=== PATIENT | male | born 1960 | race Caucasian/White ===

== ENCOUNTER 2019-04-28 04:05 | Emergency (ER) | payer MEDICAID ==
[2019-04-28 04:14] VITALS: TEMP 98.1
--- NOTE | 2019-04-28 04:26 | ED ---
Trauma HPI <Adan Narayanan - Last Filed: 04/28/19 07:30> - General Source: patient Mode of arrival: wheelchair Limitations: no limitations <Darlene Magana - Last Filed: 04/28/19 08:38> - General Chief Complaint: Extremity Injury, Upper Stated Complaint: Fall, Arm injury Time Seen by Provider: 04/28/19 04:26 - History of Present Illness Initial Comments: Braulio is a 58-year-old gentleman who presents the emergency department today for evaluation of right shoulder pain. Patient reports that night or early Saturday morning had a mechanical trip and fall over his table and landed onto his right shoulder. He noticed that his shoulder felt odd but thought maybe he just sprained it. Since that time he has noticed that he has minimal movement in his right hand. He is no longer able to extend the fingers. Patient states that he's been trying to move the arm around but is noticed that there is a large lump in his right armpit. States that he doesn't like coming to the doctor so he is trying to just wait it out see if it got better. (Darlene Magana) - Related Data Home Medications Medication Instructions Recorded Confirmed Enalapril [Vasotec] 10 mg PO DAILY 04/28/19 04/28/19 Metoprolol Tartrate [Lopressor] 25 mg PO DAILY 04/28/19 04/28/19 Naproxen Sodium [Aleve] 220 mg PO DAILY PRN 04/28/19 04/28/19 Omeprazole 20 mg PO DAILY 04/28/19 04/28/19 metFORMIN HCL 1,000 mg PO BID 04/28/19 04/28/19 Previous Rx's Medication Instructions Recorded Ibuprofen 800 mg PO Q6HR PRN #20 tablet 04/28/19 Allergies Allergy/AdvReac Type Severity Reaction Status Date / Time No Known Allergies Allergy Verified 04/28/19 07:34 Review of Systems ROS Other: All systems not noted in ROS Statement are negative. <Adan Narayanan - Last Filed: 04/28/19 07:30> ROS Other: All systems not noted in ROS Statement are negative. <Darlene Magana - Last Filed: 04/28/19 08:38> ROS Statement: Those systems with pertinent positive or pertinent negative responses have been documented in the HPI. Past Medical History Past Medical History: Diabetes Mellitus, Hypertension Additional Past Medical History / Comment(s): neuropathy, History of Any Multi-Drug Resistant Organisms: None Reported Past Surgical History: No Surgical Hx Reported Past Psychological History: No Psychological Hx Reported Smoking Status: Former smoker Past Alcohol Use History: Rare Past Drug Use History: None Reported <Darlene Magana - Last Filed: 04/28/19 08:38> General Exam Limitations: no limitations <Darlene Magana - Last Filed: 04/28/19 08:38> - General Exam Comments Initial Comments: Physical Exam GENERAL: Appears uncomfortable Obese Chronically ill appearing HENT: Normocephalic, Atraumatic. EYES: PERRL, EOMI PULMONARY: Splinting respirations CARDIOVASCULAR: RRR ABDOMEN: Soft and nontender with normal bowel sounds. SKIN: Significant ecchymosis of right upper extremity : Deferred NEUROLOGIC: Patient with decreased strength and range of motion in the right lower extremity, inability to extend the fingers, hand is held in a flat position MUSCULOSKELETAL: Decreased range of motion of the right upper extremity. There is weakness in the hand, pain in the elbow pain in the shoulder. PSYCHIATRIC: Normal psychiatric evaluation (Darlene Magana) Course <Adan Narayanan - Last Filed: 04/28/19 07:30> Vital Signs 04/28/19 04/28/19 04/28/19 04:11 06:00 07:07 Temperature 98.1 F Pulse Rate 106 H 98 102 H Respiratory 18 18 14 Rate Blood Pressure 153/95 150/68 185/115 O2 Sat by Pulse 99 98 99 Oximetry 04/28/19 04/28/19 04/28/19 07:10 07:15 07:20 Temperature Pulse Rate 91 96 98 Respiratory 16 16 18 Rate Blood Pressure 155/100 133/76 137/83 O2 Sat by Pulse 98 99 99 Oximetry 04/28/19 04/28/19 04/28/19 07:30 07:45 08:00 Temperature Pulse Rate 99 98 92 Respiratory 18 17 17 Rate Blood Pressure 137/88 143/90 144/81 O2 Sat by Pulse 99 99 100 Oximetry - Reevaluation(s) Reevaluation #1: 04/28/19 07:21 The patient was endorsed to me at shift change pending an attempt at closed reduction of the right shoulder subluxation and has been out for 5 days. Patient is awake alert oriented 3 he does demonstrate ecchymosis to the right shoulder and proximal right arm. He does demonstrate a wrist drop of the right upper extremity. (Adan Narayanan) Reevaluation #2: 04/28/19 07:30 The right shoulder was successfully reduced by the orthopedic PAFederico. Patient is awake alert oriented history he will be discharged he is a sling and will get a cock-up splint as per the physician classroom assistant. Patient will follow palpation. He has are in agreement with the treatment. (Adan Narayanan) Procedures - Procedural Sedation Procedural Sedation Start Time: 07:08 Procedural Sedation Stop Time: 07:30 ASA Class: II Mallampati Airway Score: 3 Preparation: registered nurse cardiac telemetry applied, pulse oximeter, capnometry used, supplemental O2 applied, reversal agents at bedside, suction/airway equipment at bedside, IV secured IV Propofol Dose (mgs): 120 Complications: none Patient Tolerated Procedure: well (Patient was awake alert oriented 3 no evidence of any distress he does maintain his wrist drops in the right upper extremity.) <Adan Narayanan - Last Filed: 04/28/19 07:30> - Procedural Sedation Other Medications Used: Patient previously be given 0.5 mg of Dilaudid and 4 mg of morphine IM (Adan Narayanan) Medical Decision Making <Darlene Magana - Last Filed: 04/28/19 08:38> - Medical Decision Making The patient was seen and evaluated immediately upon arrival emergency department. Patient with a traumatic injury. 4 days ago. Patient has obvious deformity and bruising to the right shoulder. X-rays were ordered which did reveal an anterior shoulder dislocation. Given the patient's medical comorbidities and need for conscious sedation decision was made to have orthopedics at bedside for reduction while I performed the conscious sedation. This was discussed with orthopedic associate on-call quiana villasenor who is agreeable. Patient was prepared for conscious sedation. Quiana villasenor arrived at 7 AM in the daytime ER physician Dr. Narayanan took over conscious sedation and plan for disposition. She was seen and evaluated x-rays were obtained and x-rays confirm a right shoulder dislocation, x-rays of the ribs and elbow were deferred given that the patient has limited range of motion there is no obvious fracture injury at the elbow Patient care was discussed with [facility] physician classroom assistant Federico b ranch, given that the patient will require conscious sedation I requested his assistance and reduction. He will come to bedside for reduction Procedural sedation was ordered (Darlene Magana) Disposition Is patient prescribed a controlled substance at d/c from ED?: No <Adan Narayanan - Last Filed: 04/28/19 07:30> <Darlene Magana - Last Filed: 04/28/19 08:38> Clinical Impression: Dislocation of shoulder region, Wrist drop, right wrist, Fall Disposition: HOME SELF-CARE Condition: Good Instructions (If sedation given, give patient instructions): Moderate Sedation (ED) Prescriptions: Ibuprofen 800 mg PO Q6HR PRN #20 tablet PRN Reason: Pain Referrals: Uday Rojo DO [Primary Care Provider] - 1-2 days Delvis Hamm DO [Doctor of Osteopathic Medicine] - 1-2 days
[2019-04-28] MEDS ORDERED: MORPHINE SULFATE 4 MG/ML SYRINGE IM STA (04:30)
--- NOTE | 2019-04-28 05:21 | XR ---
EXAM: XR Right Shoulder Complete, 2 or More Views CLINICAL HISTORY: Pain TECHNIQUE: Two or more views of the right shoulder. COMPARISON: No relevant prior studies available. FINDINGS: Bones/joints: Anterior dislocation of the shoulder. 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 No definitive evidence of an acute fracture. Soft tissues: Associated posttraumatic changes. IMPRESSION: Anterior dislocation of the shoulder. 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 Attention on follow-up recommended.
--- NOTE | 2019-04-28 05:22 | XR ---
EXAM: XR Right Humerus, 2 or More Views CLINICAL HISTORY: Pain TECHNIQUE: Frontal and lateral views of the right humerus. COMPARISON: No relevant prior studies available. FINDINGS: Bones/joints: Anterior dislocation of the shoulder. No definitive evidence of acute fracture. Soft tissues: Unremarkable. IMPRESSION: Anterior dislocation of the shoulder. No definitive evidence of acute fracture.
[2019-04-28] MEDS ORDERED: PROPOFOL 10 MG/ML 20 ML VIAL IV STA (05:51)
[2019-04-28] MEDS ORDERED: SODIUM CHLORIDE 0.9% 500 ML 500 ML IV STA (05:51)
[2019-04-28] MEDS ORDERED: HYDROmorphone 1 MG/ML 1 ML SYRINGE IVP STA (05:52)
[2019-04-28] MEDS ORDERED: PROPOFOL 10 MG/ML 20 ML VIAL IV ONE (07:10)
--- NOTE | 2019-04-28 07:35 | ED ---
Disposition Clinical Impression: Dislocation of shoulder region, Wrist drop, right wrist, Fall Disposition: HOME SELF-CARE Condition: Good Instructions (If sedation given, give patient instructions): Moderate Sedation (ED) Prescriptions: Ibuprofen 800 mg PO Q6HR PRN #20 tablet PRN Reason: Pain Is patient prescribed a controlled substance at d/c from ED?: No Referrals: Delvis Hamm DO [Doctor of Osteopathic Medicine] - 1-2 days Uday Rojo DO [Primary Care Provider] - 1-2 days Procedures - [place] Protocol (Time Out) Procedure Performed:: closed reduction of dislocated rt shoulder Performing Provider: Adan Narayanan Nurse: Ernestine Burleson Respiratory Therapist: Kimberly Martin Patient Identification (2 identifiers required): Chart, Verbal, Arm Band, Name, Birthdate Patient/Legal Seed Packer has Confirmed: Identity, Site, Procedure, Consent Site: rt shoulder Site Marked: Yes Site Verified With Patient/Guardian: Yes Final Confirmation: Procedure, Site, Laterality, Patient Position, Radiographs
--- NOTE | 2019-04-28 07:43 | P.CNOR ---
History of Present Illness - [facility] Consult date: 04/28/19 Consult reason: other History of present illness: Patient is a 58-year-old male who presented to [facility] early this morning with regards to an injury of the right upper extremity. Patient states that he fell late last evening at his home. Patient tripped on a cord and fell onto a coffee table directly onto that right upper extremity. At the time, patient thought he had initially just sprained the shoulder, since the injuries had a very hard time moving his arm. Over the last day, he's noticed increasing difficulty with moving the fingers, he's not able to extend the fingers or wrist. He is also noticed a very large lump in the axilla of his right upper extremity. Upon arrival to [facility], imaging test demonstrated an anterior dislocated shoulder. I was contacted by the emergency room staff regarding the patient, I was able to review the images. I was able to discuss the case with my attending Dr. Hamm. I then reported to the hospital with plan for a closed reduction attempt under conscious sedation. At bedside, the patient is resting comfortably with his at bedside. He notes most discomfort in the axilla of the right upper extremity. He notes no obvious numbness or tingling or loss of sensation in the right upper extremity. He admits to difficulty extending the wrist and fingers of the right hand. Patient denies any previous surgery involving the right upper extremity. Patient has no other orthopedic complaints at this time. Review of Systems Constitutional: Reports as per [facility] Past Medical History Past Medical History: Diabetes Mellitus, Hypertension Additional Past Medical History / Comment(s): neuropathy, History of Any Multi-Drug Resistant Organisms: None Reported Past Surgical History: No Surgical Hx Reported Past Psychological History: No Psychological Hx Reported Smoking Status: Former smoker Past Alcohol Use History: Rare Past Drug Use History: None Reported Medications and Allergies Home Medications Medication Instructions Recorded Confirmed Type Enalapril [Vasotec] 10 mg PO DAILY 04/28/19 04/28/19 History Ibuprofen 800 mg PO Q6HR PRN #20 tablet 04/28/19 Rx Metoprolol Tartrate [Lopressor] 25 mg PO DAILY 04/28/19 04/28/19 History Naproxen Sodium [Aleve] 220 mg PO DAILY PRN 04/28/19 04/28/19 History Omeprazole 20 mg PO DAILY 04/28/19 04/28/19 History metFORMIN HCL 1,000 mg PO BID 04/28/19 04/28/19 History Allergies Allergy/AdvReac Type Severity Reaction Status Date / Time No Known Allergies Allergy Verified 04/28/19 07:34 Physical Examination Right upper extremity: No open lesions or sores present throughout extremity Obvious soft tissue swelling and ecchymosis present throughout the proximal aspect of the upper extremity Patient's arm currently is at about 90 of abduction with external rotation of the arm behind his head, he finds this most comforting Palpable defect along lateral joint line, humeral head is palpated in the axilla Sensation to light touch throughout the upper extremities intact, his radial pulses 2+ He is unable to extend the fingers or wrist Flexion of the wrist and fingers are intact Results - Diagnostic results Shoulder x-ray: report reviewed, image reviewed Assessment and Plan Plan: Imaging: Initial x-rays of the shoulder were reviewed, obvious anterior dislocation present. Post reduction films did demonstrate anatomical alignment of the right shoulder joint. No obvious fractures present Assessment: 1. Right anterior shoulder dislocation 4 days 2. Status post closed reduction right shoulder 3. 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 Prescription for a wrist drop orthotic was prescribed, I advised immediate follow-up with Eric is a [employer] this morning to be fitted Pain medication via ER physician Plan for follow-up with Dr. Hamm in 1 week in the outpatient setting Time with Patient: Less than 30
[2019-04-28 07:47] VITALS: RESP 17
--- NOTE | 2019-04-28 07:47 | P.PCN ---
Date of Procedure: 04/28/19 Preoperative Diagnosis: Right anterior shoulder dislocation Postoperative Diagnosis: Status post closed reduction right shoulder Procedure(s) Performed: Closed reduction right shoulder Anesthesia: MAC Surgeon: Randy Simmons Estimated Blood Loss (ml): 0 Pathology: none sent Condition: stable Indications for Procedure: Fall on right shoulder 4 days ago, right shoulder dislocation Description of Procedure: Discussion of procedure was done with patient and family at bedside. Consent was obtained, proper timeout was done prior to procedure After conscious sedation was provided by ER physician, patient was placed in the supine position. With a combination of longitudinal traction and external rotation of the right upper extremity, proper reduction of the right shoulder was obtained. I was unable to appreciate the palpable defect in the glenohumeral joint line. Reduction of the right shoulder was confirmed by x-ray evaluation Patient was provided with an arm sling in the emergency room. A prescription was placed for a wristdrop orthotic. Patient was [facility]. He was also advised to contact the office with any questions.
--- NOTE | 2019-04-28 08:10 | XR ---
EXAMINATION TYPE: XR shoulder limited RT DATE OF EXAM: 04/28/2019 COMPARISON: Earlier today HISTORY: 58-year-old male postreduction, pain TECHNIQUE: Single AP portable view FINDINGS: Interval reduction of the glenohumeral joint. However, there is narrowing of the subacromial space. M ild degenerative change AC joint. IMPRESSION: 1. Interval reduction of the glenoid humeral joint. 2. Possible underlying rotator cuff tear. Clinically correlate.
[2019-04-28 08:14] VITALS: BP 144/81; PULSE 92
== END 2019-04-28 08:14 | disposition home or self-care (01) ==
LOC: EC 04:05
DX: S43.004A Unspecified dislocation of right shoulder joint, initial encounter (principal); M21.331 Wrist drop, right wrist; G56.31 Lesion of radial nerve, right upper limb; E11.40 Type 2 diabetes mellitus with diabetic neuropathy, unspecified; I10 Essential (primary) hypertension; Z79.84 Long term (current) use of oral hypoglycemic drugs; Z79.899 Other long term (current) drug therapy; Z87.891 Personal history of nicotine dependence; W01.0XXA Fall on same level from slipping, tripping and stumbling without subsequent striking against object, initial encounter
CPT/HCPCS: 73020; 73060; 99284; 23650; 99152; 96374; 96361; 96372; J2270; J1170; J2704

== ENCOUNTER 2020-01-05 10:14 | Inpatient (IN) | payer BC, MEDICAID, OTHER ==
[2020-01-05] MEDS ORDERED: SODIUM CHLORIDE 0.9% 1,000 ML IV ONE (10:39)
[2020-01-05] MEDS ORDERED: PIPERACILLIN-TAZOBACTAM 3.375 GM in SODIUM CHLORIDE 0.9% 100 ML IVPB STA (10:39)
[2020-01-05] MEDS ORDERED: VANCOMYCIN IV PER PHARMACY 1 EACH MISC MISCELLANE PRN (10:39)
--- NOTE | 2020-01-05 10:54 | ED ---
Extremity Problem HPI - General Source: patient, RN notes reviewed, old records reviewed Mode of arrival: ambulatory <Vonda Gutierrez - Last Filed: 01/05/20 12:28> <Adan Narayanan - Last Filed: 01/05/20 13:12> - General Chief complaint: Extremity Problem,Nontraumatic Stated complaint: lower extremity issues Time Seen by Provider: 01/05/20 10:25 - History of Present Illness Initial comments: Is a 59-year-old male with history of diabetes, hypertension neuropathy. He presents today with a black right fourth digit. Patient reports she's noticed this over the past 12 days. Is also being treated with wounds over his left lower extremity and foot. Patient is currently incarcerated. He does not seem care management and this is done at the half-way. Patient reports that he is currently on Cipro for the wounds over his left lower lower extremity. Patient reports that he's noticed a foul odor from the toes. (Vonda Gutierrez) - Related Data Home Medications Medication Instructions Recorded Confirmed Metoprolol Tartrate [Lopressor] 25 mg PO BID 04/28/19 01/05/20 Omeprazole 20 mg PO DAILY 04/28/19 01/05/20 metFORMIN HCL 1,000 mg PO BID 04/28/19 01/05/20 Atorvastatin Calcium [Lipitor] 20 mg PO HS 01/05/20 01/05/20 Ciprofloxacin HCl [Cipro] 500 mg PO BID 01/05/20 01/05/20 Citalopram Hydrobromide [CeleXA] 40 mg PO DAILY 01/05/20 01/05/20 Losartan [Cozaar] 50 mg PO BID 01/05/20 01/05/20 Allergies Allergy/AdvReac Type Severity Reaction Status Date / Time No Known Allergies Allergy Verified 01/05/20 12:05 Review of Systems ROS Other: All systems not noted in ROS Statement are negative. <Vonda Gutierrez - Last Filed: 01/05/20 12:28> ROS Other: All systems not noted in ROS Statement are negative. <Adan Narayanan - Last Filed: 01/05/20 13:12> ROS Statement: Those systems with pertinent positive or pertinent negative responses have been documented in the HPI. Past Medical History Past Medical History: Diabetes Mellitus, Hypertension Additional Past Medical History / Comment(s): neuropathy, History of Any Multi-Drug Resistant Organisms: None Reported Past Surgical History: No Surgical Hx Reported Past Psychological History: No Psychological Hx Reported Smoking Status: Former smoker Past Alcohol Use History: Rare Past Drug Use History: None Reported <Vonda Gutierrez - Last Filed: 01/05/20 12:28> General Exam General appearance: alert, in no apparent distress Head exam: Present: atraumatic, normocephalic, normal inspection Eye exam: Present: normal appearance, PERRL, EOMI. Absent: scleral icterus, conjunctival injection, periorbital swelling ENT exam: Present: normal exam, mucous membranes moist Neck exam: Present: normal inspection. Absent: tenderness, meningismus, lymphadenopathy Respiratory exam: Present: normal lung sounds bilaterally. Absent: respiratory distress, rales, rhonchi, stridor Cardiovascular Exam: Present: regular rate, normal rhythm, normal heart sounds. Absent: systolic murmur, diastolic murmur, rubs, gallop, clicks GI/Abdominal exam: Present: soft, normal bowel sounds. Absent: distended, tenderness, guarding, rebound, rigid Extremities exam: Present: full ROM, normal capillary refill. Absent: normal inspection, tenderness, pedal edema, joint swelling, calf tenderness Right Lower Leg exam: Present: normal inspection, full ROM Ankle exam: Present: normal inspection, full ROM Foot/Toe exam: Present: full ROM. Absent: normal inspection (Patient has gangrene over the third digit. Evidence of black necrotic tissue for 3rd digit. ), tenderness 1 - dry gangrene 2 - 3cm by 3cm wound Back exam: Present: normal inspection, full ROM Neurological exam: Present: alert, oriented X3, CN II-XII intact Psychiatric exam: Present: normal affect, normal mood Skin exam: Present: warm, dry, intact, normal color. Absent: rash <Vonda Gutierrez - Last Filed: 01/05/20 12:28> - General Exam Comments Initial Comments: 59 year old male, no distress. (Vonda Gutierrez) Course <Adan Narayanan - Last Filed: 01/05/20 13:12> Vital Signs 01/05/20 01/05/20 10:16 13:00 Temperature 98.4 F 98.2 F Pulse Rate 71 76 Respiratory 19 18 Rate Blood Pressure 129/91 124/82 O2 Sat by Pulse 99 99 Oximetry - Reevaluation(s) Reevaluation #1: 01/05/20 13:12 PA supervision: I proceeded [id number] evaluation patient he did present with complaints of right third toe blackness does appear to be consistent with gangrene. I did discuss case with Dr. Babb he did come to see the patient. Patient will be admitted (Adan Narayanan) Medical Decision Making - Lab Data Result diagrams: 01/05/20 11:20 01/05/20 11:20 - Radiology Data Radiology results: report reviewed <Vonda Gutierrez - Last Filed: 01/05/20 12:28> - Lab Data Result diagrams: 01/05/20 11:20 01/05/20 11:20 <Adan Narayanan - Last Filed: 01/05/20 13:12> - Medical Decision Making 59-year-old male diabetic presents today for gangrene over his right third toe. Patient is currently incarcerated. Patient reports worsening necrosis and odor over the past 5 days. Patient x-ray cannot was auscultated with Doppler ultrasound. Patient has not seen a specific wound care physician or vascular surgeon. Patient was started on Zosyn and vancomycin. Patient was found to have an elevated lactic acid of 2.6. Discussed putting consult for vascular. (Vonda Gutierrez) - Lab Data Lab Results 01/05/20 01/05/20 01/05/20 Range/Units 11:20 11:20 11:20 WBC 6.8 (3.8-10.6) k/uL RBC 3.53 L (4.30-5.90) m/uL Hgb 10.7 L (13.0-17.5) gm/dL Hct 31.7 L (39.0-53.0) % MCV 89.8 (80.0-100.0) fL MCH 30.2 (25.0-35.0) pg MCHC 33.7 (31.0-37.0) g/dL RDW 14.8 (11.5-15.5) % Plt Count 404 (150-450) k/uL Neutrophils % 60 % Lymphocytes % 27 % Monocytes % 8 % Eosinophils % 2 % Basophils % 0 % Neutrophils # 4.1 (1.3-7.7) k/uL Lymphocytes # 1.9 (1.0-4.8) k/uL Monocytes # 0.6 (0-1.0) k/uL Eosinophils # 0.1 (0-0.7) k/uL Basophils # 0.0 (0-0.2) k/uL Sodium 135 L (137-145) mmol/L Potassium 5.0 (3.5-5.1) mmol/L Chloride 105 (98-107) mmol/L Carbon Dioxide 17 L (22-30) mmol/L Anion Gap 13 mmol/L BUN 19 (9-20) mg/dL Creatinine 1.63 H (0.66-1.25) mg/dL Est GFR (CKD-EPI)AfAm 53 (>60 ml/min/1.73 sqM) Est GFR (CKD-EPI)NonAf 46 (>60 ml/min/1.73 sqM) Glucose 148 H (74-99) mg/dL Plasma Lactic Acid Jeffry 2.7 H* (0.7-2.0) mmol/L Calcium 9.1 (8.4-10.2) mg/dL Total Bilirubin 0.5 (0.2-1.3) mg/dL AST 18 (17-59) U/L ALT 11 (4-49) U/L Alkaline Phosphatase 66 (38-126) U/L Total Protein 7.1 (6.3-8.2) g/dL Albumin 4.0 (3.5-5.0) g/dL - Radiology Data Definite changes for osteomyelitis are not identified. However the inferior cortex of the fifth metatarsal and prior fracture site is not well defined. Osteomyelitis of the distal fifth metatarsals not excluded. Consider additional evaluation [address] may provide additional information. Soft tissue swelling at the fourth digit with no definite changes of osteomyelitis. (Vonda Gutierrez) Disposition Is patient prescribed a controlled substance at d/c from ED?: No Time of Disposition: 12:36 <Vonda Gutierrez - Last Filed: 01/05/20 12:28> <Adan Narayanan - Last Filed: 01/05/20 13:12> Clinical Impression: Gangrene of toe, Diabetes, Lactic acidosis, Failure of outpatient treatment Disposition: ADMITTED IP TO THIS [facility] Condition: Stable
[2020-01-05] MEDS ORDERED: VANCOMYCIN 1,750 MG in SODIUM CHLORIDE 0.9% 500 ML 500 ML IVPB ONE (11:00)
[2020-01-05] MEDS: SODIUM CHLORIDE 0.9% 1,000 ML IV SCH ×2 (11:22→21:05)
[2020-01-05 11:43] LABS: Basophils % (A) 0 %; Eosinophils # (A) 0.1 k/uL (0-0.7); Eosinophils % (A) 2 %; HCT 31.7 % (39.0-53.0); HGB 10.7 gm/dL (13.0-17.5); Lymphocytes # (A) 1.9 k/uL (1.0-4.8); Lymphocytes % (A) 27 %; MCH 30.2 pg (25.0-35.0); MCHC 33.7 g/dL (31.0-37.0); MCV 89.8 fL (80.0-100.0); Mean Platelet Volume 6.7; Monocytes # (A) 0.6 k/uL (0-1.0); Monocytes % (A) 8 %; Neutrophils # (A) 4.1 k/uL (1.3-7.7); Neutrophils % (A) 60 %; Platelet Count 404 k/uL (150-450); RBC 3.53 m/uL (4.30-5.90); RDW 14.8 % (11.5-15.5); WBC 6.8 k/uL (3.8-10.6)
--- NOTE | 2020-01-05 11:56 | XR ---
EXAMINATION TYPE: XR foot complete RT DATE OF EXAM: 01/05/2020 COMPARISON: None HISTORY: Gangrene fourth toe TECHNIQUE: Three-view right foot FINDINGS: There appears be an old fracture of the distal right fifth metatarsal. There is lucency wit hin the distal aspect of the distal fifth metatarsal. Cortical erosion however is not clearly evident . Lateral view cannot define the inferior aspect of the fifth metatarsal however. Findings could be r elated to old fracture or osteomyelitis. Consider 3 phase bone scan. The fourth digit appears intact. There is some soft tissue swelling present. Fifth digit appears inta ct. Hammertoe the digits are present. Plantar and Achilles tendon calcaneal heel spurs are present. N ote is made of vascular calcification. IMPRESSION: 1. Definite changes for osteomyelitis or not identified. However, the inferior cortex of the fifth m etatarsal and a prior fracture site is not well-defined. Osteomyelitis of the distal fifth metatarsal is not excluded. Consider additional evaluation with three-phase bone scan. CT may provide additiona l information. 2. Soft tissue swelling at the fourth digit no definite changes of osteomyelitis of the fourth digit is evident.
[2020-01-05 12:03] LABS: Calcium 9.1 mg/dL (8.4-10.2); Total Bilirubin 0.5 mg/dL (0.2-1.3); Total Protein 7.1 g/dL (6.3-8.2)
[2020-01-05] MEDS ORDERED: KETOROLAC 30 MG/ML 1 ML VIAL IVP PRN (12:37)
[2020-01-05] MEDS ORDERED: ONDANSETRON 4 MG/2 ML VIAL IVP PRN (12:37)
[2020-01-05] MEDS ORDERED: IBUPROFEN 400 MG TAB PO PRN (12:37)
[2020-01-05] MEDS ORDERED: NALOXONE 0.4 MG/ML 1 ML VIAL IV PRN (12:37)
--- NOTE | 2020-01-05 15:26 | P.GSCN ---
History of Present Illness Consult date: 01/05/20 Reason for Consult: Gangrene of right third toe History of present illness: The patient is a 59-year-old male with a history of diabetes, hypertension, and neuropathy. He presented to the emergency department with complaints of his right foot third toe turning black, starting approximately 12 days ago. He started noticing an odor the last couple days. The patient also has a left foot ulcer that has been cared for by the nurses in the [facility] for the last 6 weeks where he is currently incarcerated. States he has been on 3 antibiotics now currently was on Cipro. He states that the left foot ulcer has been healing well. He denies any fever, chills, shortness of breath, or cough. He denies any previous peripheral arterial disease, or arterial studies. He is a former smoker, quit several years ago. He denies any pain or cramping with walking or rest. X-ray of the right foot shows an old fracture of the distal right fifth metatarsal. There is lucency within the distal aspect of the distal fifth metatarsal. Cortical erosion however is not clearly evident. Findings could be related to old fracture or osteomyelitis. Definite changes for osteomyelitis are not identified. However the inferior cortex of the fifth metatarsal and prior fracture site is not well defined. Osteomyelitis of the distal fifth metatarsal is not excluded. Consider additional evaluation with three-phase bone scan. CT may provide additional information. There is soft tissue swelling at the fourth digit no definite ch anges of osteomyelitis of the fourth digit is evident. Review of Systems Review of systems was completed and all pertinent positives and negatives as stated in the HPI. Past Medical History Past Medical History: Asthma, Diabetes Mellitus, GERD/Reflux, Hyperlipidemia, Hypertension Additional Past Medical History / Comment(s): NIDDM type II, neuropathy bilateral feet/legs, pt states his hgb is dropping and that his physician who he sees in the [facility] thinks he has internal bleeding somewhere/plans to work this up soon, bronchitis, R shoulder discomfort. History of Any Multi-Drug Resistant Organisms: None Reported Past Surgical History: Orthopedic Surgery Additional Past Surgical History / Comment(s): R shoulder manipulation for dislocation. Past Anesthesia/Blood Transfusion Reactions: No Reported Reaction Past Psychological History: No Psychological Hx Reported Additional Psychological History / Comment(s): Pt currently incarcerated. Smoking Status: Former smoker Past Alcohol Use History: None Reported Additional Past Alcohol Use History / Comment(s): Pt started smoking in 1977 and quit once for 10 yrs and quit again in 2014. Past Drug Use History: None Reported - Past Family History Father Family Medical History: Diabetes Mellitus Additional Family Medical History / Comment(s): Father is . Mother Family Medical History: No Reported History Additional Family Medical History / Comment(s): Mother is healthy. Medications and Allergies Home Medications Medication Instructions Recorded Confirmed Type Metoprolol Tartrate [Lopressor] 25 mg PO BID 04/28/19 01/05/20 History Omeprazole 20 mg PO DAILY 04/28/19 01/05/20 History metFORMIN HCL 1,000 mg PO BID 04/28/19 01/05/20 History Atorvastatin Calcium [Lipitor] 20 mg PO HS 01/05/20 01/05/20 History Ciprofloxacin HCl [Cipro] 500 mg PO BID 01/05/20 01/05/20 History Citalopram Hydrobromide [CeleXA] 40 mg PO DAILY 01/05/20 01/05/20 History Losartan [Cozaar] 50 mg PO BID 01/05/20 01/05/20 History Allergies Allergy/AdvReac Type Severity Reaction Status Date / Time No Known Allergies Allergy Verified 01/05/20 12:05 Surgical - Exam Vital Signs Temp Pulse Resp BP Pulse Ox 98.4 F 71 19 129/91 99 01/05/20 10:16 01/05/20 10:16 01/05/20 10:16 01/05/20 10:16 01/05/20 10:16 General appearance: The patient is alert, oriented, in no acute distress. HET: Head is normocephalic and atraumatic. Neck: Supple without lymphadenopathy. Trachea midline. Heart: S1 S2. Regular rate and rhythm. Lungs: No crackles or wheezes are heard. Extremities: Dry cracking skin. No edema bilaterally. Palpable bilateral DP and PT pulses, warm to touch bilaterally. Right foot third toe with dry g angrene, with malodor noted. Plantar side of left foot with 2 cm x 4 cm ulcer without drainage or odor. Neurological: No focal deficits. Strength and sensation are grossly intact. Results - Labs 01/05/20 11:20 01/05/20 11:20 Abnormal Lab Results - Last 24 Hours (Table) 01/05/20 01/05/20 01/05/20 Range/Units 11:20 11:20 11:20 RBC 3.53 L (4.30-5.90) m/uL Hgb 10.7 L (13.0-17.5) gm/dL Hct 31.7 L (39.0-53.0) % Sodium 135 L (137-145) mmol/L Carbon Dioxide 17 L (22-30) mmol/L Creatinine 1.63 H (0.66-1.25) mg/dL Glucose 148 H (74-99) mg/dL Plasma Lactic Acid Jeffry 2.7 H* (0.7-2.0) mmol/L Diabetes panel 01/05/20 Range/Units 11:20 Sodium 135 L (137-145) mmol/L Potassium 5.0 (3.5-5.1) mmol/L Chloride 105 (98-107) mmol/L Carbon Dioxide 17 L (22-30) mmol/L BUN 19 (9-20) mg/dL Creatinine 1.63 H (0.66-1.25) mg/dL Glucose 148 H (74-99) mg/dL Calcium 9.1 (8.4-10.2) mg/dL AST 18 (17-59) U/L ALT 11 (4-49) U/L Alkaline Phosphatase 66 (38-126) U/L Total Protein 7.1 (6.3-8.2) g/dL Albumin 4.0 (3.5-5.0) g/dL Calcium panel 01/05/20 Range/Units 11:20 Calcium 9.1 (8.4-10.2) mg/dL Albumin 4.0 (3.5-5.0) g/dL Pituitary panel 01/05/20 Range/Units 11:20 Sodium 135 L (137-145) mmol/L Potassium 5.0 (3.5-5.1) mmol/L Chloride 105 (98-107) mmol/L Carbon Dioxide 17 L (22-30) mmol/L BUN 19 (9-20) mg/dL Creatinine 1.63 H (0.66-1.25) mg/dL Glucose 148 H (74-99) mg/dL Calcium 9.1 (8.4-10.2) mg/dL Adrenal panel 01/05/20 Range/Units 11:20 Sodium 135 L (137-145) mmol/L Potassium 5.0 (3.5-5.1) mmol/L Chloride 105 (98-107) mmol/L Carbon Dioxide 17 L (22-30) mmol/L BUN 19 (9-20) mg/dL Creatinine 1.63 H (0.66-1.25) mg/dL Glucose 148 H (74-99) mg/dL Calcium 9.1 (8.4-10.2) mg/dL Total Bilirubin 0.5 (0.2-1.3) mg/dL AST 18 (17-59) U/L ALT 11 (4-49) U/L Alkaline Phosphatase 66 (38-126) U/L Total Protein 7.1 (6.3-8.2) g/dL Albumin 4.0 (3.5-5.0) g/dL Assessment and Plan Assessment: 1. Gangrene of right foot third toe. 2. Diabetic ulcer of left foot 3. Diabetes 4. Hypertension 5. Neuropathy Plan: Discussed patient with Dr. Preston. Continue with vancomycin and Zosyn as ordered. Patient is to have nothing to eat or drink after midnight. The plan is for a right third toe amputation with possible left foot ulcer debridement. The patient was in agreement to the plan of care. Further recommendations to follow. Thank you for this consultation and allowing us to take part in the plan of care of this patient during his hospital stay. The above dictated assessment and findings were discussed with Dr. Preston. The impression and plan of care have been directed as dictated.
[2020-01-05 17:21] LABS: Glucose,Whole Blood 158 mg/dL (75-99)
[2020-01-05] MEDS: PIPERACILLIN-TAZOBACTAM 3.375 GM in SODIUM CHLORIDE 0.9% 100 ML IVPB SCH (21:05)
[2020-01-05] MEDS: ENOXAPARIN 40 MG/0.4 ML SYRINGE SQ SCH (21:05)
[2020-01-05] MEDS: METOPROLOL TARTRATE 25 MG TAB PO SCH (21:09)
[2020-01-05] MEDS: ATORVASTATIN 20 MG TAB PO SCH (21:09)
[2020-01-05] MEDS: LOSARTAN 50 MG TAB PO SCH (21:10)
[2020-01-05] MEDS: metFORMIN 500 MG TAB PO SCH (21:10)
[2020-01-05] MEDS: SODIUM BICARBONATE TAB 650 MG TAB PO SCH (21:16)
--- NOTE | 2020-01-05 21:16 | P.HPIM ---
History of Present Illness H&P Date: 01/05/20 Chief Complaint: Gangrene right foot third toe History of presenting to plan: This is a pleasant 59-year-old patient of Dr. Uday Artis. Chronic stable medical conditions include diabetes, GERD, hyperlipidemia. Patient is currently at the local care home. He has a deputy from the care home. Patient about 12 years ago noted a red spot on the right foot third toe on the dorsum. It progressively got worse. And now the whole toes become black in color. There is no pain. No fever no chills. No surrounding redness. Patient does have very dry skin and disfigured nails. Has some numbness in the feet. Review of systems: GEN.: None EYES: None HEENT: None NECK: None RESPIRATORY: Occasional cough CARDIOVASCULAR: None GASTROINTESTINAL: None GENITOURINARY: None MUSCULOSKELETAL: Occasional joint pains LYMPHATICS: None HEMATOLOGICAL: None PSYCHIATRY: None NEUROLOGICAL: Some numbness in the feet Past medical history to include: COPD, diabetes, GERD, hyperlipidemia, hypertension, peripheral neuropathy, right shoulder pain Social history: Patient stopped smoking 5 years ago. Smoked for close to off-and-on for 40 years about half a pack a . Normally drinks about 4 beers a day. Currently in care home Physical examination: VITAL SIGNS: 98.4, 71, 19, 129/91, [place] percent on room air GENERAL: [BMI 33.1, sitting upon a distress. EYES: Pupils equal. Conjunctiva normal. HEENT: External appearance of nose and ears normal, oral cavity grossly normal. NECK: JVD not raised; masses not palpable. HEART: First and second heart sounds are normal; no edema. LUNGS: Respiratory rate normal; decreased breath sound. ABDOMEN: Soft, nontender, liver spleen not palpable, no masses palpable. PSYCH: Alert and oriented x3; mood and affect normal. NEUROLOGICAL: [Cranial nerves grossly intact; no facial asymmetry, decreased sensation in the feet EXTREMITY: Right foot third toe has dry black, with minimal sensation. Dorsalis pedis is not palpable. Dysmorphic nails LYMPHATICS: No lymph nodes palpable in the axilla and neck INVESTIGATIONS, reviewed in the clinical context: X-ray no obvious changes of osteomyelitis. Though it cannot be ruled out. White count 6.8 hemoglobin 10.7 platelets 404 progression 5 creatinine 1.63 Assessment: -Acute dry gangrene of the right foot third digit, likely from small vessel disease in a diabetic -Hyperlipidemia -Essential hypertension -Depression otherwise specified -Diabetes mellitus type 2 on oral hypoglycemic -COPD in an ex-smoker -Chronic lower extremity dysmorphic nails -Probable peripheral artery disease in a ex-smoker -Suspect chronic kidney disease, cannot rule out acute component Plan: *Surgery was consulted. Home medications resumed. Patient is put on IV Zosyn. Lovenox for DVT prophylaxis. Accu-Cheks will be followed. Patient had been receiving ciprofloxacin with care home. ID is consulted. Care was discussed with the patient question were answered. We'll order renal ultrasound UA and a neph rology consultation. Past Medical History Past Medical History: Asthma, Diabetes Mellitus, GERD/Reflux, Hyperlipidemia, Hypertension Additional Past Medical History / Comment(s): NIDDM type II, neuropathy bilateral feet/legs, pt states his hgb is dropping and that his physician who he sees in the care home thinks he has internal bleeding somewhere/plans to work this up soon, bronchitis, R shoulder discomfort. History of Any Multi-Drug Resistant Organisms: None Reported Past Surgical History: Orthopedic Surgery Additional Past Surgical History / Comment(s): R shoulder manipulation for dislocation. Past Anesthesia/Blood Transfusion Reactions: No Reported Reaction Past Psychological History: No Psychological Hx Reported Additional Psychological History / Comment(s): Pt currently incarcerated. Smoking Status: Former smoker Past Alcohol Use History: None Reported Additional Past Alcohol Use History / Comment(s): Pt started smoking in 1977 and quit once for 10 yrs and quit again in 2014. Past Drug Use History: None Reported - Past Family History Father Family Medical History: Diabetes Mellitus Additional Family Medical History / Comment(s): Father is . Mother Family Medical History: No Reported History Additional Family Medical History / Comment(s): Mother is healthy. Medications and Allergies Home Medications Medication Instructions Recorded Confirmed Type Metoprolol Tartrate [Lopressor] 25 mg PO BID 04/28/19 01/05/20 History Omeprazole 20 mg PO DAILY 04/28/19 01/05/20 History metFORMIN HCL 1,000 mg PO BID 04/28/19 01/05/20 History Atorvastatin Calcium [Lipitor] 20 mg PO HS 01/05/20 01/05/20 History Ciprofloxacin HCl [Cipro] 500 mg PO BID 01/05/20 01/05/20 History Citalopram Hydrobromide [CeleXA] 40 mg PO DAILY 01/05/20 01/05/20 History Losartan [Cozaar] 50 mg PO BID 01/05/20 01/05/20 History Allergies Allergy/AdvReac Type Severity Reaction Status Date / Time No Known Allergies Allergy Verified 01/05/20 12:05 Physical Exam Vitals: Vital Signs Temp Pulse Pulse Pulse Pulse Resp BP 01/05/20 20:39 98.4 F 82 82 16 01/05/20 15:00 98.0 F 70 20 01/05/20 13:00 98.2 F 76 18 124/82 01/05/20 10:16 98.4 F 71 19 129/91 BP Pulse Ox 01/05/20 20:39 180/99 99 01/05/20 15:00 156/91 100 01/05/20 13:00 99 01/05/20 10:16 99 Intake and Output 01/05/20 01/05/20 01/05/20 06:59 14:59 22:59 Other: # Voids 0 Weight 101.741 kg Results CBC & Chem 7: 01/05/20 11:20 01/05/20 11:20 Labs: Abnormal Lab Results - Last 24 Hours (Table) 01/05/20 01/05/20 01/05/20 Range/Units 11:20 11:20 11:20 RBC 3.53 L (4.30-5.90) m/uL Hgb 10.7 L (13.0-17.5) gm/dL Hct 31.7 L (39.0-53.0) % Sodium 135 L (137-145) mmol/L Carbon Dioxide 17 L (22-30) mmol/L Creatinine 1.63 H (0.66-1.25) mg/dL Glucose 148 H (74-99) mg/dL POC Glucose (mg/dL) (75-99) mg/dL Plasma Lactic Acid Jeffry 2.7 H* (0.7-2.0) mmol/L 01/05/20 Range/Units 17:07 RBC (4.30-5.90) m/uL Hgb (13.0-17.5) gm/dL Hct (39.0-53.0) % Sodium (137-145) mmol/L Carbon Dioxide (22-30) mmol/L Creatinine (0.66-1.25) mg/dL Glucose (74-99) mg/dL POC Glucose (mg/dL) 158 H (75-99) mg/dL Plasma Lactic Acid Jeffry (0.7-2.0) mmol/L Microbiology - Last 24 Hours (Table) 01/05/20 14:21 Gram Stain - Preliminary Foot - Left Wound Culture - Preliminary 01/05/20 12:20 Gram Stain - Preliminary Foot - Right Wound Culture - Preliminary 01/05/20 14:21 Anaerobic Culture - Preliminary Foot - Left Thrombosis Risk Factor Assmnt - Choose All That Apply Any of the Below Risk Factors Present?: Yes Each Factor Represents 1 point: Age 41-60 years, Obesity (BMI >25) Other Risk Factors: No Other congenital or acquired thrombophilia - If yes, enter type in comment: No Thrombosis Risk Factor Assessment Total Risk Factor Score: 2 Thrombosis Risk Factor Assessment Level: Low Risk
[2020-01-05 21:23] LABS: Glucose,Whole Blood 182 mg/dL (75-99)
[2020-01-05] MEDS ORDERED: HYDROmorphone 0.5 MG/0.5 ML SYRINGE IVP PRN (21:28)
[2020-01-06 05:05] LABS: Appearance,Urine Clear (Clear); Bilirubin,Urine Negative (Negative); Blood,Urine Negative (Negative); Color,Urine Light Yellow; Glucose,Urine (UA) Negative (Negative); Ketones,Urine Negative (Negative); Leukocyte Esterase,Urine Negative (Negative); Mucus,Urine Rare /hpf; Nitrite,Urine Negative (Negative); Protein,Urine 1+ (Negative); RBC,Urine 1 /hpf (0-5); Urobilinogen,Urine <2.0 mg/dL (<2.0); WBC,Urine <1 /hpf (0-5)
[2020-01-06] MEDS: PIPERACILLIN-TAZOBACTAM 3.375 GM in SODIUM CHLORIDE 0.9% 100 ML IVPB SCH ×3 (05:05→20:12)
[2020-01-06] MEDS: SODIUM CHLORIDE 0.9% 1,000 ML IV SCH (05:13)
[2020-01-06 06:57] LABS: Glucose,Whole Blood 161 mg/dL (75-99)
[2020-01-06 07:53] LABS: HCT 29.1 % (39.0-53.0); HGB 9.8 gm/dL (13.0-17.5); MCHC 33.6 g/dL (31.0-37.0); MCV 92.5 fL (80.0-100.0); Mean Platelet Volume 6.8; Platelet Count 354 k/uL (150-450); RBC 3.14 m/uL (4.30-5.90); RDW 14.8 % (11.5-15.5); WBC 6.3 k/uL (3.8-10.6)
[2020-01-06 07:55] LABS: Calcium 8.4 mg/dL (8.4-10.2); Potassium 4.4 mmol/L (3.5-5.1)
--- NOTE | 2020-01-06 08:20 | US ---
EXAMINATION TYPE: US kidneys/renal and bladder DATE OF EXAM: 01/06/2020 COMPARISON: NONE CLINICAL HISTORY: 59-year-old male Evaluate for CKD. CKD, diabetes. TECHNIQUE: Multiple sonographic images of the kidneys and bladder are obtained. FINDINGS: SHOE RECONDITIONER NOTES: Exam done portable. EXAM MEASUREMENTS: Right Kidney: 10.4 x 5.8 x 4.9 cm Left Kidney: 10.7 x 6.2 x 5.0 cm Right Kidney: lobulated contour, no hydronephrosis, 2.6cm isoechoic area mid pole, possible prominent column of Harman Left Kidney: lobulated contour, no hydronephrosis, 1.6cm isoechoic area mid pole, possible prominent column of Harman Bladder: wnl Bilateral Jets seen: no IMPRESSION: 1. No hydronephrosis. 2. Focal isoechoic areas at the bilateral renal mid poles, suspect prominent column of Harman. Follow -up ultrasound in 3 months to reassess.
[2020-01-06] MEDS: ENOXAPARIN 40 MG/0.4 ML SYRINGE SQ SCH (08:29)
[2020-01-06] MEDS: CITALOPRAM HYDROBROMIDE 20 MG TAB PO SCH (08:29)
[2020-01-06] MEDS: metFORMIN 500 MG TAB PO SCH (08:30)
[2020-01-06] MEDS: SODIUM BICARBONATE TAB 650 MG TAB PO SCH ×3 (08:30→20:12)
[2020-01-06] MEDS: PANTOPRAZOLE 40 MG/10 ML VIAL IV SCH (08:30)
[2020-01-06] MEDS: LOSARTAN 50 MG TAB PO SCH ×2 (08:40→20:12)
[2020-01-06] MEDS: METOPROLOL TARTRATE 25 MG TAB PO SCH ×2 (08:40→20:12)
--- NOTE | 2020-01-06 08:56 | P.NPCON ---
History of Present Illness - Reason for Consult acute renal failure - History of Present Illness Reason for consultation: Acute kidney injury History of present illness: Patient is a 59-year-old male seen in renal consultation for acute kidney injury. Patient's creatinine was 1.63 on admission and is 1.57 today. Unknown as to what his baseline renal function is. Patient denies seeing a mineral resources inspector outpatient. Patient is presenting to the hospital from [facility]. He denies chest pain or shortness of breath. Denies edema. Admits to good urine output. No hematuria or dysuria. Oral intake has been good. Denies vomiting or diarrhea. He does have history of diabetes mellitus and is maintained on metformin. He is currently being treated for lower extremity cellulitis. Patient states he's been on 3 different antibiotics in the last couple of months due to the infection. He was on Bactrim but states recently he's been on Cipro. He denies regular use of nonsteroidals. Patient states he last took Motrin about 2 months ago. Hemodynamically he is stable. He is maintained on normal saline at 100 mL an hour. Vital signs are stable. General: The patient appeared well nourished and normally developed. HEENT: Head exam is unremarkable. Neck is without jugular venous distension. LUNGS: Lungs are clear to auscultation and percussion. Breath sounds decreased. HEART: Rate and Rhythm are regular. First and second heart sounds normal. No murmurs, rubs or gallops. ABDOMEN: Nontender. EXTREMITITES: No clubbing, cyanosis, or edema. Graft. No drainage noted. Past Medical History Past Medical History: Asthma, Diabetes Mellitus, GERD/Reflux, Hyperlipidemia, Hypertension Additional Past Medical History / Comment(s): NIDDM type II, neuropathy bilateral feet/legs, pt states his hgb is dropping and that his physician who he sees in the [facility] thinks he has internal bleeding somewhere/plans to work this up soon, bronchitis, R shoulder discomfort. History of Any Multi-Drug Resistant Organisms: None Reported Past Surgical History: Orthopedic Surgery Additional Past Surgical History / Comment(s): R shoulder manipulation for dislocation. Past Anesthesia/Blood Transfusion Reactions: No Reported Reaction Past Psychological History: No Psychological Hx Reported Additional Psychological History / Comment(s): Pt currently incarcerated. Smoking Status: Former smoker Past Alcohol Use History: None Reported Additional Past Alcohol Use History / Comment(s): Pt started smoking in 1977 and quit once for 10 yrs and quit again in 2014. Past Drug Use History: None Reported - Past Family History Father Family Medical History: Diabetes Mellitus Additional Family Medical History / Comment(s): Father is . Mother Family Medical History: No Reported History Additional Family Medical History / Comment(s): Mother is healthy. Medications and Allergies Home Medications Medication Instructions Recorded Confirmed Type Metoprolol Tartrate [Lopressor] 25 mg PO BID 04/28/19 01/05/20 History Omeprazole 20 mg PO DAILY 04/28/19 01/05/20 History metFORMIN HCL 1,000 mg PO BID 04/28/19 01/05/20 History Atorvastatin Calcium [Lipitor] 20 mg PO HS 01/05/20 01/05/20 History Ciprofloxacin HCl [Cipro] 500 mg PO BID 01/05/20 01/05/20 History Citalopram Hydrobromide [CeleXA] 40 mg PO DAILY 01/05/20 01/05/20 History Losartan [Cozaar] 50 mg PO BID 01/05/20 01/05/20 History Allergies Allergy/AdvReac Type Severity Reaction Status Date / Time No Known Allergies Allergy Verified 01/05/20 12:05 Physical Exam Vitals: Vital Signs Temp Pulse Pulse Pulse Pulse Pulse Resp 01/06/20 04:43 98.0 F 82 20 01/05/20 21:11 80 01/05/20 20:39 98.4 F 82 82 16 01/05/20 15:00 98.0 F 70 20 01/05/20 13:00 98.2 F 76 18 01/05/20 10:16 98.4 F 71 19 BP BP Pulse Ox 01/06/20 04:43 145/77 98 01/05/20 21:11 167/90 01/05/20 20:39 180/99 99 01/05/20 15:00 156/91 100 01/05/20 13:00 124/82 99 01/05/20 10:16 129/91 99 Intake and Output 01/05/20 01/06/20 01/06/20 22:59 06:59 14:59 Other: # Voids 2 2 Results - Lab Results Most recent lab results Calcium 8.4 mg/dL (8.4-10.2) 01/06/20 06:54 01/06/20 06:54 01/06/20 06:54 Assessment and Plan Plan: Assessment: 1. Acute kidney injury versus chronic kidney disease. Renal function is fairly stable with creatinine in the range of 1.5-1.6 this admission. Unknown baseline renal function. He does reveal 1+ proteinuria which is most likely secondary to underlying diabetic kidney disease. No hydronephrosis noted on [facility] ultrasound. 2. Left foot ulcer maintained on antibiotics. 3. Gangrene right foot third toe. Scheduled for amputation this admission. 4. Benign hypertension. 5. Metabolic acidosis secondary to acute kidney injury and IV fluids. 6. Diabetes mellitus. Plan: Hep-Lock IV fluids. Encourage oral intake. Avoid nephrotoxins. Discontinue nonsteroidals. Can continue losartan for now as his blood pressure is on the higher side. Further workup of proteinuria outpatient. Repeat electrolytes in the morning. Thank you for the consultation. I will continue to follow the patient with you during his hospital stay.
[2020-01-06] MEDS ORDERED: NON FORMULARY DRUG (Omeprazole [Omeprazole] 20 MG) PO SCH (09:00)
[2020-01-06] MEDS: LACTATED RINGERS 1,000 ML IV SCH ×2 (10:29→20:13)
[2020-01-06 11:16] VITALS: BMI 33.1
[2020-01-06] MEDS ORDERED: IV FLUID CONTINUATION 1,000 ML IV ONE (11:49)
[2020-01-06 11:55] LABS: Glucose,Whole Blood 169 mg/dL (75-99)
[2020-01-06] MEDS ORDERED: VANCOMYCIN 1,750 MG in SODIUM CHLORIDE 0.9% 500 ML 500 ML IVPB SCH (12:00)
[2020-01-06] MEDS ORDERED: PROPOFOL 10 MG/ML 20 ML VIAL IV ONE (12:49)
[2020-01-06] MEDS ORDERED: fentaNYL (PF) 50 MCG/ML 2 ML AMP ONE (12:49)
[2020-01-06] MEDS ORDERED: KETAMINE 10 MG/ML 20 ML VIAL ONE (12:49)
[2020-01-06] MEDS ORDERED: MIDAZOLAM 2 MG/2 ML VIAL ONE (12:49)
[2020-01-06 14:00] LABS: Glucose,Whole Blood 169 mg/dL (75-99)
--- NOTE | 2020-01-06 14:05 | P.OP ---
Date of Procedure: 01/06/20 Description of Procedure: Preoperative diagnosis: Right third toe gangrene, left plantar diabetic foot ulcer Postoperative diagnosis: Same Procedure: [Right third toe amputation with primary closure, sharp excisional debridement of left plantar foot ulcer to bone final measurements 2.6 x 2.5 x 2] Surgeon: Bina Preston D.O. Anesthesia: Monitored anesthesia care EBL: [7 mL] IV fluids: [See anesthesia records] Urine output: [Not measured] Drains: [None] Complications: [None immediately apparent] Condition: [Stable to recovery] Operative indication and findings: [The patient is a 59-year-old diabetic male with previous tobacco abuse who currently resides in [facility] over the past except or so weeks had issues with his left foot wound as well as the right third toe. The right third toe progressively gotten worse and more black. The left plantar wound he states has come and gone as far as his wound but has never completely healed. He has been on Cipro at the [facility]. Given his physical exam it was recommended he undergo a right third toe amputation due to gangrene and exposure of tendon as well as a debridement of his left plantar foot wound. Risks and benefits were discussed. He seemingly understood and was willing to proceed.] Procedure in detail: [The patient was taken to the operative suite and the bilateral feet were prepped and draped in usual sterile fashion. A preprocedure timeout was performed, all parties were in agreement. After adequate anesthesia, the right third toe amputation was initiated. The skin at the base of the toe was incised and carried down to the subcutaneous tissues and fascia with electrocautery. The bone was cleaned cleared of its surrounding tissues and a bone cutter was used to remove the tissue there was no evidence of osteomyelitis at the level of transection area the area was then copiously irrigated. The deep tissues were reapproximated with interrupted sutures of 3-0 Vicryl. The skin was reapproximated with 4-0 nylon. Attention was then turned towards the left foot. A probe was utilized which did appear to probe the level of the bone. There was no evidence of significant abscess. There was significant non-healthy hyper-granulation tissue. Was also a sesamoid bone in the wound bed itself. This was excised and once this was done, the first metatarsal head was apparent in the wound. The area was sharply debrided with curet and copiously irrigated. The resultant wound measurements are as above. Dakin's wet-to-dry dressings was placed. The patient was allowed awaken from anesthesia and transported to PACU in stable condition having tolerated procedure well]
[2020-01-06] MEDS: SODIUM HYPOCHLORITE 0.25% 480 ML BOT MISCELLANE SCH (15:17)
[2020-01-06] MEDS: oxyCODONE-APAP 5-325MG 1 EACH TAB PO PRN ×2 (16:35→20:18)
[2020-01-06 17:00] LABS: Glucose,Whole Blood 183 mg/dL (75-99)
[2020-01-06] MEDS: INSULIN ASPART (NovoLOG) 100 UNIT/ML VIAL SQ SCH ×2 (18:15→20:27)
[2020-01-06 20:12] LABS: Glucose,Whole Blood 127 mg/dL (75-99)
[2020-01-06] MEDS: ATORVASTATIN 20 MG TAB PO SCH (20:12)
[2020-01-06] MEDS: ACETAMINOPHEN TAB 325 MG TAB PO PRN (23:28)
[2020-01-06] MEDS: AMPICILLIN-SULBACTAM 3 GM in SODIUM CHLORIDE 0.9% 100 ML IVPB SCH (23:30)
--- NOTE | 2020-01-07 00:07 | CONS ---
CONSULTATION DATE OF SERVICE: 01/06/2020 REASON FOR CONSULTATION: Right fourth toe gangrene and left foot wound. HISTORY OF PRESENT ILLNESS: The patient is a 59-year-old male with a past medical history significant for diabetes and diabetic neuropathy who is currently incarcerated. The patient has been brought into the hospital after the patient was noticed to have blackish discoloration of his right third toe. The patient mentioned that it has been going on for about 12 days. The patient did not recall any trauma to the area. It started getting discolored and subsequently getting more and more discolored until it turned black. The patient denies having any pain in the right foot area. The patient also has an ulceration on the left foot, plantar aspect, at the base of the big toe which has been there for a couple of weeks now. It started as a possible callus that related to this ulceration. Patient with diabetic neuropathy. Denies pain. Significant pain only at the time of some dressing changes. The patient is not sure about the exact dressing being applied to it. With these symptoms, the patient was brought into the ER. On arrival in the ER, the patient was afebrile. The patient did have a normal white count. Creatinine was 1.57. The patient did have local wound cultures obtained and did have x-rays of the foot which show diffuse changes of osteomyelitis not identified and inferior cortex of the fifth metatarsal and a prior fracture, soft tissue swelling at fourth digit and no definite osteomyelitis of the fourth digit evident. Patient has been evaluated by Vascular Surgery and the patient is status post amputation of the right third toe and debridement of the left foot plantar wound; and per discussion with the vascular surgeon, it seems to be extending all the way down to the wound. Deep culture has been obtained. The patient is currently being treated with Zosyn. I was asked to see the patient for further recommendations regarding antibiotic therapy. REVIEW OF SYSTEMS: Positive points have been mentioned in HPI. Rest of the systems are negative. PAST MEDICAL HISTORY: Diabetes mellitus, hypertension, hyperlipidemia, gastroesophageal reflux disease, asthma, diabetic neuropathy and previous history of diabetic foot ulcer. PAST SURGICAL HISTORY: Right shoulder manipulation for dislocation. SOCIAL HISTORY: Remote history of smoking; quit back in 2014. Denies drinking or drug use. FAMILY HISTORY: Father with history of diabetes. ALLERGIES: NO KNOWN DRUG ALLERGIES. MEDICATIONS: The patient is currently on Zosyn, local wound care with Dakin solution, Protonix, Percocet, Zofran, Narcan, Lopressor, Cozaar, lactated Ringer, NovoLog, Lovenox, Celexa, Lipitor and Tylenol. PHYSICAL EXAMINATION: Blood pressure 164/89 with a pulse of 79, temperature 98.1. He is 98% on room air. General description is a middle-aged male lying in bed in no distress. No tachypnea or accessory muscle of respiration use. HEENT examination shows slight pallor. No scleral icterus. Oral mucosa membrane is dry. No pharyngeal erythema or thrush. NECK: Trachea is central. No thyromegaly. LUNGS: Unlabored breathing. Clear to auscultation anteriorly. No wheeze or crackle. HEART: S1, S2. Regular rate and rhythm. No added sound. ABDOMEN: Soft. No tenderness. No guarding or rigidity. EXTREMITIES: No edema of the feet. Examination of right foot before the amputation noticed to have necrotic right third toe but no cellulitis. Left foot plantar wound with no slough tissue, some swelling, no foul-smelling drainage. Neurologically the patient is awake, alert, oriented x3. Mood and affect normal. LABS: Hemoglobin 9.8, white count 6.3, creatinine 1.57. Wound culture now showing Enterococcus. DIAGNOSTIC IMPRESSION AND PLAN: 1. Patient with right third toe gangrene in this patient who is status post amputation. There was no evidence of any significant cellulitis or any purulence at the time of amputation. 2. Patient with left foot plantar wound which apparently is deep and is going all the way down to the wound as per discussion with the vascular surgeon. Wound culture now showing group D Enterococcus. PLAN: 1. Discontinue the Zosyn. 2. Start the patient on Unasyn 3 grams q.6 hours. 3. We will check a baseline CRP and a sedimentation rate. 4. The patient will need IV antibiotic on discharge. Unfortunately the patient is currently incarcerated and IV antibiotic may be an issue. This will be discussed further with the case managers. 5. Local wound care to continue per Vascular Surgery. 6. Will follow on clinical condition and culture to further adjust medication if needed. Thank you for this consultation. Will follow this patient along with you. MMODL / IJN: [id number] /
[2020-01-07 04:42] LABS: Glucose,Whole Blood 185 mg/dL (75-99)
[2020-01-07] MEDS: AMPICILLIN-SULBACTAM 3 GM in SODIUM CHLORIDE 0.9% 100 ML IVPB SCH ×4 (04:59→22:38)
[2020-01-07 07:31] LABS: Basophils % (A) 1 %; Eosinophils # (A) 0.2 k/uL (0-0.7); Eosinophils % (A) 2 %; HGB 9.3 gm/dL (13.0-17.5); Lymphocytes # (A) 2.3 k/uL (1.0-4.8); Lymphocytes % (A) 35 %; MCH 29.8 pg (25.0-35.0); MCHC 32.2 g/dL (31.0-37.0); MCV 92.6 fL (80.0-100.0); Mean Platelet Volume 7.2; Monocytes # (A) 0.5 k/uL (0-1.0); Monocytes % (A) 8 %; Neutrophils # (A) 3.3 k/uL (1.3-7.7); Neutrophils % (A) 51 %; Platelet Count 295 k/uL (150-450); RBC 3.13 m/uL (4.30-5.90); RDW 14.8 % (11.5-15.5); WBC 6.4 k/uL (3.8-10.6)
[2020-01-07 07:39] LABS: Glucose,Whole Blood 145 mg/dL (75-99)
[2020-01-07 07:50] LABS: Calcium 8.1 mg/dL (8.4-10.2); Magnesium 1.1 mg/dL (1.6-2.3); Potassium 4.3 mmol/L (3.5-5.1)
[2020-01-07] MEDS: SODIUM BICARBONATE TAB 650 MG TAB PO SCH ×3 (08:51→20:07)
[2020-01-07] MEDS: PANTOPRAZOLE 40 MG/10 ML VIAL IV SCH (08:51)
[2020-01-07] MEDS: LOSARTAN 50 MG TAB PO SCH ×2 (08:51→20:07)
[2020-01-07] MEDS: CITALOPRAM HYDROBROMIDE 20 MG TAB PO SCH (08:51)
[2020-01-07] MEDS: METOPROLOL TARTRATE 25 MG TAB PO SCH ×2 (08:51→20:07)
--- NOTE | 2020-01-07 08:51 | P.PN ---
Subjective Patient is seen in follow for acute kidney injury. Renal function is improving. Creatinine 1.33 today. Good urine output. No vomiting or diarrhea. Oral intake is good. Vital signs are stable. General: The patient appeared well nourished and normally developed. HEENT: Head exam is unremarkable. Neck is without jugular venous distension. LUNGS: Lungs are clear to auscultation and percussion. HEART: Rate and Rhythm are regular. First and second heart sounds normal. No murmurs, rubs or gallops. ABDOMEN: Nontender. EXTREMITITES: No edema. Rapid. No drainage noted. Objective - Vital Signs Vital signs: Vital Signs Temp 97.8 F 01/07/20 04:26 Pulse 73 01/07/20 04:26 Resp 16 01/07/20 04:26 BP 129/71 01/07/20 04:26 Pulse Ox 98 01/06/20 20:07 Intake & Output 01/06/20 01/07/20 01/07/20 18:59 06:59 18:59 Intake Total 500 Output Total 7 Balance 493 Weight 101.741 kg Intake: IV 500 Output: Estimated Blood Loss 7 Other: # Voids 1 1 - Labs CBC & Chem 7: 01/07/20 06:41 01/07/20 06:41 Labs: Abnormal Lab Results - Last 24 Hours (Table) 01/06/20 01/06/20 01/06/20 Range/Units 11:45 13:58 16:49 RBC (4.30-5.90) m/uL Hgb (13.0-17.5) gm/dL Hct (39.0-53.0) % Chloride (98-107) mmol/L Carbon Dioxide (22-30) mmol/L Creatinine (0.66-1.25) mg/dL Glucose (74-99) mg/dL POC Glucose (mg/dL) 169 H 169 H 183 H (75-99) mg/dL Calcium (8.4-10.2) mg/dL Magnesium (1.6-2.3) mg/dL 01/06/20 01/07/20 01/07/20 Range/Units 20:10 04:42 06:41 RBC (4.30-5.90) m/uL Hgb (13.0-17.5) gm/dL Hct (39.0-53.0) % Chloride 108 H (98-107) mmol/L Carbon Dioxide 21 L (22-30) mmol/L Creatinine 1.33 H (0.66-1.25) mg/dL Glucose 135 H (74-99) mg/dL POC Glucose (mg/dL) 127 H 185 H (75-99) mg/dL Calcium 8.1 L (8.4-10.2) mg/dL Magnesium 1.1 L (1.6-2.3) mg/dL 01/07/20 01/07/20 Range/Units 06:41 07:23 RBC 3.13 L (4.30-5.90) m/uL Hgb 9.3 L (13.0-17.5) gm/dL Hct 29.0 L (39.0-53.0) % Chloride (98-107) mmol/L Carbon Dioxide (22-30) mmol/L Creatinine (0.66-1.25) mg/dL Glucose (74-99) mg/dL POC Glucose (mg/dL) 145 H (75-99) mg/dL Calcium (8.4-10.2) mg/dL Magnesium (1.6-2.3) mg/dL Microbiology - Last 24 Hours (Table) 01/06/20 13:31 Gram Stain - Preliminary Foot - Right Wound Culture - Preliminary 01/06/20 13:31 Anaerobic Culture - Preliminary Foot - Right 01/05/20 11:20 Blood Culture - Preliminary Blood No Growth after 24 hours 01/05/20 14:21 Gram Stain - Preliminary Foot - Left Wound Culture - Preliminary Group D Enterococcus 01/05/20 12:20 Gram Stain - Preliminary Foot - Right Wound Culture - Preliminary Group D Enterococcus Assessment and Plan Plan: Assessment: 1. Acute kidney injury versus chronic kidney disease. Renal function is fairly stable with creatinine in the range of 1.5-1.6 this admission. Creatinine 1.33 today. Unknown baseline renal function. He does reveal 1+ proteinuria which is most likely secondary to underlying diabetic kidney disease. No hydronephrosis noted on kidney ultrasound. 2. Left foot ulcer maintained on antibiotics. Wound culture positive for group D enterococcus. Infectious disease following. 3. Gangrene right foot third toe status post amputation on January 05. 4. Benign hypertension. Controlled. 5. Metabolic acidosis secondary to acute kidney injury and IV fluids. Better. 6. Diabetes mellitus.. Plan: Encouraged oral intake. Remains off IV fluids. Avoid nephrotoxins. Discontinued nonsteroidals. Can continue losartan for now as his blood pressure is controlled. Further workup of proteinuria outpatient. Avoid metformin is GFR less than 30. Repeat electrolytes in the morning. Replace magnesium. 3 g IV today.
[2020-01-07] MEDS: INSULIN ASPART (NovoLOG) 100 UNIT/ML VIAL SQ SCH ×4 (08:52→21:06)
[2020-01-07] MEDS: ENOXAPARIN 40 MG/0.4 ML SYRINGE SQ SCH (08:52)
[2020-01-07] MEDS ORDERED: amLODIPine 5 MG TAB PO SCH (09:00)
[2020-01-07 09:17] LABS: Erythrocyte Sedimentation Rate 48 mm/hr (0-15)
[2020-01-07 09:36] LABS: C Reactive Protein 15.4 mg/L (<10.0)
--- NOTE | 2020-01-07 10:12 | P.PN ---
Subjective Progress Note Date: 01/07/20 The patient seen and examined sitting up in bed. Patient is postop day 1 for right third toe amputation and sharp excisional debridement of the left plantar foot ulcer to bone. The patient denies any acute changes through the night. Patient denies any fever or chills, pain is well controlled. Objective - Vital Signs Vital signs: Vital Signs Temp 97.8 F 01/07/20 04:26 Pulse 73 01/07/20 04:26 Resp 16 01/07/20 04:26 BP 129/71 01/07/20 04:26 Pulse Ox 98 01/06/20 20:07 Intake & Output 01/06/20 01/07/20 01/07/20 18:59 06:59 18:59 Intake Total 500 600 Output Total 7 Balance 493 600 Weight 101.741 kg Intake: IV 500 Oral 600 Output: Estimated Blood Loss 7 Other: # Voids 1 1 - Exam General appearance: The patient is alert, oriented, in no acute distress. HET: Head is normocephalic and atraumatic. Neck: Supple without lymphadenopathy. Trachea midline. Heart: S1 S2. Regular rate and rhythm. Lungs: No crackles or wheezes are heard. Extremities: Normal skin color and turgor. Warm to the touch. Bilateral dressi ngs clean dry and intact. Patient has full mobility of bilateral lower extremities and able to move toes. Neurological: No focal deficits. Strength and sensation are grossly intact. - Labs CBC & Chem 7: 01/07/20 06:41 01/07/20 06:41 Labs: Abnormal Lab Results - Last 24 Hours (Table) 01/06/20 01/06/20 01/06/20 Range/Units 11:45 13:58 16:49 RBC (4.30-5.90) m/uL Hgb (13.0-17.5) gm/dL Hct (39.0-53.0) % ESR (0-15) mm/hr Chloride (98-107) mmol/L Carbon Dioxide (22-30) mmol/L Creatinine (0.66-1.25) mg/dL Glucose (74-99) mg/dL POC Glucose (mg/dL) 169 H 169 H 183 H (75-99) mg/dL Calcium (8.4-10.2) mg/dL Magnesium (1.6-2.3) mg/dL C-Reactive Protein (<10.0) mg/L 01/06/20 01/07/20 01/07/20 Range/Units 20:10 04:42 06:41 RBC (4.30-5.90) m/uL Hgb (13.0-17.5) gm/dL Hct (39.0-53.0) % ESR (0-15) mm/hr Chloride 108 H (98-107) mmol/L Carbon Dioxide 21 L (22-30) mmol/L Creatinine 1.33 H (0.66-1.25) mg/dL Glucose 135 H (74-99) mg/dL POC Glucose (mg/dL) 127 H 185 H (75-99) mg/dL Calcium 8.1 L (8.4-10.2) mg/dL Magnesium 1.1 L (1.6-2.3) mg/dL C-Reactive Protein 15.4 H (<10.0) mg/L 01/07/20 01/07/20 Range/Units 06:41 07:23 RBC 3.13 L (4.30-5.90) m/uL Hgb 9.3 L (13.0-17.5) gm/dL Hct 29.0 L (39.0-53.0) % ESR 48 H (0-15) mm/hr Chloride (98-107) mmol/L Carbon Dioxide (22-30) mmol/L Creatinine (0.66-1.25) mg/dL Glucose (74-99) mg/dL POC Glucose (mg/dL) 145 H (75-99) mg/dL Calcium (8.4-10.2) mg/dL Magnesium (1.6-2.3) mg/dL C-Reactive Protein (<10.0) mg/L Microbiology - Last 24 Hours (Table) 01/06/20 13:31 Gram Stain - Preliminary Foot - Right Wound Culture - Preliminary 01/06/20 13:31 Anaerobic Culture - Preliminary Foot - Right 01/05/20 11:20 Blood Culture - Preliminary Blood No Growth after 24 hours 01/05/20 14:21 Gram Stain - Preliminary Foot - Left Wound Culture - Preliminary Group D Enterococcus 01/05/20 12:20 Gram Stain - Preliminary Foot - Right Wound Culture - Preliminary Group D Enterococcus Assessment and Plan Assessment: 1. Postop day 1 of right third toe amputation and sharp excisional debridement of left plantar foot ulcer 2. Gangrene of right foot third toe. 3. Diabetic ulcer of left foot 4. Diabetes 5. Hypertension 6. Neuropathy Plan: Continue with antibiotics per infectious disease. Daily Wilfredo dressing changes. Physical therapy ordered to work with patient for heel touch weight-bearing. Postop shoes for bilateral feet. Patient to continue local wound care treatments and antibiotic therapy as recommended per infectious disease through the [facility]. Patient to follow-up with Dr. Preston in 1-2 weeks. The above dictated assessment and findings were discussed with Dr. Preston. The impression and plan of care have been directed as dictated.
[2020-01-07] MEDS: MAGNESIUM SULFATE-D5W PMX 1 GM in DEXTROSE/WATER 1 100ML.BAG IVPB SCH ×3 (10:55→16:40)
--- NOTE | 2020-01-07 12:03 | CDI ---
Documentation Clarification Form Date: 01/07/2020 11:55:52 AM From: Aleksandra Ramos RN, CCDS Admit Date: 01/05/2020 12:37:00 PM Patient Name: Braulio Fields Visit Number: [id number] ATTENTION: The Clinical Documentation Specialists (CDI) and [facility] Coding Staff appreciate your assistance in clarifying documentation. Please respond to the clarification below the line at the bottom and electronically sign. The CDI & [facility] Coding staff will review the response and follow-up if needed. Please note: Queries are made part of the Legal Health Record. If you have any questions, please contact the author of this message via ITS. Dr. Ludwig Please render your opinion on the clinical significance of the patients low hemoglobin/hematocrit levels. History/Risk Factors: DM, GERD, NAHED on CKD unknown baseline Clinical indicators: 01/04-01/06 Hgb: 10.7/9.8/9.3 01/04-01/06 Hct: 31.7/29.1/29.0 01/05 Procedure Note: "Right third toe gangrene, left plantar diabetic foot ulcer. Right third toe amputation with primary closure, sharp excisional debridement of left plantar foot ulcer to bone final measurements 2.6 x 2.5 x 2]. EBC 7ml" Treatment: 01/04 1L 0.9% NS IVF Bolus Lab Monitoring AM Daily In order to capture the severity of condition, please clarify if the labs/clinical indicators signify: Acute on chronic blood loss anemia Chronic blood loss anemia Iron deficiency anemia Nutritional anemia Anemia of chronic kidney disease Anemia of chronic disease (please specify) Unable to determine Other, please specify (Last Form Revision: December 2019) Unable to determine MTDD
[2020-01-07 12:24] LABS: Glucose,Whole Blood 202 mg/dL (75-99)
--- NOTE | 2020-01-07 14:41 | P.PN ---
Subjective History of presenting to plan: This is a pleasant 59-year-old patient of Dr. Uday Artis. Chronic stable medical conditions include diabetes, GERD, hyperlipidemia. 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 Patient about 12 years ago noted a red spot on the right foot third toe on the dorsum. It progressively go t worse. And now the whole toes become black in color. There is no pain. No fever no chills. No surrounding redness. Patient does have very dry skin and disfigured nails. Has some numbness in the feet. 01/06/20 This is a pleasant 59 years old male who presented with right toe gangrene, related to his diabetic disease and poor circulation. Surgical case on the case and planning for right third toe amputation today with debridement, also on admission his creatinine was elevated at 1.5-1.6, senior clinical research scientist evaluated the patient and recommended to continue with losartan for elevated blood pressure, however her metformin was held, sugars still controlled. Continue with insulin sliding scale. Renal ultrasound show no hydro-nephrosis however there is prominent column of Harman on both sides with recommendation by radiologist for follow-up in 3 months to reassess Wound culture showing group D enterococcus on further culture is pending. CBC is stable, creatinine stable at 1.57, UA is not suspicious of infection And Norvasc for better blood pressure control 01/07/2020 Patient is a status post bilateral feet wound debridement and right third toe amputation secondary to his gangrene and diabetic ulcer Patient today is lying in bed comfortable, fully awake and oriented, his complain from a little oozing from his wound, other than that no new complaints Patient had lengthy discussion with the patient about his care, he is, from prison and expected to go back to prison upon discharge, no polys guarded at bedside to due to visitor restriction from coronavirus pandemic. Patient with no signs symptoms to suggest coronavirus infection He remains on Unasyn for his diabetic wound, his ESR is elevated at 48, C- reactive protein is elevated at 15.4, wound culture still pending Hemoglobin A1c is pending as well, metformin was held due to her creatinine which is improving today down to 1.3, we will add Amaryl 1 mg daily Patient was informed about his abnormal renal ultrasound (Bilateral renal prominent column of Harman) with recommendation by radiologist for follow-up in 3 months for repeat ultrasound. Risks including but not limited to cancer are explained to the patient and he verbalized understanding and acceptance Review of systems CONSTITUTIONAL: No fever, no malaise, no fatigue. HEENT: No recent visual problems or hearing problems. Denied any sore throat. CARDIOVASCULAR: No orthopnea, PND, no palpitations, no syncope. PULMONARY: No shortness of breath, no cough, no hemoptysis. GASTROINTESTINAL: No diarrhea, no nausea, no vomiting, no abdominal pain. Normoactive bowel sounds. NEUROLOGICAL: No headaches, no weakness, no numbness. HEMATOLOGICAL: Denies any bleeding or petechiae. GENITOURINARY: Denies any burning micturition, frequency, or urgency. ENDOCRINE: Denies any polyuria or polydipsia. Active Medications Generic Name Dose Route Start Last Admin Trade Name Freq PRN Reason Stop Dose Admin Acetaminophen 650 mg 01/05/20 12:37 01/06/20 23:28 Tylenol Tab PO 650 mg Q6HR PRN Administration Mild Pain or Fever > 100.5 Amlodipine Besylate 5 mg 01/07/20 09:00 01/07/20 08:51 Norvasc PO 5 mg DAILY CARSON Administration Atorvastatin Calcium 20 mg 01/05/20 21:00 01/06/20 20:12 Lipitor PO 20 mg HS CARSON Administration Citalopram Hydrobromide 40 mg 01/06/20 09:00 01/07/20 08:51 Celexa PO 40 mg DAILY CARSON Administration Enoxaparin Sodium 40 mg 01/05/20 20:00 01/07/20 08:52 Lovenox SQ 40 mg DAILY CARSON Administration Glimepiride 1 mg 01/07/20 14:45 Amaryl PO AC-BRKFST CARSON Lactated Ringer's 1,000 mls @ 20 mls/hr 01/05/20 21:30 01/06/20 20:13 Lactated Ringers IV 20 mls/hr .Q24H CARSON Administration Ampicillin Sodium/Sulbactam 100 mls @ 200 mls/hr 01/07/20 00:00 01/07/20 12:59 Sodium 3 gm/ Sodium Chloride IVPB 200 mls/hr Q6HR CARSON Administration Magnesium Sulfate/Dextrose 1 100 mls @ 25 mls/hr 01/07/20 09:00 01/07/20 10:55 gm/ IV Solution IVPB 01/07/20 20:59 25 mls/hr Q4H CARSON Administration Insulin Aspart 0 unit 01/06/20 17:30 01/07/20 13:00 Novolog SQ 4 unit ACHS CARSON Administration Protocol Losartan Potassium 50 mg 01/05/20 21:00 01/07/20 08:51 Cozaar PO 50 mg BID CARSON Administration Metoprolol Tartrate 25 mg 01/05/20 21:00 01/07/20 08:51 Lopressor PO 25 mg BID [facility] Administration Naloxone HCl 0.2 mg 01/05/20 12:37 Narcan IV Q2M PRN Opioid Reversal Ondansetron HCl 4 mg 01/05/20 12:37 Zofran IVP Q8HR PRN Nausea And Vomiting Oxycodone/Acetaminophen 1 each 01/05/20 12:37 01/06/20 20:18 Percocet 5-325 PO 1 each Q4HR PRN Administration Severe Pain Pantoprazole Sodium 40 mg 01/08/20 09:00 Protonix PO DAILY [facility] Sodium Bicarbonate 650 mg 01/05/20 22:00 01/07/20 08:51 Sodium Bicarbonate Tab PO 650 mg TID [facility] Administration Sodium Hypochlorite 0 ml 01/06/20 13:15 01/06/20 15:17 Dakin's 0.25% (Half Strength) MISCELLANE Not Given DIRECTED [facility] Objective - Vital Signs Vital signs: Vital Signs Temp 97.8 F 01/07/20 04:26 Pulse 73 01/07/20 04:26 Resp 16 01/07/20 04:26 BP 129/71 01/07/20 04:26 Pulse Ox 98 01/06/20 20:07 Intake & Output 01/06/20 01/07/20 01/07/20 18:59 06:59 18:59 Intake Total 500 960 Output Total 7 Balance 493 960 Weight 101.741 kg Intake: IV 500 Intake, IV Titration 360 Amount Ampicillin-Sulbactam 3 gm 100 In Sodium Chloride 0.9% 100 ml @ 200 mls/hr IVPB Q6HR [facility] Rx#:[id number] Lactated Ringers 1,000 ml 160 @ 20 mls/hr IV .Q24H [facility] Rx#:[id number] Magnesium Sulfate-D5w Pmx 100 1 gm In Dextrose/Water 1 100ml.bag @ 25 mls/hr IVPB Q4H [facility] Rx#: [id number] Oral 600 Output: Estimated Blood Loss 7 Other: # Voids 1 1 - Exam GENERAL: The patient is alert and oriented x3, not in any acute distress. Well developed, well nourished. HEENT: Pupils are round and equally reacting to light. EOMI. No scleral icterus. No conjunctival pallor. Normocephalic, atraumatic. No pharyngeal erythema. No thyromegaly. CARDIOVASCULAR: S1 and S2 present. No murmurs, rubs, or gallops. PULMONARY: Chest is clear to auscultation, no wheezing or crackles. ABDOMEN: Soft, nontender, nondistended, normoactive bowel sounds. No palpable organomegaly. MUSCULOSKELETAL: No joint swelling or deformity. -EXTREMITIES: No cyanosis, clubbing, or pedal edema. Right third toe gangrene NEUROLOGICAL: Gross neurological examination did not reveal any focal deficits. SKIN: No rashes. no petechiae. - Labs CBC & Chem 7: 01/07/20 06:41 01/07/20 06:41 Labs: Abnormal Lab Results - Last 24 Hours (Table) 01/06/20 01/06/20 01/07/20 Range/Units 16:49 20:10 04:42 RBC (4.30-5.90) m/uL Hgb (13.0-17.5) gm/dL Hct (39.0-53.0) % ESR (0-15) mm/hr Chloride (98-107) mmol/L Carbon Dioxide (22-30) mmol/L Creatinine (0.66-1.25) mg/dL Glucose (74-99) mg/dL POC Glucose (mg/dL) 183 H 127 H 185 H (75-99) mg/dL Calcium (8.4-10.2) mg/dL Magnesium (1.6-2.3) mg/dL C-Reactive Protein (<10.0) mg/L Procalcitonin (0.02-0.09) ng/mL 01/07/20 01/07/20 01/07/20 Range/Units 06:41 06:41 06:41 RBC 3.13 L (4.30-5.90) m/uL Hgb 9.3 L (13.0-17.5) gm/dL Hct 29.0 L (39.0-53.0) % ESR 48 H (0-15) mm/hr Chloride 108 H (98-107) mmol/L Carbon Dioxide 21 L (22-30) mmol/L Creatinine 1.33 H (0.66-1.25) mg/dL Glucose 135 H (74-99) mg/dL POC Glucose (mg/dL) (75-99) mg/dL Calcium 8.1 L (8.4-10.2) mg/dL Magnesium 1.1 L (1.6-2.3) mg/dL C-Reactive Protein 15.4 H (<10.0) mg/L Procalcitonin 0.13 H (0.02-0.09) ng/mL 01/07/20 01/07/20 Range/Units 07:23 12:13 RBC (4.30-5.90) m/uL Hgb (13.0-17.5) gm/dL Hct (39.0-53.0) % ESR (0-15) mm/hr Chloride (98-107) mmol/L Carbon Dioxide (22-30) mmol/L Creatinine (0.66-1.25) mg/dL Glucose (74-99) mg/dL POC Glucose (mg/dL) 145 H 202 H (75-99) mg/dL Calcium (8.4-10.2) mg/dL Magnesium (1.6-2.3) mg/dL C-Reactive Protein (<10.0) mg/L Procalcitonin (0.02-0.09) ng/mL Microbiology - Last 24 Hours (Table) 01/05/20 11:20 Blood Culture - Preliminary Blood No Growth after 48 hours 01/06/20 13:31 Gram Stain - Preliminary Foot - Right Wound Culture - Preliminary 01/06/20 13:31 Anaerobic Culture - Preliminary Foot - Right 01/05/20 14:21 Gram Stain - Preliminary Foot - Left Wound Culture - Preliminary Group D Enterococcus 01/05/20 12:20 Gram Stain - Preliminary Foot - Right Wound Culture - Preliminary Group D Enterococcus Assessment and Plan Assessment: -Acute dry gangrene of the right foot third digit, likely from small vessel disease in a diabetic . Status post debridement and third right toe amputation -Bilateral renal prominent column of Harman -Acute kidney injury versus chronic kidney disease from diabetic nephropathy -Hyperlipidemia -Essential hypertension -Depression otherwise specified -Diabetes mellitus type 2 on oral hypoglycemic -COPD in an ex-smoker -Chronic lower extremity dysmorphic nails -Probable peripheral artery disease in a ex-smoker -Suspect chronic kidney disease, cannot rule out acute component Plan: This is a pleasant 59 years old male who presents with right toe gangrene and elevated creatinine. Vascular surgery on the case, status post right third toe amputation and debridement on 01/05, infectious disease and senior clinical research scientist also following the case. Continue with antibiotics as per ID team, currently on Unasyn continue with IV fluids. Hold metformin and check hemoglobin A1c, had amaryl, continue with losartan, avoid NSAIDs Labs and medication were reviewed.. Continue same treatment. Continue with symptomatic treatment. Resume home medication. Monitor lytes and vitals. DVT and GI prophylaxis. Further recommendations of the clinical course of the patient DVT prophylaxis: Subcutaneous Lovenox GI Prophylaxis: Ppi PT/OT: Pending surgical fluid. After evaluation Prognosis is guarded
[2020-01-07] MEDS: SODIUM HYPOCHLORITE 0.25% 480 ML BOT MISCELLANE SCH (15:01)
[2020-01-07] MEDS: oxyCODONE-APAP 5-325MG 1 EACH TAB PO PRN ×2 (15:24→20:07)
[2020-01-07] MEDS: GLIMEPIRIDE 1 MG TAB PO SCH (16:40)
[2020-01-07 17:36] LABS: Glucose,Whole Blood 165 mg/dL (75-99)
[2020-01-07 18:51] LABS: Hemoglobin A1C 7.8 % (4.0-6.0)
[2020-01-07] MEDS: ATORVASTATIN 20 MG TAB PO SCH (20:07)
[2020-01-07] MEDS: LACTATED RINGERS 1,000 ML IV SCH (20:09)
[2020-01-07 20:28] LABS: Glucose,Whole Blood 143 mg/dL (75-99)
[2020-01-07] MEDS ORDERED: VANCOMYCIN IV PER PHARMACY 1 EACH MISC MISCELLANE PRN (22:07)
[2020-01-07] MEDS ORDERED: VANCOMYCIN 2,000 MG in SODIUM CHLORIDE 0.9% 500 ML 500 ML IVPB ONE (23:00)
--- NOTE | 2020-01-08 04:59 | PN ---
PROGRESS NOTE DATE OF SERVICE: 01/07/2020 REASON FOR FOLLOWUP: Left diabetic foot wound with concern for possible osteomyelitis. INTERVAL HISTORY: The patient is currently afebrile. Patient has been breathing comfortably. The patient denies having any chest pain or shortness of breath or cough. Patient has pain to the bilateral foot wound area. PHYSICAL EXAMINATION: On examination, blood pressure 137/83 with a pulse of 76, temperature 98.1. He is 99% on room air. General description is a middle-aged male lying in bed in no distress. RESPIRATORY SYSTEM: Unlabored breathing, clear to auscultation anteriorly. HEART: S1, S2. Regular rate and rhythm. ABDOMEN: Soft, no tenderness. Foot wounds are currently dressed up. No obvious drainage on the dressing. LABS: Hemoglobin 9.3, white count 6.4, BUN of 18, creatinine 1.33. Wound culture showing Enterococcus and MRSA. DIAGNOSTIC IMPRESSION AND PLAN: 1. Patient with right third toe gangrene, status post amputation. 2. The patient with left diabetic foot wound with concern for extensive wound extending down to the bone. Currently covered with Unasyn. Vancomycin added because of the methicillin-resistant Staphylococcus aureus. Will check with if the patient will be able to get PICC line and IV antibiotic there. market research senior project manager working on it. Local care to continue as ordered. Continue supportive care. MMODL / IJN: [id number] /
[2020-01-08] MEDS: AMPICILLIN-SULBACTAM 3 GM in SODIUM CHLORIDE 0.9% 100 ML IVPB SCH ×4 (05:41→22:59)
[2020-01-08] MEDS: INSULIN ASPART (NovoLOG) 100 UNIT/ML VIAL SQ SCH ×4 (07:12→20:45)
[2020-01-08 07:17] LABS: Glucose,Whole Blood 157 mg/dL (75-99)
[2020-01-08] MEDS: CITALOPRAM HYDROBROMIDE 20 MG TAB PO SCH (07:56)
[2020-01-08] MEDS: amLODIPine 10 MG TAB PO SCH (07:56)
[2020-01-08] MEDS: LOSARTAN 50 MG TAB PO SCH ×2 (07:56→21:18)
[2020-01-08] MEDS: PANTOPRAZOLE 40 MG TABLET PO SCH (07:56)
[2020-01-08] MEDS: GLIMEPIRIDE 1 MG TAB PO SCH (07:57)
[2020-01-08] MEDS: ENOXAPARIN 40 MG/0.4 ML SYRINGE SQ SCH (07:57)
[2020-01-08] MEDS: SODIUM BICARBONATE TAB 650 MG TAB PO SCH ×3 (07:57→21:18)
[2020-01-08] MEDS: METOPROLOL TARTRATE 25 MG TAB PO SCH ×2 (07:57→21:16)
[2020-01-08 07:58] LABS: Calcium 8.4 mg/dL (8.4-10.2); Magnesium 1.6 mg/dL (1.6-2.3); Potassium 5.1 mmol/L (3.5-5.1)
--- NOTE | 2020-01-08 08:20 | P.PN ---
Subjective Patient is seen in follow for acute kidney injury. Renal function is improving. Creatinine 1.23 today. Good urine output. No vomiting or diarrhea. Oral intake is good. Vital signs are stable. General: The patient appeared well nourished and normally developed. HEENT: Head exam is unremarkable. Neck is without jugular venous distension. LUNGS: Lungs are clear to auscultation and percussion. HEART: Regular rate and rhythm. ABDOMEN: Nontender. EXTREMITITES: No edema. Wrapped. No drainage. Objective - Vital Signs Vital signs: Vital Signs Temp 98.1 F 01/07/20 20:00 Pulse 73 01/08/20 04:50 Resp 20 01/08/20 04:50 BP 161/91 01/08/20 04:50 Pulse Ox 98 01/08/20 04:50 Intake & Output 01/07/20 01/08/20 01/08/20 18:59 06:59 18:59 Intake Total 960 1400 Balance 960 1400 Intake: Intake, IV Titration 360 Amount Ampicillin-Sulbactam 3 gm 100 In Sodium Chloride 0.9% 100 ml @ 200 mls/hr IVPB Q6HR [facility] Rx#:[id number] Lactated Ringers 1,000 ml 160 @ 20 mls/hr IV .Q24H [facility] Rx#:[id number] Magnesium Sulfate-D5w Pmx 100 1 gm In Dextrose/Water 1 100ml.bag @ 25 mls/hr IVPB Q4H [facility] Rx#: [id number] Oral 600 1400 Other: # Voids 1 - Labs CBC & Chem 7: 01/07/20 06:41 01/08/20 06:59 Labs: Abnormal Lab Results - Last 24 Hours (Table) 01/07/20 01/07/20 01/07/20 Range/Units 06:41 06:41 06:41 ESR 48 H (0-15) mm/hr Glucose (74-99) mg/dL POC Glucose (mg/dL) (75-99) mg/dL Hemoglobin A1c 7.8 H (4.0-6.0) % C-Reactive Protein 15.4 H (<10.0) mg/L Procalcitonin (0.02-0.09) ng/mL 01/07/20 01/07/20 01/07/20 Range/Units 06:41 12:13 17:18 ESR (0-15) mm/hr Glucose (74-99) mg/dL POC Glucose (mg/dL) 202 H 165 H (75-99) mg/dL Hemoglobin A1c (4.0-6.0) % C-Reactive Protein (<10.0) mg/L Procalcitonin 0.13 H (0.02-0.09) ng/mL 01/07/20 01/08/20 01/08/20 Range/Units 20:26 06:59 07:14 ESR (0-15) mm/hr Glucose 151 H (74-99) mg/dL POC Glucose (mg/dL) 143 H 157 H (75-99) mg/dL Hemoglobin A1c (4.0-6.0) % C-Reactive Protein (<10.0) mg/L Procalcitonin (0.02-0.09) ng/mL Microbiology - Last 24 Hours (Table) 01/05/20 12:20 Gram Stain - Final Foot - Right Wound Culture - Final Enterococcus faecalis 01/05/20 14:21 Gram Stain - Preliminary Foot - Left Wound Culture - Preliminary Enterococcus faecalis Presumptive MRSA 01/05/20 11:20 Blood Culture - Preliminary Blood No Growth after 48 hours 01/06/20 13:31 Gram Stain - Preliminary Foot - Right Wound Culture - Preliminary Assessment and Plan Plan: Assessment: 1. Acute kidney injury versus chronic kidney disease. Renal function slowly improving. Creatinine was 1.6 on admission and is 1.23 today. Unknown baseline renal function. He does reveal 1+ proteinuria which is most likely secondary to underlying diabetic kidney disease. No hydronephrosis noted on kidney ultrasound. 2. Left foot ulcer maintained on antibiotics. Wound culture positive for group D enterococcus and MRSA. Infectious disease following. 3. Gangrene right foot third toe status post amputation on January 05. 4. Benign hypertension. Controlled. 5. Metabolic acidosis secondary to acute kidney injury and IV fluids. Better. 6. Diabetes mellitus. Plan: Encouraged oral intake. Remains off IV fluids. Avoid nephrotoxins. Discontinued nonsteroidals. Further workup of proteinuria outpatient. Repeat electrolytes in the morning. Decrease dose of oral bicarbonate.
[2020-01-08] MEDS: MAGNESIUM OXIDE 400 MG TAB PO SCH (09:10)
--- NOTE | 2020-01-08 11:05 | P.PN ---
Subjective Progress Note Date: 01/08/20 The patient seen and examined sitting up in bed. Patient is postop day 2 for right third toe amputation and sharp excisional debridement of the left plantar foot ulcer to bone. The patient denies any acute changes through the night. Patient denies any fever or chills, pain is well controlled. Patient remains on IV antibiotics. Objective - Vital Signs Vital signs: Vital Signs Temp 98.1 F 01/07/20 20:00 Pulse 73 01/08/20 04:50 Resp 20 01/08/20 04:50 BP 161/91 01/08/20 04:50 Pulse Ox 98 01/08/20 04:50 Intake & Output 01/07/20 01/08/20 01/08/20 18:59 06:59 18:59 Intake Total 960 1400 Balance 960 1400 Intake: Intake, IV Titration 360 Amount Ampicillin-Sulbactam 3 gm 100 In Sodium Chloride 0.9% 100 ml @ 200 mls/hr IVPB Q6HR [facility] Rx#:[id number] Lactated Ringers 1,000 ml 160 @ 20 mls/hr IV .Q24H [facility] Rx#:[id number] Magnesium Sulfate-D5w Pmx 100 1 gm In Dextrose/Water 1 100ml.bag @ 25 mls/hr IVPB Q4H [facility] Rx#: [id number] Oral 600 1400 Other: # Voids 1 - Exam General appearance: The patient is alert, oriented, in no acute distress. HET: Head is normocephalic and atraumatic. Neck: Supple without lymphadenopathy. Trachea midline. Heart: S1 S2. Regular rate and rhythm. Lungs: No crackles or wheezes are heard. Extremities: Normal skin color and turgor. Warm to the touch. Right dressing change completed, 3rd toe amputation site well approximated with scant amount of serosanguineous drainage. Sutures intact. Left foot plantar debridement site down to bone with healthy tissue, small amount of drainage, no malodor noted. Dakin's solution applied with wet to dry dressing. Patient has full mobility of bilateral lower extremities and able to move toes. Neurological: No focal deficits. Strength and sensation are grossly intact. - Labs CBC & Chem 7: 01/07/20 06:41 01/08/20 06:59 Labs: Abnormal Lab Results - Last 24 Hours (Table) 04/11/2601/07/20 01/07/20 Range/Units 06:41 06:41 12:13 Glucose (74-99) mg/dL POC Glucose (mg/dL) 202 H (75-99) mg/dL Hemoglobin A1c 7.8 H (4.0-6.0) % Procalcitonin 0.13 H (0.02-0.09) ng/mL 01/07/20 01/07/20 01/08/20 Range/Units 17:18 20:26 06:59 Glucose 151 H (74-99) mg/dL POC Glucose (mg/dL) 165 H 143 H (75-99) mg/dL Hemoglobin A1c (4.0-6.0) % Procalcitonin (0.02-0.09) ng/mL 01/08/20 Range/Units 07:14 Glucose (74-99) mg/dL POC Glucose (mg/dL) 157 H (75-99) mg/dL Hemoglobin A1c (4.0-6.0) % Procalcitonin (0.02-0.09) ng/mL Microbiology - Last 24 Hours (Table) 01/05/20 12:20 Gram Stain - Final Foot - Right Wound Culture - Final Enterococcus faecalis 01/05/20 14:21 Gram Stain - Preliminary Foot - Left Wound Culture - Preliminary Enterococcus faecalis Presumptive MRSA 01/05/20 11:20 Blood Culture - Preliminary Blood No Growth after 48 hours 01/06/20 13:31 Gram Stain - Preliminary Foot - Right Wound Culture - Preliminary Assessment and Plan Assessment: 1. Postop day 2 of right third toe amputation and sharp excisional debridement of left plantar foot ulcer 2. Gangrene of right foot third toe. 3. Diabetic ulcer of left foot 4. Diabetes 5. Hypertension 6. Neuropathy Plan: Continue with antibiotics per infectious disease. Daily Dakins dressing changes. Continue with heel touch weight-bearing. Postop shoes for bilateral feet. Patient to continue local wound care treatments and antibiotic therapy as recommended per infectious disease through the [facility]. Patient to follow-up with Dr. Preston in 1-2 weeks. The above dictated assessment and findings were discussed with Dr. Preston. The impression and plan of care have been directed as dictated.
--- NOTE | 2020-01-08 11:33 | P.PN ---
Subjective History of presenting to plan: This is a pleasant 59-year-old patient of Dr. Uday Artis. Chronic stable medical conditions include diabetes, GERD, hyperlipidemia. Patient is currently at the [facility]. He has a deputy from the [facility]. Patient about 12 years ago noted a red spot on the right foot third toe on the dorsum. It progressively got worse. And now the whole toes become black in color. There is no pain. No fever no chills. No surrounding redness. Patient does have very dry skin and disfigured nails. Has some numbness in the feet. 01/06/20 This is a pleasant 59 years old male who presented with right toe gangrene, related to his diabetic disease and poor circulation. Surgical case on the case and planning for right third toe amputation today with debridement, also on admission his creatinine was elevated at 1.5-1.6, inspector paper products evaluated the patient and recommended to continue with losartan for elevated blood pressure, however her metformin was held, sugars still controlled. Continue with insulin sliding scale. Renal ultrasound show no hydro-nephrosis however there is prominent column of Harman on both sides with recommendation by radiologist for follow-up in 3 months to reassess Wound culture showing group D enterococcus on further culture is pending. CBC is stable, creatinine stable at 1.57, UA is not suspicious of infection And Norvasc for better blood pressure control 01/07/2020 Patient is a status post bilateral feet wound debridement and right third toe amputation secondary to his gangrene and diabetic ulcer Patient today is lying in bed comfortable, fully awake and oriented, his complain from a little oozing from his wound, other than that no new complaints Patient had lengthy discussion with the patient about his care, [facility], no polys guarded at bedside to due to visitor restriction from coronavirus pandemic. Patient with no signs symptoms to suggest coronavirus infection He remains on Unasyn for his diabetic wound, his ESR is elevated at 48, C- reactive protein is elevated at 15.4, wound culture still pending Hemoglobin A1c is pending as well, metformin was held due to her creatinine which is improving today down to 1.3, we will add Amaryl 1 mg daily Patient was informed about his abnormal renal ultrasound (Bilateral renal prominent column of Harman) with recommendation by radiologist for follow-up in 3 months for repeat ultrasound. Risks including but not limited to cancer are explained to the patient and he verbalized understanding and acceptance 01/08/2020 Patient remains not in distress, is fully alert and oriented, his oozing from his bilateral feet wounds has stopped, wound care following the patient for wounds on both feet, left more than right. Vitals are stable. Creatinine came back to normal at 1.23, magnesium normal at 1.6, sugar controlled. Since his creatinine back to normal we switch him back to metformin with close monitoring. Continue with antibiotics of Unasyn and IV vancomycin as per ID recommendation for his enterococcus and MRSA in the wound, patient is aware and he agrees Patient was instructed to repeat ultrasound of the kidney in 3 months as per radiology recommendation and he agrees Review of systems CONSTITUTIONAL: No fever, no malaise, no fatigue. HEENT: No recent visual problems or hearing problems. Denied any sore throat. CARDIOVASCULAR: No orthopnea, PND, no palpitations, no syncope. PULMONARY: No shortness of breath, no cough, no hemoptysis. GASTROINTESTINAL: No diarrhea, no nausea, no vomiting, no abdominal pain. Normoactive bowel sounds. NEUROLOGICAL: No headaches, no weakness, no numbness. HEMATOLOGICAL: Denies any bleeding or petechiae. GENITOURINARY: Denies any burning micturition, frequency, or urgency. ENDOCRINE: Denies any polyuria or polydipsia. Active Medications Generic Name Dose Route Start Last Admin Trade Name Freq PRN Reason Stop Dose Admin Acetaminophen 650 mg 01/05/20 12:37 01/06/20 23:28 Tylenol Tab PO 650 mg Q6HR PRN Administration Mild Pain or Fever > 100.5 Amlodipine Besylate 10 mg 01/08/20 09:00 01/08/20 07:56 Norvasc PO 10 mg DAILY [facility] Administration Atorvastatin Calcium 20 mg 01/05/20 21:00 01/07/20 20:07 Lipitor PO 20 mg HS [facility] Administration Citalopram Hydrobromide 40 mg 01/06/20 09:00 01/08/20 07:56 Celexa PO 40 mg DAILY [facility] Administration Enoxaparin Sodium 40 mg 01/05/20 20:00 01/08/20 07:57 Lovenox SQ 40 mg DAILY [facility] Administration Lactated Ringer's 1,000 mls @ 20 mls/hr 01/05/20 21:30 01/07/20 20:09 Lactated Ringers IV 20 mls/hr .Q24H [facility] Administration Ampicillin Sodium/Sulbactam 100 mls @ 200 mls/hr 01/07/20 00:00 01/08/20 05:41 Sodium 3 gm/ Sodium Chloride IVPB 200 mls/hr Q6HR [facility] Administration Vancomycin HCl 2,000 mg/ 500 mls @ 167 mls/hr 01/08/20 11:00 Sodium Chloride IVPB Q12H [facility] Insulin Aspart 0 unit 01/06/20 17:30 01/08/20 07:12 Novolog SQ Not Given ACHS [facility] Protocol Losartan Potassium 50 mg 01/05/20 21:00 01/08/20 07:56 Cozaar PO 50 mg BID [facility] Administration Magnesium Oxide 400 mg 01/08/20 09:00 01/08/20 09:10 Mag-Ox PO 400 mg DAILY [facility] Administration Metformin HCl 1,000 mg 01/09/20 07:30 Glucophage PO BID-W/MEALS [facility] Metoprolol Tartrate 25 mg 01/05/20 21:00 01/08/20 07:57 Lopressor PO 25 mg BID [facility] Administration Miscellaneous Information 0 each 01/09/20 22:00 Vancomycin Trough Due MISCELLANE 01/09/20 22:01 DIRECTED ONE Naloxone HCl 0.2 mg 01/05/20 12:37 Narcan IV Q2M PRN Opioid Reversal Ondansetron HCl 4 mg 01/05/20 12:37 Zofran IVP Q8HR PRN Nausea And Vomiting Oxycodone/Acetaminophen 1 each 01/05/20 12:37 01/07/20 20:07 Percocet 5-325 PO 1 each Q4HR PRN Administration Severe Pain Pantoprazole Sodium 40 mg 01/08/20 09:00 01/08/20 07:56 Protonix PO 40 mg DAILY [facility] Administration Sodium Bicarbonate 650 mg 01/08/20 09:00 01/08/20 08:26 Sodium Bicarbonate Tab PO Not Given BID [facility] Sodium Hypochlorite 0 ml 01/06/20 13:15 01/07/20 15:01 Dakin's 0.25% (Half Strength) MISCELLANE 480 ml DIRECTED [facility] Administration Objective - Vital Signs Vital signs: Vital Signs Temp 98.1 F 01/07/20 20:00 Pulse 73 01/08/20 04:50 Resp 20 01/08/20 04:50 BP 161/91 01/08/20 04:50 Pulse Ox 98 01/08/20 04:50 Intake & Output 01/07/20 01/08/20 01/08/20 18:59 06:59 18:59 Intake Total 960 1400 Balance 960 1400 Intake: Intake, IV Titration 360 Amount Ampicillin-Sulbactam 3 gm 100 In Sodium Chloride 0.9% 100 ml @ 200 mls/hr IVPB Q6HR [facility] Rx#:[id number] Lactated Ringers 1,000 ml 160 @ 20 mls/hr IV .Q24H [facility] Rx#:[id number] Magnesium Sulfate-D5w Pmx 100 1 gm In Dextrose/Water 1 100ml.bag @ 25 mls/hr IVPB Q4H [facility] Rx#: [id number] Oral 600 1400 Other: # Voids 1 - Exam GENERAL: The patient is alert and oriented x3, not in any acute distress. Well developed, well nourished. HEENT: Pupils are round and equally reacting to light. EOMI. No scleral icterus. No conjunctival pallor. Normocephalic, atraumatic. No pharyngeal erythema. No thyromegaly. CARDIOVASCULAR: S1 and S2 present. No murmurs, rubs, or gallops. PULMONARY: Chest is clear to auscultation, no wheezing or crackles. ABDOMEN: Soft, nontender, nondistended, normoactive bowel sounds. No palpable organomegaly. MUSCULOSKELETAL: No joint swelling or deformity. -EXTREMITIES: No cyanosis, clubbing, or pedal edema. Right third toe gangrene NEUROLOGICAL: Gross neurological examination did not reveal any focal deficits. SKIN: No rashes. no petechiae. - Labs CBC & Chem 7: 01/07/20 06:41 01/08/20 06:59 Labs: Abnormal Lab Results - Last 24 Hours (Table) 01/07/20 01/07/20 01/07/20 Range/Units 06:41 06:41 12:13 Glucose (74-99) mg/dL POC Glucose (mg/dL) 202 H (75-99) mg/dL Hemoglobin A1c 7.8 H (4.0-6.0) % Procalcitonin 0.13 H (0.02-0.09) ng/mL 01/07/20 01/07/20 01/08/20 Range/Units 17:18 20:26 06:59 Glucose 151 H (74-99) mg/dL POC Glucose (mg/dL) 165 H 143 H (75-99) mg/dL Hemoglobin A1c (4.0-6.0) % Procalcitonin (0.02-0.09) ng/mL 01/08/20 Range/Units 07:14 Glucose (74-99) mg/dL POC Glucose (mg/dL) 157 H (75-99) mg/dL Hemoglobin A1c (4.0-6.0) % Procalcitonin (0.02-0.09) ng/mL Microbiology - Last 24 Hours (Table) 01/05/20 12:20 Gram Stain - Final Foot - Right Wound Culture - Final Enterococcus faecalis 01/05/20 14:21 Gram Stain - Preliminary Foot - Left Wound Culture - Preliminary Enterococcus faecalis Presumptive MRSA 01/05/20 11:20 Blood Culture - Preliminary Blood No Growth after 48 hours 01/06/20 13:31 Gram Stain - Preliminary Foot - Right Wound Culture - Preliminary Assessment and Plan Assessment: -Acute dry gangrene of the right foot third digit, likely from small vessel disease in a diabetic . Status post debridement and third right toe amputation -Bilateral renal prominent column of Harman -Acute kidney injury, improved -Hyperlipidemia -Essential hypertension -Depression otherwise specified -Diabetes mellitus type 2 on oral hypoglycemic -COPD in an ex-smoker -Chronic lower extremity dysmorphic nails -Probable peripheral artery disease in a ex-smoker -Suspect chronic kidney disease, cannot rule out acute component Plan: This is a pleasant 59 years old male who presents with right toe gangrene and elevated creatinine which is came back to normal. Vascular surgery on the case, status post right third toe amputation and debridement on 01/05, infectious disease and inspector paper products also following the case. Continue with antibiotics as per ID team, currently on Unasyn and vancomycin continue with IV fluids. Resume metformin, continue with losartan, avoid NSAIDs Labs and medication were reviewed.. Continue same treatment. Continue with symptomatic treatment. Resume home medication. Monitor lytes and vitals. DVT and GI prophylaxis. Further recommendations of the clinical course of the patient DVT prophylaxis: Subcutaneous Lovenox GI Prophylaxis: Ppi PT/OT: Pending surgical fluid. After evaluation Prognosis is guarded
[2020-01-08] MEDS: oxyCODONE-APAP 5-325MG 1 EACH TAB PO PRN ×2 (11:51→21:17)
[2020-01-08 12:07] LABS: Glucose,Whole Blood 131 mg/dL (75-99)
[2020-01-08] MEDS: VANCOMYCIN 2,000 MG in SODIUM CHLORIDE 0.9% 500 ML 500 ML IVPB SCH (12:52)
[2020-01-08 16:52] LABS: Glucose,Whole Blood 183 mg/dL (75-99)
[2020-01-08] MEDS: SODIUM HYPOCHLORITE 0.25% 480 ML BOT MISCELLANE SCH (17:39)
[2020-01-08 20:42] LABS: Glucose,Whole Blood 117 mg/dL (75-99)
[2020-01-08] MEDS: ATORVASTATIN 20 MG TAB PO SCH (21:18)
[2020-01-09] MEDS: VANCOMYCIN 2,000 MG in SODIUM CHLORIDE 0.9% 500 ML 500 ML IVPB SCH ×3 (00:01→23:53)
[2020-01-09] MEDS: AMPICILLIN-SULBACTAM 3 GM in SODIUM CHLORIDE 0.9% 100 ML IVPB SCH ×3 (05:29→17:41)
[2020-01-09 07:19] LABS: Glucose,Whole Blood 164 mg/dL (75-99)
--- NOTE | 2020-01-09 08:05 | P.PN ---
Subjective Patient is seen in follow for acute kidney injury. Renal function is improving. Creatinine 1.23 as of yesterday. Good urine output. No vomiting or diarrhea. Oral intake is good. No active complaints. Vital signs are stable. General: The patient appeared well nourished and normally developed. HEENT: Head exam is unremarkable. Neck is without jugular venous distension. LUNGS: Lungs are clear to auscultation and percussion. HEART: Regular rate and rhythm. ABDOMEN: Nontender. EXTREMITITES: No edema. Wrapped. No drainage. Objective - Vital Signs Vital signs: Vital Signs Temp 97.8 F 01/09/20 04:29 Pulse 63 01/09/20 04:29 Resp 16 01/09/20 04:29 BP 138/84 01/09/20 04:29 Pulse Ox 99 01/09/20 04:29 Intake & Output 01/08/20 01/09/20 01/09/20 18:59 06:59 18:59 Output Total 2 Balance -2 Weight 101.741 kg Output: Urine 2 Other: # Voids 1 - Labs CBC & Chem 7: 01/07/20 06:41 01/08/20 06:59 Labs: Abnormal Lab Results - Last 24 Hours (Table) 01/08/20 01/08/20 01/08/20 Range/Units 12:03 16:50 20:33 POC Glucose (mg/dL) 131 H 183 H 117 H (75-99) mg/dL 01/09/20 Range/Units 06:51 POC Glucose (mg/dL) 164 H (75-99) mg/dL Microbiology - Last 24 Hours (Table) 01/06/20 13:31 Gram Stain - Final Foot - Right Wound Culture - Final 01/05/20 14:21 Gram Stain - Final Foot - Left Wound Culture - Final Enterococcus faecalis Methicillin resist S. aureus 01/06/20 13:31 Anaerobic Culture - Preliminary Foot - Right 01/05/20 11:20 Blood Culture - Preliminary Blood No Growth after 72 hours 01/05/20 14:21 Anaerobic Culture - Preliminary Foot - Left Anaerobic Gram Positive Cocci 01/05/20 12:20 Gram Stain - Final Foot - Right Wound Culture - Final Enterococcus faecalis Assessment and Plan Plan: Assessment: 1. Acute kidney injury versus chronic kidney disease. Renal function slowly i mproving. Creatinine was 1.6 on admission and is 1.23 as of yesterday. Unknown baseline renal function. He does reveal 1+ proteinuria which is most likely secondary to underlying diabetic kidney disease. No hydronephrosis noted on kidney ultrasound. 2. Left foot ulcer maintained on antibiotics. Wound culture positive for group D enterococcus and MRSA. Infectious disease following. 3. Gangrene right foot third toe status post amputation on January 05. 4. Benign hypertension. Controlled. 5. Metabolic acidosis secondary to acute kidney injury and IV fluids. Better. 6. Diabetes mellitus. Plan: Encouraged oral intake. Remains off IV fluids. Avoid nephrotoxins. Discontinued nonsteroidals. Further workup of proteinuria outpatient. Morning labs pending.
[2020-01-09 08:39] LABS: African American GFR (CKD) >90 (>60 ml/min/1.73 sqM); Non-African American GFR(CKD) 79 (>60 ml/min/1.73 sqM)
[2020-01-09] MEDS: METOPROLOL TARTRATE 25 MG TAB PO SCH ×2 (08:43→20:37)
[2020-01-09] MEDS: LOSARTAN 50 MG TAB PO SCH ×2 (08:43→20:37)
[2020-01-09] MEDS: SODIUM BICARBONATE TAB 650 MG TAB PO SCH ×2 (08:43→20:37)
[2020-01-09] MEDS: CITALOPRAM HYDROBROMIDE 20 MG TAB PO SCH (08:43)
[2020-01-09] MEDS: metFORMIN 500 MG TAB PO SCH ×2 (08:43→17:35)
[2020-01-09] MEDS: amLODIPine 10 MG TAB PO SCH (08:43)
[2020-01-09] MEDS: PANTOPRAZOLE 40 MG TABLET PO SCH (08:43)
[2020-01-09] MEDS: MAGNESIUM OXIDE 400 MG TAB PO SCH (08:43)
[2020-01-09] MEDS: ENOXAPARIN 40 MG/0.4 ML SYRINGE SQ SCH (08:43)
[2020-01-09] MEDS: INSULIN ASPART (NovoLOG) 100 UNIT/ML VIAL SQ SCH ×4 (08:44→21:06)
[2020-01-09 11:54] LABS: Glucose,Whole Blood 89 mg/dL (75-99)
[2020-01-09] MEDS: SODIUM HYPOCHLORITE 0.25% 480 ML BOT MISCELLANE SCH (12:06)
--- NOTE | 2020-01-09 12:30 | P.PN ---
Subjective History of presenting to plan: This is a pleasant 59-year-old patient of Dr. Uday Artis. Chronic stable medical conditions include diabetes, GERD, hyperlipidemia. Patient is currently at the local [facility]. He has a deputy from the [facility]. Patient about 12 years ago noted a red spot on the right foot third toe on the dorsum. It progressively got worse. And now the whole toes become black in color. There is no pain. No fever no chills. No surrounding redness. Patient does have very dry skin and disfigured nails. Has some numbness in the feet. 01/06/20 This is a pleasant 59 years old male who presented with right toe gangrene, related to his diabetic disease and poor circulation. Surgical case on the case and planning for right third toe amputation today with debridement, also on admission his creatinine was elevated at 1.5-1.6, welder apprentice combination evaluated the patient and recommended to continue with losartan for elevated blood pressure, however her metformin was held, sugars still controlled. Continue with insulin sliding scale. Renal ultrasound show no hydro-nephrosis however there is prominent column of Harman on both sides with recommendation by radiologist for follow-up in 3 months to reassess Wound culture showing group D enterococcus on further culture is pending. CBC is stable, creatinine stable at 1.57, UA is not suspicious of infection And Norvasc for better blood pressure control 01/07/2020 Patient is a status post bilateral feet wound debridement and right third toe amputation secondary to his gangrene and diabetic ulcer Patient today is lying in bed comfortable, fully awake and oriented, his complain from a little oozing from his wound, other than that no new complaints Patient had lengthy discussion with the patient about his care, he is, [facility] and expected to [facility] to [facility] upon discharge, no polys guarded at bedside to due to visitor restriction from coronavirus pandemic. Patient with no signs symptoms to suggest coronavirus infection He remains on Unasyn for his diabetic wound, his ESR is elevated at 48, C- reactive protein is elevated at 15.4, wound culture still pending Hemoglobin A1c is pending as well, metformin was held due to her creatinine which is improving today down to 1.3, we will add Amaryl 1 mg daily Patient was informed about his abnormal renal ultrasound (Bilateral renal prominent column of Harman) with recommendation by radiologist for follow-up in 3 months for repeat ultrasound. Risks including but not limited to cancer are explained to the patient and he verbalized understanding and acceptance 01/08/2020 Patient remains not in distress, is fully alert and oriented, his oozing from his bilateral feet wounds has stopped, wound care following the patient for wounds on both feet, left more than right. Vitals are stable. Creatinine came back to normal at 1.23, magnesium normal at 1.6, sugar controlled. Since his creatinine back to normal we switch him back to metformin with close monitoring. Continue with antibiotics of Unasyn and IV vancomycin as per ID recommendation for his enterococcus and MRSA in the wound, patient is aware and he agrees Patient was instructed to repeat ultrasound of the kidney in 3 months as per radiology recommendation and he agrees 01/09/2020 Patient is clinically stable, vitals stable. Creatinine down to 1.0 This morning patient was put back on metformin 1000 twice a day, his sugar is 89 this morning, we'll keep monitoring if ischemic troponin might add is the dose accordingly New culture is growing gram-positive cocci and also CULTURES with enterococcus and MRSA Patient continue with antibiotics for now Review of systems CONSTITUTIONAL: No fever, no malaise, no fatigue. HEENT: No recent visual problems or hearing problems. Denied any sore throat. CARDIOVASCULAR: No orthopnea, PND, no palpitations, no syncope. PULMONARY: No shortness of breath, no cough, no hemoptysis. GASTROINTESTINAL: No diarrhea, no nausea, no vomiting, no abdominal pain. Norm oactive bowel sounds. NEUROLOGICAL: No headaches, no weakness, no numbness. HEMATOLOGICAL: Denies any bleeding or petechiae. GENITOURINARY: Denies any burning micturition, frequency, or urgency. ENDOCRINE: Denies any polyuria or polydipsia. Active Medications Generic Name Dose Route Start Last Admin Trade Name Freq PRN Reason Stop Dose Admin Acetaminophen 650 mg 01/05/20 12:37 01/06/20 23:28 Tylenol Tab PO 650 mg Q6HR PRN Administration Mild Pain or Fever > 100.5 Amlodipine Besylate 10 mg 01/08/20 09:00 01/09/20 08:43 Norvasc PO 10 mg DAILY CARSON Administration Atorvastatin Calcium 20 mg 01/05/20 21:00 01/08/20 21:18 Lipitor PO 20 mg HS CARSON Administration Citalopram Hydrobromide 40 mg 01/06/20 09:00 01/09/20 08:43 Celexa PO 40 mg DAILY CARSON Administration Enoxaparin Sodium 40 mg 01/05/20 20:00 01/09/20 08:43 Lovenox SQ 40 mg DAILY CARSON Administration Ampicillin Sodium/Sulbactam 100 mls @ 200 mls/hr 01/07/20 00:00 01/09/20 12:02 Sodium 3 gm/ Sodium Chloride IVPB 200 mls/hr Q6HR CARSON Administration Vancomycin HCl 2,000 mg/ 500 mls @ 167 mls/hr 01/08/20 11:00 01/09/20 11:49 Sodium Chloride IVPB 167 mls/hr Q12H CARSON Administration Insulin Aspart 0 unit 01/06/20 17:30 01/09/20 11:51 Novolog SQ Not Given ACHS [facility] Protocol Losartan Potassium 50 mg 01/05/20 21:00 01/09/20 08:43 Cozaar PO 50 mg BID CARSON Administration Magnesium Oxide 400 mg 01/08/20 09:00 01/09/20 08:43 Mag-Ox PO 400 mg DAILY CARSON Administration Metformin HCl 1,000 mg 01/09/20 07:30 01/09/20 08:43 Glucophage PO 1,000 mg BID-W/MEALS CARSON Administration Metoprolol Tartrate 25 mg 01/05/20 21:00 01/09/20 08:43 Lopressor PO 25 mg BID CARSON Administration Miscellaneous Information 0 each 01/09/20 22:00 Vancomycin Trough Due MISCELLANE 01/09/20 22:01 DIRECTED ONE Naloxone HCl 0.2 mg 01/05/20 12:37 Narcan IV Q2M PRN Opioid Reversal Ondansetron HCl 4 mg 01/05/20 12:37 Zofran IVP Q8HR PRN Nausea And Vomiting Oxycodone/Acetaminophen 1 each 01/05/20 12:37 01/08/20 21:17 Percocet 5-325 PO 1 each Q4HR PRN Administration Severe Pain Pantoprazole Sodium 40 mg 01/08/20 09:00 01/09/20 08:43 Protonix PO 40 mg DAILY CARSON Administration Sodium Bicarbonate 650 mg 01/08/20 09:00 01/09/20 08:43 Sodium Bicarbonate Tab PO 650 mg BID CARSON Administration Sodium Hypochlorite 0 ml 01/06/20 13:15 01/09/20 12:06 Dakin's 0.25% (Half Strength) MISCELLANE 480 ml DIRECTED CARSON Administration Objective - Vital Signs Vital signs: Vital Signs Temp 97.8 F 01/09/20 04:29 Pulse 63 01/09/20 04:29 Resp 16 01/09/20 08:00 BP 138/84 01/09/20 04:29 Pulse Ox 99 01/09/20 04:29 Intake & Output 01/08/20 01/09/20 01/09/20 18:59 06:59 18:59 Output Total 2 Balance -2 Weight 101.741 kg Output: Urine 2 Other: # Voids 1 - Exam GENERAL: The patient is alert and oriented x3, not in any acute distress. Well developed, well nourished. HEENT: Pupils are round and equally reacting to light. EOMI. No scleral icterus. No conjunctival pallor. Normocephalic, atraumatic. No pharyngeal erythema. No thyromegaly. CARDIOVASCULAR: S1 and S2 present. No murmurs, rubs, or gallops. PULMONARY: Chest is clear to auscultation, no wheezing or crackles. ABDOMEN: Soft, nontender, nondistended, normoactive bowel sounds. No palpable organomegaly. MUSCULOSKELETAL: No joint swelling or deformity. -EXTREMITIES: No cyanosis, clubbing, or pedal edema. Right third toe gangrene NEUROLOGICAL: Gross neurological examination did not reveal any focal deficits. SKIN: No rashes. no petechiae. - Labs CBC & Chem 7: 01/07/20 06:41 01/09/20 07:23 Labs: Abnormal Lab Results - Last 24 Hours (Table) 01/08/20 01/08/20 01/09/20 Range/Units 16:50 20:33 06:51 POC Glucose (mg/dL) 183 H 117 H 164 H (75-99) mg/dL Microbiology - Last 24 Hours (Table) 01/05/20 14:21 Anaerobic Culture - Final Foot - Left Anaerobic Gram Positive Cocci Anaerobic Gram Positive Cocci#2 01/06/20 13:31 Gram Stain - Final Foot - Right Wound Culture - Final 01/05/20 14:21 Gram Stain - Final Foot - Left Wound Culture - Final Enterococcus faecalis Methicillin resist S. aureus 01/06/20 13:31 Anaerobic Culture - Preliminary Foot - Right 01/05/20 11:20 Blood Culture - Preliminary Blood No Growth after 72 hours 01/05/20 12:20 Gram Stain - Final Foot - Right Wound Culture - Final Enterococcus faecalis Assessment and Plan Assessment: -Acute dry gangrene of the right foot third digit, likely from small vessel disease in a diabetic . Status post debridement and third right toe amputation -Bilateral renal prominent column of Harman -Acute kidney injury, improved -Hyperlipidemia -Essential hypertension -Depression otherwise specified -Diabetes mellitus type 2 on oral hypoglycemic -COPD in an ex-smoker -Chronic lower extremity dysmorphic nails -Probable peripheral artery disease in a ex-smoker -Suspect chronic kidney disease, cannot rule out acute component Plan: This is a pleasant 59 years old male who presents with right toe gangrene and elevated creatinine which is came back to normal. Vascular surgery on the case, status post right third toe amputation and debridement on 01/05, infectious disease and welder apprentice combination also following the case. Continue with antibiotics as per ID team, currently on Unasyn and vancomycin continue with IV fluids. Resume metformin, continue with losartan, avoid NSAIDs Labs and medication were reviewed.. Continue same treatment. Continue with symptomatic treatment. Resume home medication. Monitor lytes and vitals. DVT and GI prophylaxis. Further recommendations of the clinical course of the patient DVT prophylaxis: Subcutaneous Lovenox GI Prophylaxis: Ppi PT/OT: Pending surgical fluid. After evaluation Prognosis is guarded
[2020-01-09] MEDS: oxyCODONE-APAP 5-325MG 1 EACH TAB PO PRN (15:12)
[2020-01-09 16:59] LABS: Glucose,Whole Blood 166 mg/dL (75-99)
[2020-01-09] MEDS: ATORVASTATIN 20 MG TAB PO SCH (20:38)
[2020-01-09 21:10] LABS: Glucose,Whole Blood 102 mg/dL (75-99)
[2020-01-09] MEDS ORDERED: VANCOMYCIN TROUGH DUE 1 EACH MISC MISCELLANE ONE (22:00)
[2020-01-10] MEDS: AMPICILLIN-SULBACTAM 3 GM in SODIUM CHLORIDE 0.9% 100 ML IVPB SCH ×5 (00:05→23:06)
[2020-01-10 07:11] LABS: Glucose,Whole Blood 133 mg/dL (75-99)
--- NOTE | 2020-01-10 08:22 | P.PN ---
Subjective Patient is seen in follow for acute kidney injury. Renal function is improving. Creatinine 1.04 as of yesterday. Good urine output. No vomiting or diarrhea. Oral intake is good. No active complaints. Vital signs are stable. General: The patient appeared well nourished and normally developed. HEENT: Head exam is unremarkable. Neck is without jugular venous distension. LUNGS: Lungs are clear to auscultation and percussion. HEART: Regular rate and rhythm. ABDOMEN: Nontender. EXTREMITITES: No edema. Wrapped. No drainage. Objective - Vital Signs Vital signs: Vital Signs Temp 97.8 F 01/10/20 06:02 Pulse 82 01/10/20 06:02 Resp 18 01/10/20 06:02 BP 153/91 01/10/20 06:02 Pulse Ox 97 01/10/20 06:02 Intake & Output 01/09/20 01/10/20 01/10/20 18:59 06:59 18:59 Intake Total 1080 Balance 1080 Intake: Oral 1080 Other: # Voids 3 1 - Labs CBC & Chem 7: 01/07/20 06:41 01/09/20 07:23 Labs: Abnormal Lab Results - Last 24 Hours (Table) 01/09/20 01/09/20 01/09/20 Range/Units 16:52 21:05 22:33 POC Glucose (mg/dL) 166 H 102 H (75-99) mg/dL Vancomycin Trough 33.4 H* ug/mL 01/10/20 Range/Units 07:07 POC Glucose (mg/dL) 133 H (75-99) mg/dL Vancomycin Trough ug/mL Microbiology - Last 24 Hours (Table) 01/05/20 11:20 Blood Culture - Preliminary Blood No Growth after 96 hours 01/05/20 14:21 Anaerobic Culture - Final Foot - Left Anaerobic Gram Positive Cocci Anaerobic Gram Positive Cocci#2 Assessment and Plan Plan: Assessment: 1. Acute kidney injury versus chronic kidney disease. Renal function slowly improving. Creatinine was 1.6 on admission and was 1.04 as of yesterday. Unknown baseline renal function. He does reveal 1+ proteinuria which is most likely secondary to underlying diabetic kidney disease. No hydronephrosis noted on kidney ultrasound. 2. Left foot ulcer maintained on antibiotics. Wound culture positive for group D enterococcus and MRSA. Infectious disease following. 3. Gangrene right foot third toe status post amputation on January 05. 4. Benign hypertension. Controlled. 5. Metabolic acidosis secondary to acute kidney injury and IV fluids. Better. 6. Diabetes mellitus. Plan: Encouraged oral intake. Remains off IV fluids. Avoid nephrotoxins. Discontinued nonsteroidals. Further workup of proteinuria outpatient. Vancomycin level 33.4 as of yesterday. Monitor closely and dose to be adjusted for renal function.
[2020-01-10 08:34] LABS: Calcium 9.1 mg/dL (8.4-10.2); Magnesium 1.5 mg/dL (1.6-2.3); Potassium 4.6 mmol/L (3.5-5.1)
[2020-01-10] MEDS: SODIUM BICARBONATE TAB 650 MG TAB PO SCH ×2 (08:38→21:49)
[2020-01-10] MEDS: CITALOPRAM HYDROBROMIDE 20 MG TAB PO SCH (08:38)
[2020-01-10] MEDS: METOPROLOL TARTRATE 25 MG TAB PO SCH ×2 (08:38→21:41)
[2020-01-10] MEDS: PANTOPRAZOLE 40 MG TABLET PO SCH (08:39)
[2020-01-10] MEDS: VANCOMYCIN 1,500 MG in SODIUM CHLORIDE 0.9% 250 ML IVPB SCH (08:39)
[2020-01-10] MEDS: MAGNESIUM OXIDE 400 MG TAB PO SCH (08:39)
[2020-01-10] MEDS: LOSARTAN 50 MG TAB PO SCH ×2 (08:39→21:41)
[2020-01-10] MEDS: amLODIPine 10 MG TAB PO SCH (08:39)
[2020-01-10] MEDS: ENOXAPARIN 40 MG/0.4 ML SYRINGE SQ SCH (08:39)
[2020-01-10] MEDS: metFORMIN 500 MG TAB PO SCH ×2 (08:39→17:49)
[2020-01-10] MEDS: INSULIN ASPART (NovoLOG) 100 UNIT/ML VIAL SQ SCH ×4 (08:40→21:40)
--- NOTE | 2020-01-10 08:49 | PN ---
PROGRESS NOTE DATE OF SERVICE: 01/09/2020 REASON FOR FOLLOWUP: Left diabetic foot wound and infection. INTERVAL HISTORY: The patient is currently afebrile, has been breathing comfortably. The patient denies having any chest pain or shortness of breath or cough. No nausea, vomiting, abdominal pain, or worsening pain in the left foot area. PHYSICAL EXAMINATION: Blood pressure is 130/65 with a pulse of 68, temperature 97.9. He is 99% on room air. General description is a middle-aged male lying in bed in no distress. Respiratory system: Unlabored breathing, clear to auscultation anteriorly. Heart S1, S2. Regular rate and rhythm. Abdomen soft, no tenderness. LABS: Culture from the left foot has been positive for anaerobic gram-positive cocci, Enterococcus faecalis and MRSA. DIAGNOSTIC IMPRESSION AND PLAN: Patient with left diabetic foot wound with concern for possible osteo as wound was significantly deep. The patient is covered with Unasyn and vancomycin. Waiting for outpatient IV antibiotic arrangement. Local wound care to continue as ordered. Continue supportive care. MMODL / IJN: [id number] /
[2020-01-10] MEDS: MAGNESIUM SULFATE-D5W PMX 1 GM in DEXTROSE/WATER 1 100ML.BAG IVPB SCH ×2 (11:07→14:12)
[2020-01-10 12:00] LABS: Glucose,Whole Blood 151 mg/dL (75-99)
[2020-01-10 12:52] VITALS: RESP 16
[2020-01-10] MEDS ORDERED: Magnesium Replacement Protocol 1 EACH MISC MISCELLANE PRN (13:09)
[2020-01-10] MEDS ORDERED: VANCOMYCIN IV PER PHARMACY 1 EACH MISC MISCELLANE PRN (13:12)
[2020-01-10] MEDS: SODIUM HYPOCHLORITE 0.25% 480 ML BOT MISCELLANE SCH (14:15)
[2020-01-10 16:42] LABS: Glucose,Whole Blood 152 mg/dL (75-99)
[2020-01-10 20:41] LABS: Glucose,Whole Blood 132 mg/dL (75-99)
[2020-01-10] MEDS: ATORVASTATIN 20 MG TAB PO SCH (21:41)
[2020-01-11] MEDS: VANCOMYCIN 1,500 MG in SODIUM CHLORIDE 0.9% 250 ML IVPB SCH ×2 (00:19→15:15)
[2020-01-11 05:35] VITALS: PULSE 74; TEMP 97.9
[2020-01-11] MEDS: AMPICILLIN-SULBACTAM 3 GM in SODIUM CHLORIDE 0.9% 100 ML IVPB SCH ×3 (05:51→18:02)
[2020-01-11 07:20] LABS: Glucose,Whole Blood 148 mg/dL (75-99)
[2020-01-11] MEDS: INSULIN ASPART (NovoLOG) 100 UNIT/ML VIAL SQ SCH ×3 (07:36→18:01)
[2020-01-11 08:11] LABS: Magnesium 1.7 mg/dL (1.6-2.3)
[2020-01-11] MEDS: SODIUM BICARBONATE TAB 650 MG TAB PO SCH (08:43)
[2020-01-11] MEDS: METOPROLOL TARTRATE 25 MG TAB PO SCH (08:44)
[2020-01-11] MEDS: PANTOPRAZOLE 40 MG TABLET PO SCH (08:44)
[2020-01-11] MEDS: MAGNESIUM OXIDE 400 MG TAB PO SCH (08:44)
[2020-01-11] MEDS: metFORMIN 500 MG TAB PO SCH ×2 (08:44→18:01)
[2020-01-11] MEDS: LOSARTAN 50 MG TAB PO SCH (08:44)
[2020-01-11] MEDS: CITALOPRAM HYDROBROMIDE 20 MG TAB PO SCH (08:44)
--- NOTE | 2020-01-11 08:44 | PN ---
PROGRESS NOTE DATE OF SERVICE: 01/10/2020 REASON FOR FOLLOWUP: Left diabetic foot wound and infection possible. INTERVAL HISTORY: The patient is currently afebrile. The patient has been breathing comfortably. The patient denies having any chest pain, no shortness of breath or cough. No nausea, no vomiting. No abdominal pain or any worsening pain to the foot wound area. PHYSICAL EXAMINATION: Blood pressure is 161/81 with a pulse of 73, temperature 98.5, he is 99% on room. General description is a middle-aged male, lying in bed in no distress. RESPIRATORY SYSTEM: Unlabored breathing, clear to auscultation anteriorly. HEART: S1, S2. Regular rate and rhythm. ABDOMEN: Soft, no tenderness. LABS: BUN of 23, creatinine 1.27. DIAGNOSTIC IMPRESSION AND PLAN: Patient with left diabetic foot wound which has been deep, next to all the way down to the bone per the operative report. Patient's wound culture did show multiple pathogens including Enterococcus faecalis and MRSA anaerobes. Patient is covered with Unasyn and vancomycin. Discharge antibiotic can be vancomycin and oral Flagyl. Waiting for outpatient IV antibiotic arrangement before discharge. Continue supportive care. MMODL / IJN: [id number] /
[2020-01-11] MEDS: amLODIPine 10 MG TAB PO SCH (08:45)
[2020-01-11] MEDS: ENOXAPARIN 40 MG/0.4 ML SYRINGE SQ SCH (08:45)
[2020-01-11] MEDS: ACETAMINOPHEN TAB 325 MG TAB PO PRN (08:53)
--- NOTE | 2020-01-11 10:02 | P.PN ---
Subjective History of presenting to plan: This is a pleasant 59-year-old patient of Dr. Uday Artis. Chronic stable medical conditions include diabetes, GERD, hyperlipidemia. Patient is currently at the local senior living. He has a deputy from the senior living. Patient about 12 years ago noted a red spot on the right foot third toe on the dorsum. It progressively got worse. And now the whole toes become black in color. There is no pain. No fever no chills. No surrounding redness. Patient does have very dry skin and disfigured nails. Has some numbness in the feet. 01/06/20 This is a pleasant 59 years old male who presented with right toe gangrene, related to his diabetic disease and poor circulation. Surgical case on the case and planning for right third toe amputation today with debridement, also on admission his creatinine was elevated at 1.5-1.6, wedger machine evaluated the patient and recommended to continue with losartan for elevated blood pressure, however her metformin was held, sugars still controlled. Continue with insulin sliding scale. Renal ultrasound show no hydro-nephrosis however there is prominent column of Harman on both sides with recommendation by radiologist for follow-up in 3 months to reassess Wound culture showing group D enterococcus on further culture is pending. CBC is stable, creatinine stable at 1.57, UA is not suspicious of infection And Norvasc for better blood pressure control 01/07/2020 Patient is a status post bilateral feet wound debridement and right third toe amputation secondary to his gangrene and diabetic ulcer Patient today is lying in bed comfortable, fully awake and oriented, his complain from a little oozing from his wound, other than that no new complaints Patient had lengthy discussion with the patient about his care, he is, from senior living and expected to go back to senior living upon discharge, no polys guarded at bedside to due to visitor restriction from coronavirus pandemic. Patient with no signs symptoms to suggest coronavirus infection He remains on Unasyn for his diabetic wound, his ESR is elevated at 48, C- reactive protein is elevated at 15.4, wound culture still pending Hemoglobin A1c is pending as well, metformin was held due to her creatinine which is improving today down to 1.3, we will add Amaryl 1 mg daily Patient was informed about his abnormal renal ultrasound (Bilateral renal prominent column of Harman) with recommendation by radiologist for follow-up in 3 months for repeat ultrasound. Risks including but not limited to cancer are explained to the patient and he verbalized understanding and acceptance 01/08/2020 Patient remains not in distress, is fully alert and oriented, his oozing from his bilateral feet wounds has stopped, wound care following the patient for wounds on both feet, left more than right. Vitals are stable. Creatinine came back to normal at 1.23, magnesium normal at 1.6, sugar controlled. Since his creatinine back to normal we switch him back to metformin with close monitoring. Continue with antibiotics of Unasyn and IV vancomycin as per ID recommendation for his enterococcus and MRSA in the wound, patient is aware and he agrees Patient was instructed to repeat ultrasound of the kidney in 3 months as per radiology recommendation and he agrees 01/09/2020 Patient is clinically stable, vitals stable. Creatinine down to 1.0 This morning patient was put back on metformin 1000 twice a day, his sugar is 89 this morning, we'll keep monitoring if ischemic troponin might add is the dose accordingly New culture is growing gram-positive cocci and also CULTURES with enterococcus and MRSA Patient continue with antibiotics for now 01/10/2020 Patient with no chest pain or dyspnea. No diarrhea. He is alert and awake. However creatinine is trending up today again to 1.27, nephrology on the case Sugar stable 102-166, remains on metformin 1000, Low magnesium was replaced Wound was growing MRSA and enterococcus with antibiotic gram-positive cocci. Infectious disease on the case and they ordered Unasyn and vancomycin Vancomycin trough slightly elevated yesterday. He remains on IV vancomycin and Unasyn per ID team recommendation. Review of systems CONSTITUTIONAL: No fever, no malaise, no fatigue. HEENT: No recent visual problems or hearing problems. Denied any sore throat. CARDIOVASCULAR: No orthopnea, PND, no palpitations, no syncope. PULMONARY: No shortness of breath, no cough, no hemoptysis. GASTROINTESTINAL: No diarrhea, no nausea, no vomiting, no abdominal pain. Normoactive bowel sounds. NEUROLOGICAL: No headaches, no weakness, no numbness. HEMATOLOGICAL: Denies any bleeding or petechiae. GENITOURINARY: Denies any burning micturition, frequency, or urgency. ENDOCRINE: Denies any polyuria or polydipsia. Active Medications Generic Name Dose Route Start Last Admin Trade Name Freq PRN Reason Stop Dose Admin Acetaminophen 650 mg 01/05/20 12:37 01/06/20 23:28 Tylenol Tab PO 650 mg Q6HR PRN Administration Mild Pain or Fever > 100.5 Amlodipine Besylate 10 mg 01/08/20 09:00 01/10/20 08:39 Norvasc PO 10 mg DAILY CARSON Administration Atorvastatin Calcium 20 mg 01/05/20 21:00 01/09/20 20:38 Lipitor PO 20 mg HS CARSON Administration Citalopram Hydrobromide 40 mg 01/06/20 09:00 01/10/20 08:38 Celexa PO 40 mg DAILY CARSON Administration Enoxaparin Sodium 40 mg 01/05/20 20:00 01/10/20 08:39 Lovenox SQ 40 mg DAILY CARSON Administration Ampicillin Sodium/Sulbactam 100 mls @ 200 mls/hr 01/07/20 00:00 01/10/20 12:55 Sodium 3 gm/ Sodium Chloride IVPB 200 mls/hr Q6HR CARSON Administration Vancomycin HCl 1,500 mg/ 250 mls @ 125 mls/hr 01/10/20 08:00 01/10/20 08:39 Sodium Chloride IVPB 125 mls/hr Q16H CARSON Administration Insulin Aspart 0 unit 01/06/20 17:30 01/10/20 12:55 Novolog SQ 2 unit ACHS CARSON Administration Protocol Losartan Potassium 50 mg 01/05/20 21:00 01/10/20 08:39 Cozaar PO 50 mg BID CARSON Administration Magnesium Oxide 400 mg 01/08/20 09:00 01/10/20 08:39 Mag-Ox PO 400 mg DAILY CARSON Administration Metformin HCl 1,000 mg 01/09/20 07:30 01/10/20 08:39 Glucophage PO 1,000 mg BID-W/MEALS CARSON Administration Metoprolol Tartrate 25 mg 01/05/20 21:00 01/10/20 08:38 Lopressor PO 25 mg BID CARSON Administration Miscellaneous Information 0 each 01/11/20 15:00 Vancomycin Trough Due MISCELLANE 01/11/20 15:01 DIRECTED ONE Naloxone HCl 0.2 mg 01/05/20 12:37 Narcan IV Q2M PRN Opioid Reversal Ondansetron HCl 4 mg 01/05/20 12:37 Zofran IVP Q8HR PRN Nausea And Vomiting Oxycodone/Acetaminophen 1 each 01/05/20 12:37 01/09/20 15:12 Percocet 5-325 PO 1 each Q4HR PRN Administration Severe Pain Pantoprazole Sodium 40 mg 01/08/20 09:00 01/10/20 08:39 Protonix PO 40 mg DAILY CARSON Administration Sodium Bicarbonate 650 mg 01/08/20 09:00 01/10/20 08:38 Sodium Bicarbonate Tab PO 650 mg BID CARSON Administration Sodium Hypochlorite 0 ml 01/06/20 13:15 01/09/20 12:06 Dakin's 0.25% (Half Strength) MISCELLANE 480 ml DIRECTED CARSON Administration Objective - Vital Signs Vital signs: Vital Signs Temp 98.5 F 01/10/20 12:44 Pulse 71 01/10/20 12:44 Resp 16 01/10/20 12:44 BP 137/88 01/10/20 12:44 Pulse Ox 99 01/10/20 12:44 Intake & Output 01/09/20 01/10/20 01/10/20 18:59 06:59 18:59 Intake Total 1080 Balance 1080 Intake: Oral 1080 Other: # Voids 3 1 - Exam GENERAL: The patient is alert and oriented x3, not in any acute distress. Well developed, well nourished. HEENT: Pupils are round and equally reacting to light. EOMI. No scleral icterus. No conjunctival pallor. Normocephalic, atraumatic. No pharyngeal erythema. No thyromegaly. CARDIOVASCULAR: S1 and S2 present. No murmurs, rubs, or gallops. PULMONARY: Chest is clear to auscultation, no wheezing or crackles. ABDOMEN: Soft, nontender, nondistended, normoactive bowel sounds. No palpable organomegaly. MUSCULOSKELETAL: No joint swelling or deformity. -EXTREMITIES: No cyanosis, clubbing, or pedal edema. Right third toe gangrene NEUROLOGICAL: Gross neurological examination did not reveal any focal deficits. SKIN: No rashes. no petechiae. - Labs CBC & Chem 7: 01/07/20 06:41 01/10/20 07:18 Labs: Abnormal Lab Results - Last 24 Hours (Table) 01/09/20 01/09/20 01/09/20 Range/Units 16:52 21:05 22:33 BUN (9-20) mg/dL Creatinine (0.66-1.25) mg/dL Glucose (74-99) mg/dL POC Glucose (mg/dL) 166 H 102 H (75-99) mg/dL Magnesium (1.6-2.3) mg/dL Vancomycin Trough 33.4 H* ug/mL 01/10/20 01/10/20 01/10/20 Range/Units 07:07 07:18 11:59 BUN 23 H (9-20) mg/dL Creatinine 1.27 H (0.66-1.25) mg/dL Glucose 119 H (74-99) mg/dL POC Glucose (mg/dL) 133 H 151 H (75-99) mg/dL Magnesium 1.5 L (1.6-2.3) mg/dL Vancomycin Trough ug/mL Microbiology - Last 24 Hours (Table) 01/06/20 13:31 Anaerobic Culture - Final Foot - Right Anaerobic Gram Positive Cocci Anaerobic Gm Positive Bacill 01/05/20 11:20 Blood Culture - Preliminary Blood No Growth after 96 hours 01/05/20 14:21 Anaerobic Culture - Final Foot - Left Anaerobic Gram Positive Cocci Anaerobic Gram Positive Cocci#2 Assessment and Plan Assessment: -Acute dry gangrene of the right foot third digit, likely from small vessel disease in a diabetic . Status post debridement and third right toe amputation -Bilateral renal prominent column of Harman -Acute kidney injury, improved -Hyperlipidemia -Essential hypertension -Depression otherwise specified -Diabetes mellitus type 2 on oral hypoglycemic -COPD in an ex-smoker -Chronic lower extremity dysmorphic nails -Probable peripheral artery disease in a ex-smoker -Suspect chronic kidney disease, cannot rule out acute component Plan: This is a pleasant 59 years old male who presents with right toe gangrene and elevated creatinine which is came back to normal. Vascular surgery on the case, status post right third toe amputation and debridement on 01/05, infectious disease and wedger machine also following the case. Continue with antibiotics as per ID team, currently on Unasyn and vancomycin continue with IV fluids. Resume metformin, continue with losartan, avoid NSAIDs Continue with vancomycin per pharmacy dosing today Labs and medication were reviewed.. Continue same treatment. Continue with symptomatic treatment. Resume home medication. Monitor lytes and vitals. DVT and GI prophylaxis. Further recommendations of the clinical course of the patient DVT prophylaxis: Subcutaneous Lovenox GI Prophylaxis: Ppi PT/OT: Pending surgical fluid. After evaluation Prognosis is guarded
[2020-01-11 11:48] LABS: Glucose,Whole Blood 118 mg/dL (75-99)
[2020-01-11 13:53] VITALS: BP 128/78
[2020-01-11] MEDS ORDERED: VANCOMYCIN TROUGH DUE 1 EACH MISC MISCELLANE ONE (15:00)
--- NOTE | 2020-01-11 15:10 | PN ---
PROGRESS NOTE Patient is seen for followup for acute kidney injury. His renal function has improved. Serum creatinine is down to 1.18 from 1.6 on initial admission. Patient's vancomycin level was significantly elevated at 33.4 on 01/09/2020. On examination today, blood pressure is 161/81, heart rate 73 per minute. He is afebrile. Examination of the heart S1, S2. Examination of the lungs, bilateral breath sounds are heard. Decreased breath sounds at the bases. Abdomen is soft, nontender. Examination of the lower extremities shows no significant edema. LABS: Show sodium 137, potassium 4.6 from yesterday, serum creatinine 1.27. ASSESSMENT: 1. Acute kidney injury ATN, now improved. 2. Vancomycin toxicity, repeat levels. Patient is maintained on vancomycin for left foot ulcer/osteomyelitis. 3. Left foot ulcer. Wound culture positive for group D Enterococcus and MRSA, being followed by ID. 4. Gangrene, right third toe, status post amputation on January 05. 5. Metabolic acidosis associated with renal failure. PLAN: Follow up as outpatient for possible underlying CKD from diabetic nephropathy and quantification of proteinuria and monitor vancomycin levels closely. MMODL / IJN: [id number] /
[2020-01-11] MEDS: SODIUM HYPOCHLORITE 0.25% 480 ML BOT MISCELLANE SCH (15:14)
[2020-01-11 16:48] LABS: Glucose,Whole Blood 138 mg/dL (75-99)
--- NOTE | 2020-01-11 17:23 | PN ---
PROGRESS NOTE DATE OF SERVICE: 01/11/2020 REASON FOR FOLLOWUP: Left diabetic foot infection. INTERVAL HISTORY: The patient is currently afebrile, has been feeling better, breathing comfortably. The patient denies having any chest pain or shortness of breath or cough. No abdominal pain. No pain to the left foot area. PHYSICAL EXAMINATION: Blood pressure is 128/78 with a pulse of 74, temperature 97.9. He is 98% on room air. General description is a middle-aged male lying in bed in no distress. RESPIRATORY SYSTEM: Unlabored breathing. Clear to auscultation anteriorly. HEART: S1, S2. Regular rate and rhythm. ABDOMEN: Soft. No tenderness. Left foot base wound with good granulation tissue. No surrounding redness or any drainage. LABS: Creatinine is 1.18. DIAGNOSTIC IMPRESSION AND PLAN: Patient with left diabetic foot infection. Culture has been positive for MRSA, Enterococcus, anaerobes. PICC line was requested; has been rejected, as the patient has to go back to the residential. Antibiotic has been switched over to Bactrim DS one b.i.d. along with Augmentin 1 b.i.d. for 2 weeks, and local wound care to continue with Aquacel Silver dressing, offloading shoes and close outpatient followup. MMODL / IJN: [id number] /
--- NOTE | 2020-01-11 22:15 | P.DS ---
Providers Date of admission: 01/05/20 12:37 Expected date of discharge: 01/11/20 Attending physician: Lul Babb Consults: 01/05/20 12:37 Consult Physician Stat Consulting Provider: Bina Preston Consult Reason/Comments: Gangrene Do you want consulting provider notified?: Yes 01/05/20 19:51 Consult Physician Routine Consulting Provider: Kendell Jean-Baptiste Consult Reason/Comments: Renal failure Do you want consulting provider notified?: Yes 01/05/20 21:17 Consult Physician Routine Consulting Provider: Peg Peña Consult Reason/Comments: Renal failure Do you want consulting provider notified?: Yes 01/06/20 00:40 Consult Physician Routine Consulting Provider: Mary Aguilar Consult Reason/Comments: gangrene third toe in diabetic pt Do you want consulting provider notified?: Yes Primary care physician: [facility] Course: Chief Complaint: Gangrene right foot third toe History of presenting to plan: This is a pleasant 59-year-old patient of Dr. Uday Artis. Chronic stable medical conditions include diabetes, GERD, hyperlipidemia. Patient is currently at the local retirement. He has a deputy from the retirement. Patient about 12 years ago noted a red spot on the right foot third toe on the dorsum. It progressively got worse. And now the whole toes become black in color. There is no pain. No fever no chills. No surrounding redness. Patient does have very dry skin and disfigured nails. Has some numbness in the feet. Admitted with right third toe gangrene, left plantar diabetic foot ulcer. Underwent amputation with primary closure and debridement of the left foot ulcer. By Dr. Danitza Preston. Cultures grew multiple organisms including anaerobic bacteria and Enterococcus faecalis and MRSA. Today-laying in bed. Comfortable. No pain. Patient be returning to the retirement. IV antibiotic therapy of problem. Oral antibiotic will therefore be given. Antibiotics per Dr. Perez. Discussed with insurance case manager. Being discharged on 3 weeks of Bactrim and Augmentin. Weekly CBC BMP and follow-up with ID and surgery Discussion and discharge planning more than 35 minutes Physical examination: VITAL SIGNS: 97.9, 74, 16, 146/77, 98% on room air GENERAL: Sitting up, comfortable EYES: Pupils equal. Conjunctiva normal. HEENT: External appearance of nose and ears normal, oral cavity grossly normal. NECK: JVD not raised; masses not palpable. HEART: First and second heart sounds are normal; no edema. LUNGS: Respiratory rate normal; decreased breath sound. ABDOMEN: Soft, nontender, liver spleen not palpable, no masses palpable. PSYCH: Alert and oriented x3; mood and affect normal. NEUROLOGICAL: [Cranial nerves grossly intact; no facial asymmetry, decreased sensation in the feet EXTREMITY: Dressing over the right foot. Dysmorphic nails. Left foot wound LYMPHATICS: No lymph nodes palpable in the axilla and neck INVESTIGATIONS, reviewed in the clinical context: Potassium 4.6 bun 23 creatinine 1.27 hemoglobin 9.3 Previous testing X-ray no obvious changes of osteomyelitis. Though it cannot be ruled out. White count 6.8 hemoglobin 10.7 platelets 404 progression 5 creatinine 1.63 Assessment: -Acute dry gangrene of the right foot third digit, likely from small vessel disease in a diabetic-status post amputation with primary closure -Left foot plantar wound-status post debridement -Hyperlipidemia -Essential hypertension -Depression otherwise specified -Diabetes mellitus type 2 on oral hypoglycemic -COPD in an ex-smoker -Chronic lower extremity dysmorphic nails -Probable peripheral artery disease in a ex-smoker -Acute kidney injury, ATN from infection, POA -Vancomycin toxicity -Metabolic acidosis with renal failure Plan: Fpc Patient Condition at Discharge: Stable Plan - Discharge Summary Discharge Rx Participant: No New Discharge Prescriptions: New Amoxicillin/Potassium Clav [Augmentin 875-125 Tablet] 1 tab PO Q12HR 21 Days #42 tab Sulfamethox-Tmp 800-160Mg [Bactrim DS 800-160 mg] 1 tab PO Q12HR #42 tab amLODIPine [Norvasc] 10 mg PO DAILY #30 tab Continue metFORMIN HCL 1,000 mg PO BID Omeprazole 20 mg PO DAILY Metoprolol Tartrate [Lopressor] 25 mg PO BID Losartan [Cozaar] 50 mg PO BID Atorvastatin Calcium [Lipitor] 20 mg PO HS Citalopram Hydrobromide [CeleXA] 40 mg PO DAILY Discontinued Ciprofloxacin HCl [Cipro] 500 mg PO BID Discharge Medication List Metoprolol Tartrate [Lopressor] 25 mg PO BID 04/28/19 [History] Omeprazole 20 mg PO DAILY 04/28/19 [History] metFORMIN HCL 1,000 mg PO BID 04/28/19 [History] Atorvastatin Calcium [Lipitor] 20 mg PO HS 01/05/20 [History] Citalopram Hydrobromide [CeleXA] 40 mg PO DAILY 01/05/20 [History] Losartan [Cozaar] 50 mg PO BID 01/05/20 [History] Amoxicillin/Potassium Clav [Augmentin 875-125 Tablet] 1 tab PO Q12HR 21 Days #42 tab 01/11/20 [Rx] Sulfamethox-Tmp 800-160Mg [Bactrim DS 800-160 mg] 1 tab PO Q12HR #42 tab 01/11/20 [Rx] amLODIPine [Norvasc] 10 mg PO DAILY #30 tab 01/11/20 [Rx] Follow up Appointment(s)/Referral(s): Bina Pretson DO [STAFF PHYSICIAN] - 10 Days Uday Rojo DO [Primary Care Provider] - 1 Week Mary Aguilar MD [STAFF PHYSICIAN] - 2 Weeks Patient Instructions/Handouts: Toe Amputation (DC) Activity/Diet/Wound Care/Special Instructions: Diabetic diet 1800 kcal per day. Activity is limited till you see your doctor, Heel touch on left foot, use mediboot on ambulation. Change dressing to right amputation daily, cleanse with saline and apply dry dressing. Left foot dressing change daily with Wilfredo soak, ABD and kerlix wrap. We recommend to repeat renal ultrasound in 3 months [renal ultrasound in the hospital: Bilateral renal prominent column of Harman] Blood work: cbc/bmp - weekly /3 weeks Discharge Disposition: OTHER INSTITUTION NOT DEFINED
== END 2020-01-11 19:39 | disposition home or self-care (01) | DRG 255 ==
LOC: EC 10:14 → 6NMEDSUR 12:37
PROVIDERS: ADMIT Hospitalist; ATTEND Hospitalist
PROC: 0Y6T0Z0 Detachment at Right 3rd Toe, Complete, Open Approach (ICD-10-PCS; principal; 2020-01-06 08:30)
PROC: 0QBP0ZZ Excision of Left Metatarsal, Open Approach (ICD-10-PCS; principal; 2020-01-06 08:30)
DX: E11.52 Type 2 diabetes mellitus with diabetic peripheral angiopathy with gangrene (principal); N17.0 Acute kidney failure with tubular necrosis; E87.2 Acidosis; E11.29 Type 2 diabetes mellitus with other diabetic kidney complication; E11.40 Type 2 diabetes mellitus with diabetic neuropathy, unspecified; E78.5 Hyperlipidemia, unspecified; E11.621 Type 2 diabetes mellitus with foot ulcer; I10 Essential (primary) hypertension; L97.529 Non-pressure chronic ulcer of other part of left foot with unspecified severity; E11.69 Type 2 diabetes mellitus with other specified complication; T36.8X5A Adverse effect of other systemic antibiotics, initial encounter; J44.9 Chronic obstructive pulmonary disease, unspecified; K21.9 Gastro-esophageal reflux disease without esophagitis; F32.9 Major depressive disorder, single episode, unspecified; B95.2 Enterococcus as the cause of diseases classified elsewhere; Z79.4 Long term (current) use of insulin; Z79.899 Other long term (current) drug therapy; Z87.891 Personal history of nicotine dependence; Z83.3 Family history of diabetes mellitus
CPT/HCPCS: 36415; 76770; 80048; 80053; 80202; 81001; 82565; 83036; 83605; 83735; 84145; 85025; 85027; 85652; 86140; 87040; 87070; 87075; 87077; 87186; 87205; 96365; 96367; 99285

== ENCOUNTER 2020-02-12 11:08 | Inpatient (IN) | payer BC ==
--- NOTE | 2020-02-12 13:08 | XR ---
EXAMINATION TYPE: XR foot complete LT DATE OF EXAM: 02/12/2020 CLINICAL HISTORY: Open wound at the base of the left great toe. TECHNIQUE: Frontal, lateral, and oblique images of the left foot are obtained. COMPARISON: None FINDINGS: There is osteolytic change with medially displaced distal fracture fragment of the head of the first metatarsal and involvement of the proximal aspect of the first proximal phalanx of the lef t foot. Soft tissue ulceration is no stated on the requisition and seen medially. Flexion deformities of the distal interphalangeal joints and proximal interphalangeal joints limiting evaluation. Small vessel atherosclerosis is seen. Small plantar heel spur is noted with degenerative changes that are m ild hindfoot and the talotibial joint on the lateral view. IMPRESSION: Destructive change of the at the first metatarsophalangeal joint along with the patient's history of soft tissue ulceration represent sequela of osteomyelitis. Could be confirmed with three- phase nuclear medicine bone scan.
[2020-02-12] MEDS ORDERED: SODIUM CHLORIDE 0.9% 1,000 ML IV ONE (13:30)
[2020-02-12] MEDS ORDERED: PIPERACILLIN-TAZOBACTAM 3.375 GM in SODIUM CHLORIDE 0.9% 100 ML IVPB STA (13:30)
--- NOTE | 2020-02-12 14:14 | ED ---
Skin/Abscess/FB HPI - General Chief complaint: Skin/Abscess/Foreign Body Stated complaint: L foot ulcer Time Seen by Provider: 02/12/20 11:24 Source: patient, police, RN notes reviewed, old records reviewed, Caregiver Mode of arrival: wheelchair Limitations: no limitations - History of Present Illness Initial comments: Patient is a 59-year-old male currently a resident of [facility] whom presents emergency room today with worsening wound over his left distal first metatarsal. Patient reports that he's had symptoms of these wounds and is seeing wound care, but is unable tell me whom his wound care physician is N is unsure exactly why he was sent to the hospital today. Patient reportedly had an abnormal culture performed at the [facility] and was sent here for IV antibiotics and the PICC line. Patient reports that he's noted some minor increased drainage. He denies any redness or streaking up the leg. Denies any chest pain or shortne ss of breath. - Related Data Home Medications Medication Instructions Recorded Confirmed Acetaminophen [Tylenol Extra 1,000 mg PO BID PRN 02/12/20 02/12/20 Strength] Atorvastatin Calcium [Lipitor] 20 mg PO HS 02/12/20 02/12/20 Citalopram Hydrobromide [CeleXA] 40 mg PO DAILY 02/12/20 02/12/20 Losartan Potassium 50 mg PO BID 02/12/20 02/12/20 Metoprolol Tartrate 25 mg PO BID 02/12/20 02/12/20 Omeprazole [PriLOSEC] 20 mg PO DAILY 02/12/20 02/12/20 amLODIPine [Norvasc] 10 mg PO DAILY 02/12/20 02/12/20 metFORMIN HCL [Glucophage] 1,000 mg PO BID 02/12/20 02/12/20 Allergies Allergy/AdvReac Type Severity Reaction Status Date / Time No Known Allergies Allergy Verified 02/12/20 13:54 Review of Systems ROS Statement: Those systems with pertinent positive or pertinent negative responses have been documented in the HPI. ROS Other: All systems not noted in ROS Statement are negative. Past Medical History Past Medical History: Diabetes Mellitus History of Any Multi-Drug Resistant Organisms: MRSA Date of last positivie culture/infection: january 2020 MDRO Source:: foot Additional Past Surgical History / Comment(s): right middle toe removed, left foot debridement Smoking Status: Never smoker Past Alcohol Use History: Occasional Past Drug Use History: Unable to Obtain General Exam - General Exam Comments Initial Comments: Alert and oriented 51-year-old male. No distress. Limitations: no limitations General appearance: alert, in no apparent distress Head exam: Present: atraumatic, normocephalic, normal inspection Eye exam: Present: normal appearance, PERRL, EOMI. Absent: scleral icterus, conjunctival injection, periorbital swelling ENT exam: Present: normal exam, mucous membranes moist Respiratory exam: Present: normal lung sounds bilaterally. Absent: respiratory distress, wheezes, rales, rhonchi, stridor Cardiovascular Exam: Present: regular rate, normal rhythm, normal heart sounds. Absent: systolic murmur, diastolic murmur, rubs, gallop, clicks GI/Abdominal exam: Present: soft, normal bowel sounds. Absent: distended, tenderness, guarding, rebound, rigid Extremities exam: Present: normal inspection, full ROM, normal capillary refill. Absent: tenderness, pedal edema, joint swelling, calf tenderness Left Knee exam: Present: normal inspection, full ROM Lower Leg exam: Present: normal inspection, full ROM Ankle exam: Present: normal inspection, full ROM Foot/Toe exam: Present: full ROM. Absent: normal inspection (Patient has a 2 cm x 2 cm open wound with yellow purulent drainage from the distal metatarsal.) Neurovascular tendon exam: Present: no vascular compromise (Patient is a 2+ dorsalis pedis pulse.) Gait: observed and normal Back exam: Present: normal inspection Neurological exam: Present: alert, oriented X3, CN II-XII intact Psychiatric exam: Present: normal affect, normal mood Skin exam: Present: warm, dry, intact, normal color. Absent: rash Course Vital Signs 02/12/20 11:09 Temperature 98.1 F Pulse Rate 64 Respiratory 18 Rate Blood Pressure 153/81 O2 Sat by Pulse 95 Oximetry - Reevaluation(s) Reevaluation #1: 02/12/20 14:10 Patient's wound culture performed on 02/05 grew heavy growth of Pseudomonas surgeon also. Patient's wound culture is susceptible to amikacin, gentamicin, ertapenem, and tobramycin. Reevaluation #2: 02/12/20 14:10 Patient relates that he is concerned to be admitted and possibly needing a PICC line because that would cause him to be in isolation at the [facility] for a longer period of time. Medical Decision Making - Medical Decision Making 59-year-old male presents department today from [facility] for worsening wound over his left first metatarsal. Patient has a 2 cm right 2 cm wound. Wound culture was obtained today. A previous wound culture completed on 52 grew Pseudomonas with multiple antibiotic resistance. Patient was sent to the emergency department from [facility] for likely IV antibiotics. Patient does report that he has has attempted to have a PICC line and possible amputation but would be willing to undergo this if necessary. He does have a normal dorsalis pedis pulse. Patient was given IV fluids. He was given 1 dose of gentamicin due to susceptibility as well as started on vancomycin. I discussed the case with Dr. Hinkle who discussed the case with the admitting physician. We'll consu lt wound care. - Radiology Data Radiology results: report reviewed Foot x-ray shows instructed change of the first metatarsophalangeal joint along with the patient's history of soft tissue ulceration presenting the sequela of osteomyelitis. Could be confirmed with nuclear medicine bone scan. Disposition Clinical Impression: Wound of left foot, Osteomyelitis Disposition: ADMITTED IP TO THIS HOSP Condition: Stable Is patient prescribed a controlled substance at d/c from ED?: No Referrals: Uday Rojo DO [Primary Care Provider] - 1-2 days Time of Disposition: 14:27
[2020-02-12] MEDS ORDERED: KETOROLAC 30 MG/ML 1 ML VIAL IVP PRN (14:28)
[2020-02-12] MEDS ORDERED: MORPHINE SULFATE 4 MG/ML SYRINGE IV PRN (14:28)
[2020-02-12] MEDS ORDERED: IBUPROFEN 400 MG TAB PO PRN (14:28)
[2020-02-12] MEDS ORDERED: VANCOMYCIN IV PER PHARMACY 1 EACH MISC MISCELLANE PRN (14:28)
[2020-02-12] MEDS ORDERED: NALOXONE 0.4 MG/ML 1 ML VIAL IV PRN (14:28)
[2020-02-12] MEDS ORDERED: ACETAMINOPHEN TAB 325 MG TAB PO PRN (14:28)
[2020-02-12] MEDS ORDERED: ONDANSETRON 4 MG/2 ML VIAL IVP PRN (14:28)
[2020-02-12] MEDS ORDERED: VANCOMYCIN 1,750 MG in SODIUM CHLORIDE 0.9% 500 ML 500 ML IVPB STA (14:32)
[2020-02-12] MEDS ORDERED: GENTAMICIN PER PHARMACY MISCELLANE SCH (14:45)
[2020-02-12 14:47] LABS: Basophils # (A) 0.1 k/uL (0-0.2); Basophils % (A) 1 %; Eosinophils # (A) 0.3 k/uL (0-0.7); Eosinophils % (A) 3 %; HCT 33.2 % (39.0-53.0); HGB 10.9 gm/dL (13.0-17.5); Lymphocytes # (A) 2.8 k/uL (1.0-4.8); Lymphocytes % (A) 30 %; MCH 29.8 pg (25.0-35.0); MCHC 32.7 g/dL (31.0-37.0); Mean Platelet Volume 6.8; Monocytes # (A) 0.8 k/uL (0-1.0); Monocytes % (A) 8 %; Neutrophils # (A) 5.1 k/uL (1.3-7.7); Neutrophils % (A) 55 %; Platelet Count 360 k/uL (150-450); RBC 3.65 m/uL (4.30-5.90); RDW 15.6 % (11.5-15.5); WBC 9.4 k/uL (3.8-10.6)
[2020-02-12] MEDS ORDERED: GENTAMICIN 80 MG in SODIUM CHLORIDE 0.9% 100 ML IVPB ONE (15:00)
[2020-02-12] MEDS: SODIUM CHLORIDE 0.9% 1,000 ML IV SCH (15:25)
[2020-02-12] MEDS ORDERED: GENTAMICIN 600 MG in SODIUM CHLORIDE 0.9% 100 ML IVPB ONE (15:30)
[2020-02-12 16:03] LABS: Erythrocyte Sedimentation Rate 63 mm/hr (0-15)
[2020-02-12 16:38] LABS: Calcium 9.8 mg/dL (8.4-10.2); Potassium 4.5 mmol/L (3.5-5.1)
[2020-02-12 16:41] LABS: Glucose,Whole Blood 134 mg/dL (75-99)
[2020-02-12] MEDS ORDERED: ACETAMINOPHEN TAB 500 MG TAB PO PRN (17:05)
[2020-02-12] MEDS: INSULIN ASPART (NovoLOG) 100 UNIT/ML VIAL SQ SCH ×2 (17:08→21:58)
[2020-02-12] MEDS: PANTOPRAZOLE 40 MG TABLET PO SCH (17:43)
[2020-02-12 20:08] LABS: Glucose,Whole Blood 149 mg/dL (75-99)
[2020-02-12] MEDS: LOSARTAN 50 MG TAB PO SCH (21:57)
[2020-02-12] MEDS: ATORVASTATIN 20 MG TAB PO SCH (21:57)
[2020-02-12] MEDS: metFORMIN 500 MG TAB PO SCH (21:58)
[2020-02-12] MEDS: METOPROLOL TARTRATE 25 MG TAB PO SCH (21:58)
[2020-02-12] MEDS ORDERED: PIPERACILLIN-TAZOBACTAM 3.375 GM in SODIUM CHLORIDE 0.9% 100 ML IVPB SCH (22:00)
[2020-02-13] MEDS: VANCOMYCIN 1,750 MG in SODIUM CHLORIDE 0.9% 500 ML 500 ML IVPB SCH ×2 (04:53→16:53)
[2020-02-13] MEDS: SODIUM CHLORIDE 0.9% 1,000 ML IV SCH ×2 (04:53→20:55)
[2020-02-13 06:54] LABS: Glucose,Whole Blood 176 mg/dL (75-99)
[2020-02-13] MEDS: METOPROLOL TARTRATE 25 MG TAB PO SCH ×2 (08:09→20:55)
[2020-02-13] MEDS: metFORMIN 500 MG TAB PO SCH ×2 (08:09→20:54)
[2020-02-13] MEDS: PANTOPRAZOLE 40 MG TABLET PO SCH (08:09)
[2020-02-13] MEDS: LOSARTAN 50 MG TAB PO SCH ×2 (08:09→20:54)
[2020-02-13] MEDS: CITALOPRAM HYDROBROMIDE 20 MG TAB PO SCH (08:10)
[2020-02-13] MEDS: amLODIPine 10 MG TAB PO SCH (08:10)
[2020-02-13] MEDS: INSULIN ASPART (NovoLOG) 100 UNIT/ML VIAL SQ SCH ×4 (08:10→20:55)
[2020-02-13] MEDS ORDERED: PANTOPRAZOLE 40 MG/10 ML VIAL IV SCH (09:00)
[2020-02-13 09:37] LABS: African American GFR (CKD) >90 (>60 ml/min/1.73 sqM); Non-African American GFR(CKD) 88 (>60 ml/min/1.73 sqM)
[2020-02-13 11:14] LABS: Hemoglobin A1C 6.6 % (4.0-6.0)
[2020-02-13 11:27] LABS: Glucose,Whole Blood 144 mg/dL (75-99)
--- NOTE | 2020-02-13 13:23 | P.HPIM ---
History of Present Illness this is a pleasant 59 years old male with past medical history of diabetes mellitus and MRSA infection. A status post right middle toe amputation and left foot debridement. Presents with left foot ulcer. Patient [facility] where his doctor told him in his PICC line but he wasn't sure for what reason. When he came to emergency room his been diagnosed with left foot ulcer.patient has an ulcer on the bottom of his first metatarso-phalangeal joint, with surrounding callus of DM think skin but no evidence of cellulitis. vitals are stable And patient is afebrile.BMP and creatinine are within normal limits. [place] is not detected in the emergency room patient was started on gentamicin.also received 1 dose of Zosyn and continue with vancomycin. Review of Systems CONSTITUTIONAL: no fever, no malaise, no fatigue. HEENT: No recent visual problems or hearing problems. Denied any sore throat. CARDIOVASCULAR: No orthopnea, PND, no palpitations, no syncope. PULMONARY: No shortness of breath,no hemoptysis. GASTROINTESTINAL: No diarrhea, no nausea, no vomiting, no abdominal pain. N ormoactive bowel sounds. NEUROLOGICAL: no weakness, no numbness. HEMATOLOGICAL: Denies any bleeding or petechiae. GENITOURINARY: Denies any burning micturition, frequency, or urgency. MUSCULOSKELETAL/RHEUMATOLOGICAL: Denies any joint pain, swelling, or any muscle pain. ENDOCRINE: Denies any polyuria or polydipsia. neurologic: No headache, no weakness, no numbness Past Medical History Past Medical History: Diabetes Mellitus History of Any Multi-Drug Resistant Organisms: MRSA Date of last positivie culture/infection: january 2020 MDRO Source:: foot Additional Past Surgical History / Comment(s): right middle toe removed, left foot debridement Past Anesthesia/Blood Transfusion Reactions: No Reported Reaction Past Psychological History: No Psychological Hx Reported Smoking Status: Never smoker Past Alcohol Use History: Occasional Past Drug Use History: Unable to Obtain - Past Family History Father Family Medical History: Diabetes Mellitus Medications and Allergies Home Medications Medication Instructions Recorded Confirmed Type Acetaminophen [Tylenol Extra 1,000 mg PO BID PRN 02/12/20 02/12/20 History Strength] Atorvastatin Calcium [Lipitor] 20 mg PO HS 02/12/20 02/12/20 History Citalopram Hydrobromide [CeleXA] 40 mg PO DAILY 02/12/20 02/12/20 History Losartan Potassium 50 mg PO BID 02/12/20 02/12/20 History Metoprolol Tartrate 25 mg PO BID 02/12/20 02/12/20 History Omeprazole [PriLOSEC] 20 mg PO DAILY 02/12/20 02/12/20 History amLODIPine [Norvasc] 10 mg PO DAILY 02/12/20 02/12/20 History metFORMIN HCL [Glucophage] 1,000 mg PO BID 02/12/20 02/12/20 History Allergies Allergy/AdvReac Type Severity Reaction Status Date / Time No Known Allergies Allergy Verified 02/12/20 13:54 Physical Exam Vitals: Vital Signs Temp Pulse Pulse Resp BP BP BP 02/13/20 07:22 68 20 02/13/20 07:00 98.4 F 67 16 153/81 02/13/20 02:55 97.9 F 68 20 125/74 02/13/20 00:00 17 02/12/20 20:00 71 17 02/12/20 16:04 97.8 F 71 17 175/79 02/12/20 16:00 71 17 02/12/20 15:34 98.5 F 63 17 153/88 Pulse Ox 02/13/20 07:22 02/13/20 07:00 99 02/13/20 02:55 100 02/13/20 00:00 02/12/20 20:00 02/12/20 16:04 98 02/12/20 16:00 02/12/20 15:34 100 Intake and Output 02/12/20 02/13/20 02/13/20 22:59 06:59 14:59 Intake Total 800 1300 Balance 800 1300 Intake: Intake, IV Titration 800 1300 Amount Sodium Chloride 0.9% 1, 800 800 000 ml @ 100 mls/hr IV . Q10H [facility] Rx#:[id number] Vancomycin 1,750 mg In 500 Sodium Chloride 0.9% 500 ml 500 ml @ 167 mls/hr IVPB Q12H [facility] Rx#: [id number] Other: Voiding Method Toilet Toilet Toilet # Voids 2 3 3 Weight 102.058 kg GENERAL: The patient is alert and oriented x3, not in any acute distress. Well developed, well nourished. HEENT: Pupils are round and equally reacting to light. EOMI. No scleral icterus. No conjunctival pallor. Normocephalic, atraumatic. No pharyngeal erythema. No thyromegaly. CARDIOVASCULAR: S1 and S2 present. No murmurs, rubs, or gallops. PULMONARY: Chest is clear to auscultation, no wheezing or crackles. ABDOMEN: Soft, nontender, nondistended, normoactive bowel sounds. No palpable organomegaly. MUSCULOSKELETAL: No joint swelling or deformity. -EXTREMITIES: No cyanosis, clubbing, or pedal edema. deep ulcer at the bottom/sole of left first metatarsal phalangeal joint, with no surrounding cellulitis NEUROLOGICAL: He is alert awake and oriented to time place and person. Gross neurological examination did not reveal any focal deficits. Cranial nerves are grossly intact. Strength is 5/5 in all extremities. Sensation is intact. SKIN: No rashes. No petechiae Results CBC & Chem 7: 02/12/20 14:18 02/13/20 08:39 Labs: Abnormal Lab Results - Last 24 Hours (Table) 02/12/20 02/12/20 02/12/20 Range/Units 14:18 14:18 14:25 RBC 3.65 L (4.30-5.90) m/uL Hgb 10.9 L (13.0-17.5) gm/dL Hct 33.2 L (39.0-53.0) % RDW 15.6 H (11.5-15.5) % ESR 63 H (0-15) mm/hr Carbon Dioxide 18 L (22-30) mmol/L BUN 21 H (9-20) mg/dL Glucose 109 H (74-99) mg/dL POC Glucose (mg/dL) (75-99) mg/dL Hemoglobin A1c 6.6 H (4.0-6.0) % C-Reactive Protein (<10.0) mg/L 02/12/20 02/12/20 02/12/20 Range/Units 15:08 16:40 20:06 RBC (4.30-5.90) m/uL Hgb (13.0-17.5) gm/dL Hct (39.0-53.0) % RDW (11.5-15.5) % ESR (0-15) mm/hr Carbon Dioxide (22-30) mmol/L BUN (9-20) mg/dL Glucose (74-99) mg/dL POC Glucose (mg/dL) 134 H 149 H (75-99) mg/dL Hemoglobin A1c (4.0-6.0) % C-Reactive Protein 14.8 H (<10.0) mg/L 02/13/20 02/13/20 Range/Units 06:53 11:25 RBC (4.30-5.90) m/uL Hgb (13.0-17.5) gm/dL Hct (39.0-53.0) % RDW (11.5-15.5) % ESR (0-15) mm/hr Carbon Dioxide (22-30) mmol/L BUN (9-20) mg/dL Glucose (74-99) mg/dL POC Glucose (mg/dL) 176 H 144 H (75-99) mg/dL Hemoglobin A1c (4.0-6.0) % C-Reactive Protein (<10.0) mg/L Thrombosis Risk Factor Assmnt - Choose All That Apply Any of the Below Risk Factors Present?: Yes Each Factor Represents 1 point: Obesity (BMI >25) Thrombosis Risk Factor Assessment Total Risk Factor Score: 1 Thrombosis Risk Factor Assessment Level: Low Risk Assessment and Plan Assessment: acute left diabetic foot ulcerwith elevated C-reactive protein and ESR Diabetes mellitus, with hemoglobin A1c of 6.6% history of MRSA infection history of status post right middle toe amputation and left foot debridement Plan: this is a pleasant 59 years old male who presents with diabetic foot ulcer .continue with antibiotic, patient currently on gentamicin and vancomycin. We are going to consult infectious disease team.consults surgery team. Stop NSAIDs Labs and medication were reviewed.. Continue same treatment. Continue with symptomatic treatment. Resume home medication. Monitor lytes and vitals. DVT and GI prophylaxis. Further recommendations of the clinical course of the patient DVT prophylaxis: Subcutaneous heparin GI Prophylaxis: Ppi PT/OT: Pending Prognosis is guarded
[2020-02-13] MEDS ORDERED: GENTAMICIN 600 MG in SODIUM CHLORIDE 0.9% 100 ML IVPB SCH (16:00)
[2020-02-13 16:21] LABS: Glucose,Whole Blood 114 mg/dL (75-99)
[2020-02-13] MEDS: metroNIDAZOLE 500 MG TAB PO SCH ×2 (16:53→20:54)
--- NOTE | 2020-02-13 17:59 | CONS ---
CONSULTATION This is a 59-year-old gentleman who has been admitted to [facility] with history of ulcer left heel, left foot plantar aspect and also patient had an amputation of the right foot big toe in the past. The patient has been admitted for IV antibiotic and local wound care. PAST MEDICAL HISTORY: Past medical history of diabetes type 2. PAST SURGICAL HISTORY: Surgical history reveals patient had a toe amputation done by Dr. Preston and also patient had has a wound on his plantar aspect under care of [facility] for local wound care. PHYSICAL EXAMINATION: NECK: Supple. Trachea central. CHEST: Clear. ABDOMEN: Soft. Femoral pulses are present. Dorsalis pedis is palpable. The patient has a hypergranulated ulcer on the plantar aspect of the left foot. The patient has a ray amputation of the toe on the right foot which is healing. At this point, the patient needs an IV antibiotic and local wound care. No surgical intervention needed. The patient has a followup with Dr. Preston. Thank you very much for this consultation. MMODL / IJN: [id number] /
[2020-02-13 20:08] LABS: Glucose,Whole Blood 178 mg/dL (75-99)
[2020-02-13] MEDS: ATORVASTATIN 20 MG TAB PO SCH (20:54)
[2020-02-13] MEDS ORDERED: FAMOTIDINE 20 MG/2 ML VIAL IV SCH (21:00)
[2020-02-13] MEDS: HEPARIN SODIUM,PORCINE 5,000 UNIT/ML 1 ML VIAL SQ SCH (21:30)
[2020-02-13] MEDS: HYDROcodone/APAP 5-325MG 1 EACH TAB PO PRN (21:36)
--- NOTE | 2020-02-13 22:11 | P.CONS ---
History of Present Illness - Reason for Consult Consult date: 02/13/20 left foot osteomyelitis Requesting physician: Luis Antonio E Sheet - Chief Complaint non healing wound to left foot x weeks - History of Present Illness Patient is a 59-year-old male who was recently admitted at this facility with left diabetic foot wound on the plantar aspect at the base of the first metatarsal patient did have debridement of the wound and cultures were done which were positive for MRSA and anaerobes patient was advised and vancomycin however the patient is currently at [facility] and was told patient cannot [facility] patient has been discharged on Bactrim DS and oral Augmentin with the patient has been taking apparently the patient was noticed to have worsening of his left foot plantar wound with more drainage patient did have some dull aching pain about 3-4 out of 10 and no radiation minimal swelling no significant redness patient subsequently has been sent to the ER yesterday with consideration of for debridement PICC line IV antibiotic therapy patient was evaluated by the ER physician on arrival to the ER the patient has been afebrile patient did have a normal white count with a sed rate of 63 creatinine was normal influenza PCR was negative he did have a x-rays of the left foot which did show destructive changes of the first metatarsophalangeal joint with concern for osteomyelitis patient started on v ancomycin and gentamicin infectious was consulted for further management of antibiotic therapy. Review of Systems Positive point has been mentioned in HPI rest of the systems are negative Past Medical History Past Medical History: Diabetes Mellitus History of Any Multi-Drug Resistant Organisms: MRSA Year Discovered:: january 2020 MDRO Source:: foot Additional Past Surgical History / Comment(s): right middle toe removed, left foot debridement Past Anesthesia/Blood Transfusion Reactions: No Reported Reaction Past Psychological History: No Psychological Hx Reported Smoking Status: Never smoker Past Alcohol Use History: Occasional Past Drug Use History: Unable to Obtain - Past Family History Father Family Medical History: Diabetes Mellitus Medications and Allergies Home Medications Medication Instructions Recorded Confirmed Type Acetaminophen [Tylenol Extra 1,000 mg PO BID PRN 02/12/20 02/12/20 History Strength] Atorvastatin Calcium [Lipitor] 20 mg PO HS 02/12/20 02/12/20 History Citalopram Hydrobromide [CeleXA] 40 mg PO DAILY 02/12/20 02/12/20 History Losartan Potassium 50 mg PO BID 02/12/20 02/12/20 History Metoprolol Tartrate 25 mg PO BID 02/12/20 02/12/20 History Omeprazole [PriLOSEC] 20 mg PO DAILY 02/12/20 02/12/20 History amLODIPine [Norvasc] 10 mg PO DAILY 02/12/20 02/12/20 History metFORMIN HCL [Glucophage] 1,000 mg PO BID 02/12/20 02/12/20 History Allergies Allergy/AdvReac Type Severity Reaction Status Date / Time No Known Allergies Allergy Verified 02/12/20 13:54 Physical Exam Vitals: Vital Signs Temp Pulse Pulse Resp BP BP BP 02/13/20 15:00 97.2 F L 62 15 135/49 02/13/20 07:22 68 20 02/13/20 07:00 98.4 F 67 16 153/81 02/13/20 02:55 97.9 F 68 20 125/74 02/13/20 00:00 17 02/12/20 20:00 71 17 02/12/20 16:04 97.8 F 71 17 175/79 02/12/20 16:00 71 17 02/12/20 15:34 98.5 F 63 17 153/88 Pulse Ox 02/13/20 15:00 98 02/13/20 07:22 02/13/20 07:00 99 02/13/20 02:55 100 02/13/20 00:00 02/12/20 20:00 02/12/20 16:04 98 02/12/20 16:00 02/12/20 15:34 100 Intake and Output 02/13/20 02/13/20 02/13/20 06:59 14:59 22:59 Intake Total 1300 Balance 1300 Intake: Intake, IV Titration 1300 Amount Sodium Chloride 0.9% 1, 800 000 ml @ 100 mls/hr IV . Q10H [facility] Rx#:[id number] Vancomycin 1,750 mg In 500 Sodium Chloride 0.9% 500 ml 500 ml @ 167 mls/hr IVPB Q12H [facility] Rx#: [id number] Other: Voiding Method Toilet Toilet # Voids 3 6 GENERAL DESCRIPTION: Middle-aged male lying in bed, no distress. No tachypnea or accessory muscle of respiration use. HEENT: Shows Pallor , no scleral icterus. Oral mucous membrane is dry. NECK: Trachea central, no thyromegaly. LUNGS: Unlabored breathing. Clear to auscultation anteriorly. No wheeze or crackle. HEART: S1, S2, regular rate and rhythm. ABDOMEN: Soft, no tenderness , guarding or rigidity EXTREMITIES: Left foot plantar aspect did have a wound with minimal slough some surrounding swelling no significant redness or foul-smelling drainage sKIN: No rash, no masses palpable. NEUROLOGICAL: The patient is awake, alert, oriented x3, mood and affect normal. Results CBC & Chem 7: 02/12/20 14:18 02/13/20 08:39 Labs: Abnormal Lab Results - Last 24 Hours (Table) 02/12/20 02/12/20 02/12/20 Range/Units 14:18 14:18 14:25 ESR 63 H (0-15) mm/hr Carbon Dioxide 18 L (22-30) mmol/L BUN 21 H (9-20) mg/dL Glucose 109 H (74-99) mg/dL POC Glucose (mg/dL) (75-99) mg/dL Hemoglobin A1c 6.6 H (4.0-6.0) % 02/12/20 02/12/20 02/13/20 Range/Units 16:40 20:06 06:53 ESR (0-15) mm/hr Carbon Dioxide (22-30) mmol/L BUN (9-20) mg/dL Glucose (74-99) mg/dL POC Glucose (mg/dL) 134 H 149 H 176 H (75-99) mg/dL Hemoglobin A1c (4.0-6.0) % 02/13/20 Range/Units 11:25 ESR (0-15) mm/hr Carbon Dioxide (22-30) mmol/L BUN (9-20) mg/dL Glucose (74-99) mg/dL POC Glucose (mg/dL) 144 H (75-99) mg/dL Hemoglobin A1c (4.0-6.0) % Assessment and Plan Assessment: -patient with a left diabetic foot infection in this patient who did have a wound on the plantar aspect of his left foot at the base of the first metatarsal head previous debrided and was culture positive for MRSA anaerobes as well as enterococcus patient [facility] hence he was discharged on oral Bactrim and Augmentin patient has failed outpatient wound VAC therapy now with evidence of progressive destructive changes at the metatarsal head. (1) Foot osteomyelitis, left Current Visit: Yes Status: Acute Code(s): M86.9 - OSTEOMYELITIS, UNSPECIFIED SNOMED Code(s): [id number] Plan: 1-await vascular surgery evaluation regarding possible debridement and deep culture 2-vancomycin pharmacy to dose with a target trough 15 while watching his kidney function normal blood flow closely however discontinue gentamicin 3-and Flagyl 500 mg p.o. every 8 hours or for anaerobes 4-local wound care with Aquacel dressing changes daily We will follow on clinical condition and cultures to further adjust medication if needed Thank you for this consultation we will follow the patient along with you Time with Patient: Greater than 30
[2020-02-14] MEDS ORDERED: GENTAMICIN 140 MG in SODIUM CHLORIDE 0.9% 100 ML IVPB SCH ×2
[2020-02-14] MEDS: VANCOMYCIN 1,750 MG in SODIUM CHLORIDE 0.9% 500 ML 500 ML IVPB SCH ×2 (05:11→16:33)
[2020-02-14] MEDS: SODIUM CHLORIDE 0.9% 1,000 ML IV SCH ×4 (05:16→20:22)
[2020-02-14 06:54] LABS: Glucose,Whole Blood 152 mg/dL (75-99)
[2020-02-14] MEDS: metFORMIN 500 MG TAB PO SCH ×2 (07:56→20:21)
[2020-02-14] MEDS: HEPARIN SODIUM,PORCINE 5,000 UNIT/ML 1 ML VIAL SQ SCH ×2 (07:57→20:20)
[2020-02-14] MEDS: metroNIDAZOLE 500 MG TAB PO SCH ×3 (07:57→20:21)
[2020-02-14] MEDS: PANTOPRAZOLE 40 MG TABLET PO SCH (07:57)
[2020-02-14] MEDS: METOPROLOL TARTRATE 25 MG TAB PO SCH ×2 (07:57→20:21)
[2020-02-14] MEDS: CITALOPRAM HYDROBROMIDE 20 MG TAB PO SCH (07:57)
[2020-02-14] MEDS: amLODIPine 10 MG TAB PO SCH (07:57)
[2020-02-14] MEDS: LOSARTAN 50 MG TAB PO SCH ×2 (07:57→20:21)
[2020-02-14] MEDS: INSULIN ASPART (NovoLOG) 100 UNIT/ML VIAL SQ SCH ×4 (07:58→20:20)
[2020-02-14 08:53] LABS: Basophils % (A) 1 %; Eosinophils # (A) 0.3 k/uL (0-0.7); Eosinophils % (A) 4 %; HCT 30.9 % (39.0-53.0); Lymphocytes # (A) 1.7 k/uL (1.0-4.8); Lymphocytes % (A) 23 %; MCH 29.8 pg (25.0-35.0); MCHC 32.3 g/dL (31.0-37.0); MCV 92.3 fL (80.0-100.0); Mean Platelet Volume 6.9; Monocytes # (A) 0.6 k/uL (0-1.0); Monocytes % (A) 9 %; Neutrophils # (A) 4.6 k/uL (1.3-7.7); Neutrophils % (A) 61 %; Platelet Count 296 k/uL (150-450); RBC 3.35 m/uL (4.30-5.90); RDW 15.7 % (11.5-15.5); WBC 7.5 k/uL (3.8-10.6)
[2020-02-14 09:00] LABS: African American GFR (CKD) >90 (>60 ml/min/1.73 sqM); Non-African American GFR(CKD) >90 (>60 ml/min/1.73 sqM)
[2020-02-14 11:31] LABS: Glucose,Whole Blood 111 mg/dL (75-99)
--- NOTE | 2020-02-14 12:14 | P.PN ---
Subjective this is a pleasant 59 years old male with past medical history of diabetes mellitus and MRSA infection. A status post right middle toe amputation and left foot debridement. Presents with left foot ulcer. [facility] told him in his PICC line but he wasn't sure for what reason. When he came to emergency room his been diagnosed with left foot ulcer.patient has an ulcer on the bottom of his first metatarso-phalangeal joint, with surrounding callus of DM think skin but no evidence of cellulitis. vitals are stable And patient is afebrile.BMP and creatinine are within normal limits. Emma is not detected in the emergency room patient was started on gentamicin.also received 1 dose of Zosyn and continue with vancomycin. 02/19/2020 Patient awake and alert,vitals are stable. WBC 7.5K, creatinine normal. continue with IV vancomycin and Flagyl was added by infectious disease service. Vascular surgery evaluated the patient, I discussed the case with Dr. Marino, no need for debridement currently and patient can follow up with Dr. Preston as an outpatient, patient informed and he agrees to follow up with his vascular surgeon Continue with local wound care Review of systems CONSTITUTIONAL: No fever, no malaise, no fatigue. HEENT: No recent visual problems or hearing problems. Denied any sore throat. CARDIOVASCULAR: No orthopnea, PND, no palpitations, no syncope. PULMONARY: No shortness of breath, no cough, no hemoptysis. GASTROINTESTINAL: No diarrhea, no nausea, no vomiting, no abdominal pain. Normoactive bowel sounds. NEUROLOGICAL: No headaches, no weakness, no numbness. HEMATOLOGICAL: Denies any bleeding or petechiae. GENITOURINARY: Denies any burning micturition, frequency, or urgency. MUSCULOSKELETAL/RHEUMATOLOGICAL: Denies any joint pain, swelling, or any muscle pain. ENDOCRINE: Denies any polyuria or polydipsia. Active Medications Generic Name Dose Route Start Last Admin Trade Name Freq PRN Reason Stop Dose Admin Acetaminophen 1,000 mg 02/12/20 17:05 02/14/20 07:56 Tylenol Tab PO 1,000 mg BID PRN Administration Pain Hydrocodone Bitart/Acetaminophen 1 each 02/13/20 13:22 02/13/20 21:36 Polvadera 5-325 PO 1 each Q6HR PRN Administration Pain Amlodipine Besylate 10 mg 02/13/20 09:00 02/14/20 07:57 Norvasc PO 10 mg DAILY CARSON Administration Atorvastatin Calcium 20 mg 02/12/20 21:00 02/13/20 20:54 Lipitor PO 20 mg HS CARSON Administration Citalopram Hydrobromide 40 mg 02/13/20 09:00 02/14/20 07:57 Celexa PO 40 mg DAILY CARSON Administration Heparin Sodium (Porcine) 5,000 unit 02/13/20 21:00 02/14/20 07:57 Heparin SQ 5,000 unit Q12HR CARSON Administration Sodium Chloride 1,000 mls @ 100 mls/hr 02/12/20 13:30 02/14/20 05:16 Saline 0.9% IV 100 mls/hr .Q10H CARSON Administration Vancomycin HCl 1,750 mg/ 500 mls @ 167 mls/hr 02/13/20 05:00 02/14/20 05:11 Sodium Chloride IVPB 167 mls/hr Q12H CARSON Administration Insulin Aspart 0 unit 02/12/20 17:30 02/14/20 07:58 Novolog SQ 2 unit ACHS CARSON Administration Protocol Losartan Potassium 50 mg 02/12/20 21:00 02/14/20 07:57 Cozaar PO 50 mg BID CARSON Administration Metformin HCl 1,000 mg 02/12/20 21:00 02/14/20 07:56 Glucophage PO 1,000 mg BID CARSON Administration Metoprolol Tartrate 25 mg 02/12/20 21:00 02/14/20 07:57 Lopressor PO 25 mg BID CARSON Administration Metronidazole 500 mg 02/13/20 16:00 02/14/20 07:57 Flagyl PO 500 mg TID CARSON Administration Miscellaneous Information 0 each 02/15/20 04:00 Vancomycin Trough Due MISCELLANE 02/15/20 04:01 DIRECTED ONE Morphine Sulfate 4 mg 02/12/20 14:28 Morphine Sulfate (Inj) IV Q4HR PRN Severe Pain Naloxone HCl 0.2 mg 02/12/20 14:28 Narcan IV Q2M PRN Opioid Reversal Ondansetron HCl 4 mg 02/12/20 14:28 Zofran IVP Q8HR PRN Nausea And Vomiting Pantoprazole Sodium 40 mg 02/12/20 17:15 02/14/20 07:57 Protonix PO 40 mg DAILY CARSON Administration Objective - Vital Signs Vital signs: Vital Signs Temp 97.9 F 02/14/20 07:00 Pulse 67 02/14/20 08:00 Resp 16 02/14/20 08:00 BP 152/75 02/14/20 07:00 Pulse Ox 100 02/14/20 07:00 Intake & Output 02/13/20 02/14/20 02/14/20 18:59 06:59 18:59 Intake Total 2600 Balance 2600 Intake: Intake, IV Titration 2600 Amount Sodium Chloride 0.9% 1, 1600 000 ml @ 100 mls/hr IV . Q10H CARSON Rx#:[id number] Vancomycin 1,750 mg In 1000 Sodium Chloride 0.9% 500 ml 500 ml @ 167 mls/hr IVPB Q12H CARSON Rx#: [id number] Other: Voiding Method Toilet Toilet Toilet # Voids 6 2 - Exam GENERAL: The patient is alert and oriented x3, not in any acute distress. Well developed, well nourished. HEENT: Pupils are round and equally reacting to light. EOMI. No scleral icterus. No conjunctival pallor. Normocephalic, atraumatic. No pharyngeal erythema. No thyromegaly. CARDIOVASCULAR: S1 and S2 present. No murmurs, rubs, or gallops. PULMONARY: Chest is clear to auscultation, no wheezing or crackles. ABDOMEN: Soft, nontender, nondistended, normoactive bowel sounds. No palpable organomegaly. MUSCULOSKELETAL: No joint swelling or deformity. -EXTREMITIES: No cyanosis, clubbing, or pedal edema. deep ulcer at the bottom/sole of left first metatarsal phalangeal joint, with no surrounding cellulitis NEUROLOGICAL: He is alert awake and oriented to time place and person. Gross neurological examination did not reveal any focal deficits. Cranial nerves are grossly intact. Strength is 5/5 in all extremities. Sensation is intact. SKIN: No rashes. No petechiae - Labs CBC & Chem 7: 02/14/20 07:54 02/14/20 07:54 Labs: Abnormal Lab Results - Last 24 Hours (Table) 02/13/20 02/13/20 02/14/20 Range/Units 16:21 20:07 06:52 RBC (4.30-5.90) m/uL Hgb (13.0-17.5) gm/dL Hct (39.0-53.0) % RDW (11.5-15.5) % POC Glucose (mg/dL) 114 H 178 H 152 H (75-99) mg/dL 02/14/20 02/14/20 Range/Units 07:54 11:30 RBC 3.35 L (4.30-5.90) m/uL Hgb 10.0 L (13.0-17.5) gm/dL Hct 30.9 L (39.0-53.0) % RDW 15.7 H (11.5-15.5) % POC Glucose (mg/dL) 111 H (75-99) mg/dL Microbiology - Last 24 Hours (Table) 02/12/20 14:18 Blood Culture - Preliminary Blood No Growth after 24 hours Assessment and Plan Assessment: acute left diabetic foot ulcerwith elevated C-reactive protein and ESR Diabetes mellitus, with hemoglobin A1c of 6.6% history of MRSA infection history of status post right middle toe amputation and left foot debridement Plan: this is a pleasant 59 years old male who presents with diabetic foot ulcer.continue with antibiotic, patient currently on vancomycin, and Flagyl was added. We are going to consult infectious disease team.consults surgery team. Stop NSAIDs Labs and medication were reviewed.. Continue same treatment. Continue with symptomatic treatment. Resume home medication. Monitor lytes and vitals. DVT and GI prophylaxis. Further recommendations of the clinical course of the patient DVT prophylaxis: Subcutaneous heparin GI Prophylaxis: Ppi PT/OT: Pending Prognosis is guarded
[2020-02-14] MEDS: HYDROcodone/APAP 5-325MG 1 EACH TAB PO PRN (14:52)
[2020-02-14 16:30] LABS: Glucose,Whole Blood 163 mg/dL (75-99)
[2020-02-14 20:13] LABS: Glucose,Whole Blood 133 mg/dL (75-99)
[2020-02-14] MEDS: ATORVASTATIN 20 MG TAB PO SCH (20:21)
--- NOTE | 2020-02-14 23:44 | PN ---
PROGRESS NOTE DATE OF SERVICE: 02/14/2020 REASON FOR FOLLOWUP: Left diabetic foot infection with underlying osteomyelitis. INTERVAL HISTORY: The patient is currently afebrile, has been breathing comfortably. He did have some pain though improved with pain medication. No chest pain. No cough. No abdominal pain. No diarrhea. PHYSICAL EXAMINATION: Blood pressure 157/76 with pulse of 69, temperature 97.4. He is 98% on room air. General description is a middle-aged male lying in bed in no distress. RESPIRATORY SYSTEM: Unlabored breathing, clear to auscultation anteriorly HEART: S1, S2. Regular rate and rhythm. ABDOMEN: Soft, no tenderness. Left foot is currently dressed up. Minimal drainage on the dressing. LABS: Hemoglobin is 10, white count 7.5, creatinine 0.93. DIAGNOSTIC IMPRESSION AND PLAN: Patient with left foot plantar nonhealing wound with underlying osteomyelitis. Previous culture positive for MRSA and anaerobes. Patient is on vancomycin and Flagyl to continue. Await Vascular Surgery evaluation for possible debridement versus amputation. If not, he will need a PICC line for outpatient IV antibiotic as he has failed oral antibiotics. Continue with supportive care. MMODL / IJN: [id number] /
[2020-02-15] MEDS ORDERED: VANCOMYCIN TROUGH DUE 1 EACH MISC MISCELLANE ONE (04:00)
[2020-02-15] MEDS: VANCOMYCIN 1,750 MG in SODIUM CHLORIDE 0.9% 500 ML 500 ML IVPB SCH (04:46)
[2020-02-15 04:54] LABS: African American GFR (CKD) >90 (>60 ml/min/1.73 sqM); Non-African American GFR(CKD) >90 (>60 ml/min/1.73 sqM)
[2020-02-15] MEDS ORDERED: VANCOMYCIN IV PER PHARMACY 1 EACH MISC MISCELLANE PRN (05:38)
[2020-02-15 07:06] LABS: Glucose,Whole Blood 163 mg/dL (75-99)
[2020-02-15] MEDS: HYDROcodone/APAP 5-325MG 1 EACH TAB PO PRN ×2 (07:07→16:55)
[2020-02-15] MEDS: HEPARIN SODIUM,PORCINE 5,000 UNIT/ML 1 ML VIAL SQ SCH ×2 (07:07→20:25)
[2020-02-15] MEDS: CITALOPRAM HYDROBROMIDE 20 MG TAB PO SCH (07:08)
[2020-02-15] MEDS: PANTOPRAZOLE 40 MG TABLET PO SCH (07:08)
[2020-02-15] MEDS: metFORMIN 500 MG TAB PO SCH ×2 (07:08→20:24)
[2020-02-15] MEDS: INSULIN ASPART (NovoLOG) 100 UNIT/ML VIAL SQ SCH ×4 (07:09→20:24)
[2020-02-15] MEDS: metroNIDAZOLE 500 MG TAB PO SCH ×3 (07:09→20:24)
[2020-02-15] MEDS: amLODIPine 10 MG TAB PO SCH (07:09)
[2020-02-15] MEDS: METOPROLOL TARTRATE 25 MG TAB PO SCH ×2 (07:09→20:24)
[2020-02-15] MEDS: LOSARTAN 50 MG TAB PO SCH ×2 (07:09→20:24)
[2020-02-15] MEDS: SODIUM CHLORIDE 0.9% 1,000 ML IV SCH ×2 (07:10→20:25)
[2020-02-15 10:59] VITALS: BMI 32.3
--- NOTE | 2020-02-15 11:03 | P.PN ---
Subjective this is a pleasant 59 years old male with past medical history of diabetes mellitus and MRSA infection. A status post right middle toe amputation and left foot debridement. Presents with left foot ulcer. [facility] where his doctor told him in his PICC line but he wasn't sure for what reason. When he came to emergency room his been diagnosed with left foot ulcer.patient has an ulcer on the bottom of his first metatarso-phalangeal joint, with surrounding callus of DM think skin but no evidence of cellulitis. vitals are stable And patient is afebrile.BMP and creatinine are within normal limits. [place] is not detected in the emergency room patient was started on gentamicin.also received 1 dose of Zosyn and continue with vancomycin. 02/14/2020 Patient awake and alert,vitals are stable. WBC 7.5K, creatinine normal. continue with IV vancomycin and Flagyl was added by infectious disease service. Vascular surgery evaluated the patient, I discussed the case with Dr. Marino, no need for debridement currently and patient can follow up with Dr. Preston as an outpatient, patient informed and he agrees to follow up with his vascular surgeon Continue with local wound care 02/15/2020 Patient is stillon IV vancomycin and oral Flagyl for his left diabetic foot ulcer, no surrounding cellulitis still. No other new complaints No fever. His creatinine is normal today 0.9 . ID service and followed the patient closely and managing his antibiotic All patient questions were answered to her satisfaction. Objective - Vital Signs Vital signs: Vital Signs Temp 98.3 F 02/15/20 07:09 Pulse 69 02/15/20 07:09 Resp 16 02/15/20 07:09 BP 155/83 02/15/20 07:09 Pulse Ox 99 02/15/20 07:09 Intake & Output 02/14/20 02/15/20 02/15/20 18:59 06:59 18:59 Intake Total 1000 720 Balance 1000 720 Weight 102.058 kg Intake: Intake, IV Titration 1000 Amount Sodium Chloride 0.9% 1, 500 000 ml @ 100 mls/hr IV . Q10H CARSON Rx#:[id number] Vancomycin 1,750 mg In 500 Sodium Chloride 0.9% 500 ml 500 ml @ 167 mls/hr IVPB Q12H CARSON Rx#: [id number] Oral 720 Other: Voiding Method Toilet Toilet Toilet # Voids 1 1 - Exam GENERAL: The patient is alert and oriented x3, not in any acute distress. Well developed, well nourished. HEENT: Pupils are round and equally reacting to light. EOMI. No scleral icterus. No conjunctival pallor. Normocephalic, atraumatic. No pharyngeal erythema. No thyromegaly. CARDIOVASCULAR: S1 and S2 present. No murmurs, rubs, or gallops. PULMONARY: Chest is clear to auscultation, no wheezing or crackles. ABDOMEN: Soft, nontender, nondistended, normoactive bowel sounds. No palpable organomegaly. MUSCULOSKELETAL: No joint swelling or deformity. -EXTREMITIES: No cyanosis, clubbing, or pedal edema. deep ulcer at the bottom/sole of left first metatarsal phalangeal joint, with no surrounding cellulitis NEUROLOGICAL: He is alert awake and oriented to time place and person. Gross neurological examination did not reveal any focal deficits. Cranial nerves are grossly intact. Strength is 5/5 in all extremities. Sensation is intact. SKIN: No rashes. No petechiae - Labs CBC & Chem 7: 02/14/20 07:54 02/15/20 04:31 Labs: Abnormal Lab Results - Last 24 Hours (Table) 02/14/20 02/14/20 02/14/20 Range/Units 11:30 16:28 20:08 POC Glucose (mg/dL) 111 H 163 H 133 H (75-99) mg/dL Vancomycin Trough ug/mL 02/15/20 02/15/20 Range/Units 04:31 07:00 POC Glucose (mg/dL) 163 H (75-99) mg/dL Vancomycin Trough 31.1 H* ug/mL Microbiology - Last 24 Hours (Table) 02/12/20 14:18 Blood Culture - Preliminary Blood No Growth after 48 hours Assessment and Plan Assessment: acute left diabetic foot ulcer with elevated C-reactive protein and ESR Diabetes mellitus, with hemoglobin A1c of 6.6% history of MRSA infection history of status post right middle toe amputation and left foot debridement Plan: this is a pleasant 59 years old male who presents with diabetic foot ulcer.continue with antibiotic, patient currently on vancomycin, and Flagyl was added. Patient is followed closely by ID team.consults surgery team recommended no surgery and follow up as an outpatient, Patient informed and he agrees. Stop NSAIDs Labs and medication were reviewed.. Continue same treatment. Continue with symptomatic treatment. Resume home medication. Monitor lytes and vitals. DVT and GI prophylaxis. Further recommendations of the clinical course of the patient DVT prophylaxis: Subcutaneous heparin GI Prophylaxis: Ppi PT/OT: Return to previous setting Prognosis is guarded
[2020-02-15 11:34] LABS: Glucose,Whole Blood 125 mg/dL (75-99)
[2020-02-15 16:36] LABS: Glucose,Whole Blood 194 mg/dL (75-99)
--- NOTE | 2020-02-15 18:45 | PN ---
PROGRESS NOTE DATE OF SERVICE: 02/15/2020 REASON FOR FOLLOWUP: Left diabetic foot ulcer with acute osteomyelitis and MRSA. INTERVAL HISTORY: The patient is currently afebrile. The patient is breathing comfortably. Denies having any chest pain or shortness of breath or cough. Overall pain and discomfort to the left foot are currently controlled. PHYSICAL EXAMINATION: Blood pressure is 138/75, pulse of 70, temperature 98.2. He is 98% on room air. General description is a middle-aged male lying in bed in no distress. RESPIRATORY SYSTEM: Unlabored breathing. Clear to auscultation anteriorly. HEART: S1, S2. Regular rate and rhythm. ABDOMEN: Soft. No tenderness. Left foot wound with no significant slough tissue; some surrounding swelling. No redness or foul-smelling drainage. LABS: No new labs have been obtained, except he did have elevated vancomycin trough of 31.1. DIAGNOSTIC IMPRESSION AND PLAN: Patient with left diabetic foot infection with acute osteomyelitis. Cultures positive previously for MRSA, Enterococcus and anaerobes. Patient is covered with vancomycin and Flagyl. Local care to continue with dry Aquacel dressing. Vancomycin dose to be adjusted to keep the trough around 15. Will need to monitor his kidney function closely. Waiting for an okay for PICC line from the [facility] before placing one. community manager is working on it. Continue supportive care. MMODL / IJN: [id number] /
[2020-02-15 20:04] LABS: Glucose,Whole Blood 162 mg/dL (75-99)
[2020-02-15] MEDS: ATORVASTATIN 20 MG TAB PO SCH (20:24)
[2020-02-16 07:03] LABS: Glucose,Whole Blood 150 mg/dL (75-99)
[2020-02-16] MEDS: SODIUM CHLORIDE 0.9% 1,000 ML IV SCH ×2 (07:30→16:57)
[2020-02-16] MEDS: HEPARIN SODIUM,PORCINE 5,000 UNIT/ML 1 ML VIAL SQ SCH ×2 (07:31→20:24)
[2020-02-16] MEDS: INSULIN ASPART (NovoLOG) 100 UNIT/ML VIAL SQ SCH ×4 (07:31→20:24)
[2020-02-16] MEDS: LOSARTAN 50 MG TAB PO SCH ×2 (07:32→20:23)
[2020-02-16] MEDS: METOPROLOL TARTRATE 25 MG TAB PO SCH ×2 (07:32→20:24)
[2020-02-16] MEDS: amLODIPine 10 MG TAB PO SCH (07:32)
[2020-02-16] MEDS: CITALOPRAM HYDROBROMIDE 20 MG TAB PO SCH (07:32)
[2020-02-16] MEDS: metFORMIN 500 MG TAB PO SCH ×2 (07:32→20:23)
[2020-02-16] MEDS: PANTOPRAZOLE 40 MG TABLET PO SCH (07:33)
[2020-02-16] MEDS: metroNIDAZOLE 500 MG TAB PO SCH ×3 (07:33→22:16)
[2020-02-16] MEDS: HYDROcodone/APAP 5-325MG 1 EACH TAB PO PRN ×3 (07:36→22:16)
[2020-02-16 07:48] LABS: African American GFR (CKD) >90 (>60 ml/min/1.73 sqM); Non-African American GFR(CKD) 80 (>60 ml/min/1.73 sqM)
[2020-02-16] MEDS: VANCOMYCIN 1,750 MG in SODIUM CHLORIDE 0.9% 500 ML 500 ML IVPB SCH (08:21)
[2020-02-16 11:53] LABS: Glucose,Whole Blood 132 mg/dL (75-99)
--- NOTE | 2020-02-16 12:35 | P.PN ---
Subjective this is a pleasant 59 years old male with past medical history of diabetes mellitus and MRSA infection. A status post right middle toe amputation and left foot debridement. Presents with left foot ulcer. Patient presents from [facility] where his doctor told him in his PICC line but he wasn't sure for what reason. When he came to emergency room his been diagnosed with left foot ulcer.patient has an ulcer on the bottom of his first metatarso-phalangeal joint, with surrounding callus of DM think skin but no evidence of cellulitis. vitals are stable And patient is afebrile.BMP and creatinine are within normal limits. [place] is not detected in the emergency room patient was started on gentamicin.also received 1 dose of Zosyn and continue with vancomycin. 02/14/2020 Patient awake and alert,vitals are stable. WBC 7.5K, creatinine normal. continue with IV vancomycin and Flagyl was added by infectious disease service. Vascular surgery evaluated the patient, I discussed the case with Dr. Marino, no need for debridement currently and patient can follow up with Dr. Preston as an outpatient, patient informed and he agrees to follow up with his vascular surgeon Continue with local wound care 02/15/2020 Patient is stillon IV vancomycin and oral Flagyl for his left diabetic foot ulcer, no surrounding cellulitis still. No other new complaints No fever. His creatinine is normal today 0.9 . ID service and followed the patient closely and managing his antibiotic All patient questions were answered to her satisfaction. 02/16/2020 patient is clinically stable. he is still been treated for acute osteomyelitis with positive MRSA with antibiotics as per ID team recommendation, he is on IV vancomycin and Flagyl. We are monitoring his kidney function closely. His creatinine today is 1.03 patient is aware of the plan and I discussed with him and he verbalized understanding and acceptance. Objective - Vital Signs Vital signs: Vital Signs Temp 98.6 F 02/16/20 06:54 Pulse 69 02/16/20 06:54 Resp 15 02/16/20 06:54 BP 158/83 02/16/20 06:54 Pulse Ox 98 02/16/20 06:54 Intake & Output 02/15/20 02/16/20 02/16/20 18:59 06:59 18:59 Intake Total 240 Output Total 162 Balance -162 240 Weight 102.058 kg Intake: Oral 240 Output: Urine 162 Other: Voiding Method Toilet Toilet Toilet # Voids 1 1 - Exam GENERAL: The patient is alert and oriented x3, not in any acute distress. Well developed, well nourished. HEENT: Pupils are round and equally reacting to light. EOMI. No scleral icterus. No conjunctival pallor. Normocephalic, atraumatic. No pharyngeal erythema. No thyromegaly. CARDIOVASCULAR: S1 and S2 present. No murmurs, rubs, or gallops. PULMONARY: Chest is clear to auscultation, no wheezing or crackles. ABDOMEN: Soft, nontender, nondistended, normoactive bowel sounds. No palpable organomegaly. MUSCULOSKELETAL: No joint swelling or deformity. -EXTREMITIES: No cyanosis, clubbing, or pedal edema. deep ulcer at the bottom/sole of left first metatarsal phalangeal joint, with no surrounding cellulitis NEUROLOGICAL: He is alert awake and oriented to time place and person. Gross neurological examination did not reveal any focal deficits. Cranial nerves are grossly intact. Strength is 5/5 in all extremities. Sensation is intact. SKIN: No rashes. No petechiae - Labs CBC & Chem 7: 02/14/20 07:54 02/16/20 06:51 Labs: Abnormal Lab Results - Last 24 Hours (Table) 02/15/20 02/15/20 02/16/20 Range/Units 16:33 20:02 07:01 POC Glucose (mg/dL) 194 H 162 H 150 H (75-99) mg/dL 02/16/20 Range/Units 11:51 POC Glucose (mg/dL) 132 H (75-99) mg/dL Microbiology - Last 24 Hours (Table) 02/15/20 13:00 Gram Stain - Preliminary Foot - Left Wound Culture - Preliminary 02/15/20 13:00 Anaerobic Culture - Preliminary Foot - Left 02/12/20 14:18 Blood Culture - Preliminary Blood No Growth after 72 hours Assessment and Plan Assessment: acute left diabetic foot ulcer with elevated C-reactive protein and ESR, with acute osteomyelitis Diabetes mellitus, with hemoglobin A1c of 6.6% history of MRSA infection history of status post right middle toe amputation and left foot debridement Plan: this is a pleasant 59 years old male who presents with diabetic foot ulcer.continue with antibiotic, patient currently on vancomycin, and Flagyl was added. Patient is followed closely by ID team.consults surgery team recommended no surgery and follow up as an outpatient, Patient informed and he agrees. Stop NSAIDs Labs and medication were reviewed.. Continue same treatment. Continue with symptomatic treatment. Resume home medication. Monitor lytes and vitals. DVT and GI prophylaxis. Further recommendations of the clinical course of the patient DVT prophylaxis: Subcutaneous heparin GI Prophylaxis: Ppi PT/OT: Return to previous setting Prognosis is guarded
--- NOTE | 2020-02-16 16:54 | PN ---
PROGRESS NOTE DATE OF SERVICE: 02/16/2020 REASON FOR FOLLOWUP: Left diabetic foot ulcer with underlying osteomyelitis and MRSA. INTERVAL HISTORY: The patient is currently afebrile. The patient has been breathing comfortably. The patient denies having any chest pain or any cough. No nausea, vomiting or abdominal pain. No pain to the left foot area. PHYSICAL EXAMINATION: Blood pressure 153/85 with a pulse of 73, temperature 97.5. He is 99% on room air. General description is a middle-aged male lying in bed in no distress. RESPIRATORY SYSTEM: Unlabored breathing. Clear to auscultation anteriorly. HEART: S1, S2. Regular rate and rhythm. ABDOMEN: Soft. No tenderness. Left foot plantar wound has no significant slough tissue or any drainage. DIAGNOSTIC IMPRESSION AND PLAN: Patient with left foot diabetic foot ulcer with secondary cellulitis. Previous cultures were positive for MRSA, Enterococcus and anaerobes. The patient is covered with vancomycin. We got an okay from GI for placing a PICC line. Antibiotic will be transitioned to daptomycin, as they are not able to do the vancomycin dosing. Local care with dry Aquacel Silver dressing. The patient will benefit from a total contact cast in the outpatient setting and [facility]. This will be arranged. Discharge antibiotics will be daptomycin and oral Flagyl for 6 weeks with weekly monitoring of blood work and continued supportive care. MMODL / IJN: [id number] /
[2020-02-16 17:03] LABS: Glucose,Whole Blood 176 mg/dL (75-99)
[2020-02-16 20:02] LABS: Glucose,Whole Blood 174 mg/dL (75-99)
[2020-02-16] MEDS: ATORVASTATIN 20 MG TAB PO SCH (20:24)
[2020-02-17] MEDS: SODIUM CHLORIDE 0.9% 1,000 ML IV SCH ×2 (03:41→13:50)
[2020-02-17 06:47] LABS: Glucose,Whole Blood 175 mg/dL (75-99)
[2020-02-17 07:40] LABS: INR 1.1 (<1.2)
[2020-02-17] MEDS: INSULIN ASPART (NovoLOG) 100 UNIT/ML VIAL SQ SCH ×4 (07:40→20:41)
[2020-02-17] MEDS: LOSARTAN 50 MG TAB PO SCH ×2 (07:43→20:42)
[2020-02-17] MEDS: CITALOPRAM HYDROBROMIDE 20 MG TAB PO SCH (07:43)
[2020-02-17] MEDS: VANCOMYCIN 1,750 MG in SODIUM CHLORIDE 0.9% 500 ML 500 ML IVPB SCH (07:43)
[2020-02-17 07:44] LABS: African American GFR (CKD) >90 (>60 ml/min/1.73 sqM); Non-African American GFR(CKD) >90 (>60 ml/min/1.73 sqM)
[2020-02-17] MEDS: metroNIDAZOLE 500 MG TAB PO SCH ×3 (07:44→23:18)
[2020-02-17] MEDS: metFORMIN 500 MG TAB PO SCH ×2 (07:44→20:42)
[2020-02-17] MEDS: amLODIPine 10 MG TAB PO SCH (07:44)
[2020-02-17] MEDS: PANTOPRAZOLE 40 MG TABLET PO SCH (07:44)
[2020-02-17] MEDS: METOPROLOL TARTRATE 25 MG TAB PO SCH ×2 (07:44→20:42)
[2020-02-17] MEDS: HEPARIN SODIUM,PORCINE 5,000 UNIT/ML 1 ML VIAL SQ SCH ×2 (07:44→20:42)
[2020-02-17 11:30] LABS: Glucose,Whole Blood 116 mg/dL (75-99)
--- NOTE | 2020-02-17 11:55 | P.PN ---
Subjective this is a pleasant 59 years old male with past medical history of diabetes mellitus and MRSA infection. A status post right middle toe amputation and left foot debridement. Presents with left foot ulcer. Patient presents from alf where his doctor told him in his PICC line but he wasn't sure for what reason. When he came to emergency room his been diagnosed with left foot ulcer.patient has an ulcer on the bottom of his first metatarso-phalangeal joint, with surrounding callus of DM think skin but no evidence of cellulitis. vitals are stable And patient is afebrile.BMP and creatinine are within normal limits. Shokan is not detected in the emergency room patient was started on gentamicin.also received 1 dose of Zosyn and continue with vancomycin. 02/14/2020 Patient awake and alert,vitals are stable. WBC 7.5K, creatinine normal. continue with IV vancomycin and Flagyl was added by infectious disease service. Vascular surgery evaluated the patient, I discussed the case with Dr. Marino, no need for debridement currently and patient can follow up with Dr. Preston as an outpatient, patient informed and he agrees to follow up with his vascular surgeon Continue with local wound care 02/15/2020 Patient is stillon IV vancomycin and oral Flagyl for his left diabetic foot ulcer, no surrounding cellulitis still. No other new complaints No fever. His creatinine is normal today 0.9 . ID service and followed the patient closely and managing his antibiotic All patient questions were answered to her satisfaction. 02/16/2020 patient is clinically stable. he is still been treated for acute osteomyelitis with positive MRSA with antibiotics as per ID team recommendation, he is on IV vancomycin and Flagyl. We are monitoring his kidney function closely. His creatinine today is 1.03 patient is aware of the plan and I discussed with him and he verbalized understanding and acceptance. 02/17/2020 patient clinically the same, patient today is getting PICC line after his get approved from the alf as per the medication. Risks and benefits and alternative of the PICC line explained to the patient extensively and he agrees with it afebrile, creatinine is 0.91, INR is 1.1, glucose controlled Infectious disease on the case with the plan for him to switch him to daptomycin, as it is stopped to get the right dosing of vancomycin in the alf. Patient also on oral Flagyl Discharge antibiotics as per infectious disease service and their input is appreciated I discussed the planned and the follow-up recommendation in details with the patient and he verbalized understanding and agreement with the plan Also patient told me he is going to have the visiting nurse of the alf Objective - Vital Signs Vital signs: Vital Signs Temp 98.1 F 02/17/20 07:00 Pulse 74 02/17/20 07:00 Resp 17 02/17/20 07:00 BP 133/71 02/17/20 07:00 Pulse Ox 97 02/17/20 07:00 Intake & Output 02/16/20 02/17/20 02/17/20 18:59 06:59 18:59 Intake Total 600 1600 Balance 600 1600 Intake: Intake, IV Titration 1600 Amount Sodium Chloride 0.9% 1, 1600 000 ml @ 100 mls/hr IV . Q10H CARSON Rx#:[id number] Oral 600 Other: Voiding Method Toilet Toilet # Voids 1 2 - Exam GENERAL: The patient is alert and oriented x3, not in any acute distress. Well developed, well nourished. HEENT: Pupils are round and equally reacting to light. EOMI. No scleral icterus. No conjunctival pallor. Normocephalic, atraumatic. No pharyngeal erythema. No thyromegaly. CARDIOVASCULAR: S1 and S2 present. No murmurs, rubs, or gallops. PULMONARY: Chest is clear to auscultation, no wheezing or crackles. ABDOMEN: Soft, nontender, nondistended, normoactive bowel sounds. No palpable organomegaly. MUSCULOSKELETAL: No joint swelling or deformity. -EXTREMITIES: No cyanosis, clubbing, or pedal edema. deep ulcer at the bottom/sole of left first metatarsal phalangeal joint, with no surrounding cellulitis NEUROLOGICAL: He is alert awake and oriented to time place and person. Gross neurological examination did not reveal any focal deficits. Cranial nerves are grossly intact. Strength is 5/5 in all extremities. Sensation is intact. SKIN: No rashes. No petechiae - Labs CBC & Chem 7: 02/14/20 07:54 02/17/20 06:19 Labs: Abnormal Lab Results - Last 24 Hours (Table) 02/16/20 02/16/20 02/16/20 Range/Units 11:51 17:01 20:00 POC Glucose (mg/dL) 132 H 176 H 174 H (75-99) mg/dL 02/17/20 02/17/20 Range/Units 06:45 11:29 POC Glucose (mg/dL) 175 H 116 H (75-99) mg/dL Microbiology - Last 24 Hours (Table) 02/15/20 13:00 Gram Stain - Preliminary Foot - Left Wound Culture - Preliminary Gram Neg Bacilli 02/12/20 14:18 Blood Culture - Preliminary Blood No Growth after 96 hours Assessment and Plan Assessment: acute left diabetic foot ulcer with elevated C-reactive protein and ESR, with acute osteomyelitis Diabetes mellitus, with hemoglobin A1c of 6.6% history of MRSA infection history of status post right middle toe amputation and left foot debridement Plan: this is a pleasant 59 years old male who presents with diabetic foot ulcer.continue with antibiotic, patient currently on vancomycin, and Flagyl was added. Patient is followed closely by ID team.consults surgery team recommended no surgery and follow up as an outpatient, Patient informed and he agrees. Stop NSAIDs Labs and medication were reviewed.. Continue same treatment. Continue with symptomatic treatment. Resume home medication. Monitor lytes and vitals. DVT and GI prophylaxis. Further recommendations of the clinical course of the patient DVT prophylaxis: Subcutaneous heparin GI Prophylaxis: Ppi PT/OT: Return to previous setting Prognosis is guarded
[2020-02-17] MEDS: HYDROcodone/APAP 5-325MG 1 EACH TAB PO PRN ×2 (11:57→20:51)
[2020-02-17] MEDS ORDERED: LIDOCAINE 1% INJ 10MG/ML (20 ML MDV) SQ ONE (13:23)
--- NOTE | 2020-02-17 14:08 | IR ---
EXAMINATION TYPE: IR cvc insert >=5 years DATE OF EXAM: 02/17/2020 COMPARISON: NONE CLINICAL HISTORY: Infection Needs long-term intravenous access for antibiotics. PROCEDURE: Hand hygiene obtained with soap and water and alcohol-based hand rub. After informed consent, the skin overlying the left basilic vein was localized with ultrasound and no jaswinder to be compressible and patent. An ultrasound image was obtained and submitted on the patient's c pop. The overlying skin was prepped and draped and Lidocaine was used for local anesthesia. A skin arleth was made with a scalpel. Access was gained to the vein under ultrasound guidance with a 21 gau ge needle and a 0.018 inch wire was advanced. Access site was dilated with Peel-Away sheath and cath eter tailored to the appropriate length and advanced such that the distal tip is at the cavoatrial ju nction. Spot image was obtained verifying placement. Catheter was fixed to the skin and a sterile d ressing was placed following hemostasis. Catheter was aspirated and flushed with saline. Patient wa s discharged in stable condition without complication.Maximal barrier technique is utilized. Ultraso und image is documented on the chart. Ultrasound used with sterile technique. Fluoro time and fluoroscopic images submitted to document procedure: 0.3 minutes fluoroscopy time, 36 intraoperative images document the procedure IMPRESSION: STATUS POST ULTRASOUND AND FLUOROSCOPIC GUIDED PICC LINE PLACEMENT, READY FOR USE. THIS PROCEDURE WAS PERFORMED BY THE UNDERSIGNED.
[2020-02-17 16:25] LABS: Glucose,Whole Blood 152 mg/dL (75-99)
--- NOTE | 2020-02-17 17:01 | PN ---
PROGRESS NOTE DATE OF SERVICE: 02/17/2020 REASON FOR FOLLOWUP: Left diabetic foot infection with underlying osteomyelitis. INTERVAL HISTORY: The patient is currently afebrile. The patient is breathing comfortably. The patient has PICC line. Denies having any chest pain or cough. No nausea, no vomiting, no abdominal pain. Pain to the left foot area. PHYSICAL EXAMINATION: Blood pressure is 126/84 with a pulse of 71, temperature 98.1, he is 100% on room air. General description is a middle-aged male, lying in bed in no distress. RESPIRATORY SYSTEM: Unlabored breathing, clear to auscultation anteriorly. HEART: S1, S2. Regular rate and rhythm. ABDOMEN: Soft, no tenderness. LABS: Creatinine 0.91. Wound culture now showing Gram-negative. DIAGNOSTIC IMPRESSION AND PLAN: Patient with left diabetic foot infection. Previous culture positive for MRSA, Enterococcus, anaerobes, now with culture this admission showing a Gram-negative. We will add cefepime 2 g q.12. Recommend holding discharge to the culture done this admission to finalize to determine his final discharge antibiotics. For now the patient to continue on vancomycin, cefepime and oral Flagyl. Continue supportive care. MMODL / IJN: [id number] /
[2020-02-17 20:18] LABS: Glucose,Whole Blood 200 mg/dL (75-99)
[2020-02-17] MEDS: CEFEPIME 2 GM in SODIUM CHLORIDE 0.9% 100 ML IVPB SCH (20:42)
[2020-02-17] MEDS: ATORVASTATIN 20 MG TAB PO SCH (20:42)
[2020-02-18] MEDS: SODIUM CHLORIDE 0.9% 1,000 ML IV SCH ×2 (02:48→07:43)
[2020-02-18 06:48] LABS: Glucose,Whole Blood 145 mg/dL (75-99)
[2020-02-18] MEDS: VANCOMYCIN 1,750 MG in SODIUM CHLORIDE 0.9% 500 ML 500 ML IVPB SCH (07:32)
[2020-02-18] MEDS: CEFEPIME 2 GM in SODIUM CHLORIDE 0.9% 100 ML IVPB SCH (07:32)
[2020-02-18] MEDS: LOSARTAN 50 MG TAB PO SCH (07:33)
[2020-02-18] MEDS: HEPARIN SODIUM,PORCINE 5,000 UNIT/ML 1 ML VIAL SQ SCH (07:33)
[2020-02-18] MEDS: metroNIDAZOLE 500 MG TAB PO SCH ×2 (07:33→16:48)
[2020-02-18] MEDS: CITALOPRAM HYDROBROMIDE 20 MG TAB PO SCH (07:33)
[2020-02-18] MEDS: metFORMIN 500 MG TAB PO SCH (07:33)
[2020-02-18] MEDS: PANTOPRAZOLE 40 MG TABLET PO SCH (07:34)
[2020-02-18] MEDS: METOPROLOL TARTRATE 25 MG TAB PO SCH (07:34)
[2020-02-18] MEDS: INSULIN ASPART (NovoLOG) 100 UNIT/ML VIAL SQ SCH ×3 (07:34→16:48)
[2020-02-18] MEDS: amLODIPine 10 MG TAB PO SCH (07:34)
[2020-02-18 08:08] VITALS: RESP 17
[2020-02-18 08:45] LABS: African American GFR (CKD) >90 (>60 ml/min/1.73 sqM); Non-African American GFR(CKD) >90 (>60 ml/min/1.73 sqM)
[2020-02-18 11:27] LABS: Glucose,Whole Blood 141 mg/dL (75-99)
[2020-02-18] MEDS: HYDROcodone/APAP 5-325MG 1 EACH TAB PO PRN (15:16)
--- NOTE | 2020-02-18 15:24 | PN ---
PROGRESS NOTE DATE OF SERVICE: 02/18/2020 REASON FOR FOLLOWUP: Left diabetic foot infection with underlying osteomyelitis. INTERVAL HISTORY: The patient is currently afebrile. Patient is breathing comfortably. Denies having any chest pain. No cough. No nausea, vomiting. No abdominal pain or pain to the left foot area. PHYSICAL EXAMINATION: Blood pressure 136/79 with a pulse of 73, temperature 97.9. He is 99% on room air. General description is a middle-aged male lying in bed in no distress. Respiratory system: Unlabored breathing. Clear to auscultation anteriorly. Heart S1, S2. Regular rate and rhythm. ABDOMEN: Soft, no tenderness. LABS: Creatinine 0.91. Wound culture finalized with pseudomonas aeruginosa. DIAGNOSTIC IMPRESSION AND PLAN: Patient with left diabetic foot infection with underlying osteomyelitis. Culture now showing Pseudomonas with a previous culture positive for Enterococcus and MRSA. Antibiotic for discharge will be cefepime 2 grams q.12 hours for six days along with daptomycin 600 mg daily and along with Flagyl 500 mg every 8 hours. Local wound care with Aquacel silver dressing has been advised. [facility] in the next three or four days for a placement instruction on the discharge sheet. MMODL / IJN: [id number] /
[2020-02-18 15:26] VITALS: BP 158/88; PULSE 78; TEMP 98
[2020-02-18 16:24] LABS: Glucose,Whole Blood 176 mg/dL (75-99)
--- NOTE | 2020-02-18 22:07 | P.DS ---
Providers Date of admission: 02/12/20 15:13 Expected date of discharge: 02/18/20 Attending physician: Lul Babb Consults: 02/13/20 13:05 Consult Physician Urgent Consulting Provider: Mary Wyatt Consult Reason/Comments: diabetic foot ulcer Do you want consulting provider notified?: Yes 02/13/20 13:20 Consult Physician Routine Consulting Provider: Martin Montgomery Consult Reason/Comments: diabetic foot ulcer for possible debridement Do you want consulting provider notified?: Yes Primary care physician: Uday Rojo [facility] Course: Chief Complaint: Gangrene right foot third toe History of presenting to plan: This is a pleasant 59-year-old patient of Dr. Uday Artis. Chronic stable medical conditions include diabetes, GERD, hyperlipidemia. Patient is currently at the local halfway. He has a deputy from the halfway. Patient admitted to the hospital from January 04 through January 10.- with right third toe gangrene, left plantar diabetic foot ulcer. Underwent amputation with primary closure and debridement of the left foot ulcer. By Dr. Danitza Preston. Cultures grew multiple organisms including anaerobic bacteria and Enterococcus faecalis and MRSA. Was discharged. Patient now presents with left foot ulcer at the bottom of the first metatarsophalangeal joint. Surrounding callus. Foot x-ray did show destructive changes around the first metatarsophalangeal joint. Strongly suggestive of osteomyelitis. Wound culture did grow pseudomonas aeruginosa. Patient had a PICC line placed. Antibiotics were coordinated by Dr. Wyatt. Today-patient's feeling better. Only slight discomfort. Tolerating diet. No fever or chills. Antibiotics were coordinated by Dr. Wyatt. Spoke to the patient. Questions were answered. Discussion and discharge planning more than 35 minutes Consultation: Dr. wyatt from ID Physical examination: VITAL SIGNS: 98, 78, 17, 158/88, 100% on room air GENERAL: Sitting up, comfortable EYES: Pupils equal. Conjunctiva normal. HEENT: External appearance of nose and ears normal, oral cavity grossly normal. NECK: JVD not raised; masses not palpable. HEART: First and second heart sounds are normal; no edema. LUNGS: Respiratory rate normal; decreased breath sound. ABDOMEN: Soft, nontender, liver spleen not palpable, no masses palpable. PSYCH: Alert and oriented x3; mood and affect normal. NEUROLOGICAL: [Cranial nerves grossly intact; no facial asymmetry, decreased sensation in the feet EXTREMITY: Dressing over the right foot. Dysmorphic nails. Left foot wound INVESTIGATIONS, reviewed in the clinical context: White count 7.5 hemoglobin 10 platelets 296 creatinine 1.09 CRP 14.8 Wound culture-pseudomonas aeruginosa Assessment: -Left foot first metatarsophalangeal joint acute osteomyelitis with cultures positive for pseudomonas aeruginosa -Hyperlipidemia -Essential hypertension -Depression otherwise specified -Diabetes mellitus type 2 on oral hypoglycemic -COPD in an ex-smoker -Chronic lower extremity dysmorphic nails -Probable peripheral artery disease in a ex-smoker Plan: Care Home Labs: Weekly CBC/BMP Patient Condition at Discharge: Stable Plan - Discharge Summary Discharge Rx Participant: No New Discharge Prescriptions: New DAPTOmycin [Daptomycin] 650 mg IV DAILY #42 vial metroNIDAZOLE [Flagyl] 500 mg PO Q8HR #90 tab Cefepime HCl [Maxipime] 2 gm IV Q12H #84 vial Naproxen [Naprosyn] 250 mg PO BID #20 tab Continue metFORMIN HCL [Glucophage] 1,000 mg PO BID Metoprolol Tartrate 25 mg PO BID amLODIPine [Norvasc] 10 mg PO DAILY Omeprazole [PriLOSEC] 20 mg PO DAILY Atorvastatin Calcium [Lipitor] 20 mg PO HS Losartan Potassium 50 mg PO BID Citalopram Hydrobromide [CeleXA] 40 mg PO DAILY Acetaminophen [Tylenol Extra Strength] 1,000 mg PO BID PRN PRN Reason: Pain Discontinued metFORMIN HCL 1,000 mg PO BID Omeprazole 20 mg PO DAILY Metoprolol Tartrate [Lopressor] 25 mg PO BID Losartan [Cozaar] 50 mg PO BID Atorvastatin Calcium [Lipitor] 20 mg PO HS Citalopram Hydrobromide [CeleXA] 40 mg PO DAILY Amoxicillin/Potassium Clav [Augmentin 875-125 Tablet] 1 tab PO Q12HR 21 Days #42 tab Sulfamethox-Tmp 800-160Mg [Bactrim DS 800-160 mg] 1 tab PO Q12HR #42 tab amLODIPine [Norvasc] 10 mg PO DAILY #30 tab Discharge Medication List Acetaminophen [Tylenol Extra Strength] 1,000 mg PO BID PRN 02/12/20 [History] Atorvastatin Calcium [Lipitor] 20 mg PO HS 02/12/20 [History] Citalopram Hydrobromide [CeleXA] 40 mg PO DAILY 02/12/20 [History] Losartan Potassium 50 mg PO BID 02/12/20 [History] Metoprolol Tartrate 25 mg PO BID 02/12/20 [History] Omeprazole [PriLOSEC] 20 mg PO DAILY 02/12/20 [History] amLODIPine [Norvasc] 10 mg PO DAILY 02/12/20 [History] metFORMIN HCL [Glucophage] 1,000 mg PO BID 02/12/20 [History] Cefepime HCl [Maxipime] 2 gm IV Q12H #84 vial 02/18/20 [Rx] DAPTOmycin [Daptomycin] 650 mg IV DAILY #42 vial 02/18/20 [Rx] Naproxen [Naprosyn] 250 mg PO BID #20 tab 02/18/20 [Rx] metroNIDAZOLE [Flagyl] 500 mg PO Q8HR #90 tab 02/18/20 [Rx] Follow up Appointment(s)/Referral(s): Bina Preston DO [STAFF PHYSICIAN] - 02/24/20 10:15 am (Appointment will be @ the [place] office. Office # ) Uday Rojo DO [Primary Care Provider] - As Needed Mary Wyatt MD [STAFF PHYSICIAN] - 3 Weeks Patient Instructions/Handouts: Osteomyelitis (DC), Diabetic Foot Ulcers (DC) Activity/Diet/Wound Care/Special Instructions: Dietary recommendations: Shaun twice daily for two weeks to promote healing. Please send prescription with patient, it is on the chart. Patient may return to the halfway with PICC line and IV antibiotics: Daptomycin 650mg daily for [address] Wyatt. follow up at [facility] wound care center 02/25/[address] wyatt for application of total contact cast cbc/bmp - weekly
== END 2020-02-18 17:46 | DRG 638 ==
LOC: EC 11:08 → MERGE 15:13 → 4SSUR 15:13
PROVIDERS: ADMIT Hospitalist; ATTEND Hospitalist
PROC: 02HV33Z Insertion of Infusion Device into Superior Vena Cava, Percutaneous Approach (ICD-10-PCS; principal; 2020-02-17 08:25)
DX: E11.69 Type 2 diabetes mellitus with other specified complication (principal); L97.526 Non-pressure chronic ulcer of other part of left foot with bone involvement without evidence of necrosis; M86.172 Other acute osteomyelitis, left ankle and foot; E11.52 Type 2 diabetes mellitus with diabetic peripheral angiopathy with gangrene; Z11.59 Encounter for screening for other viral diseases; E11.621 Type 2 diabetes mellitus with foot ulcer; Z89.421 Acquired absence of other right toe(s); J44.9 Chronic obstructive pulmonary disease, unspecified; E66.9 Obesity, unspecified; E78.5 Hyperlipidemia, unspecified; I10 Essential (primary) hypertension; F32.9 Major depressive disorder, single episode, unspecified; L60.3 Nail dystrophy; K21.9 Gastro-esophageal reflux disease without esophagitis; R79.82 Elevated C-reactive protein (CRP); B96.5 Pseudomonas (aeruginosa) (mallei) (pseudomallei) as the cause of diseases classified elsewhere; Z71.3 Dietary counseling and surveillance; Z68.32 Body mass index [BMI] 32.0-32.9, adult; Z79.899 Other long term (current) drug therapy; Z79.84 Long term (current) use of oral hypoglycemic drugs; Z86.14 Personal history of Methicillin resistant Staphylococcus aureus infection; Z87.891 Personal history of nicotine dependence; Z83.3 Family history of diabetes mellitus
CPT/HCPCS: 36415; 80048; 80170; 80202; 82565; 83036; 85025; 85610; 85652; 86140; 87040; 87070; 87075; 87077; 87186; 87205; 87635; 96361; 96365; 99284

== ENCOUNTER 2020-02-25 10:52 | Emergency (ER) | payer BC ==
[2020-02-25 10:58] VITALS: PULSE 65; RESP 18; TEMP 97.7
[2020-02-25] MEDS ORDERED: ALTEPLASE 2 MG VIAL (CATHFLO) IV STA (11:15)
[2020-02-25] MEDS ORDERED: CEFEPIME 2 GM in SODIUM CHLORIDE 0.9% 100 ML IVPB STA (11:18)
--- NOTE | 2020-02-25 11:21 | ED ---
General Adult HPI - General Chief complaint: Recheck/Abnormal Lab/Rx Stated complaint: Picc line issue Time Seen by Provider: 02/25/20 11:00 Source: patient, police Mode of arrival: ambulatory Limitations: no limitations - History of Present Illness Initial comments: Patient is a 59-year-old male presenting to the emergency room with a chief complaint of a clogged PICC line. Patient brought to the ED by a [place] [employer] police officer from assisted. Patient states he receives IV antibiotics daily. Patient reports last night a nurse attempted to draw blood with an "metal prong". States the doctor attempted to push medication this morning but he was not able due to a clogged line. A letter from a physician was given to me by the officer, and a states the patient missed his 2 mg dose of cefepime this morning. Patient states he otherwise feels well. Patient denies any pain at the PICC line location. - Related Data Home Medications Medication Instructions Recorded Confirmed Acetaminophen [Tylenol Extra 1,000 mg PO BID PRN 02/12/20 02/12/20 Strength] Atorvastatin Calcium [Lipitor] 20 mg PO HS 02/12/20 02/12/20 Citalopram Hydrobromide [CeleXA] 40 mg PO DAILY 02/12/20 02/12/20 Losartan Potassium 50 mg PO BID 02/12/20 02/12/20 Metoprolol Tartrate 25 mg PO BID 02/12/20 02/12/20 Omeprazole [PriLOSEC] 20 mg PO DAILY 02/12/20 02/12/20 amLODIPine [Norvasc] 10 mg PO DAILY 02/12/20 02/12/20 metFORMIN HCL [Glucophage] 1,000 mg PO BID 02/12/20 02/12/20 Previous Rx's Medication Instructions Recorded Cefepime HCl [Maxipime] 2 gm IV Q12H #84 vial 02/18/20 DAPTOmycin [Daptomycin] 650 mg IV DAILY #42 vial 02/18/20 Naproxen [Naprosyn] 250 mg PO BID #20 tab 02/18/20 metroNIDAZOLE [Flagyl] 500 mg PO Q8HR #90 tab 02/18/20 Allergies Allergy/AdvReac Type Severity Reaction Status Date / Time No Known Allergies Allergy Verified 02/25/20 10:58 Review of Systems ROS Statement: Those systems with pertinent positive or pertinent negative responses have been documented in the HPI. ROS Other: All systems not noted in ROS Statement are negative. Past Medical History Past Medical History: Asthma, Diabetes Mellitus, GERD/Reflux, Hyperlipidemia, Hypertension Additional Past Medical History / Comment(s): NIDDM type II, neuropathy bilateral feet/legs, pt states his hgb is dropping and that his physician who he sees in the assisted thinks he has internal bleeding somewhere/plans to work this up soon, bronchitis, R shoulder discomfort. History of Any Multi-Drug Resistant Organisms: MRSA Date of last positivie culture/infection: january 2020 MDRO Source:: foot Past Surgical History: Orthopedic Surgery Additional Past Surgical History / Comment(s): right middle toe removed, left foot debridement Past Anesthesia/Blood Transfusion Reactions: No Reported Reaction Past Psychological History: No Psychological Hx Reported Past Alcohol Use History: None Reported, Occasional Past Drug Use History: None Reported, Unable to Obtain - Past Family History Father Family Medical History: Diabetes Mellitus Additional Family Medical History / Comment(s): Father is . Mother Family Medical History: No Reported History Additional Family Medical History / Comment(s): Mother is healthy. General Exam Limitations: no limitations General appearance: alert, in no apparent distress Head exam: Present: atraumatic, normocephalic, normal inspection Eye exam: Present: normal appearance, PERRL, EOMI Pupils: Present: normal accommodation ENT exam: Present: normal exam Neck exam: Present: normal inspection, full ROM Respiratory exam: Present: normal lung sounds bilaterally Cardiovascular Exam: Present: regular rate, normal rhythm, normal heart sounds Course Vital Signs 02/25/20 10:53 Temperature 97.7 F Pulse Rate 65 Respiratory 18 Rate Blood Pressure 135/79 O2 Sat by Pulse 100 Oximetry Medical Decision Making - Medical Decision Making Patient is a 59-year-old male presenting to emergency Department for a chief complaint white PICC line malfunction. PICC line was able to be flushed in the ED without any anticoagulants. Patient did miss his a.m. dose of cefepime 2 g. He was given 2 g of cefepime while in the ED. Patient will be discharged and return to assisted with [employer] police officer. Return parameters discussed. Case discussed with physician. Disposition Clinical Impression: Occluded PICC line, PICC (peripherally inserted central catheter) flush Disposition: HOME SELF-CARE Condition: Stable Instructions (If sedation given, give patient instructions): How to Flush Your PICC or Midline Catheter (ED) Additional Instructions: Return to emergency department if symptoms worsen. Is patient prescribed a controlled substance at d/c from ED?: No Referrals: Uday Rojo DO [Primary Care Provider] - 1-2 days Time of Disposition: 12:24
[2020-02-25 12:45] VITALS: BP 133/70
== END 2020-02-25 12:45 | disposition home or self-care (01) ==
LOC: EC 10:52
DX: T82.898A Other specified complication of vascular prosthetic devices, implants and grafts, initial encounter (principal); K21.9 Gastro-esophageal reflux disease without esophagitis; E78.5 Hyperlipidemia, unspecified; I10 Essential (primary) hypertension; E11.40 Type 2 diabetes mellitus with diabetic neuropathy, unspecified; Z86.14 Personal history of Methicillin resistant Staphylococcus aureus infection; Z79.84 Long term (current) use of oral hypoglycemic drugs; Z79.899 Other long term (current) drug therapy; Z53.8 Procedure and treatment not carried out for other reasons
CPT/HCPCS: 99283; 96365; J0692

== ENCOUNTER 2020-03-18 12:19 | Emergency (ER) | payer BC, OTHER ==
[2020-03-18 12:35] VITALS: RESP 18
[2020-03-18] MEDS ORDERED: SODIUM CHLORIDE 0.9% 1,000 ML IV STA (12:53)
--- NOTE | 2020-03-18 13:16 | XR ---
EXAMINATION TYPE: XR foot complete LT DATE OF EXAM: 03/18/2020 COMPARISON: 02/12/2020 HISTORY: Ulceration TECHNIQUE: Three views are submitted. FINDINGS: There is osteolytic change with medially displaced distal fracture fragment of the head of the first metatarsal and involvement of the proximal aspect of the first proximal phalanx of the left foot. Sof t tissue ulceration is no stated on the requisition and seen medially. Chronic deformity of the fourt h metatarsal. Vascular calcification diffuse soft tissue edema. Calcaneal spurs noted. Flexion deformities of the distal interphalangeal joints and proximal interphalangeal joints limiting evaluation. Small vessel atherosclerosis is seen. Small plantar heel spur is noted with degenerative changes that are mild hindfoot and the talotibial joint on the lateral view. IMPRESSION: 1. Persistent lucent changes involving the base of the proximal phalanx first digit and destructive c hange of the distal first metatarsal with suspected pathologic fracture similar in appearance the hira or exam. Erosive change at the base of the proximal phalanx. Chronic osteomyelitis most likely etiolo gy.
--- NOTE | 2020-03-18 13:31 | ED ---
General Adult HPI - General Chief complaint: Wound/Laceration Stated complaint: Wound Time Seen by Provider: 03/18/20 12:37 Source: police, RN notes reviewed Mode of arrival: wheelchair Limitations: no limitations - History of Present Illness Initial comments: 59-year-old male with a past medical history of diabetes, neuropathy, asthma, GERD, hyperlipidemia, and hypertension, amputation of the right third toe presents to the emergency department for a chief complaint of ulcer on the right foot has for months. Patient states he has had an ulcer in this area for about 4 months. States he has been on IV antibiotics for that amount of time. Patient has been to wound care twice and Dr. Preston recently debrided this a week and a half ago. Patient is presenting to the emergency department today because he states it is worsening and will not heal. No fevers or chills. No spreading redness up the leg. Patient had an amputated right third toe for similar issue.Patient has no other complaints at this time including shortness of breath, chest pain, abdominal pain, nausea or vomiting, headache, or visual changes. - Related Data Home Medications Medication Instructions Recorded Confirmed Acetaminophen [Tylenol Extra 1,000 mg PO BID PRN 02/12/20 02/12/20 Strength] Atorvastatin Calcium [Lipitor] 20 mg PO HS 02/12/20 02/12/20 Citalopram Hydrobromide [CeleXA] 40 mg PO DAILY 02/12/20 02/12/20 Losartan Potassium 50 mg PO BID 02/12/20 02/12/20 Metoprolol Tartrate 25 mg PO BID 02/12/20 02/12/20 Omeprazole [PriLOSEC] 20 mg PO DAILY 02/12/20 02/12/20 amLODIPine [Norvasc] 10 mg PO DAILY 02/12/20 02/12/20 metFORMIN HCL [Glucophage] 1,000 mg PO BID 02/12/20 02/12/20 Previous Rx's Medication Instructions Recorded Cefepime HCl [Maxipime] 2 gm IV Q12H #84 vial 02/18/20 DAPTOmycin [Daptomycin] 650 mg IV DAILY #42 vial 02/18/20 Naproxen [Naprosyn] 250 mg PO BID #20 tab 02/18/20 metroNIDAZOLE [Flagyl] 500 mg PO Q8HR #90 tab 02/18/20 Allergies Allergy/AdvReac Type Severity Reaction Status Date / Time No Known Allergies Allergy Verified 03/18/20 12:35 Review of Systems ROS Statement: Those systems with pertinent positive or pertinent negative responses have been documented in the HPI. ROS Other: All systems not noted in ROS Statement are negative. Past Medical History Past Medical History: Asthma, Diabetes Mellitus, GERD/Reflux, Hyperlipidemia, Hypertension Additional Past Medical History / Comment(s): NIDDM type II, neuropathy bilateral feet/legs, pt states his hgb is dropping and that his physician who he sees in the long-term thinks he has internal bleeding somewhere/plans to work this up soon, bronchitis, R shoulder discomfort. History of Any Multi-Drug Resistant Organisms: MRSA Date of last positivie culture/infection: january 2020 MDRO Source:: foot Past Surgical History: Orthopedic Surgery Additional Past Surgical History / Comment(s): right middle toe removed, left foot debridement Past Anesthesia/Blood Transfusion Reactions: No Reported Reaction Past Psychological History: No Psychological Hx Reported Past Alcohol Use History: None Reported, Occasional Past Drug Use History: None Reported, Unable to Obtain - Past Family History Father Family Medical History: Diabetes Mellitus Additional Family Medical History / Comment(s): Father is . Mother Family Medical History: No Reported History Additional Family Medical History / Comment(s): Mother is healthy. General Exam - General Exam Comments Initial Comments: Patient has a 2 cm x 2 cm ulceration on the left plantar MTP joint without surrounding erythema Limitations: no limitations General appearance: alert, in no apparent distress Head exam: Present: atraumatic, normocephalic, normal inspection Eye exam: Present: normal appearance, PERRL, EOMI. Absent: scleral icterus, conjunctival injection, periorbital swelling ENT exam: Present: normal exam, mucous membranes moist Neck exam: Present: normal inspection. Absent: tenderness, meningismus, lymphadenopathy Respiratory exam: Present: normal lung sounds bilaterally. Absent: respiratory distress, wheezes, rales, rhonchi, stridor Cardiovascular Exam: Present: regular rate, normal rhythm, normal heart sounds. Absent: systolic murmur, diastolic murmur, rubs, gallop, clicks GI/Abdominal exam: Present: soft, normal bowel sounds. Absent: distended, tenderness, guarding, rebound, rigid Course Vital Signs 03/18/20 12:33 Temperature 97.8 F Pulse Rate 72 Respiratory 18 Rate Blood Pressure 136/78 O2 Sat by Pulse 97 Oximetry Medical Decision Making - Medical Decision Making Vitals are stable. CBC CMP unremarkable. Mild lactic acidosis which is likely related to dehydration, patient was given a liter of fluids. X-ray of the left foot shows persistent lucent changes involving the base of the proximal phalanx first digit and destructive change of the first distal metatarsal with suspected pathologic fracture similar in appearance to prior exam. Chronic osteomyelitis most likely etiology with erosive changes at the base of the proximal phalanx. This x-ray is unchanged from patient's admission on February 11 when he had a wound culture positive for pseudomonas, currently being treated with cefepime and Flagyl. Did touch base with Dr. Grider who is on-call for Dr. Preston. At this time we agree is reasonable for patient to follow up at her office on Saturday. I did let the officer with him know about this. If he gets fevers or streaking redness or erythema before he can return for further evaluation. - Lab Data Result diagrams: 03/18/20 13:18 03/18/20 13:18 Lab Results 03/18/20 03/18/20 03/18/20 Range/Units 13:18 13:18 13:18 WBC 9.4 (3.8-10.6) k/uL RBC 3.93 L (4.30-5.90) m/uL Hgb 11.5 L (13.0-17.5) gm/dL Hct 36.6 L (39.0-53.0) % MCV 93.1 (80.0-100.0) fL MCH 29.4 (25.0-35.0) pg MCHC 31.5 (31.0-37.0) g/dL RDW 14.9 (11.5-15.5) % Plt Count 275 (150-450) k/uL Neutrophils % 59 % Lymphocytes % 27 % Monocytes % 8 % Eosinophils % 3 % Basophils % 1 % Neutrophils # 5.5 (1.3-7.7) k/uL Lymphocytes # 2.5 (1.0-4.8) k/uL Monocytes # 0.8 (0-1.0) k/uL Eosinophils # 0.3 (0-0.7) k/uL Basophils # 0.1 (0-0.2) k/uL Sodium 138 (137-145) mmol/L Potassium 4.4 (3.5-5.1) mmol/L Chloride 109 H (98-107) mmol/L Carbon Dioxide 18 L (22-30) mmol/L Anion Gap 11 mmol/L BUN 24 H (9-20) mg/dL Creatinine 1.11 (0.66-1.25) mg/dL Est GFR (CKD-EPI)AfAm 84 (>60 ml/min/1.73 sqM) Est GFR (CKD-EPI)NonAf 73 (>60 ml/min/1.73 sqM) Glucose 177 H (74-99) mg/dL Plasma Lactic Acid Jeffry 2.8 H* (0.7-2.0) mmol/L Calcium 9.7 (8.4-10.2) mg/dL Total Bilirubin 0.3 (0.2-1.3) mg/dL AST 66 H (17-59) U/L ALT 43 (4-49) U/L Alkaline Phosphatase 93 (38-126) U/L Total Protein 7.1 (6.3-8.2) g/dL Albumin 4.2 (3.5-5.0) g/dL Disposition Clinical Impression: Wound of left foot, Chronic osteomyelitis Disposition: HOME SELF-CARE Condition: Good Instructions (If sedation given, give patient instructions): Diabetic Foot Ulcers (ED) Additional Instructions: Please continue to wrap foot and care for wound. Continue to take antibiotics as directed. Please call Dr. Preston's office for an appointment. She is in the office on Saturday . Return here to the emergency room for fevers or other worsening symptoms. Is patient prescribed a controlled substance at d/c from ED?: No Referrals: Uday Rojo DO [Primary Care Provider] - 1-2 days Time of Disposition: 15:05
[2020-03-18 13:39] LABS: Albumin 4.2 g/dL (3.5-5.0); Calcium 9.7 mg/dL (8.4-10.2); Potassium 4.4 mmol/L (3.5-5.1); Total Bilirubin 0.3 mg/dL (0.2-1.3); Total Protein 7.1 g/dL (6.3-8.2)
[2020-03-18 13:54] LABS: Basophils # (A) 0.1 k/uL (0-0.2); Basophils % (A) 1 %; Eosinophils # (A) 0.3 k/uL (0-0.7); Eosinophils % (A) 3 %; HCT 36.6 % (39.0-53.0); HGB 11.5 gm/dL (13.0-17.5); Lymphocytes # (A) 2.5 k/uL (1.0-4.8); Lymphocytes % (A) 27 %; MCH 29.4 pg (25.0-35.0); MCHC 31.5 g/dL (31.0-37.0); MCV 93.1 fL (80.0-100.0); Monocytes # (A) 0.8 k/uL (0-1.0); Monocytes % (A) 8 %; Neutrophils # (A) 5.5 k/uL (1.3-7.7); Neutrophils % (A) 59 %; Platelet Count 275 k/uL (150-450); RBC 3.93 m/uL (4.30-5.90); RDW 14.9 % (11.5-15.5); WBC 9.4 k/uL (3.8-10.6)
[2020-03-18 15:34] VITALS: BP 136/69; PULSE 68; TEMP 97.3
== END 2020-03-18 15:34 | disposition home or self-care (01) ==
LOC: EC 12:19
DX: S91.302A Unspecified open wound, left foot, initial encounter (principal); M86.672 Other chronic osteomyelitis, left ankle and foot; E87.2 Acidosis; E11.621 Type 2 diabetes mellitus with foot ulcer; L97.519 Non-pressure chronic ulcer of other part of right foot with unspecified severity; E11.40 Type 2 diabetes mellitus with diabetic neuropathy, unspecified; K21.9 Gastro-esophageal reflux disease without esophagitis; E78.5 Hyperlipidemia, unspecified; I10 Essential (primary) hypertension; Z98.890 Other specified postprocedural states; Z89.421 Acquired absence of other right toe(s); Z86.14 Personal history of Methicillin resistant Staphylococcus aureus infection; Z79.84 Long term (current) use of oral hypoglycemic drugs; Z79.899 Other long term (current) drug therapy
CPT/HCPCS: 36415; 80053; 83605; 85025; 87040; 96360; 99284

== ENCOUNTER 2020-05-15 20:43 | Emergency (ER) | payer BC ==
[2020-05-15 20:52] VITALS: TEMP 98
[2020-05-15] MEDS ORDERED: ASPIRIN 81 MG PO STA (21:27)
--- NOTE | 2020-05-15 21:27 | ED ---
General Adult HPI <Enrique Maganassica P - Last Filed: 05/16/20 00:26> - General Source: patient, police, EMS Mode of arrival: EMS Limitations: no limitations <Essie Menarddestinee Camacho - Last Filed: 05/19/20 07:16> - General Chief complaint: Chest Pain Stated complaint: chest pain Time Seen by Provider: 05/15/20 21:24 - History of Present Illness Initial comments: Dictation was produced using [employer] dictation software. please excuse any grammatical, word or spelling errors. This patient was cared for during a federal and state declared state of emergency secondary to Covid 19 Chief Complaint: 59-year-old male past medical history of asthma diabetes dyslipidemia and hypertension presents with chest pain. History of Present Illness:-year-old man presents today with chest pain. He states that the pain as sharp and located to left anterior chest. He states sometimes his feels like it's pressure to his substernal chest. Sometimes she feels as though it goes across his chest and into her shoulders. No associated diaphoresis or nausea. Patient has a history of cardiac disease. He is currently an inmate at one of the local prisons. States that his pain hurts a little bit more when he takes a deep breath. The ROS documented in this emergency department record has been reviewed and confirmed by me. Those systems with pertinent positive or negative responses montemayor ve been documented in the HPI. All other systems are other negative and/or noncontributory. PHYSICAL EXAM: General Impression: Alert and oriented x3, not in acute distress HEENT: Normocephalic atraumatic, extra-ocular movements intact, pupils equal and reactive to light bilaterally, mucous membranes moist. Cardiovascular: Heart regular rate and rhythm Chest: Able to complete full sentences, no retractions, no tachypnea Abdomen: abdomen soft, non-tender, non-distended, no organomegaly Musculoskeletal: Pulses present and equal in all extremities, no peripheral edema Motor: no focal deficits noted Neurological: CN II-XII grossly intact, no focal motor or sensory deficits noted Skin: Intact with no visualized rashes Psych: Normal affect and mood ED course: 59-year-old male presents with atypical chest pain with typical features. Patient has multiple cardiac risk factors. As upon arrival are within acceptable limits. Patient was given aspirin. Laboratory evaluation obtained. CBC unremarkable. Coag panel is negative. Metabolic panel shows potassium 5.4. Rest of labs are unremarkable. Upon levels negative. Chest x-ray is nonacute. Patient care will be signed out to Dr. Magana for follow-up of second troponin and likely discharge back to [facility]. EKG interpretation: Ventricular rate EKG, sinus bradycardia,. 122, QRS 90, QTc 520. No OH prolongation, positive QTC prolongation, no ST or T-wave changes noted. No old EKG for comparison. Overall, this EKG is unremarkable (Anurag Menard) - Related Data Home Medications Medication Instructions Recorded Confirmed Acetaminophen [Tylenol Extra 1,000 mg PO BID PRN 02/12/20 03/18/20 Strength] Atorvastatin Calcium [Lipitor] 20 mg PO HS 02/12/20 03/18/20 Citalopram Hydrobromide [CeleXA] 40 mg PO DAILY 02/12/20 03/18/20 Losartan Potassium 50 mg PO BID 02/12/20 03/18/20 Metoprolol Tartrate 25 mg PO BID 02/12/20 03/18/20 Omeprazole [PriLOSEC] 20 mg PO DAILY 02/12/20 03/18/20 amLODIPine [Norvasc] 10 mg PO DAILY 02/12/20 03/18/20 metFORMIN HCL [Glucophage] 1,000 mg PO BID 02/12/20 03/18/20 Lactobacillus Acidophilus 1 tab PO TID 03/18/20 03/18/20 [Acidophilus] Vitamin B Complex 1 tab PO DAILY 03/18/20 03/18/20 Previous Rx's Medication Instructions Recorded Cefepime HCl [Maxipime] 2 gm IV Q12H #84 vial 02/18/20 DAPTOmycin [Daptomycin] 650 mg IV DAILY #42 vial 02/18/20 metroNIDAZOLE [Flagyl] 500 mg PO Q8HR #90 tab 02/18/20 Allergies Allergy/AdvReac Type Severity Reaction Status Date / Time No Known Allergies Allergy Verified 03/18/20 12:35 Review of Systems ROS Other: All systems not noted in ROS Statement are negative. <Darlene Magana - Last Filed: 05/16/20 00:26> ROS Other: All systems not noted in ROS Statement are negative. <Anurag Menard - Last Filed: 05/19/20 07:16> ROS Statement: Those systems with pertinent positive or pertinent negative responses have been documented in the HPI. Past Medical History Past Medical History: Asthma, Diabetes Mellitus, GERD/Reflux, Hyperlipidemia, Hypertension Additional Past Medical History / Comment(s): NIDDM type II, neuropathy bilateral feet/legs, pt states his hgb is dropping and that his physician who he sees in the intermediate thinks he has internal bleeding somewhere/plans to work this up soon, bronchitis, R shoulder discomfort. History of Any Multi-Drug Resistant Organisms: MRSA Date of last positivie culture/infection: january 2020 MDRO Source:: foot Past Surgical History: Orthopedic Surgery Additional Past Surgical History / Comment(s): right middle toe removed, left foot debridement Past Anesthesia/Blood Transfusion Reactions: No Reported Reaction Past Psychological History: No Psychological Hx Reported Smoking Status: Never smoker Past Alcohol Use History: None Reported, Occasional Past Drug Use History: None Reported, Unable to Obtain - Past Family History Father Family Medical History: Diabetes Mellitus Additional Family Medical History / Comment(s): Father is . Mother Family Medical History: No Reported History Additional Family Medical History / Comment(s): Mother is healthy. <Anurag eMnard - Last Filed: 05/19/20 07:16> General Exam Limitations: no limitations <Anurag Menard - Last Filed: 05/19/20 07:16> Course Vital Signs 05/15/20 05/15/20 05/16/20 20:44 23:10 00:48 Temperature 98 F Pulse Rate 59 L 58 L Respiratory 18 20 Rate Blood Pressure 164/86 185/85 210/108 O2 Sat by Pulse 100 99 Oximetry 05/16/20 01:37 Temperature Pulse Rate 68 Respiratory 18 Rate Blood Pressure 148/70 O2 Sat by Pulse 99 Oximetry Medical Decision Making - Lab Data Result diagrams: 05/15/20 21:27 05/15/20 21:27 <Darlene Magana - Last Filed: 05/16/20 00:26> - Lab Data Result diagrams: 05/15/20 21:27 05/15/20 21:27 <nAurag Menard - Last Filed: 05/19/20 07:16> - Lab Data Lab Results 05/15/20 05/15/20 05/15/20 Range/Units 21:27 21:27 21:27 WBC 6.9 (3.8-10.6) k/uL RBC 3.55 L (4.30-5.90) m/uL Hgb 11.1 L (13.0-17.5) gm/dL Hct 33.4 L (39.0-53.0) % MCV 94.0 (80.0-100.0) fL MCH 31.3 (25.0-35.0) pg MCHC 33.3 (31.0-37.0) g/dL RDW 13.8 (11.5-15.5) % Plt Count 298 (150-450) k/uL Neutrophils % 49 % Lymphocytes % 36 % Monocytes % 9 % Eosinophils % 4 % Basophils % 1 % Neutrophils # 3.4 (1.3-7.7) k/uL Lymphocytes # 2.5 (1.0-4.8) k/uL Monocytes # 0.6 (0-1.0) k/uL Eosinophils # 0.2 (0-0.7) k/uL Basophils # 0.1 (0-0.2) k/uL PT 10.4 (9.0-12.0) sec INR 1.0 (<1.2) APTT 22.8 (22.0-30.0) sec Sodium 137 (137-145) mmol/L Potassium 5.4 H (3.5-5.1) mmol/L Chloride 106 (98-107) mmol/L Carbon Dioxide 21 L (22-30) mmol/L Anion Gap 10 mmol/L BUN 20 (9-20) mg/dL Creatinine 0.92 (0.66-1.25) mg/dL Est GFR (CKD-EPI)AfAm >90 (>60 ml/min/1.73 sqM) Est GFR (CKD-EPI)NonAf >90 (>60 ml/min/1.73 sqM) Glucose 163 H (74-99) mg/dL Calcium 9.3 (8.4-10.2) mg/dL Magnesium 1.6 (1.6-2.3) mg/dL Total Bilirubin 0.4 (0.2-1.3) mg/dL AST 22 (17-59) U/L ALT 19 (4-49) U/L Alkaline Phosphatase 77 (38-126) U/L Troponin I (0.000-0.034) ng/mL Total Protein 6.4 (6.3-8.2) g/dL Albumin 4.0 (3.5-5.0) g/dL 05/15/20 05/15/20 Range/Units 21:27 23:58 WBC (3.8-10.6) k/uL RBC (4.30-5.90) m/uL Hgb (13.0-17.5) gm/dL Hct (39.0-53.0) % MCV (80.0-100.0) fL MCH (25.0-35.0) pg MCHC (31.0-37.0) g/dL RDW (11.5-15.5) % Plt Count (150-450) k/uL Neutrophils % % Lymphocytes % % Monocytes % % Eosinophils % % Basophils % % Neutrophils # (1.3-7.7) k/uL Lymphocytes # (1.0-4.8) k/uL Monocytes # (0-1.0) k/uL Eosinophils # (0-0.7) k/uL Basophils # (0-0.2) k/uL PT (9.0-12.0) sec INR (<1.2) APTT (22.0-30.0) sec Sodium (137-145) mmol/L Potassium (3.5-5.1) mmol/L Chloride (98-107) mmol/L Carbon Dioxide (22-30) mmol/L Anion Gap mmol/L BUN (9-20) mg/dL Creatinine (0.66-1.25) mg/dL Est GFR (CKD-EPI)AfAm (>60 ml/min/1.73 sqM) Est GFR (CKD-EPI)NonAf (>60 ml/min/1.73 sqM) Glucose (74-99) mg/dL Calcium (8.4-10.2) mg/dL Magnesium (1.6-2.3) mg/dL Total Bilirubin (0.2-1.3) mg/dL AST (17-59) U/L ALT (4-49) U/L Alkaline Phosphatase (38-126) U/L Troponin I <0.012 <0.012 (0.000-0.034) ng/mL Total Protein (6.3-8.2) g/dL Albumin (3.5-5.0) g/dL Disposition Is patient prescribed a controlled substance at d/c from ED?: No <Darlene Magana P - Last Filed: 05/16/20 00:26> Is patient prescribed a controlled substance at d/c from ED?: No Time of Disposition: 07:16 <Anurag Menard - Last Filed: 05/19/20 07:16> Clinical Impression: Chest pain Disposition: HOME SELF-CARE Condition: Fair Instructions (If sedation given, give patient instructions): Chest Pain (ED) Referrals: Uday Rojo DO [Primary Care Provider] - 1-2 days
--- NOTE | 2020-05-15 21:46 | XR ---
EXAMINATION TYPE: XR chest 1V portable DATE OF EXAM: 05/15/2020 COMPARISON: NONE HISTORY: Left sided chest pain TECHNIQUE: Single view FINDINGS: Heart and mediastinum are normal. Lungs are clear. Diaphragm is normal. Bony thorax appears normal. There are chest leads. IMPRESSION: Normal chest.
[2020-05-15 21:48] LABS: Basophils # (A) 0.1 k/uL (0-0.2); Basophils % (A) 1 %; Eosinophils # (A) 0.2 k/uL (0-0.7); Eosinophils % (A) 4 %; HCT 33.4 % (39.0-53.0); HGB 11.1 gm/dL (13.0-17.5); Lymphocytes # (A) 2.5 k/uL (1.0-4.8); Lymphocytes % (A) 36 %; MCH 31.3 pg (25.0-35.0); MCHC 33.3 g/dL (31.0-37.0); Mean Platelet Volume 7.1; Monocytes # (A) 0.6 k/uL (0-1.0); Monocytes % (A) 9 %; Neutrophils # (A) 3.4 k/uL (1.3-7.7); Neutrophils % (A) 49 %; Platelet Count 298 k/uL (150-450); RBC 3.55 m/uL (4.30-5.90); RDW 13.8 % (11.5-15.5); WBC 6.9 k/uL (3.8-10.6)
[2020-05-15 21:59] LABS: ALT 19 U/L (4-49); AST 22 U/L (17-59); African American GFR (CKD) >90 (>60 ml/min/1.73 sqM); Alkaline Phosphatase 77 U/L (38-126); Anion Gap 10 mmol/L; Blood Urea Nitrogen 20 mg/dL (9-20); Calcium 9.3 mg/dL (8.4-10.2); Carbon Dioxide 21 mmol/L (22-30); Chloride 106 mmol/L (98-107); Glucose 163 mg/dL (74-99); Magnesium 1.6 mg/dL (1.6-2.3); Non-African American GFR(CKD) >90 (>60 ml/min/1.73 sqM); Partial Thromboplastin Time 22.8 sec (22.0-30.0); Potassium 5.4 mmol/L (3.5-5.1); Prothrombin Time 10.4 sec (9.0-12.0); Sodium 137 mmol/L (137-145); Total Bilirubin 0.4 mg/dL (0.2-1.3); Total Protein 6.4 g/dL (6.3-8.2)
[2020-05-15] MEDS ORDERED: LOSARTAN 50 MG TAB PO STA (23:09)
[2020-05-16] MEDS ORDERED: cloNIDine HCL 0.1 MG TAB PO STA (00:41)
[2020-05-16 02:58] VITALS: BP 148/70; PULSE 68; RESP 18
== END 2020-05-16 01:37 | disposition home or self-care (01) ==
LOC: EC 20:43
DX: R07.89 Other chest pain (principal); E11.40 Type 2 diabetes mellitus with diabetic neuropathy, unspecified; E78.5 Hyperlipidemia, unspecified; I10 Essential (primary) hypertension; K21.9 Gastro-esophageal reflux disease without esophagitis; Z79.84 Long term (current) use of oral hypoglycemic drugs; Z79.899 Other long term (current) drug therapy
CPT/HCPCS: 36415; 71045; 80053; 83735; 84484; 85025; 85610; 85730; 93005; 99285

== ENCOUNTER 2020-06-17 19:15 | Inpatient (IN) | payer BC, MEDICAID ==
--- NOTE | 2020-06-17 20:55 | XR ---
EXAMINATION TYPE: XR foot complete LT DATE OF EXAM: 06/17/2020 COMPARISON: 03/18/2020 HISTORY: Wound on the first digit TECHNIQUE: 3 views FINDINGS: There is narrowing of the first MP joint space. There is some destructive changes on the fi rst MP joint on both sides of the joint. The other metatarsals are intact. There is some deformity of the head of the fourth metatarsal that could relate to an old healed fracture. IMPRESSION: Destructi ve changes with some erosions and deformity at the first MP joint that has progressed slightly compar ed to old exam. I would consider possibilities of gouty arthritis as well as chronic septic arthritis .
[2020-06-17 21:02] LABS: Basophils # (A) 0.1 k/uL (0-0.2); Basophils % (A) 1 %; Eosinophils # (A) 0.4 k/uL (0-0.7); Eosinophils % (A) 5 %; HCT 34.6 % (39.0-53.0); HGB 11.6 gm/dL (13.0-17.5); Lymphocytes # (A) 2.3 k/uL (1.0-4.8); Lymphocytes % (A) 28 %; MCH 31.8 pg (25.0-35.0); MCHC 33.6 g/dL (31.0-37.0); MCV 94.9 fL (80.0-100.0); Mean Platelet Volume 6.9; Monocytes # (A) 0.7 k/uL (0-1.0); Monocytes % (A) 8 %; Neutrophils # (A) 4.7 k/uL (1.3-7.7); Neutrophils % (A) 57 %; Platelet Count 399 k/uL (150-450); RBC 3.64 m/uL (4.30-5.90); RDW 13.2 % (11.5-15.5); WBC 8.2 k/uL (3.8-10.6)
--- NOTE | 2020-06-17 21:11 | ED ---
Wound/Laceration HPI - General Chief Complaint: Wound/Laceration Stated Complaint: Diabetic issue - L Foot Time Seen by Provider: 06/17/20 19:57 Source: patient Mode of arrival: ambulatory Limitations: no limitations - History of Present Illness Initial Comments: 59-year-old male diabetic with chronic wound to left foot patient states that he was in prison for last 7 month managing a foot wound. He states he was applying gentamycin ointment and having bandage changes. Patient has any fevers Gen. laser additional complaints he states the wound does not appear to be hearing was concerned he was developing osteomyelitis as he has had this in the past. Pt saw his foot doctor Dr. Caro who recommend he come in for evaluation. Upon arrival patient appears well nontoxic in no acute distress. Afebrile. - Related Data Home Medications Medication Instructions Recorded Confirmed Atorvastatin Calcium [Lipitor] 20 mg PO HS 02/12/20 06/17/20 Citalopram Hydrobromide [CeleXA] 40 mg PO DAILY 02/12/20 06/17/20 Losartan Potassium 50 mg PO BID 02/12/20 06/17/20 Metoprolol Tartrate 25 mg PO BID 02/12/20 06/17/20 Omeprazole [PriLOSEC] 20 mg PO DAILY 02/12/20 06/17/20 amLODIPine [Norvasc] 10 mg PO DAILY 02/12/20 06/17/20 metFORMIN HCL [Glucophage] 1,000 mg PO BID 02/12/20 06/17/20 Vitamin B Complex 1 tab PO DAILY 03/18/20 06/17/20 Allergies Allergy/AdvReac Type Severity Reaction Status Date / Time No Known Allergies Allergy Verified 06/17/20 23:09 Review of Systems ROS Statement: Those systems with pertinent positive or pertinent negative responses have been documented in the HPI. ROS Other: All systems not noted in ROS Statement are negative. Past Medical History Past Medical History: Asthma, Diabetes Mellitus, GERD/Reflux, Hyperlipidemia, Hypertension Additional Past Medical History / Comment(s): NIDDM type II, neuropathy bi lateral feet/legs, pt states his hgb is dropping and that his physician who he sees in the prison thinks he has internal bleeding somewhere/plans to work this up soon, bronchitis, R shoulder discomfort. History of Any Multi-Drug Resistant Organisms: MRSA Date of last positivie culture/infection: january 2020 MDRO Source:: foot Past Surgical History: Orthopedic Surgery Additional Past Surgical History / Comment(s): right middle toe removed, left foot debridement Past Anesthesia/Blood Transfusion Reactions: No Reported Reaction Past Psychological History: No Psychological Hx Reported Smoking Status: Never smoker Past Alcohol Use History: None Reported, Occasional Past Drug Use History: None Reported, Unable to Obtain - Past Family History Father Family Medical History: Diabetes Mellitus Additional Family Medical History / Comment(s): Father is . Mother Family Medical History: No Reported History Additional Family Medical History / Comment(s): Mother is healthy. General Exam - General Exam Comments Initial Comments: General: The patient is awake and alert, in no distress, and does not appear acutely ill. Eye: Pupils are equal, round and reactive to light, extra-ocular movements are intact. No nystagmus. There is normal conjunctiva bilaterally. No signs of icterus. Cardiovascular: There is a regular rate and rhythm. No murmur, rub or gallop is appreciated. Respiratory: Lungs are clear to auscultation, respirations are non-labored, breath sounds are equal. No wheezes, stridor, rales, or rhonchi. Gastrointestinal: Soft, non-distended, non-tender abdomen without masses or organomegaly noted. There is no rebound or guarding present. Musculoskeletal: Normal ROM, no tenderness. Strength 5/5. Sensation intact. Radial pulses equal bilaterally 2+. Neurological: A&O x 3. CN II-XII intact grossly, There are no obvious motor or sensory deficits. Coordination appears grossly intact. Speech is normal. Skin: Skin is warm and dry and no rashes or lesions are noted. 2x2cm circular lesion over the ball of the forefoot at base of 1st MTP joint Psychiatric: Cooperative, appropriate mood & affect, normal judgment. Limitations: no limitations Course Vital Signs 06/17/20 06/17/20 06/17/20 19:38 21:49 22:17 Temperature 98.2 F 98.2 F Pulse Rate 76 71 Respiratory 18 20 Rate Blood Pressure 156/94 189/96 O2 Sat by Pulse 98 100 Oximetry Medical Decision Making - Medical Decision Making 59-year-old male presenting for left foot wound. Patient has wound that appears chronic in nature there is no significant acute appearing erythema mild surrounding. No tracking of redness proximally. Patient is afebrile and nontoxic in appearance with no leukocytosis however there is evidence on x-ray concerning for osteomyelitis patient is placed on vancomycin and Zosyn he'll be admitted with infectious disease on consult I spoke with the accepting admitting physician's nurse practitioner was agreeable to this care plan as well as consultations. She is agreeable and prefers admission at this time - Lab Data Result diagrams: 06/17/20 20:36 06/17/20 20:36 Lab Results 06/17/20 06/17/20 Range/Units 20:36 20:36 WBC 8.2 (3.8-10.6) k/uL RBC 3.64 L (4.30-5.90) m/uL Hgb 11.6 L (13.0-17.5) gm/dL Hct 34.6 L (39.0-53.0) % MCV 94.9 (80.0-100.0) fL MCH 31.8 (25.0-35.0) pg MCHC 33.6 (31.0-37.0) g/dL RDW 13.2 (11.5-15.5) % Plt Count 399 (150-450) k/uL Neutrophils % 57 % Lymphocytes % 28 % Monocytes % 8 % Eosinophils % 5 % Basophils % 1 % Neutrophils # 4.7 (1.3-7.7) k/uL Lymphocytes # 2.3 (1.0-4.8) k/uL Monocytes # 0.7 (0-1.0) k/uL Eosinophils # 0.4 (0-0.7) k/uL Basophils # 0.1 (0-0.2) k/uL Sodium 138 (137-145) mmol/L Potassium 4.6 (3.5-5.1) mmol/L Chloride 107 (98-107) mmol/L Carbon Dioxide 21 L (22-30) mmol/L Anion Gap 10 mmol/L BUN 30 H (9-20) mg/dL Creatinine 1.07 (0.66-1.25) mg/dL Est GFR (CKD-EPI)AfAm 89 (>60 ml/min/1.73 sqM) Est GFR (CKD-EPI)NonAf 77 (>60 ml/min/1.73 sqM) Glucose 250 H (74-99) mg/dL Calcium 9.2 (8.4-10.2) mg/dL Total Bilirubin 0.3 (0.2-1.3) mg/dL AST 39 (17-59) U/L ALT 41 (4-49) U/L Alkaline Phosphatase 101 (38-126) U/L Total Protein 6.5 (6.3-8.2) g/dL Albumin 3.9 (3.5-5.0) g/dL Disposition Clinical Impression: Osteomyelitis, Wound of left foot Disposition: ADMITTED IP TO THIS [facility] Condition: Stable Is patient prescribed a controlled substance at d/c from ED?: No Time of Disposition: 21:47 Decision to Admit Reason: Admit from EC Decision Date: 06/17/20 Decision Time: 21:47
[2020-06-17 21:13] LABS: Albumin 3.9 g/dL (3.5-5.0); Calcium 9.2 mg/dL (8.4-10.2); Potassium 4.6 mmol/L (3.5-5.1); Total Bilirubin 0.3 mg/dL (0.2-1.3); Total Protein 6.5 g/dL (6.3-8.2)
[2020-06-17] MEDS ORDERED: NALOXONE 0.4 MG/ML 1 ML VIAL IV PRN (21:40)
[2020-06-17] MEDS ORDERED: VANCOMYCIN IV PER PHARMACY 1 EACH MISC MISCELLANE PRN (21:46)
[2020-06-17] MEDS ORDERED: PIPERACILLIN-TAZOBACTAM 3.375 GM in SODIUM CHLORIDE 0.9% 100 ML IVPB STA (21:47)
[2020-06-17] MEDS ORDERED: VANCOMYCIN 1,500 MG in SODIUM CHLORIDE 0.9% 250 ML IVPB STA (21:48)
[2020-06-17] MEDS: SODIUM CHLORIDE 0.9% 1,000 ML IV SCH (22:20)
[2020-06-18] MEDS: ATORVASTATIN 20 MG TAB PO SCH ×2 (01:10→20:50)
[2020-06-18] MEDS: metFORMIN 500 MG TAB PO SCH ×3 (01:10→20:50)
[2020-06-18] MEDS: METOPROLOL TARTRATE 25 MG TAB PO SCH ×3 (01:10→20:50)
[2020-06-18] MEDS: LOSARTAN 50 MG TAB PO SCH ×3 (01:10→20:50)
[2020-06-18] MEDS: PIPERACILLIN-TAZOBACTAM 3.375 GM in SODIUM CHLORIDE 0.9% 100 ML IVPB SCH ×3 (05:56→23:27)
[2020-06-18 07:37] LABS: Glucose,Whole Blood 149 mg/dL (75-99)
[2020-06-18] MEDS: VANCOMYCIN 1,500 MG in SODIUM CHLORIDE 0.9% 250 ML IVPB SCH ×2 (08:28→20:51)
[2020-06-18] MEDS: PANTOPRAZOLE 40 MG TABLET PO SCH (08:28)
[2020-06-18] MEDS: CITALOPRAM HYDROBROMIDE 20 MG TAB PO SCH (08:28)
[2020-06-18] MEDS: amLODIPine 10 MG TAB PO SCH (08:28)
[2020-06-18] MEDS: SODIUM CHLORIDE 0.9% 1,000 ML IV SCH (11:23)
[2020-06-18 12:16] LABS: Glucose,Whole Blood 153 mg/dL (75-99)
--- NOTE | 2020-06-18 13:29 | P.HPIM ---
History of Present Illness 59-year-old male diabetic with chronic wound to left foot patient states that he was in retirement for last 7 month managing a foot wound. He states he was applying gentamycin ointment and having bandage changes. Patient has any fevers Gen. laser additional complaints he states the wound does not appear to be hearing was concerned he was developing osteomyelitis as he has had this in the past. Pt saw his foot doctor who recommend he come in for evaluation. Upon arrival patient appears well nontoxic in no acute distress. Afebrile. Patient denied any history of peripheral vascular disease denied any significant diabetic care neuropathy patient had an amputation of one of the toes on the right side as well and the he believes it sepsis secondary to walking barefoot in the group home. Review of Systems REVIEW OF SYSTEMS: CONSTITUTIONAL: No fever, no malaise, no fatigue. HEENT: No recent visual problems or hearing problems. Denied any sore throat. CARDIOVASCULAR: No chest pain, orthopnea, PND, no palpitations, no syncope. PULMONARY: No shortness of breath, no cough, no hemoptysis. GASTROINTESTINAL: No diarrhea, no nausea, no vomiting, no abdominal pain. NEUROLOGICAL: No headaches, no weakness, no numbness. HEMATOLOGICAL: Denies any bleeding or petechiae. GENITOURINARY: Denies any burning micturition, frequency, or urgency. MUSCULOSKELETAL/RHEUMATOLOGICAL: As mentioned in HPI ENDOCRINE: Denies any polyuria or polydipsia. The rest of the 14-point review of systems is negative. Past Medical History Past Medical History: Asthma, Diabetes Mellitus, GERD/Reflux, Hyperlipidemia, Hypertension Additional Past Medical History / Comment(s): NIDDM type II, neuropathy bilateral feet/legs, pt states his hgb is dropping and that his physician who he sees in the retirement thinks he has internal bleeding somewhere/plans to work this up soon, bronchitis, R shoulder discomfort. History of Any Multi-Drug Resistant Organisms: MRSA Date of last positivie culture/infection: january 2020 MDRO Source:: foot Past Surgical History: Orthopedic Surgery Additional Past Surgical History / Comment(s): right middle toe removed, left foot debridement Past Anesthesia/Blood Transfusion Reactions: No Reported Reaction Past Psychological History: No Psychological Hx Reported Additional Psychological History / Comment(s): . Smoking Status: Never smoker Past Alcohol Use History: None Reported, Occasional Additional Past Alcohol Use History / Comment(s): Pt started smoking in 1977 and quit once for 10 yrs and quit again in 2014. Past Drug Use History: None Reported, Unable to Obtain - Past Family History Father Family Medical History: Diabetes Mellitus Additional Family Medical History / Comment(s): Father is . Mother Family Medical History: No Reported History Additional Family Medical History / Comment(s): Mother is healthy. Medications and Allergies Home Medications Medication Instructions Recorded Confirmed Type Atorvastatin Calcium [Lipitor] 20 mg PO HS 02/12/20 06/17/20 History Citalopram Hydrobromide [CeleXA] 40 mg PO DAILY 02/12/20 06/17/20 History Losartan Potassium 50 mg PO BID 02/12/20 06/17/20 History Metoprolol Tartrate 25 mg PO BID 02/12/20 06/17/20 History Omeprazole [PriLOSEC] 20 mg PO DAILY 02/12/20 06/17/20 History amLODIPine [Norvasc] 10 mg PO DAILY 02/12/20 06/17/20 History metFORMIN HCL [Glucophage] 1,000 mg PO BID 02/12/20 06/17/20 History Vitamin B Complex 1 tab PO DAILY 03/18/20 06/17/20 History Allergies Allergy/AdvReac Type Severity Reaction Status Date / Time No Known Allergies Allergy Verified 06/17/20 23:09 Physical Exam Vitals: Vital Signs Temp Pulse Pulse Resp BP BP Pulse Ox 06/18/20 07:00 98.1 F 62 18 147/85 99 06/18/20 02:51 98.5 F 60 16 155/89 98 06/17/20 23:40 97.9 F 63 18 173/94 100 06/17/20 22:17 71 20 189/96 100 06/17/20 21:49 98.2 F 06/17/20 19:38 98.2 F 76 18 156/94 98 Intake and Output 06/17/20 06/18/20 06/18/20 22:59 06:59 14:59 Intake Total 790 930 Balance 790 930 Intake: Intake, IV Titration 550 350 Amount Piperacillin-Tazobactam 3 100 .375 gm In Sodium Chloride 0.9% 100 ml @ 25 mls/hr IVPB ONCE STA Rx# :[id number] Piperacillin-Tazobactam 3 100 .375 gm In Sodium Chloride 0.9% 100 ml @ 25 mls/hr IVPB Q8H [facility] Rx#: [id number] Sodium Chloride 0.9% 1, 450 000 ml @ 75 mls/hr IV . [id number] [facility] Rx#:[id number] Vancomycin 1,500 mg In 250 Sodium Chloride 0.9% 250 ml @ 125 mls/hr IVPB Q12H [facility] Rx#:[id number] Oral 240 580 Other: Voiding Method Toilet Toilet Urinal Urinal # Voids 2 Weight 92.986 kg 92.986 kg PHYSICAL EXAMINATION: GENERAL: The patient is alert and oriented x3, not in any acute distress. Well developed, well nourished. HEENT: Pupils are round and equally reacting to light. EOMI. No scleral icterus. No conjunctival pallor. Normocephalic, atraumatic. No pharyngeal erythema. No thyromegaly. CARDIOVASCULAR: S1 and S2 present. No murmurs, rubs, or gallops. PULMONARY: Chest is clear to auscultation, no wheezing or crackles. ABDOMEN: Soft, nontender, nondistended, normoactive bowel sounds. No palpable organomegaly. MUSCULOSKELETAL: No joint swelling or deformity. EXTREMITIES: No cyanosis, clubbing, or pedal edema. NEUROLOGICAL: Gross neurological examination did not reveal any focal deficits. SKIN: There is an ulcer on the plantar aspect of the left foot with purulent discharge just proximal to metatarsal joints. With surrounding cellulitis. There is no significant granulation tissue may need debridement Results CBC & Chem 7: 06/17/20 20:36 06/17/20 20:36 Labs: Abnormal Lab Results - Last 24 Hours (Table) 06/17/20 06/17/20 06/18/20 Range/Units 20:36 20:36 07:35 RBC 3.64 L (4.30-5.90) m/uL Hgb 11.6 L (13.0-17.5) gm/dL Hct 34.6 L (39.0-53.0) % Carbon Dioxide 21 L (22-30) mmol/L BUN 30 H (9-20) mg/dL Glucose 250 H (74-99) mg/dL POC Glucose (mg/dL) 149 H (75-99) mg/dL 06/18/20 Range/Units 12:09 RBC (4.30-5.90) m/uL Hgb (13.0-17.5) gm/dL Hct (39.0-53.0) % Carbon Dioxide (22-30) mmol/L BUN (9-20) mg/dL Glucose (74-99) mg/dL POC Glucose (mg/dL) 153 H (75-99) mg/dL Thrombosis Risk Factor Assmnt - Choose All That Apply Each Factor Represents 1 point: Age 41-60 years Thrombosis Risk Factor Assessment Total Risk Factor Score: 1 Thrombosis Risk Factor Assessment Level: Low Risk Assessment and Plan Plan: -Osteomyelitis of the left foot patient has a plantar ulcer at which appears to be infected wound cultures will be obtained and patient will will be continued on vancomycin and Zosyn for now patient has narrowing of first metatarsal tarsophalangeal joint and there is some deformity in the head of the fourth metatarsal with the distraction erosions on the first metatarsophalangeal joint on the x-ray. Patient has a diabetic foot ulcers -Type 2 diabetes mellitus blood sugars were elevated yesterday but fairly well controlled today. Continue with metformin and sliding scale insulin -Nonhealing ulcer in the left foot which may need debridement vascular surgery will be consulted Hypogastrics esophageal reflux disease -Hyperlipidemia -Hypertension. -Mild acute renal failure: The patient will be continued on IV fluids For above-mentioned chronic medical problems patient was resumed on appropriate home medications -DVT prophylaxis with Lovenox
--- NOTE | 2020-06-18 14:28 | P.GSCN ---
History of Present Illness History of present illness: 59-year-old gentleman, patient was seen by me in 2 months ago when he came with the same problem of chronic wound left foot plantar aspect. Patient has been in alf for the last 7 months. Patient was having local wound care, he is been readmitted to the hospital for same problem. Patient was seen by Dr. Aceves us for opinion and he recommended to him left foot to big toe amputation along with the metatarsal phalangeal joint. Medical history history of diabetes hypertension hyperlipidemia Neck examination neck is supple no bruit appreciated Chest chest is clear first and second sound normal Abdomen is soft nontender Vascular examination femoral dorsal pedis pulses are palpable patient has a left foot plantar aspect large open wound with the hyperbaric granulating wound and some redness noted along the periwound area. Plan is patient is an IV antibiotic under care of infectious disease option were discussed with the patient this patient has a chronic wound left foot with osteo-and we have discussed about the amputation of the left foot big toe along the metatarsal phalangeal joint patient will need a VAC therapy and local wound care. We will discuss with the infectious disease and they all agree we'll proceed Past Medical History Past Medical History: Asthma, Diabetes Mellitus, GERD/Reflux, Hyperlipidemia, Hypertension Additional Past Medical History / Comment(s): NIDDM type II, neuropathy bilat eral feet/legs, pt states his hgb is dropping and that his physician who he sees in the alf thinks he has internal bleeding somewhere/plans to work this up soon, bronchitis, R shoulder discomfort. History of Any Multi-Drug Resistant Organisms: MRSA Year Discovered:: january 2020 MDRO Source:: foot Past Surgical History: Orthopedic Surgery Additional Past Surgical History / Comment(s): right middle toe removed, left foot debridement Past Anesthesia/Blood Transfusion Reactions: No Reported Reaction Past Psychological History: No Psychological Hx Reported Additional Psychological History / Comment(s): . Smoking Status: Never smoker Past Alcohol Use History: None Reported, Occasional Additional Past Alcohol Use History / Comment(s): Pt started smoking in 1977 and quit once for 10 yrs and quit again in 2014. Past Drug Use History: None Reported, Unable to Obtain - Past Family History Father Family Medical History: Diabetes Mellitus Additional Family Medical History / Comment(s): Father is . Mother Family Medical History: No Reported History Additional Family Medical History / Comment(s): Mother is healthy. Medications and Allergies Home Medications Medication Instructions Recorded Confirmed Type Atorvastatin Calcium [Lipitor] 20 mg PO HS 02/12/20 06/17/20 History Citalopram Hydrobromide [CeleXA] 40 mg PO DAILY 02/12/20 06/17/20 History Losartan Potassium 50 mg PO BID 02/12/20 06/17/20 History Metoprolol Tartrate 25 mg PO BID 02/12/20 06/17/20 History Omeprazole [PriLOSEC] 20 mg PO DAILY 02/12/20 06/17/20 History amLODIPine [Norvasc] 10 mg PO DAILY 02/12/20 06/17/20 History metFORMIN HCL [Glucophage] 1,000 mg PO BID 02/12/20 06/17/20 History Vitamin B Complex 1 tab PO DAILY 03/18/20 06/17/20 History Allergies Allergy/AdvReac Type Severity Reaction Status Date / Time No Known Allergies Allergy Verified 06/17/20 23:09 Surgical - Exam Vital Signs Temp Pulse Resp BP Pulse Ox 98.2 F 76 18 156/94 98 06/17/20 19:38 06/17/20 19:38 06/17/20 19:38 06/17/20 19:38 06/17/20 19:38 Results - Labs 06/17/20 20:36 06/17/20 20:36 Abnormal Lab Results - Last 24 Hours (Table) 06/17/20 06/17/20 06/18/20 Range/Units 20:36 20:36 07:35 RBC 3.64 L (4.30-5.90) m/uL Hgb 11.6 L (13.0-17.5) gm/dL Hct 34.6 L (39.0-53.0) % Carbon Dioxide 21 L (22-30) mmol/L BUN 30 H (9-20) mg/dL Glucose 250 H (74-99) mg/dL POC Glucose (mg/dL) 149 H (75-99) mg/dL 06/18/20 Range/Units 12:09 RBC (4.30-5.90) m/uL Hgb (13.0-17.5) gm/dL Hct (39.0-53.0) % Carbon Dioxide (22-30) mmol/L BUN (9-20) mg/dL Glucose (74-99) mg/dL POC Glucose (mg/dL) 153 H (75-99) mg/dL Diabetes panel 06/17/20 Range/Units 20:36 Sodium 138 (137-145) mmol/L Potassium 4.6 (3.5-5.1) mmol/L Chloride 107 (98-107) mmol/L Carbon Dioxide 21 L (22-30) mmol/L BUN 30 H (9-20) mg/dL Creatinine 1.07 (0.66-1.25) mg/dL Glucose 250 H (74-99) mg/dL Calcium 9.2 (8.4-10.2) mg/dL AST 39 (17-59) U/L ALT 41 (4-49) U/L Alkaline Phosphatase 101 (38-126) U/L Total Protein 6.5 (6.3-8.2) g/dL Albumin 3.9 (3.5-5.0) g/dL Calcium panel 06/17/20 Range/Units 20:36 Calcium 9.2 (8.4-10.2) mg/dL Albumin 3.9 (3.5-5.0) g/dL Pituitary panel 06/17/20 Range/Units 20:36 Sodium 138 (137-145) mmol/L Potassium 4.6 (3.5-5.1) mmol/L Chloride 107 (98-107) mmol/L Carbon Dioxide 21 L (22-30) mmol/L BUN 30 H (9-20) mg/dL Creatinine 1.07 (0.66-1.25) mg/dL Glucose 250 H (74-99) mg/dL Calcium 9.2 (8.4-10.2) mg/dL Adrenal panel 06/17/20 Range/Units 20:36 Sodium 138 (137-145) mmol/L Potassium 4.6 (3.5-5.1) mmol/L Chloride 107 (98-107) mmol/L Carbon Dioxide 21 L (22-30) mmol/L BUN 30 H (9-20) mg/dL Creatinine 1.07 (0.66-1.25) mg/dL Glucose 250 H (74-99) mg/dL Calcium 9.2 (8.4-10.2) mg/dL Total Bilirubin 0.3 (0.2-1.3) mg/dL AST 39 (17-59) U/L ALT 41 (4-49) U/L Alkaline Phosphatase 101 (38-126) U/L Total Protein 6.5 (6.3-8.2) g/dL Albumin 3.9 (3.5-5.0) g/dL
[2020-06-18 16:47] LABS: Glucose,Whole Blood 145 mg/dL (75-99)
[2020-06-18 19:45] LABS: Glucose,Whole Blood 201 mg/dL (75-99)
[2020-06-19] MEDS: SODIUM CHLORIDE 0.9% 1,000 ML IV SCH ×2 (01:04→13:48)
[2020-06-19] MEDS: PIPERACILLIN-TAZOBACTAM 3.375 GM in SODIUM CHLORIDE 0.9% 100 ML IVPB SCH (05:24)
[2020-06-19 07:05] LABS: Glucose,Whole Blood 175 mg/dL (75-99)
[2020-06-19 07:30] LABS: HCT 31.7 % (39.0-53.0); HGB 10.3 gm/dL (13.0-17.5); MCH 30.8 pg (25.0-35.0); MCHC 32.5 g/dL (31.0-37.0); MCV 94.8 fL (80.0-100.0); Platelet Count 356 k/uL (150-450); RBC 3.34 m/uL (4.30-5.90); RDW 13.1 % (11.5-15.5); WBC 7.6 k/uL (3.8-10.6)
[2020-06-19 07:36] LABS: Calcium 8.8 mg/dL (8.4-10.2); Potassium 4.4 mmol/L (3.5-5.1)
[2020-06-19] MEDS: CITALOPRAM HYDROBROMIDE 20 MG TAB PO SCH (07:45)
[2020-06-19] MEDS: METOPROLOL TARTRATE 25 MG TAB PO SCH ×2 (07:45→20:32)
[2020-06-19] MEDS: PANTOPRAZOLE 40 MG TABLET PO SCH (07:45)
[2020-06-19] MEDS: LOSARTAN 50 MG TAB PO SCH ×2 (07:46→20:31)
[2020-06-19] MEDS: amLODIPine 10 MG TAB PO SCH (07:46)
[2020-06-19] MEDS: VANCOMYCIN 1,500 MG in SODIUM CHLORIDE 0.9% 250 ML IVPB SCH (07:46)
[2020-06-19] MEDS: ENOXAPARIN 40 MG/0.4 ML SYRINGE SQ SCH (07:48)
[2020-06-19] MEDS: metFORMIN 500 MG TAB PO SCH ×2 (07:49→20:31)
--- NOTE | 2020-06-19 08:56 | P.CONS ---
History of Present Illness - Reason for Consult Consult date: 06/18/20 Left diabetic foot wound nonhealing osteomyelitis Requesting physician: Samia Quinonez - Chief Complaint Nonhealing left foot wound x 6 months - History of Present Illness Patient is 59-year-old male with a past medical history significant for chronic nonhealing wound on the plantar aspect of his left foot at the base of first metatarsal head this wound has been going on for more than 6 months now and has been previously debridement by Dr. Preston when the wound was noticed to be extended down to the bone culture were positive for MRSA and pseudomonas aeru ginosa and the patient has received more than 6 weeks of IV anybody the form of cefepime and daptomycin as well as Flagyl also with local wound care including a total contact cast however the patient did have persistent non-healing of this wound apparently the patient has been evaluated in the outpatient setting by Dr Blair who has recommended amputation of the left. Because of persistent nonhea ling and osteomyelitis, patient is presenting back to the hospital with persistent nonhealing of this wound, patient did have x-rays done in the ER which did shows destructive changes with some erosion and deformity at the first MP joint that has progressed slightly compared to old exam, patient with non- healing of this wound for more than 6 months, the patient did have occasional aching pain to his left foot plantar wound intensity is about 4 out of 10 and no radiation did have some swelling no sniffing and redness and is no foul-smelling drainage and the patient denies high-grade fever on arrival to the emergency room the patient was afebrile white count was normal the patient was started on vancomycin and Zosyn and infectious disease was consulted for further management of antibiotic therapy Review of Systems Positive point has been mentioned in the HPI rest of the systems are negative Past Medical History Past Medical History: Asthma, Diabetes Mellitus, GERD/Reflux, Hyperlipidemia, Hypertension Additional Past Medical History / Comment(s): NIDDM type II, neuropathy bilateral feet/legs, pt states his hgb is dropping and that his physician who he sees in the residential thinks he has internal bleeding somewhere/plans to work this up soon, bronchitis, R shoulder discomfort. History of Any Multi-Drug Resistant Organisms: MRSA Year Discovered:: january 2020 MDRO Source:: foot Past Surgical History: Orthopedic Surgery Additional Past Surgical History / Comment(s): right middle toe removed, left foot debridement Past Anesthesia/Blood Transfusion Reactions: No Reported Reaction Past Psychological History: No Psychological Hx Reported Additional Psychological History / Comment(s): . Smoking Status: Never smoker Past Alcohol Use History: None Reported, Occasional Additional Past Alcohol Use History / Comment(s): Pt started smoking in 1977 and quit once for 10 yrs and quit again in 2014. Past Drug Use History: None Reported, Unable to Obtain - Past Family History Father Family Medical History: Diabetes Mellitus Additional Family Medical History / Comment(s): Father is . Mother Family Medical History: No Reported History Additional Family Medical History / Comment(s): Mother is healthy. Medications and Allergies Home Medications Medication Instructions Recorded Confirmed Type Atorvastatin Calcium [Lipitor] 20 mg PO HS 02/12/20 06/17/20 History Citalopram Hydrobromide [CeleXA] 40 mg PO DAILY 02/12/20 06/17/20 History Losartan Potassium 50 mg PO BID 02/12/20 06/17/20 History Metoprolol Tartrate 25 mg PO BID 02/12/20 06/17/20 History Omeprazole [PriLOSEC] 20 mg PO DAILY 02/12/20 06/17/20 History amLODIPine [Norvasc] 10 mg PO DAILY 02/12/20 06/17/20 History metFORMIN HCL [Glucophage] 1,000 mg PO BID 02/12/20 06/17/20 History Vitamin B Complex 1 tab PO DAILY 03/18/20 06/17/20 History Allergies Allergy/AdvReac Type Severity Reaction Status Date / Time No Known Allergies Allergy Verified 06/17/20 23:09 Physical Exam Vitals: Vital Signs Temp Pulse Pulse Resp BP BP Pulse Ox 06/18/20 07:00 98.1 F 62 18 147/85 99 06/18/20 02:51 98.5 F 60 16 155/89 98 06/17/20 23:40 97.9 F 63 18 173/94 100 06/17/20 22:17 71 20 189/96 100 06/17/20 21:49 98.2 F 06/17/20 19:38 98.2 F 76 18 156/94 98 Intake and Output 06/17/20 06/18/20 06/18/20 22:59 06:59 14:59 Intake Total 790 930 Balance 790 930 Intake: Intake, IV Titration 550 350 Amount Piperacillin-Tazobactam 3 100 .375 gm In Sodium Chloride 0.9% 100 ml @ 25 mls/hr IVPB ONCE STA Rx# :[id number] Piperacillin-Tazobactam 3 100 .375 gm In Sodium Chloride 0.9% 100 ml @ 25 mls/hr IVPB Q8H [facility] Rx#: [id number] Sodium Chloride 0.9% 1, 450 000 ml @ 75 mls/hr IV . [id number] [facility] Rx#:[id number] Vancomycin 1,500 mg In 250 Sodium Chloride 0.9% 250 ml @ 125 mls/hr IVPB Q12H [facility] Rx#:[id number] Oral 240 580 Other: Voiding Method Toilet Toilet Urinal Urinal # Voids 2 Weight 92.986 kg 92.986 kg GENERAL DESCRIPTION: Middle-aged male lying in bed, no distress. No tachypnea or accessory muscle of respiration use. HEENT: Shows Pallor , no scleral icterus. Oral mucous membrane is dry. No pharyngeal erythema or thrush NECK: Trachea central, no thyromegaly. LUNGS: Unlabored breathing. Clear to auscultation anteriorly. No wheeze or crackle. HEART: S1, S2, regular rate and rhythm. No loud murmur ABDOMEN: Soft, no tenderness , guarding or rigidity, no organomegaly EXTREMITIES: No edema of feet. Left foot plantar wound with no slough tissue minimal surrounding swelling no redness or any foul-smelling drainage SKIN: No rash, no masses palpable. NEUROLOGICAL: The patient is awake, alert, oriented x3, mood and affect normal. Results CBC & Chem 7: 06/19/20 06:45 06/19/20 06:44 Labs: Abnormal Lab Results - Last 24 Hours (Table) 06/17/20 06/17/20 06/18/20 Range/Units 20:36 20:36 07:35 RBC 3.64 L (4.30-5.90) m/uL Hgb 11.6 L (13.0-17.5) gm/dL Hct 34.6 L (39.0-53.0) % Carbon Dioxide 21 L (22-30) mmol/L BUN 30 H (9-20) mg/dL Glucose 250 H (74-99) mg/dL POC Glucose (mg/dL) 149 H (75-99) mg/dL 06/18/20 Range/Units 12:09 RBC (4.30-5.90) m/uL Hgb (13.0-17.5) gm/dL Hct (39.0-53.0) % Carbon Dioxide (22-30) mmol/L BUN (9-20) mg/dL Glucose (74-99) mg/dL POC Glucose (mg/dL) 153 H (75-99) mg/dL Assessment and Plan Assessment: 1- patient with a chronic nonhealing wound on the plantar aspect of his left foot that has been there for more than 6 months now previously debridement and the patient wound was extended down to the bone culture were positive for both Pseudomonas and MRSA and the patient has completed more than 60 course of IV cefepime as well as daptomycin with persistent nonhealing of the wound and now with progression of the restrictive changes on the x-ray likely indicating failure of the medical therapy And the patient has been recommended amputation of the left big toe which may be appropriate in this setting (1) Toe osteomyelitis, left Current Visit: Yes Status: Acute Code(s): M86.9 - OSTEOMYELITIS, UNSPECIFIED SNOMED Code(s): 0658694666972085 (2) Diabetic foot ulcer Current Visit: Yes Status: Acute Code(s): E11.621 - TYPE 2 DIABETES MELLITUS WITH FOOT ULCER; L97.509 - NON-PRESSURE CHRONIC ULCER OTH PRT UNSP FOOT W UNSP SEVERITY SNOMED Code(s): 534511753 Plan: 1- Vancomycin pharmacy to dose target trough of 15 while watching kidney function and Vanco trough closely 2- switch Zosyn to cefepime 2 g every 12 to decrease risk of nephrotoxicity 3- await amputation and deep cultures We will follow on clinical condition and cultures to further adjust medication if needed Thank you for this consultation will follow this patient with you Time with Patient: Greater than 30
--- NOTE | 2020-06-19 10:20 | P.PN ---
Subjective Patient admitted for possible colitis and nonhealing wound on the plantar aspect of the left big toe metatarsal area. Patient will undergo amputation of the that toe along with amputation of metatarsal area. Patient remains symptomatic moist and Zosyn and cultures are pending Constitutional: Denied any fatigue denied any fever. Cardio vascular: denied any chest pain, palpitations Gastrointestinal denied any nausea vomiting Pulmonary: Denied any shortness of breath cough Neurologic denied any new focal deficits All inpatient medications were reviewed and appropriate changes in these medications as dictated in the interval history and assessment and plan. Objective - Vital Signs Vital signs: Vital Signs Temp 98.7 F 06/19/20 07:00 Pulse 61 06/19/20 07:00 Resp 17 06/19/20 07:00 BP 140/77 06/19/20 07:00 Pulse Ox 98 06/19/20 07:00 Intake & Output 06/18/20 06/19/20 06/19/20 18:59 06:59 18:59 Intake Total 930 1875 Balance 930 1875 Intake: Intake, IV Titration 350 1275 Amount Piperacillin-Tazobactam 3 100 200 .375 gm In Sodium Chloride 0.9% 100 ml @ 25 mls/hr IVPB Q8H [facility] Rx#: [id number] Sodium Chloride 0.9% 1, 825 000 ml @ 75 mls/hr IV . [id number] [facility] Rx#:[id number] Vancomycin 1,500 mg In 250 250 Sodium Chloride 0.9% 250 ml @ 125 mls/hr IVPB Q12H [facility] Rx#:[id number] Oral 580 600 Other: Voiding Method Toilet Toilet Urinal Urinal # Voids 2 1 2 - Exam PHYSICAL EXAMINATION: GENERAL: The patient is alert and oriented x3, not in any acute distress. Well developed, well nourished. HEENT: Pupils are round and equally reacting to light. EOMI. No scleral icterus. No conjunctival pallor. Normocephalic, atraumatic. No pharyngeal erythema. No thyromegaly. CARDIOVASCULAR: S1 and S2 present. No murmurs, rubs, or gallops. PULMONARY: Chest is clear to auscultation, no wheezing or crackles. ABDOMEN: Soft, nontender, nondistended, normoactive bowel sounds. No palpable organomegaly. MUSCULOSKELETAL: No joint swelling or deformity. EXTREMITIES: No cyanosis, clubbing, or pedal edema. NEUROLOGICAL: Gross neurological examination did not reveal any focal deficits. SKIN: There is an ulcer on the plantar aspect of the left foot with purulent discharge just proximal to metatarsal joints. With surrounding cellulitis. There is no significant granulation tissue may need debridement - Labs CBC & Chem 7: 06/19/20 06:45 06/19/20 06:44 Labs: Abnormal Lab Results - Last 24 Hours (Table) 06/18/20 06/18/20 06/18/20 Range/Units 12:09 16:43 19:43 RBC (4.30-5.90) m/uL Hgb (13.0-17.5) gm/dL Hct (39.0-53.0) % Chloride (98-107) mmol/L BUN (9-20) mg/dL Glucose (74-99) mg/dL POC Glucose (mg/dL) 153 H 145 H 201 H (75-99) mg/dL 06/19/20 06/19/20 06/19/20 Range/Units 06:44 06:45 07:03 RBC 3.34 L (4.30-5.90) m/uL Hgb 10.3 L (13.0-17.5) gm/dL Hct 31.7 L (39.0-53.0) % Chloride 110 H (98-107) mmol/L BUN 22 H (9-20) mg/dL Glucose 147 H (74-99) mg/dL POC Glucose (mg/dL) 175 H (75-99) mg/dL Microbiology - Last 24 Hours (Table) 06/17/20 20:10 Blood Culture - Preliminary Blood No Growth after 24 hours Assessment and Plan Plan: -Osteomyelitis of the left foot patient has a plantar ulcer at which appears to be infected wound cultures are pending and patient is being continued on vancomycin and Zosyn patient will undergo amputation of the left great toe along with a metatarsal amputation -Type 2 diabetes mellitus blood sugars were elevated yesterday but fairly well controlled today. Continue with metformin and sliding scale insulin -Nonhealing ulcer in the left foot which may need debridement vascular surgery will be consulted Hypogastrics esophageal reflux disease -Hyperlipidemia -Hypertension. -Mild acute renal failure: The patient will be continued on IV fluids For above-mentioned chronic medical problems patient was resumed on appropriate home medications -DVT prophylaxis with Lovenox
[2020-06-19 11:35] LABS: Glucose,Whole Blood 184 mg/dL (75-99)
[2020-06-19] MEDS: CEFEPIME 2 GM in SODIUM CHLORIDE 0.9% 100 ML IVPB SCH ×2 (12:29→20:31)
[2020-06-19] MEDS ORDERED: fentaNYL (PF) 50 MCG/ML 2 ML AMP ONE (12:59)
[2020-06-19] MEDS ORDERED: KETAMINE 10 MG/ML 20 ML VIAL ONE (12:59)
[2020-06-19] MEDS ORDERED: MIDAZOLAM 2 MG/2 ML VIAL ONE (12:59)
[2020-06-19] MEDS ORDERED: LIDOCAINE 1% INJ 10MG/ML (20 ML MDV) ONE (12:59)
[2020-06-19] MEDS ORDERED: PROPOFOL 10 MG/ML 20 ML VIAL IV ONE (12:59)
[2020-06-19] MEDS ORDERED: IV FLUID CONTINUATION 700 ML IV ONE (13:10)
[2020-06-19] MEDS ORDERED: LIDOCAINE 2% INJ 20 MG/ML SQ ONE ×2 (13:12)
[2020-06-19] MEDS ORDERED: HYDROcodone/APAP 5-325MG 1 EACH TAB PO PRN (16:05)
[2020-06-19] MEDS ORDERED: HYDROmorphone 1 MG/ML 1 ML SYRINGE IVP PRN (16:05)
[2020-06-19 16:29] LABS: Glucose,Whole Blood 225 mg/dL (75-99)
[2020-06-19] MEDS: HYDROcodone/APAP 5-325MG 1 EACH TAB PO PRN ×2 (17:21→23:19)
[2020-06-19] MEDS ORDERED: VANCOMYCIN TROUGH DUE 1 EACH MISC MISCELLANE ONE (20:00)
[2020-06-19] MEDS: ATORVASTATIN 20 MG TAB PO SCH (20:31)
[2020-06-19 20:48] LABS: Glucose,Whole Blood 255 mg/dL (75-99)
[2020-06-19] MEDS ORDERED: VANCOMYCIN 1,250 MG in SODIUM CHLORIDE 0.9% 250 ML IVPB SCH (22:00)
[2020-06-20] MEDS: SODIUM CHLORIDE 0.9% 1,000 ML IV SCH ×3 (05:58→16:47)
[2020-06-20] MEDS: HYDROcodone/APAP 5-325MG 1 EACH TAB PO PRN ×3 (06:01→20:17)
[2020-06-20 07:09] LABS: Glucose,Whole Blood 162 mg/dL (75-99)
[2020-06-20] MEDS: metFORMIN 500 MG TAB PO SCH ×2 (07:59→20:17)
[2020-06-20] MEDS: LOSARTAN 50 MG TAB PO SCH ×2 (07:59→20:16)
[2020-06-20] MEDS: METOPROLOL TARTRATE 25 MG TAB PO SCH ×2 (07:59→20:17)
[2020-06-20] MEDS: CITALOPRAM HYDROBROMIDE 20 MG TAB PO SCH (07:59)
[2020-06-20] MEDS: PANTOPRAZOLE 40 MG TABLET PO SCH (07:59)
[2020-06-20] MEDS: amLODIPine 10 MG TAB PO SCH (07:59)
[2020-06-20] MEDS: CEFEPIME 2 GM in SODIUM CHLORIDE 0.9% 100 ML IVPB SCH ×2 (08:00→20:17)
[2020-06-20] MEDS: ENOXAPARIN 40 MG/0.4 ML SYRINGE SQ SCH (08:05)
--- NOTE | 2020-06-20 09:03 | P.PN ---
Progress Note - Text 59 old gentleman, patient has a history of chronic wound left foot for the past 7 months patient went for left foot big toe amputation that transmetatarsal head excision today with change her dressing incision site is healing no discharge redness noted continue with the IV antibiotic we'll change the dressing in 48 hours
--- NOTE | 2020-06-20 11:26 | OP ---
OPERATIVE REPORT PREOPERATIVE DIAGNOSIS: Chronic wound left foot on the plantar aspect at the head of the metatarsal phalangeal joint with hyperextension of the big toe, positive for MRSA and Pseudomonas. The patient had a local wound care and management in the past. This patient has a wound on the left foot for the past 7 months. X-ray shows the metatarsal pharyngeal destruction. OPERATION: Transmetatarsal amputation. Amputation of the big toe at the metatarsophalangeal joint and amputation of the big toe. PROCEDURE: The patient was brought to the operating room. Left foot was prepped and draped in sterile manner. Under local and IV sedation, incision was made on the plantar aspect of the foot at the elliptical incision at the metatarsophalangeal joint, deepened through skin, fat, fascia, and this a incision was extended on the elliptical on the dorsal aspect of the foot, deepened through skin fat and fascia, tendons were divided. Then using periosteal elevator we elevated the periosteum off to the metatarsophalangeal joint. There were some greater arteries bleeding which was controlled with 6-0 Prolene, went circumferentially around the metatarsophalangeal joint. Using hand saw we divided the head of the metatarsal pharyngeal joint hand foot specimen was removed which was sent for culture. Wound was copiously irrigated, saline. Hemostasis was well controlled and incision was closed in 2 layers using 3-0 Vicryl with interrupted suture and 3-0 nylon with interrupted suture. Dressing applied. Patient tolerated the procedure well. MMMARLEYL / IJN: [id number] /
[2020-06-20 11:41] LABS: Glucose,Whole Blood 151 mg/dL (75-99)
--- NOTE | 2020-06-20 12:11 | PN ---
PROGRESS NOTE DATE OF SERVICE: 06/19/2020 REASON FOR FOLLOWUP: Left diabetic foot infection with osteomyelitis. INTERVAL HISTORY: Patient is the patient is status post amputation of his left big toe. The patient tolerated the procedure. Denies having any chest pain or shortness of breath. No cough. No nausea. No abdominal pain. No worsening pain to the left foot. PHYSICAL EXAMINATION: Blood pressure 133/81 with a pulse of 53. Temperature is 97.6. He is 98% on room air. General description: The patient is a middle-aged male up in the bed in no distress. Respiratory system: Unlabored breathing, clear to auscultation anteriorly. Heart S1, S2. Regular rate and rhythm. Abdomen soft, no tenderness. Left foot currently dressed up. Minimal blood-stained drainage on the dressing. LABS: Hemoglobin is 10.2, white count 10.6, creatinine 1.08. Wound cultures currently pending. Blood culture so far negative. DIAGNOSTIC IMPRESSION AND PLAN: Patient with left diabetic foot infection, chronic nonhealing wound on the lateral aspect. Did have an episode of osteomyelitis with worsening x-ray findings. The patient is status post amputation of the toe with infected part more likely long- term antibiotic. We will wait for the culture to finalize. Continue with cefepime and vancomycin and monitor clinical course closely. MMODL / IJN: [id number] /
--- NOTE | 2020-06-20 13:26 | P.PN ---
Subjective Patient admitted for possible colitis and nonhealing wound on the plantar aspect of the left big toe metatarsal area. Patient will undergo amputation of the that toe along with amputation of metatarsal area. Patient remains symptomatic moist and Zosyn and cultures are pending 06/20/2020 Patient had left big toe amputation with the left first metatarsal head amputation. Postoperatively patient is clinically doing well is complaining of some soreness. Constitutional: Denied any fatigue denied any fever. Cardio vascular: denied any chest pain, palpitations Gastrointestinal denied any nausea vomiting Pulmonary: Denied any shortness of breath cough Neurologic denied any new focal deficits All inpatient medications were reviewed and appropriate changes in these medications as dictated in the interval history and assessment and plan. Objective - Vital Signs Vital signs: Vital Signs Temp 98.0 F 06/20/20 07:00 Pulse 73 06/20/20 07:00 Resp 16 06/20/20 07:00 BP 154/85 06/20/20 07:00 Pulse Ox 95 06/20/20 07:00 Intake & Output 06/19/20 06/20/20 06/20/20 18:59 06:59 18:59 Intake Total 825 1600 1580 Output Total 40 Balance 785 1600 1580 Intake: IV 150 Intake, IV Titration 675 1000 500 Amount Cefepime 2 gm In Sodium 100 Chloride 0.9% 100 ml @ 25 mls/hr IVPB Q12HR [facility] Rx #:[id number] Piperacillin-Tazobactam 3 100 .375 gm In Sodium Chloride 0.9% 100 ml @ 25 mls/hr IVPB Q8H [facility] Rx#: [id number] Sodium Chloride 0.9% 1, 325 750 400 000 ml @ 75 mls/hr IV . [id number] [facility] Rx#:[id number] Vancomycin 1,250 mg In 250 Sodium Chloride 0.9% 250 ml @ 125 mls/hr IVPB Q12H [facility] Rx#:[id number] Vancomycin 1,500 mg In 250 Sodium Chloride 0.9% 250 ml @ 125 mls/hr IVPB Q12H [facility] Rx#:[id number] Oral 600 1080 Output: Estimated Blood Loss 40 Other: Voiding Method Toilet Toilet Urinal Urinal # Voids 2 1 - Exam PHYSICAL EXAMINATION: GENERAL: The patient is alert and oriented x3, not in any acute distress. Well developed, well nourished. HEENT: Pupils are round and equally reacting to light. EOMI. No scleral icterus. No conjunctival pallor. Normocephalic, atraumatic. No pharyngeal erythema. No thyromegaly. CARDIOVASCULAR: S1 and S2 present. No murmurs, rubs, or gallops. PULMONARY: Chest is clear to auscultation, no wheezing or crackles. ABDOMEN: Soft, nontender, nondistended, normoactive bowel sounds. No palpable organomegaly. MUSCULOSKELETAL: No joint swelling or deformity. EXTREMITIES: No cyanosis, clubbing, or pedal edema. NEUROLOGICAL: Gross neurological examination did not reveal any focal deficits. SKIN: Left foot is postsurgically packed - Labs CBC & Chem 7: 06/19/20 06:45 06/20/20 07:36 Labs: Abnormal Lab Results - Last 24 Hours (Table) 06/19/20 06/19/20 06/19/20 Range/Units 16:28 19:35 20:46 POC Glucose (mg/dL) 225 H 255 H (75-99) mg/dL Hemoglobin A1c 7.0 H (4.0-6.0) % 06/20/20 06/20/20 Range/Units 07:08 11:40 POC Glucose (mg/dL) 162 H 151 H (75-99) mg/dL Hemoglobin A1c (4.0-6.0) % Microbiology - Last 24 Hours (Table) 06/18/20 20:47 Gram Stain - Preliminary Foot - Left Wound Culture - Preliminary Presumptive MRSA Gram Neg Bacilli 06/19/20 13:45 Gram Stain - Preliminary Toe - Left First Tissue Culture - Preliminary 06/17/20 20:10 Blood Culture - Preliminary Blood No Growth after 48 hours 06/19/20 13:45 Anaerobic Culture - Preliminary Toe - Left First 06/18/20 20:47 Anaerobic Culture - Preliminary Foot - Left Assessment and Plan Plan: -Osteomyelitis of the left foot patient has a plantar ulcer at which appears to be infected wound cultures are pending and patient is being continued on vancomycin and Zosyn patient had amputation of the left great toe along with a metatarsal amputation. Wound cultures are showing MRSA and gram-negative bacilli -Type 2 diabetes mellitus blood sugars were elevated yesterday but fairly well controlled today. Continue with metformin and sliding scale insulin -Nonhealing ulcer in the left foot which may need debridement vascular surgery will be consulted Hypogastrics esophageal reflux disease -Hyperlipidemia -Hypertension. -Mild acute renal failure: The patient will be continued on IV fluids -DVT prophylaxis with Lovenox
[2020-06-20] MEDS: VANCOMYCIN 1,250 MG in SODIUM CHLORIDE 0.9% 250 ML IVPB SCH (13:41)
[2020-06-20 16:38] LABS: Glucose,Whole Blood 133 mg/dL (75-99)
--- NOTE | 2020-06-20 18:14 | PN ---
PROGRESS NOTE DATE OF SERVICE: 06/20/2020 REASON FOR FOLLOWUP: Left diabetic foot infection. INTERVAL HISTORY: Patient is currently afebrile. The patient is breathing comfortably. Denies any chest pain. No shortness of breath or cough. No nausea or vomiting or abdominal pain or any worsening pain to the left foot. PHYSICAL EXAMINATION: Blood pressure 137/79, pulse of 65, temperature 98. He is 96% on room air. General description: The patient is a middle-aged male up in the chair in no distress. Respiratory system: Unlabored breathing, clear to auscultation anteriorly. Heart S1, S2. Regular rate and rhythm. Abdomen soft, no tenderness. Left foot is currently dressed up. No obvious drainage on the dressing. LABS: Wound culture showing presumptive MRSA and gram-negative bacilli. DIAGNOSTIC IMPRESSION AND PLAN: Patient with left diabetic foot infection with osteomyelitis, status post amputation of the left big toe with infected part removed. He will on long-term antibiotic. Culture showing Gram-negative and MRSA. Covered with cefepime and vancomycin to continue. May need a short course of 2 weeks. Continue supportive care. MMODL / IJN: [id number] /
[2020-06-20] MEDS: ATORVASTATIN 20 MG TAB PO SCH (20:16)
[2020-06-20 21:11] LABS: Glucose,Whole Blood 164 mg/dL (75-99)
[2020-06-21] MEDS: VANCOMYCIN 1,250 MG in SODIUM CHLORIDE 0.9% 250 ML IVPB SCH ×2 (01:03→14:14)
[2020-06-21] MEDS: HYDROcodone/APAP 5-325MG 1 EACH TAB PO PRN ×3 (05:45→19:12)
[2020-06-21] MEDS: SODIUM CHLORIDE 0.9% 1,000 ML IV SCH ×2 (06:10→21:40)
[2020-06-21 07:14] LABS: Glucose,Whole Blood 172 mg/dL (75-99)
[2020-06-21] MEDS: PANTOPRAZOLE 40 MG TABLET PO SCH (07:59)
[2020-06-21] MEDS: LOSARTAN 50 MG TAB PO SCH ×2 (08:41→21:41)
[2020-06-21] MEDS: amLODIPine 10 MG TAB PO SCH (08:41)
[2020-06-21] MEDS: metFORMIN 500 MG TAB PO SCH ×2 (08:42→21:41)
[2020-06-21] MEDS: METOPROLOL TARTRATE 25 MG TAB PO SCH ×2 (08:42→21:41)
[2020-06-21] MEDS: CITALOPRAM HYDROBROMIDE 20 MG TAB PO SCH (08:42)
[2020-06-21] MEDS: ENOXAPARIN 40 MG/0.4 ML SYRINGE SQ SCH (08:43)
[2020-06-21] MEDS: CEFEPIME 2 GM in SODIUM CHLORIDE 0.9% 100 ML IVPB SCH ×2 (09:31→21:40)
[2020-06-21 10:04] LABS: African American GFR (CKD) 69.7 (60.0-200.0); Non-African American GFR(CKD) 60.1 (60.0-200.0)
[2020-06-21 11:34] LABS: Glucose,Whole Blood 121 mg/dL (75-99)
--- NOTE | 2020-06-21 14:17 | P.PN ---
Subjective Patient admitted for possible colitis and nonhealing wound on the plantar aspect of the left big toe metatarsal area. Patient will undergo amputation of the that toe along with amputation of metatarsal area. Patient remains symptomatic moist and Zosyn and cultures are pending 06/20/2020 Patient had left big toe amputation with the left first metatarsal head amputation. Postoperatively patient is clinically doing well is complaining of some soreness. 06/21/2020 Patient has MRSA and probably dementia from the wound cultures. Patient will n eed IV antibiotics case management is working on his disposition with IV antibiotics. Patient otherwise clinically doing well. Constitutional: Denied any fatigue denied any fever. Cardio vascular: denied any chest pain, palpitations Gastrointestinal denied any nausea vomiting Pulmonary: Denied any shortness of breath cough Neurologic denied any new focal deficits All inpatient medications were reviewed and appropriate changes in these medications as dictated in the interval history and assessment and plan. Objective - Vital Signs Vital signs: Vital Signs Temp 98.8 F 06/21/20 13:21 Pulse 62 06/21/20 13:21 Resp 20 06/21/20 13:21 BP 144/75 06/21/20 13:21 Pulse Ox 98 06/21/20 13:21 Intake & Output 06/20/20 06/21/20 06/21/20 18:59 06:59 18:59 Intake Total 1580 1535 Balance 1580 1535 Intake: Intake, IV Titration 500 1175 Amount Cefepime 2 gm In Sodium 100 100 Chloride 0.9% 100 ml @ 25 mls/hr IVPB Q12HR [facility] Rx #:[id number] Sodium Chloride 0.9% 1, 400 825 000 ml @ 75 mls/hr IV . [id number] [facility] Rx#:[id number] Vancomycin 1,250 mg In 250 Sodium Chloride 0.9% 250 ml @ 125 mls/hr IVPB Q12H [facility] Rx#:[id number] Oral 1080 360 Other: Voiding Method Toilet Toilet Urinal # Voids 1 # Bowel Movements 1 - Exam PHYSICAL EXAMINATION: GENERAL: The patient is alert and oriented x3, not in any acute distress. Well developed, well nourished. HEENT: Pupils are round and equally reacting to light. EOMI. No scleral icterus. No conjunctival pallor. Normocephalic, atraumatic. No pharyngeal erythema. No thyromegaly. CARDIOVASCULAR: S1 and S2 present. No murmurs, rubs, or gallops. PULMONARY: Chest is clear to auscultation, no wheezing or crackles. ABDOMEN: Soft, nontender, nondistended, normoactive bowel sounds. No palpable organomegaly. MUSCULOSKELETAL: No joint swelling or deformity. EXTREMITIES: No cyanosis, clubbing, or pedal edema. NEUROLOGICAL: Gross neurological examination did not reveal any focal deficits. SKIN: Left foot is postsurgically packed - Labs CBC & Chem 7: 06/19/20 06:45 06/21/20 05:19 Labs: Abnormal Lab Results - Last 24 Hours (Table) 06/20/20 06/20/20 06/21/20 Range/Units 16:36 21:09 07:11 POC Glucose (mg/dL) 133 H 164 H 172 H (75-99) mg/dL 06/21/20 Range/Units 11:30 POC Glucose (mg/dL) 121 H (75-99) mg/dL Microbiology - Last 24 Hours (Table) 06/18/20 20:47 Gram Stain - Final Foot - Left Wound Culture - Final Methicillin resist S. aureus Providencia rettgeri 06/17/20 20:10 Blood Culture - Preliminary Blood No Growth after 72 hours 06/19/20 13:45 Gram Stain - Preliminary Toe - Left First Tissue Culture - Preliminary Presumptive MRSA Assessment and Plan Plan: -Osteomyelitis of the left foot patient has a plantar ulcer at which appears to be infected wound cultures are showing MRSA and probably dentia patient is being continued on vancomycin and Zosyn patient had amputation of the left great toe along with a metatarsal amputation. Patient will require IV antibiotics upon discharge -Type 2 diabetes mellitus blood sugars were elevated yesterday but fairly well controlled today. Continue with metformin and sliding scale insulin -Nonhealing ulcer in the left foot patient is status post rest metatarsal amputation Hypogastrics esophageal reflux disease -Hyperlipidemia -Hypertension. -Mild acute renal failure: Patient's creatinine remains high will continue with IV fluids. BMP tomorrow -DVT prophylaxis with Lovenox
--- NOTE | 2020-06-21 15:52 | PN ---
PROGRESS NOTE DATE OF SERVICE: 06/21/2020 REASON FOR FOLLOWUP: Left diabetic foot infection with MRSA. INTERVAL HISTORY: The patient is currently afebrile. The patient is feeling better, breathing comfortably. Pain to the left foot is currently controlled. No chest pain, shortness of breath or cough. No abdominal pain, no diarrhea. PHYSICAL EXAMINATION: Blood pressure is 144/75, pulse of 68, temperature 98.8. He is 98% on room air. General description is a middle-aged male, up in the bed in no distress. RESPIRATORY SYSTEM: Unlabored breathing, clear to auscultation anteriorly. HEART: S1, S2. Regular rate and rhythm. ABDOMEN: Soft, no tenderness. Left foot minimal swelling. No redness or minimal drainage. LABS: Creatinine is 1.3. Wound culture presumptive MRSA, superficial . DIAGNOSTIC IMPRESSION AND PLAN: Patient with left diabetic foot chronic nonhealing wound with underlying osteomyelitis with progressive worsening on the skin, status post amputation on the first three with infective point, no need to be on long-term antibiotic therapy but may benefit from a course of IV vanc or daptomycin. Continue supportive care. MMODL / IJN: [id number] /
--- NOTE | 2020-06-21 16:16 | PN ---
PROGRESS NOTE Patient had a left foot transmetatarsal amputation of the big toe. Patient is on IV antibiotic. We changed the dressing today. The incision site looks clean and healing. No discharge or redness noted. Continue with IV antibiotic. We will change the dressing on 48 hours. MMODL / IJN: [id number] /
[2020-06-21 16:32] LABS: Glucose,Whole Blood 190 mg/dL (75-99)
[2020-06-21 20:57] LABS: Glucose,Whole Blood 123 mg/dL (75-99)
[2020-06-21] MEDS: INSULIN ASPART (NovoLOG) 100 UNIT/ML VIAL SQ SCH (21:05)
[2020-06-21] MEDS: ATORVASTATIN 20 MG TAB PO SCH (21:41)
[2020-06-22] MEDS ORDERED: VANCOMYCIN TROUGH DUE 1 EACH MISC MISCELLANE ONE
[2020-06-22] MEDS: VANCOMYCIN 1,250 MG in SODIUM CHLORIDE 0.9% 250 ML IVPB SCH (02:08)
[2020-06-22 05:54] LABS: HCT 30.6 % (39.0-53.0); HGB 10.3 gm/dL (13.0-17.5); MCHC 33.6 g/dL (31.0-37.0); MCV 92.5 fL (80.0-100.0); Mean Platelet Volume 6.8; Platelet Count 290 k/uL (150-450); RBC 3.31 m/uL (4.30-5.90); RDW 12.9 % (11.5-15.5); WBC 6.8 k/uL (3.8-10.6)
[2020-06-22 06:54] LABS: Glucose,Whole Blood 118 mg/dL (75-99)
[2020-06-22] MEDS: INSULIN ASPART (NovoLOG) 100 UNIT/ML VIAL SQ SCH ×4 (07:55→21:05)
[2020-06-22] MEDS: PANTOPRAZOLE 40 MG TABLET PO SCH (08:15)
[2020-06-22] MEDS: SODIUM CHLORIDE 0.9% 1,000 ML IV SCH ×2 (08:16→15:57)
[2020-06-22] MEDS: HYDROcodone/APAP 5-325MG 1 EACH TAB PO PRN ×3 (08:37→23:26)
[2020-06-22] MEDS: amLODIPine 10 MG TAB PO SCH (09:09)
[2020-06-22] MEDS: CITALOPRAM HYDROBROMIDE 20 MG TAB PO SCH (09:09)
[2020-06-22] MEDS: LOSARTAN 50 MG TAB PO SCH ×2 (09:09→21:05)
[2020-06-22] MEDS: ENOXAPARIN 40 MG/0.4 ML SYRINGE SQ SCH (09:10)
[2020-06-22] MEDS: METOPROLOL TARTRATE 25 MG TAB PO SCH ×2 (09:10→21:05)
[2020-06-22] MEDS: CEFEPIME 2 GM in SODIUM CHLORIDE 0.9% 100 ML IVPB SCH ×2 (09:13→21:05)
[2020-06-22] MEDS: metFORMIN 500 MG TAB PO SCH ×2 (09:21→21:05)
[2020-06-22 09:54] LABS: African American GFR (CKD) 76.8 (60.0-200.0); Anion Gap 7.7 mmol/L (4.00-12.00); BUN/Creat Ratio 17.5 Ratio (12.00-20.00); Calcium 8.8 mg/dL (8.7-10.3); Carbon Dioxide 20.3 mmol/L (21.6-31.8); Non-African American GFR(CKD) 66.3 (60.0-200.0); Potassium 4.2 mmol/L (3.5-5.5)
[2020-06-22 11:50] LABS: Glucose,Whole Blood 118 mg/dL (75-99)
--- NOTE | 2020-06-22 11:56 | P.PN ---
Subjective Patient admitted for possible colitis and nonhealing wound on the plantar aspect of the left big toe metatarsal area. Patient will undergo amputation of the that toe along with amputation of metatarsal area. Patient remains symptomatic moist and Zosyn and cultures are pending 06/20/2020 Patient had left big toe amputation with the left first metatarsal head amputation. Postoperatively patient is clinically doing well is complaining of some soreness. 06/21/2020 Patient has MRSA and probably dementia from the wound cultures. Patient will n eed IV antibiotics case management is working on his disposition with IV antibiotics. Patient otherwise clinically doing well. 06/22/2020 Patient will undergo dressing change tomorrow and the decision regarding IV antibiotics need to be made by infectious disease possibly of discharge tomorrow Constitutional: Denied any fatigue denied any fever. Cardio vascular: denied any chest pain, palpitations Gastrointestinal denied any nausea vomiting Pulmonary: Denied any shortness of breath cough Neurologic denied any new focal deficits All inpatient medications were reviewed and appropriate changes in these medications as dictated in the interval history and assessment and plan. Objective - Vital Signs Vital signs: Vital Signs Temp 98.0 F 06/22/20 07:00 Pulse 68 06/22/20 07:00 Resp 16 06/22/20 07:00 BP 150/77 06/22/20 07:00 Pulse Ox 95 06/22/20 07:00 Intake & Output 06/21/20 06/22/20 06/22/20 18:59 06:59 18:59 Intake Total 480 600 700 Balance 480 600 700 Intake: IV 700 Cefepime 2 gm In Sodium 100 Chloride 0.9% 100 ml @ 25 mls/hr IVPB Q12HR [facility] Rx #:[id number] Sodium Chloride 0.9% 1, 600 000 ml @ 75 mls/hr IV . [id number] [facility] Rx#:[id number] Intake, IV Titration 600 Amount Sodium Chloride 0.9% 1, 600 000 ml @ 75 mls/hr IV . [id number] [facility] Rx#:[id number] Oral 480 Other: Voiding Method Toilet # Voids 2 2 - Exam PHYSICAL EXAMINATION: GENERAL: The patient is alert and oriented x3, not in any acute distress. Well developed, well nourished. HEENT: Pupils are round and equally reacting to light. EOMI. No scleral icterus. No conjunctival pallor. Normocephalic, atraumatic. No pharyngeal erythema. No thyromegaly. CARDIOVASCULAR: S1 and S2 present. No murmurs, rubs, or gallops. PULMONARY: Chest is clear to auscultation, no wheezing or crackles. ABDOMEN: Soft, nontender, nondistended, normoactive bowel sounds. No palpable organomegaly. MUSCULOSKELETAL: No joint swelling or deformity. EXTREMITIES: No cyanosis, clubbing, or pedal edema. NEUROLOGICAL: Gross neurological examination did not reveal any focal deficits. SKIN: Left foot is postsurgically packed - Labs CBC & Chem 7: 06/22/20 05:23 06/22/20 05:23 Labs: Abnormal Lab Results - Last 24 Hours (Table) 06/21/20 06/21/20 06/21/20 Range/Units 16:27 20:55 23:49 RBC (4.30-5.90) m/uL Hgb (13.0-17.5) gm/dL Hct (39.0-53.0) % Carbon Dioxide (21.6-31.8) mmol/L POC Glucose (mg/dL) 190 H 123 H (75-99) mg/dL Vancomycin Trough 28.6 H (10.0-20.0) ug/mL 06/22/20 06/22/20 06/22/20 Range/Units 05:23 05:23 06:52 RBC 3.31 L (4.30-5.90) m/uL Hgb 10.3 L (13.0-17.5) gm/dL Hct 30.6 L (39.0-53.0) % Carbon Dioxide 20.3 L (21.6-31.8) mmol/L POC Glucose (mg/dL) 118 H (75-99) mg/dL Vancomycin Trough (10.0-20.0) ug/mL 06/22/20 Range/Units 11:49 RBC (4.30-5.90) m/uL Hgb (13.0-17.5) gm/dL Hct (39.0-53.0) % Carbon Dioxide (21.6-31.8) mmol/L POC Glucose (mg/dL) 118 H (75-99) mg/dL Vancomycin Trough (10.0-20.0) ug/mL Microbiology - Last 24 Hours (Table) 06/18/20 20:47 Gram Stain - Final Foot - Left Wound Culture - Final Methicillin resist S. aureus Providencia rettgeri 06/17/20 20:10 Blood Culture - Preliminary Blood No Growth after 96 hours 06/19/20 13:45 Anaerobic Culture - Preliminary Toe - Left First 06/19/20 13:45 Gram Stain - Preliminary Toe - Left First Tissue Culture - Preliminary Methicillin resist S. aureus Group D Enterococcus 06/18/20 20:47 Anaerobic Culture - Preliminary Foot - Left Assessment and Plan Plan: -Osteomyelitis of the left foot patient has a plantar ulcer at which appears to be infected wound cultures are showing MRSA and probably dentia patient is being continued on vancomycin and Zosyn patient had amputation of the left great toe along with a metatarsal amputation. Patient will require IV antibiotics upon discharge -Type 2 diabetes mellitus blood sugars were elevated yesterday but fairly well controlled today. Continue with metformin and sliding scale insulin -Nonhealing ulcer in the left foot patient is status post rest metatarsal amputation Hypogastrics esophageal reflux disease -Hyperlipidemia -Hypertension. -Mild acute renal failure: Patient's creatinine remains high will continue with IV fluids. BMP tomorrow -DVT prophylaxis with Lovenox
--- NOTE | 2020-06-22 12:23 | PN ---
PROGRESS NOTE DATE OF SERVICE: 06/22/2020 REASON FOR FOLLOWUP: Left diabetic foot infection with osteomyelitis. INTERVAL HISTORY: Patient is currently afebrile. Patient is feeling better. Breathing comfortably. Denies having any chest pain or cough. No nausea, no vomiting, no abdominal pain. No pain to the left foot. PHYSICAL EXAMINATION: Blood pressure 150/77 with a pulse of 58, temperature 98, he is 95% on room air. General description is a middle-aged male, up in the room in no distress. RESPIRATORY SYSTEM: Unlabored breathing, clear to auscultation anteriorly. HEART: S1, S2. Regular rate and rhythm. ABDOMEN: Soft, no tenderness. Left foot is currently dressed. No obvious drainage on the dressing. LABS: Vancomycin trough is elevated at 28, creatinine 1.2, white count 6.8. DIAGNOSTIC IMPRESSION AND PLAN: Patient with left diabetic foot wound with underlying osteomyelitis, status post amputation with infected part removed. Will not need long-term antibiotic; however, with culture positive for MRSA and . Recommend Vancomycin at least 2 weeks for which a PICC line will be placed. Local care per Surgery. Continue supportive care. MMODL / IJN: [id number] /
[2020-06-22 16:40] LABS: Glucose,Whole Blood 193 mg/dL (75-99)
[2020-06-22 20:55] LABS: Glucose,Whole Blood 158 mg/dL (75-99)
[2020-06-22] MEDS ORDERED: VANCOMYCIN 1,250 MG in SODIUM CHLORIDE 0.9% 250 ML IVPB SCH (21:00)
[2020-06-22] MEDS: ATORVASTATIN 20 MG TAB PO SCH (21:05)
[2020-06-23] MEDS: VANCOMYCIN 1,250 MG in SODIUM CHLORIDE 0.9% 250 ML IVPB SCH (06:06)
[2020-06-23] MEDS: SODIUM CHLORIDE 0.9% 1,000 ML IV SCH (06:08)
[2020-06-23 06:52] LABS: Glucose,Whole Blood 163 mg/dL (75-99)
[2020-06-23] MEDS: INSULIN ASPART (NovoLOG) 100 UNIT/ML VIAL SQ SCH ×4 (08:16→22:21)
[2020-06-23] MEDS: PANTOPRAZOLE 40 MG TABLET PO SCH (08:16)
[2020-06-23] MEDS: CITALOPRAM HYDROBROMIDE 20 MG TAB PO SCH (09:23)
[2020-06-23] MEDS: LOSARTAN 50 MG TAB PO SCH ×2 (09:23→21:51)
[2020-06-23] MEDS: amLODIPine 10 MG TAB PO SCH (09:23)
[2020-06-23] MEDS: metFORMIN 500 MG TAB PO SCH ×2 (09:23→21:51)
[2020-06-23] MEDS: ENOXAPARIN 40 MG/0.4 ML SYRINGE SQ SCH (09:24)
[2020-06-23] MEDS: CEFEPIME 2 GM in SODIUM CHLORIDE 0.9% 100 ML IVPB SCH ×2 (09:25→21:51)
[2020-06-23] MEDS: METOPROLOL TARTRATE 25 MG TAB PO SCH ×2 (09:42→21:51)
[2020-06-23 11:55] LABS: Glucose,Whole Blood 138 mg/dL (75-99)
[2020-06-23 12:46] VITALS: RESP 16
[2020-06-23 13:22] VITALS: BMI 31.1
--- NOTE | 2020-06-23 13:33 | P.PN ---
Subjective Patient admitted for possible colitis and nonhealing wound on the plantar aspect of the left big toe metatarsal area. Patient will undergo amputation of the that toe along with amputation of metatarsal area. Patient remains symptomatic moist and Zosyn and cultures are pending 06/20/2020 Patient had left big toe amputation with the left first metatarsal head amputation. Postoperatively patient is clinically doing well is complaining of some soreness. 06/21/2020 Patient has MRSA and probably dementia from the wound cultures. Patient will n eed IV antibiotics case management is working on his disposition with IV antibiotics. Patient otherwise clinically doing well. 06/22/2020 Patient will undergo dressing change tomorrow and the decision regarding IV antibiotics need to be made by infectious disease possibly of discharge tomorrow 06/23/2020 Patient's surgical site area appeared to be a bit swollen as per the examination with vascular surgery and infectious disease because of which patient was cleared by the vascular infectious disease to be discharged Constitutional: Denied any fatigue denied any fever. Cardio vascular: denied any chest pain, palpitations Gastrointestinal denied any nausea vomiting Pulmonary: Denied any shortness of breath cough Neurologic denied any new focal deficits All inpatient medications were reviewed and appropriate changes in these medications as dictated in the interval history and assessment and plan. Objective - Vital Signs Vital signs: Vital Signs Temp 98 F 06/23/20 12:46 Pulse 61 06/23/20 12:46 Resp 16 06/23/20 12:46 BP 144/80 06/23/20 12:46 Pulse Ox 98 06/23/20 07:32 Intake & Output 06/22/20 06/23/20 06/23/20 18:59 06:59 18:59 Intake Total 700 900 Balance 700 900 Weight 92.986 kg Intake: IV 700 700 Cefepime 2 gm In Sodium 100 100 Chloride 0.9% 100 ml @ 25 mls/hr IVPB Q12HR [facility] Rx #:[id number] Sodium Chloride 0.9% 1, 600 600 000 ml @ 75 mls/hr IV . [id number] [facility] Rx#:[id number] Oral 200 Other: Voiding Method Toilet # Voids 1 - Exam PHYSICAL EXAMINATION: GENERAL: The patient is alert and oriented x3, not in any acute distress. Well developed, well nourished. HEENT: Pupils are round and equally reacting to light. EOMI. No scleral icterus. No conjunctival pallor. Normocephalic, atraumatic. No pharyngeal erythema. No thyromegaly. CARDIOVASCULAR: S1 and S2 present. No murmurs, rubs, or gallops. PULMONARY: Chest is clear to auscultation, no wheezing or crackles. ABDOMEN: Soft, nontender, nondistended, normoactive bowel sounds. No palpable or ganomegaly. MUSCULOSKELETAL: No joint swelling or deformity. EXTREMITIES: No cyanosis, clubbing, or pedal edema. NEUROLOGICAL: Gross neurological examination did not reveal any focal deficits. SKIN: Left foot is postsurgically packed - Labs CBC & Chem 7: 06/22/20 05:23 06/22/20 05:23 Labs: Abnormal Lab Results - Last 24 Hours (Table) 06/22/20 06/22/20 06/23/20 Range/Units 16:39 20:54 06:48 POC Glucose (mg/dL) 193 H 158 H 163 H (75-99) mg/dL 06/23/20 Range/Units 11:53 POC Glucose (mg/dL) 138 H (75-99) mg/dL Microbiology - Last 24 Hours (Table) 06/17/20 20:10 Blood Culture - Preliminary Blood No Growth after 120 hours 06/19/20 13:45 Gram Stain - Final Toe - Left First Tissue Culture - Final Methicillin resist S. aureus Enterococcus faecalis Assessment and Plan Plan: -Osteomyelitis of the left foot patient has a plantar ulcer at which appears to be infected wound cultures are showing MRSA and probably dentia patient is being continued on vancomycin and Zosyn patient had amputation of the left great toe along with a metatarsal amputation. Patient will require IV antibiotics upon discharge -Type 2 diabetes mellitus blood sugars were elevated yesterday but fairly well controlled today. Continue with metformin and sliding scale insulin -Nonhealing ulcer in the left foot patient is status post rest metatarsal amputation Hypogastrics esophageal reflux disease -Hyperlipidemia -Hypertension. -Mild acute renal failure: Patient's creatinine remains high will continue with IV fluids. BMP tomorrow -DVT prophylaxis with Lovenox
[2020-06-23 17:11] LABS: Glucose,Whole Blood 138 mg/dL (75-99)
[2020-06-23] MEDS: HYDROcodone/APAP 5-325MG 1 EACH TAB PO PRN ×2 (17:14→22:21)
[2020-06-23] MEDS: ATORVASTATIN 20 MG TAB PO SCH (21:51)
[2020-06-23 21:56] LABS: Glucose,Whole Blood 138 mg/dL (75-99)
--- NOTE | 2020-06-23 23:34 | PN ---
PROGRESS NOTE DATE OF SERVICE: 06/23/2020 REASON FOR FOLLOWUP: Left big toe diabetic foot infection with osteomyelitis. INTERVAL HISTORY: The patient is currently afebrile. Patient is breathing comfortably. Patient denies having any chest pain, or shortness of breath or cough. No nausea, no vomiting, no abdominal pain or pain to the left big toe. PHYSICAL EXAMINATION: His vital signs are stable. His T-max is 98. General description is a middle-aged male lying in bed in no distress. RESPIRATORY SYSTEM: Unlabored breathing, clear to auscultation anteriorly. HEART: S1, S2. Regular rate and rhythm. ABDOMEN: Soft, no tenderness. Left big toe is currently dressed, no drainage on the dressing. DIAGNOSTIC IMPRESSION AND PLAN: Patient with left diabetic foot ulcer, chronic nonhealing with underlying osteomyelitis failing medical therapy status post left first toe amputation. Culture positive for MRSA and gram-negative. Patient is covered with vancomycin and cefepime. He will get a PICC line at least 2 weeks of IV vancomycin in outpatient setting for extensive infection and close outpatient followup. Continue with supportive care. MMODL / IJN: [id number] /
[2020-06-24] MEDS: SODIUM CHLORIDE 0.9% 1,000 ML IV SCH (03:51)
[2020-06-24] MEDS: VANCOMYCIN 1,250 MG in SODIUM CHLORIDE 0.9% 250 ML IVPB SCH (06:25)
[2020-06-24 07:26] VITALS: TEMP 96.1
[2020-06-24 07:28] LABS: Glucose,Whole Blood 134 mg/dL (75-99)
[2020-06-24] MEDS: PANTOPRAZOLE 40 MG TABLET PO SCH (07:46)
[2020-06-24] MEDS: INSULIN ASPART (NovoLOG) 100 UNIT/ML VIAL SQ SCH ×2 (07:46→12:14)
[2020-06-24] MEDS: METOPROLOL TARTRATE 25 MG TAB PO SCH (08:49)
[2020-06-24] MEDS: LOSARTAN 50 MG TAB PO SCH (08:49)
[2020-06-24] MEDS: amLODIPine 10 MG TAB PO SCH (08:49)
[2020-06-24] MEDS: CITALOPRAM HYDROBROMIDE 20 MG TAB PO SCH (08:49)
[2020-06-24] MEDS: metFORMIN 500 MG TAB PO SCH (08:49)
[2020-06-24] MEDS: CEFEPIME 2 GM in SODIUM CHLORIDE 0.9% 100 ML IVPB SCH (08:54)
[2020-06-24 10:09] LABS: African American GFR (CKD) >90 (>60 ml/min/1.73 sqM); Non-African American GFR(CKD) 82 (>60 ml/min/1.73 sqM)
[2020-06-24 10:10] LABS: Prothrombin Time 10.4 sec (9.0-12.0)
[2020-06-24] MEDS: ENOXAPARIN 40 MG/0.4 ML SYRINGE SQ SCH (10:17)
--- NOTE | 2020-06-24 11:15 | PN ---
PROGRESS NOTE He is a 59-year-old gentleman who had a left foot transmetatarsal amputation of the big toe with primary closure. The patient is on IV antibiotic. We changed the dressing today. Incision site is healing. No discharge or redness noted. PLAN: Patient is on IV antibiotic. If the patient goes home, I will follow in my office Saturday or . Partial weightbearing on the foot and change the dressing every other day. MMODL / IJN: [id number] /
[2020-06-24 11:54] LABS: Glucose,Whole Blood 115 mg/dL (75-99)
[2020-06-24 12:36] VITALS: BP 167/78; PULSE 66
--- NOTE | 2020-06-24 14:36 | P.DS ---
Providers Date of admission: 06/17/20 21:41 Attending physician: Bassam Ocasio Consults: 06/17/20 21:41 Consult Physician Routine Consulting Provider: Mary Aguilar Consult Reason/Comments: osteomyelitis Do you want consulting provider notified?: Yes 06/18/20 13:25 Consult Physician Routine Consulting Provider: Martin Montgomery Consult Reason/Comments: wound Do you want consulting provider notified?: Yes Primary care physician: Uday Rojo [facility] Course: Patient admitted for possible colitis and nonhealing wound on the plantar aspect of the left big toe metatarsal area. Patient will undergo amputation of the that toe along with amputation of metatarsal area. Patient remains symptomatic moist and Zosyn and cultures are pending 06/20/2020 Patient had left big toe amputation with the left first metatarsal head amputation. Postoperatively patient is clinically doing well is complaining of some soreness. 06/21/2020 Patient has MRSA and probably dementia from the wound cultures. Patient will need IV antibiotics case management is working on his disposition with IV antibiotics. Patient otherwise clinically doing well. 06/22/2020 Patient will undergo dressing change tomorrow and the decision regarding IV antibiotics need to be made by infectious disease possibly of discharge tomorrow 06/23/2020 Patient's surgical site area appeared to be a bit swollen as per the examination with vascular surgery and infectious disease because of which patient was cleared by the vascular infectious disease to be discharged 06/24/2020 Patient is clinically doing well won't cultures are showing with simvastatin staph aureus and enterococcus faecalis and patient will be discharged on vancomycin IV. She will receive a PICC line today. Antibiotic prescription will be provided infectious disease. PHYSICAL EXAMINATION: GENERAL: The patient is alert and oriented x3, not in any acute distress. Well developed, well nourished. HEENT: Pupils are round and equally reacting to light. EOMI. No scleral icterus. No conjunctival pallor. Normocephalic, atraumatic. No pharyngeal erythema. No thyromegaly. CARDIOVASCULAR: S1 and S2 present. No murmurs, rubs, or gallops. PULMONARY: Chest is clear to auscultation, no wheezing or crackles. ABDOMEN: Soft, nontender, nondistended, normoactive bowel sounds. No palpable organomegaly. MUSCULOSKELETAL: No joint swelling or deformity. EXTREMITIES: No cyanosis, clubbing, or pedal edema. NEUROLOGICAL: Gross neurological examination did not reveal any focal deficits. SKIN: Left foot is postsurgically packed Assessment and Plan Plan: -Osteomyelitis of the left foot patient has a plantar ulcer at which appears to be infected wound cultures are showing MRSA and [employer] he she'll cultures at but the deep cultures were showing enterococcus and the MRSA patient will be discharged on vancomycin. patient had amputation of the left great toe along with a metatarsal amputation. Will be discharged on IV antibiotics and this had a PICC line patient is being discharged home with home care -Type 2 diabetes mellitus blood sugars. Continue with metformin -Nonhealing ulcer in the left foot patient is status post rest metatarsal amputation - esophageal reflux disease -Hyperlipidemia -Hypertension. -Mild acute renal failure: Improved with IV fluids Patient Condition at Discharge: Stable Plan - Discharge Summary Discharge Rx Participant: Yes New Discharge Prescriptions: New HYDROcodone/APAP 5-325MG [Peck 5-325] 1 - 2 each PO Q6HR PRN #30 tab PRN Reason: Moderate To Severe Pain amLODIPine [Norvasc] 10 mg PO DAILY #60 tab Continue metFORMIN HCL [Glucophage] 1,000 mg PO BID Metoprolol Tartrate 25 mg PO BID Atorvastatin Calcium [Lipitor] 20 mg PO HS Losartan Potassium 50 mg PO BID Citalopram Hydrobromide [CeleXA] 40 mg PO DAILY Multivits, W-Ca,Fe,Oth Min [Therapeutic M] 1 tab PO DAILY Discharge Medication List Atorvastatin Calcium [Lipitor] 20 mg PO HS 02/12/20 [History] Citalopram Hydrobromide [CeleXA] 40 mg PO DAILY 02/12/20 [History] Losartan Potassium 50 mg PO BID 02/12/20 [History] Metoprolol Tartrate 25 mg PO BID 02/12/20 [History] metFORMIN HCL [Glucophage] 1,000 mg PO BID 02/12/20 [History] Multivits, W-Ca,Fe,Oth Min [Therapeutic M] 1 tab PO DAILY 06/20/20 [History] HYDROcodone/APAP 5-325MG [Peck 5-325] 1 - 2 each PO Q6HR PRN #30 tab 06/24/20 [Rx] amLODIPine [Norvasc] 10 mg PO DAILY #60 tab 06/24/20 [Rx] Follow up Appointment(s)/Referral(s): [facility], [NON-STAFF] - As Needed [facility] [NON-STAFF] - As Needed (Will deliver IV antibiotic this evening or tomorrow morning.) Uday Rojo DO [Primary Care Provider] - 1-2 days Martin Montgomery MD [STAFF PHYSICIAN] - 1 Week (If D/C'd on 06/23, make fu appt for 06/27. If D/C'd over the weekend, follow up on 06/29) Mary Aguilar MD [STAFF PHYSICIAN] - 1 Week Patient Instructions/Handouts: MRSA (Methicillin-Resistant Staphylococcus Aureus) (DC), Peripherally Inserted Central Catheters and Midline Catheters (DC) Activity/Diet/Wound Care/Special Instructions: TOTAL non wieght bearing to left foot. Dressing change every other day to Left foot, cleanse with alcohol, apply ABD, cover with kerlix then sharon wrap Discharge Disposition: HOME SELF-CARE
--- NOTE | 2020-06-24 14:45 | PN ---
PROGRESS NOTE DATE OF SERVICE: 06/24/2020 REASON FOR FOLLOWUP: Left diabetic foot infection with osteomyelitis. INTERVAL HISTORY: Patient is currently afebrile. The patient is feeling better. Breathing comfortably. Denies having any chest pain. No shortness of breath or cough. No nausea. No abdominal pain. No pain to the left foot. PHYSICAL EXAMINATION: Blood pressure 127/78 with a pulse of 73, temperature 98.1. He is 96% on room air. General description is a middle-aged male lying in bed in no distress. Respiratory system: Unlabored breathing, clear to auscultation anteriorly. Heart S1, S2. Regular rate and rhythm. Abdomen soft, no tenderness. Left foot is currently dressed. No obvious drainage on the dressing. LABS: Creatinine 1.01. DIAGNOSTIC IMPRESSION AND PLAN: Patient with left diabetic foot infection with chronic nonhealing wound on the plantar aspect of the left foot at the base of the big toe status post amputation of big toe. Culture has been positive for MRSA Enterococcus. Patient is covered with vancomycin and cefepime. Will continue vancomycin pharmacy to dose for two weeks. The patient can be discharged. Continue close outpatient followup. MMODL / IJN: [id number] /
[2020-06-24] MEDS ORDERED: LIDOCAINE 1% INJ 10MG/ML (20 ML MDV) ONE (15:14)
--- NOTE | 2020-06-24 16:05 | IR ---
EXAMINATION TYPE: IR cvc insert >=5 years DATE OF EXAM: 06/24/2020 COMPARISON: NONE CLINICAL HISTORY: Infection Needs long-term intravenous access for antibiotics. PROCEDURE: Hand hygiene obtained with soap and water and alcohol-based hand rub. After informed consent, the skin overlying the left basilic vein was localized with ultrasound and no jaswinder to be compressible and patent. An ultrasound image was obtained and submitted on the patient's c pop. The overlying skin was prepped and draped and Lidocaine was used for local anesthesia. A skin arleth was made with a scalpel. Access was gained to the vein under ultrasound guidance with a 21 gau ge needle and a 0.018 inch wire was advanced. Access site was dilated with Peel-Away sheath and cath eter tailored to the appropriate length and advanced such that the distal tip is at the cavoatrial ju nction. Spot image was obtained verifying placement. Catheter was fixed to the skin and a sterile d ressing was placed following hemostasis. Catheter was aspirated and flushed with saline. Patient wa s discharged in stable condition without complication.Maximal barrier technique is utilized. Ultraso und image is documented on the chart. Ultrasound used with sterile technique. Fluoro time and fluoroscopic images submitted to document procedure: 20 intraoperative images, 0.1 mi nutes fluoroscopy time IMPRESSION: STATUS POST ULTRASOUND AND FLUOROSCOPIC GUIDED PICC LINE PLACEMENT, READY FOR USE. THIS PROCEDURE WAS PERFORMED BY THE UNDERSIGNED.
[2020-06-24] MEDS: HYDROcodone/APAP 5-325MG 1 EACH TAB PO PRN (16:21)
--- NOTE | 2020-06-26 08:00 | CDI ---
Documentation Clarification Form Date: 06/26/20 From: Marilee Mcdaniel Phone: If you have a question about this query, please contact Shadia Vick, Food Science Professor at [phone] between 8am and 5pm. Admit Date: 06/17/20 Discharge Date: 06/24/20 Patient Name: Braulio Fields Visit Number: [id number] ATTENTION: The Clinical Documentation Specialists (CDI) and [facility] Coding Staff appreciate your assistance in clarifying documentation. Please respond to the clarification below the line at the bottom and electronically sign. The CDI & [facility] Coding staff will review the response and follow-up if needed. Please note: Queries are made part of the Legal Health Record. If you have any questions, please contact the author of this message via ITS. Dear Dr. Samia Quinonez, Osteomyelitis of left foot is documented in the H&P, Dr Aguilar's consult, PNs 06/19-06/23, path and DS. Please specify the acuity of this condition with terms such as: Acute Chronic Other (please specify in the medical record) Clinically unable to further specify Unknown Acute. once again in future if it's not specified it's always acute MTDD
== END 2020-06-24 17:14 | disposition home health service (06) | DRG 617 ==
LOC: EC 19:15 → 4SSUR 21:41
PROVIDERS: ADMIT Hospitalist; ATTEND Hospitalist
PROC: 0Y6N0Z9 Detachment at Left Foot, Partial 1st Ray, Open Approach (ICD-10-PCS; principal; 2020-06-21)
PROC: 02HV33Z Insertion of Infusion Device into Superior Vena Cava, Percutaneous Approach (ICD-10-PCS; 2020-06-24)
DX: E11.69 Type 2 diabetes mellitus with other specified complication (principal); L03.116 Cellulitis of left lower limb; M86.172 Other acute osteomyelitis, left ankle and foot; N17.9 Acute kidney failure, unspecified; E11.40 Type 2 diabetes mellitus with diabetic neuropathy, unspecified; E11.621 Type 2 diabetes mellitus with foot ulcer; L97.529 Non-pressure chronic ulcer of other part of left foot with unspecified severity; B95.2 Enterococcus as the cause of diseases classified elsewhere; B95.62 Methicillin resistant Staphylococcus aureus infection as the cause of diseases classified elsewhere; Z89.421 Acquired absence of other right toe(s); I10 Essential (primary) hypertension; J45.909 Unspecified asthma, uncomplicated; K21.9 Gastro-esophageal reflux disease without esophagitis; E78.5 Hyperlipidemia, unspecified; Z79.84 Long term (current) use of oral hypoglycemic drugs; Z79.899 Other long term (current) drug therapy; Z87.891 Personal history of nicotine dependence; Z98.890 Other specified postprocedural states; Z83.3 Family history of diabetes mellitus
CPT/HCPCS: 36415; 36573; 80048; 80053; 80202; 82565; 83036; 85025; 85027; 85610; 87040; 87070; 87075; 87077; 87186; 87205; 88305; 88311; 96365; 96375; 99284

== ENCOUNTER 2020-08-18 14:05 | Emergency (ER) | payer SELFPAY ==
[2020-08-18 14:24] VITALS: TEMP 98.2
--- NOTE | 2020-08-18 15:16 | ED ---
Extremity Problem HPI - General Chief complaint: Extremity Problem,Nontraumatic Stated complaint: toe problem Time Seen by Provider: 08/18/20 14:53 Source: patient, RN notes reviewed Mode of arrival: wheelchair Limitations: no limitations - History of Present Illness Initial comments: 60-year-old male presents emergency Department chief complaint of discoloration to his right first and second digit. Patient states he just noticed it today. Patient had recurrent issues of this and which he is had prior right third digit amputation and left first and heart a foot amputation a few weeks ago by Dr. Montgomery. Patient has also seen Dr. Preston in the past. Patient states that he is a known diabetic. He states he's had multiple vascular test without any signs of vascular disease. Patient denies any significant pain states he has decreased sensation of the digits. - Related Data Home Medications Medication Instructions Recorded Confirmed Atorvastatin Calcium [Lipitor] 20 mg PO HS 02/12/20 06/17/20 Citalopram Hydrobromide [CeleXA] 40 mg PO DAILY 02/12/20 06/17/20 Losartan Potassium 50 mg PO BID 02/12/20 06/17/20 Metoprolol Tartrate 25 mg PO BID 02/12/20 06/17/20 metFORMIN HCL [Glucophage] 1,000 mg PO BID 02/12/20 06/17/20 Multivits,Th W-Ca,Fe,Oth Min 1 tab PO DAILY 06/20/20 06/20/20 [Therapeutic M] Previous Rx's Medication Instructions Recorded HYDROcodone/APAP 5-325MG [[employer] 1 - 2 each PO Q6HR PRN #30 tab 06/24/20 5-325] amLODIPine [Norvasc] 10 mg PO DAILY #60 tab 06/24/20 Clindamycin HCl 300 mg PO Q6HR #40 cap 08/18/20 Allergies Allergy/AdvReac Type Severity Reaction Status Date / Time daptomycin AdvReac Unknown Verified 08/18/20 14:24 Review of Systems ROS Statement: Those systems with pertinent positive or pertinent negative responses have been documented in the HPI. ROS Other: All systems not noted in ROS Statement are negative. Past Medical History Past Medical History: Asthma, Diabetes Mellitus, GERD/Reflux, Hyperlipidemia, Hypertension Additional Past Medical History / Comment(s): NIDDM type II, neuropathy bilateral feet/legs, pt states his hgb is dropping and that his physician who he sees in the [place] thinks he has internal bleeding somewhere/plans to work this up soon, bronchitis, R shoulder discomfort. History of Any Multi-Drug Resistant Organisms: MRSA Date of last positivie culture/infection: 06/18/20 MDRO Source:: MRSA FOOT Past Surgical History: Orthopedic Surgery Additional Past Surgical History / Comment(s): right middle toe removed, left foot debridement Past Anesthesia/Blood Transfusion Reactions: No Reported Reaction Past Psychological History: No Psychological Hx Reported Smoking Status: Never smoker Past Alcohol Use History: Occasional Past Drug Use History: None Reported - Past Family History Father Family Medical History: Diabetes Mellitus Additional Family Medical History / Comment(s): Father is . Mother Family Medical History: No Reported History Additional Family Medical History / Comment(s): Mother is healthy. General Exam Limitations: no limitations General appearance: alert, in no apparent distress Head exam: Present: atraumatic, normocephalic, normal inspection Eye exam: Present: normal appearance, PERRL, EOMI. Absent: scleral icterus, conjunctival injection, periorbital swelling ENT exam: Present: normal exam, normal oropharynx, mucous membranes moist Neck exam: Present: normal inspection, full ROM. Absent: tenderness, meningismus, lymphadenopathy Respiratory exam: Present: normal lung sounds bilaterally. Absent: respiratory distress, wheezes, rales, rhonchi, stridor Cardiovascular Exam: Present: regular rate, normal rhythm, normal heart sounds. Absent: systolic murmur, diastolic murmur, rubs, gallop, clicks Extremities exam: Present: other (right foot there are equal pedal pulses, equal color and warmth, there is some mild rashes or black discoloration on the plantar surface of the digits 1 and 2) Skin exam: Present: warm, dry, intact, normal color. Absent: rash Course Vital Signs 08/18/20 14:23 Temperature 98.2 F Pulse Rate 62 Respiratory 18 Rate Blood Pressure 136/78 O2 Sat by Pulse 99 Oximetry Medical Decision Making - Medical Decision Making x-ray, labs reviewed no acute abnormality. Patient's symptoms almost resemble blood blistering or rubbing of the tissue. Patient states that he's had some in fection start this way patient be started on oral antibiotics advised to see his vascular surgeon tomorrow return for any worsening symptoms.pulse palpable of both lower extremities equal, refill less than 2 seconds - Lab Data Result diagrams: 08/18/20 15:30 08/18/20 15:30 Lab Results 08/18/20 08/18/20 08/18/20 Range/Units 15:30 15:30 15:30 WBC 7.3 (3.8-10.6) k/uL RBC 4.34 (4.30-5.90) m/uL Hgb 13.3 (13.0-17.5) gm/dL Hct 39.9 (39.0-53.0) % MCV 92.0 (80.0-100.0) fL MCH 30.7 (25.0-35.0) pg MCHC 33.4 (31.0-37.0) g/dL RDW 13.5 (11.5-15.5) % Plt Count 340 (150-450) k/uL MPV 6.9 Neutrophils % 56 % Lymphocytes % 33 % Monocytes % 6 % Eosinophils % 3 % Basophils % 1 % Neutrophils # 4.1 (1.3-7.7) k/uL Lymphocytes # 2.4 (1.0-4.8) k/uL Monocytes # 0.4 (0-1.0) k/uL Eosinophils # 0.2 (0-0.7) k/uL Basophils # 0.1 (0-0.2) k/uL PT 9.8 (9.0-12.0) sec INR 0.9 (<1.2) APTT 23.7 (22.0-30.0) sec Sodium 135 L (137-145) mmol/L Potassium 5.3 H (3.5-5.1) mmol/L Chloride 104 (98-107) mmol/L Carbon Dioxide 23 (22-30) mmol/L Anion Gap 8 mmol/L BUN 29 H (9-20) mg/dL Creatinine 1.36 H (0.66-1.25) mg/dL Est GFR (CKD-EPI)AfAm 65 (>60 ml/min/1.73 sqM) Est GFR (CKD-EPI)NonAf 57 (>60 ml/min/1.73 sqM) Glucose 209 H (74-99) mg/dL Calcium 9.9 (8.4-10.2) mg/dL Total Bilirubin 0.3 (0.2-1.3) mg/dL AST 15 L (17-59) U/L ALT 15 (4-49) U/L Alkaline Phosphatase 76 (38-126) U/L C-Reactive Protein <5.0 (<10.0) mg/L Total Protein 7.2 (6.3-8.2) g/dL Albumin 4.2 (3.5-5.0) g/dL Disposition Clinical Impression: Blister of toe of right foot Disposition: HOME SELF-CARE Condition: Stable Instructions (If sedation given, give patient instructions): Blister (ED) Additional Instructions: Please return to the Emergency Department if symptoms worsen or any other concerns. Prescriptions: Clindamycin HCl 300 mg PO Q6HR #40 cap Is patient prescribed a controlled substance at d/c from ED?: No Referrals: Uday Rojo DO [Primary Care Provider] - 1-2 days Martin Montgomery MD [STAFF PHYSICIAN] - 1-2 days Time of Disposition: 16:36
[2020-08-18 15:42] LABS: Basophils # (A) 0.1 k/uL (0-0.2); Basophils % (A) 1 %; Eosinophils # (A) 0.2 k/uL (0-0.7); Eosinophils % (A) 3 %; HCT 39.9 % (39.0-53.0); HGB 13.3 gm/dL (13.0-17.5); Lymphocytes # (A) 2.4 k/uL (1.0-4.8); Lymphocytes % (A) 33 %; MCH 30.7 pg (25.0-35.0); MCHC 33.4 g/dL (31.0-37.0); Mean Platelet Volume 6.9; Monocytes # (A) 0.4 k/uL (0-1.0); Monocytes % (A) 6 %; Neutrophils # (A) 4.1 k/uL (1.3-7.7); Neutrophils % (A) 56 %; Platelet Count 340 k/uL (150-450); RBC 4.34 m/uL (4.30-5.90); RDW 13.5 % (11.5-15.5); WBC 7.3 k/uL (3.8-10.6)
[2020-08-18 15:56] LABS: INR 0.9 (<1.2); Partial Thromboplastin Time 23.7 sec (22.0-30.0); Prothrombin Time 9.8 sec (9.0-12.0)
[2020-08-18 15:58] LABS: ALT 15 U/L (4-49); AST 15 U/L (17-59); African American GFR (CKD) 65 (>60 ml/min/1.73 sqM); Albumin 4.2 g/dL (3.5-5.0); Alkaline Phosphatase 76 U/L (38-126); Anion Gap 8 mmol/L; Blood Urea Nitrogen 29 mg/dL (9-20); C Reactive Protein <5.0 mg/L (<10.0); Calcium 9.9 mg/dL (8.4-10.2); Carbon Dioxide 23 mmol/L (22-30); Chloride 104 mmol/L (98-107); Glucose 209 mg/dL (74-99); Non-African American GFR(CKD) 57 (>60 ml/min/1.73 sqM); Potassium 5.3 mmol/L (3.5-5.1); Sodium 135 mmol/L (137-145); Total Bilirubin 0.3 mg/dL (0.2-1.3); Total Protein 7.2 g/dL (6.3-8.2)
--- NOTE | 2020-08-18 15:59 | XR ---
EXAMINATION TYPE: XR toes RT DATE OF EXAM: 08/18/2020 COMPARISON: Prior right foot x-ray January 05, 2020 HISTORY: Infection with pain and swelling. TECHNIQUE: 3 views right toes. FINDINGS: Interval amputation defect involving majority of the third toe past metatarsal level. Marke d flexion in the second, fourth, and fifth toes makes evaluation at this level slightly suboptimal. O ld malunion fracture distal diaphysis fifth metatarsal redemonstrated. Mild narrowing first metatarso phalangeal joint. No suspicious new bony destruction or abnormal periosteal reaction to suggest acute osteomyelitis. Soft tissue arterial vascular calcification redemonstrated. IMPRESSION: As above.
[2020-08-18 16:59] VITALS: BP 154/89; PULSE 64; RESP 16
== END 2020-08-18 17:02 | disposition home or self-care (01) ==
LOC: EC 14:05
DX: S90.424A Blister (nonthermal), right lesser toe(s), initial encounter (principal); I10 Essential (primary) hypertension; E11.40 Type 2 diabetes mellitus with diabetic neuropathy, unspecified; E78.5 Hyperlipidemia, unspecified; Z79.4 Long term (current) use of insulin; Z79.899 Other long term (current) drug therapy; Z88.1 Allergy status to other antibiotic agents; Z89.421 Acquired absence of other right toe(s); X58.XXXA Exposure to other specified factors, initial encounter
CPT/HCPCS: 36415; 80053; 85025; 85610; 85730; 86140; 99283

== ENCOUNTER 2020-10-21 14:02 | Inpatient (IN) | payer BC, MEDICAID, OTHER ==
--- NOTE | 2020-10-21 14:50 | ED ---
Skin/Abscess/FB HPI - General Chief complaint: Skin/Abscess/Foreign Body Stated complaint: L Toe Pain Time Seen by Provider: 10/21/20 14:10 Source: patient Mode of arrival: ambulatory Limitations: no limitations - History of Present Illness Initial comments: Patient is a 60-year-old male with history of diabetes, neuropathy, hypertension, presenting to the emergency Department with complaints of increased left toe pain for the past 1-2 weeks. He does have a history of left great toe and right third digit amputation. He states over the past 2 weeks he's noticed increased pain in his left second toe, increase in discoloration and redness as well. He states there is also been some discharge from the toe as well. He states the pain has been radiating up into his left ankle. He denies any fever or chills. Denies any abdominal pain, no nausea or vomiting. He denies any trauma or injury. He has been seeing Dr. Aguilar for this. He has no further complaints at this time. Upon arrival to the ER, his vitals are stable. - Related Data Home Medications Medication Instructions Recorded Confirmed metFORMIN HCL [Glucophage] 1,000 mg PO BID 02/12/20 10/21/20 Enalapril [Vasotec] 10 mg PO DAILY 10/21/20 10/21/20 Escitalopram [Lexapro] 20 mg PO DAILY 10/21/20 10/21/20 Metoprolol Tartrate [Lopressor] 25 mg PO BID 10/21/20 10/21/20 Omeprazole 20 mg PO BID 10/21/20 10/21/20 Allergies Allergy/AdvReac Type Severity Reaction Status Date / Time daptomycin AdvReac Unknown Verified 10/21/20 18:03 Review of Systems ROS Statement: Those systems with pertinent positive or pertinent negative responses have been documented in the HPI. ROS Other: All systems not noted in ROS Statement are negative. Past Medical History Past Medical History: Asthma, Diabetes Mellitus, GERD/Reflux, Hyperlipidemia, Hypertension Additional Past Medical History / Comment(s): NIDDM type II, neuropathy bilateral feet/legs, pt states his hgb is dropping and that his physician who he sees in the group home thinks he has internal bleeding somewhere/plans to work this up soon, bronchitis, R shoulder discomfort. History of Any Multi-Drug Resistant Organisms: MRSA Date of last positivie culture/infection: 06/18/20 MDRO Source:: MRSA FOOT Past Surgical History: Orthopedic Surgery Additional Past Surgical History / Comment(s): right middle toe removed, left foot debridement Past Anesthesia/Blood Transfusion Reactions: No Reported Reaction Past Psychological History: No Psychological Hx Reported Smoking Status: Never smoker Past Alcohol Use History: Occasional Past Drug Use History: None Reported - Past Family History Father Family Medical History: Diabetes Mellitus Additional Family Medical History / Comment(s): Father is . Mother Family Medical History: No Reported History Additional Family Medical History / Comment(s): Mother is healthy. General Exam - General Exam Comments Initial Comments: GENERAL: Patient is well-developed and well-nourished. Patient is nontoxic and in no acute distress. HEAD: Atraumatic, normocephalic. EYES: Pupils equal round and reactive to light, extraocular movements intact, sclera anicteric, conjunctiva are normal. Eyelids were unremarkable. ENT: TMs normal, nares patent, oropharynx clear without exudates. Moist mucous membranes. NECK: Normal range of motion, supple without lymphadenopathy or JVD. LUNGS: Unlabored respirations. Breath sounds clear to auscultation bilaterally and equal. No wheezes rales or rhonchi. HEART: Regular rate and rhythm without murmurs, rubs or gallops. ABDOMEN: Soft, nontender, normoactive bowel sounds. No guarding, no rebound. No masses appreciated. : Deferred MUSCULOSKELETAL: Patient has a surgically absent left great toe and right third toe. The left second digit appears erythematous, black and and some mild discharge present. The left foot appears warmer when compared to the right foot. Bilateral feet are neurovascularly intact, +2 dorsal pedis pulse. Patient has decreased sensations of the left 2nd toe, diminished sensation of the rest of the toes. No clubbing or cyanosis. NEUROLOGICAL: Patient is alert and oriented x 3. Motor and sensory are also intact. Cranial nerves II through XII grossly intact. Symmetrical smile. Normal speech, normal gait. PSYCH: Normal mood, normal affect. SKIN: Warm, Dry, normal turgor, no rashes or lesions noted. Limitations: no limitations Course Vital Signs 10/21/20 10/21/20 10/21/20 14:04 15:12 18:02 Temperature 98.2 F 98.6 F Pulse Rate 56 L 70 Respiratory 20 16 16 Rate Blood Pressure 172/92 189/82 O2 Sat by Pulse 94 L 100 Oximetry Medical Decision Making - Medical Decision Making Patient is a 60-year-old male here with complaints of increased left second digit pain for the last 2 weeks. He does have history of left great toe and right third digit amputation. His pulses are equal and bilateral, no fever or chills. His vital signs are stable. Labs show an ESR 30, CRP is less than 5, normal white count. X-rays show ulceration the second distal left toe, no new bony distraction clearly is seen. Given patient's history and findings today, did recommend admission with consult to Dr. Aguilar and a possiblly vascular surgery. Patient will be started on Rocephin and vanco for cellulitis, patient is in agreement with this plan of care. Patient accepted by Sofie Moore. Case discussed with Dr. Menard. - Lab Data Result diagrams: 10/21/20 15:11 10/21/20 15:11 Lab Results 10/21/20 10/21/20 10/21/20 Range/Units 15:11 15:11 15:11 WBC 10.1 (3.8-10.6) k/uL RBC 4.38 (4.30-5.90) m/uL Hgb 14.1 (13.0-17.5) gm/dL Hct 40.1 (39.0-53.0) % MCV 91.6 (80.0-100.0) fL MCH 32.2 (25.0-35.0) pg MCHC 35.1 (31.0-37.0) g/dL RDW 13.1 (11.5-15.5) % Plt Count 294 (150-450) k/uL MPV 7.0 Neutrophils % 71 % Lymphocytes % 20 % Monocytes % 7 % Eosinophils % 1 % Basophils % 1 % Neutrophils # 7.1 (1.3-7.7) k/uL Lymphocytes # 2.0 (1.0-4.8) k/uL Monocytes # 0.7 (0-1.0) k/uL Eosinophils # 0.2 (0-0.7) k/uL Basophils # 0.1 (0-0.2) k/uL ESR 30 H (0-15) mm/hr Sodium 135 L (137-145) mmol/L Potassium 5.3 H (3.5-5.1) mmol/L Chloride 105 (98-107) mmol/L Carbon Dioxide 22 (22-30) mmol/L Anion Gap 8 mmol/L BUN 23 H (9-20) mg/dL Creatinine 1.22 (0.66-1.25) mg/dL Est GFR (CKD-EPI)AfAm 75 (>60 ml/min/1.73 sqM) Est GFR (CKD-EPI)NonAf 65 (>60 ml/min/1.73 sqM) Glucose 249 H (74-99) mg/dL Plasma Lactic Acid Jeffry 2.0 (0.7-2.0) mmol/L Calcium 9.5 (8.4-10.2) mg/dL Total Bilirubin 0.6 (0.2-1.3) mg/dL AST 20 (17-59) U/L ALT 13 (4-49) U/L Alkaline Phosphatase 58 (38-126) U/L C-Reactive Protein <5.0 (<10.0) mg/L Total Protein 7.0 (6.3-8.2) g/dL Albumin 4.1 (3.5-5.0) g/dL Disposition Clinical Impression: Cellulitis of left foot, Toe osteomyelitis, left Disposition: ADMITTED IP TO THIS [facility] Condition: Stable Is patient prescribed a controlled substance at d/c from ED?: No Referrals: Uday Rojo DO [Primary Care Provider] - 1-2 days Decision Date: 10/21/20 Decision Time: 17:34
[2020-10-21] MEDS ORDERED: KETOROLAC 15 MG/ML 1 ML VIAL IVP STA (15:11)
--- NOTE | 2020-10-21 15:56 | XR ---
EXAMINATION TYPE: XR foot complete bilateral DATE OF EXAM: 10/21/2020 CLINICAL HISTORY: Pain and swelling, abnormal drainage and color to the left third toe. History of di abetic neuropathy. TECHNIQUE: Frontal, lateral, and oblique images of bilateral feet are obtained. COMPARISON: Left foot x-ray June 17, 2020. Right foot x-ray January 05, 2020. Right toe x-ray [facility] 2019 FINDINGS: Interval amputation of the first toe mid shaft level first metatarsal left foot. Old fractu re deformity of the distal second left metatarsal redemonstrated. New focal soft tissue swelling and lucency consistent with ulceration in the distal second toe left foot. Marked flexion until makes yuan luation at this level suboptimal. No new bony destruction clearly seen. Marked flexion and all toes r edemonstrated. There is there is positioning distal fifth toe. Small inferior calcaneal spur. Right foot redemonstrates amputation defect third toe. There is marked flexion and the other toes red emonstrated. Old healed fracture of the distal diaphysis fifth metatarsal redemonstrated. Small super ior and inferior calcaneal spurs. Hindfoot and forefoot vascular calcification redemonstrated. [place] ing soft tissue is unremarkable. No new bony destruction seen. IMPRESSION: As above. Soft tissue wound left second toe distally without convincing radiographic evid ence for acute osteomyelitis.
[2020-10-21 16:00] LABS: Basophils # (A) 0.1 k/uL (0-0.2); Basophils % (A) 1 %; Eosinophils # (A) 0.2 k/uL (0-0.7); Eosinophils % (A) 1 %; HCT 40.1 % (39.0-53.0); HGB 14.1 gm/dL (13.0-17.5); Lymphocytes % (A) 20 %; MCH 32.2 pg (25.0-35.0); MCHC 35.1 g/dL (31.0-37.0); MCV 91.6 fL (80.0-100.0); Monocytes # (A) 0.7 k/uL (0-1.0); Monocytes % (A) 7 %; Neutrophils # (A) 7.1 k/uL (1.3-7.7); Neutrophils % (A) 71 %; Platelet Count 294 k/uL (150-450); RBC 4.38 m/uL (4.30-5.90); RDW 13.1 % (11.5-15.5); WBC 10.1 k/uL (3.8-10.6)
[2020-10-21 16:14] LABS: ALT 13 U/L (4-49); AST 20 U/L (17-59); African American GFR (CKD) 75 (>60 ml/min/1.73 sqM); Albumin 4.1 g/dL (3.5-5.0); Alkaline Phosphatase 58 U/L (38-126); Anion Gap 8 mmol/L; Blood Urea Nitrogen 23 mg/dL (9-20); C Reactive Protein <5.0 mg/L (<10.0); Calcium 9.5 mg/dL (8.4-10.2); Carbon Dioxide 22 mmol/L (22-30); Chloride 105 mmol/L (98-107); Glucose 249 mg/dL (74-99); Non-African American GFR(CKD) 65 (>60 ml/min/1.73 sqM); Potassium 5.3 mmol/L (3.5-5.1); Sodium 135 mmol/L (137-145); Total Bilirubin 0.6 mg/dL (0.2-1.3)
[2020-10-21 16:43] LABS: Erythrocyte Sedimentation Rate 30 mm/hr (0-15)
[2020-10-21] MEDS ORDERED: MORPHINE SULFATE 4 MG/ML SYRINGE IV PRN (17:29)
[2020-10-21] MEDS ORDERED: NALOXONE 0.4 MG/ML 1 ML VIAL IV PRN (17:29)
[2020-10-21] MEDS ORDERED: IBUPROFEN 400 MG TAB PO PRN (17:29)
[2020-10-21] MEDS ORDERED: ACETAMINOPHEN TAB 325 MG TAB PO PRN (17:29)
[2020-10-21] MEDS ORDERED: KETOROLAC 15 MG/ML 1 ML VIAL IVP PRN (17:29)
[2020-10-21] MEDS ORDERED: cefTRIAXone IN SWFI 1,000 MG/10 ML SYRINGE IVP STA (17:33)
[2020-10-21] MEDS ORDERED: VANCOMYCIN IV PER PHARMACY 1 EACH MISC MISCELLANE PRN (17:33)
[2020-10-21] MEDS ORDERED: VANCOMYCIN 1,500 MG in SODIUM CHLORIDE 0.9% 250 ML IVPB STA (17:37)
[2020-10-21] MEDS ORDERED: ONDANSETRON 4 MG/2 ML VIAL IVP PRN (20:56)
[2020-10-21 21:18] LABS: Glucose,Whole Blood 199 mg/dL (75-99)
[2020-10-21] MEDS: metFORMIN 500 MG TAB PO SCH (22:07)
[2020-10-21] MEDS: ESCITALOPRAM 20 MG TAB PO SCH (22:08)
[2020-10-21] MEDS: METOPROLOL TARTRATE 50 MG TAB PO SCH (22:08)
[2020-10-21] MEDS: lisinopriL 20 MG TAB PO SCH (22:08)
[2020-10-21] MEDS: INSULIN ASPART (NovoLOG) 100 UNIT/ML VIAL SQ SCH (22:10)
[2020-10-22] MEDS: VANCOMYCIN 1,500 MG in SODIUM CHLORIDE 0.9% 250 ML IVPB SCH ×2 (06:00→17:45)
[2020-10-22 06:28] LABS: Basophils # (A) 0.1 k/uL (0-0.2); Basophils % (A) 1 %; Eosinophils # (A) 0.2 k/uL (0-0.7); Eosinophils % (A) 3 %; HCT 37.1 % (39.0-53.0); HGB 12.7 gm/dL (13.0-17.5); Lymphocytes # (A) 1.6 k/uL (1.0-4.8); Lymphocytes % (A) 24 %; MCH 31.3 pg (25.0-35.0); MCHC 34.2 g/dL (31.0-37.0); MCV 91.4 fL (80.0-100.0); Monocytes # (A) 0.6 k/uL (0-1.0); Monocytes % (A) 9 %; Neutrophils # (A) 4.1 k/uL (1.3-7.7); Neutrophils % (A) 62 %; Platelet Count 226 k/uL (150-450); RBC 4.06 m/uL (4.30-5.90); RDW 12.9 % (11.5-15.5); WBC 6.7 k/uL (3.8-10.6)
[2020-10-22 07:04] LABS: Glucose,Whole Blood 191 mg/dL (75-99)
[2020-10-22] MEDS: metFORMIN 500 MG TAB PO SCH (09:05)
[2020-10-22] MEDS: METOPROLOL TARTRATE 50 MG TAB PO SCH ×2 (09:05→20:32)
[2020-10-22] MEDS: ESCITALOPRAM 20 MG TAB PO SCH (09:05)
[2020-10-22] MEDS: INSULIN ASPART (NovoLOG) 100 UNIT/ML VIAL SQ SCH ×7 (09:06→21:01)
[2020-10-22] MEDS: PANTOPRAZOLE 40 MG TABLET PO SCH (09:06)
[2020-10-22] MEDS: lisinopriL 20 MG TAB PO SCH (09:07)
[2020-10-22 10:20] LABS: African American GFR (CKD) 58.2 (60.0-200.0); Anion Gap 3.5 mmol/L (4.00-12.00); BUN/Creat Ratio 18.67 Ratio (12.00-20.00); Calcium 9.1 mg/dL (8.7-10.3); Carbon Dioxide 22.5 mmol/L (21.6-31.8); Non-African American GFR(CKD) 50.2 (60.0-200.0); Potassium 4.7 mmol/L (3.5-5.5)
[2020-10-22] MEDS ORDERED: traMADol 50 MG TAB PO PRN (10:27)
--- NOTE | 2020-10-22 11:01 | P.HPIM ---
History of Present Illness 60-year-old male with history of diabetes, neuropathy, hypertension, presenting to the emergency Department with complaints of increased left toe pain for the past 1-2 weeks. He does have a history of left great toe and right third digit amputation. He states over the past 2 weeks he's noticed increased pain in his left second toe, increase in discoloration and redness as well. He states there is also been some discharge from the toe as well. He states the pain has been radiating up into his left ankle. He denies any fever or chills. Denies any abdominal pain, no nausea or vomiting. He denies any trauma or injury. He has been seeing Dr. Aguilar for this. He has no further complaints at this time. Patient doesn't have any fever. Patient was started on mitomycin with significant improvement in redness of the toe patient had history of MRSA. Infectious disease was consulted. Patient has elevated serum creatinine of 1.5 baseline is around 1.1. Nonsteroidal anti-inflammatory medications and metformin were discontinued and patient will be started on sliding scale insulin. Review of Systems REVIEW OF SYSTEMS: CONSTITUTIONAL: No fever, no malaise, no fatigue. HEENT: No recent visual problems or hearing problems. Denied any sore throat. CARDIOVASCULAR: No chest pain, orthopnea, PND, no palpitations, no syncope. PULMONARY: No shortness of breath, no cough, no hemoptysis. GASTROINTESTINAL: No diarrhea, no nausea, no vomiting, no abdominal pain. NEUROLOGICAL: No headaches, no weakness, no numbness. HEMATOLOGICAL: Denies any bleeding or petechiae. GENITOURINARY: Denies any burning micturition, frequency, or urgency. MUSCULOSKELETAL/RHEUMATOLOGICAL: As mentioned in HPI ENDOCRINE: Denies any polyuria or polydipsia. The rest of the 14-point review of systems is negative. Past Medical History Past Medical History: Asthma, Diabetes Mellitus, GERD/Reflux, Hyperlipidemia, Hypertension Additional Past Medical History / Comment(s): NIDDM type II, neuropathy bilateral feet/legs, pt states his hgb is dropping and that his physician who he sees in the intermediate thinks he has internal bleeding somewhere/plans to work this up soon, bronchitis, R shoulder discomfort. History of Any Multi-Drug Resistant Organisms: MRSA Date of last positivie culture/infection: 06/18/20 MDRO Source:: MRSA FOOT Past Surgical History: Orthopedic Surgery Additional Past Surgical History / Comment(s): right middle toe removed, left foot debridement Past Anesthesia/Blood Transfusion Reactions: No Reported Reaction Past Psychological History: No Psychological Hx Reported Additional Psychological History / Comment(s): . Smoking Status: Never smoker Past Alcohol Use History: Occasional Additional Past Alcohol Use History / Comment(s): Pt started smoking in 1977 and quit once for 10 yrs and quit again in 2014. Past Drug Use History: None Reported - Past Family History Father Family Medical History: Diabetes Mellitus Additional Family Medical History / Comment(s): Father is . Mother Family Medical History: No Reported History Additional Family Medical History / Comment(s): Mother is healthy. Medications and Allergies Home Medications Medication Instructions Recorded Confirmed Type metFORMIN HCL [Glucophage] 1,000 mg PO BID 02/12/20 10/21/20 History Enalapril [Vasotec] 10 mg PO DAILY 10/21/20 10/21/20 History Escitalopram [Lexapro] 20 mg PO DAILY 10/21/20 10/21/20 History Metoprolol Tartrate [Lopressor] 25 mg PO BID 10/21/20 10/21/20 History Omeprazole 20 mg PO BID 10/21/20 10/21/20 History Allergies Allergy/AdvReac Type Severity Reaction Status Date / Time daptomycin AdvReac Unknown Verified 10/21/20 18:03 Physical Exam Vitals: Vital Signs Temp Pulse Pulse Resp BP BP Pulse Ox 10/22/20 08:00 98.0 F 71 16 159/91 97 10/22/20 07:45 71 16 10/22/20 01:37 98.1 F 69 15 143/78 98 10/21/20 20:45 73 15 10/21/20 20:00 98.0 F 73 15 178/63 97 10/21/20 19:19 98.2 F 74 16 174/94 98 10/21/20 18:56 98.6 F 74 16 174/94 99 10/21/20 18:02 98.6 F 70 16 189/82 100 10/21/20 15:12 16 10/21/20 14:04 98.2 F 56 L 20 172/92 94 L Intake and Output 10/21/20 10/22/20 10/22/20 22:59 06:59 14:59 Other: # Voids 2 Weight 92.986 kg PHYSICAL EXAMINATION: GENERAL: The patient is alert and oriented x3, not in any acute distress. Well developed, well nourished. HEENT: Pupils are round and equally reacting to light. EOMI. No scleral icterus. No conjunctival pallor. Normocephalic, atraumatic. No pharyngeal erythema. No thyromegaly. CARDIOVASCULAR: S1 and S2 present. No murmurs, rubs, or gallops. PULMONARY: Chest is clear to auscultation, no wheezing or crackles. ABDOMEN: Soft, nontender, nondistended, normoactive bowel sounds. No palpable organomegaly. MUSCULOSKELETAL: No joint swelling or deformity. EXTREMITIES: No cyanosis, clubbing, or pedal edema. NEUROLOGICAL: Gross neurological examination did not reveal any focal deficits. SKIN: She and had an amputation of the left great toe patient had some chronic changes syndromes of the toes second toe is a headache hammertoe with some redness extending from second toe involving the entire left foot. Patient does have cellulitis local is of temperature. Currently this is significant improvement compared to yesterday as per the patient. Results CBC & Chem 7: 10/22/20 06:10 10/22/20 06:10 Labs: Abnormal Lab Results - Last 24 Hours (Table) 10/21/20 10/21/20 10/21/20 Range/Units 15:11 15:11 21:16 RBC (4.30-5.90) m/uL Hgb (13.0-17.5) gm/dL Hct (39.0-53.0) % ESR 30 H (0-15) mm/hr Sodium 135 L (137-145) mmol/L Potassium 5.3 H (3.5-5.1) mmol/L Anion Gap (4.00-12.00) mmol/L BUN 23 H (9-20) mg/dL Est GFR (CKD-EPI)AfAm (60.0-200.0) Est GFR (CKD-EPI)NonAf (60.0-200.0) Glucose 249 H (74-99) mg/dL POC Glucose (mg/dL) 199 H (75-99) mg/dL 10/22/20 10/22/20 10/22/20 Range/Units 06:10 06:10 07:02 RBC 4.06 L (4.30-5.90) m/uL Hgb 12.7 L (13.0-17.5) gm/dL Hct 37.1 L (39.0-53.0) % ESR (0-15) mm/hr Sodium 134 L (137-145) mmol/L Potassium (3.5-5.1) mmol/L Anion Gap 3.50 L (4.00-12.00) mmol/L BUN 28.0 H (9-20) mg/dL Est GFR (CKD-EPI)AfAm 58.2 L (60.0-200.0) Est GFR (CKD-EPI)NonAf 50.2 L (60.0-200.0) Glucose 197 H (74-99) mg/dL POC Glucose (mg/dL) 191 H (75-99) mg/dL Thrombosis Risk Factor Assmnt - Choose All That Apply Each Factor Represents 1 point: Age 41-60 years Thrombosis Risk Factor Assessment Total Risk Factor Score: 1 Thrombosis Risk Factor Assessment Level: Low Risk Assessment and Plan Plan: -Cellulitis of the left foot and second toe on the left side.: Patient was started on vancomycin need to closely monitor the kidney function this can you nonsteroidal anti-inflammatory medications patient will be started on IV fluids. Infectious disease will evaluate the patient -Diabetic nephropathy -Type 2 diabetes mellitus: Metformin were discontinued and patient the will be started on sliding scale insulin neck and-gastroesophageal reflux disease -Hypertension -Diabetic Peripheral neuropathy -Hypertension Due to prophylaxis with subcutaneous heparin
[2020-10-22 11:23] LABS: Glucose,Whole Blood 155 mg/dL (75-99)
[2020-10-22] MEDS: HYDROcodone/APAP 7.5-325MG 1 EACH TAB PO PRN (14:44)
[2020-10-22 16:39] LABS: Glucose,Whole Blood 162 mg/dL (75-99)
[2020-10-22] MEDS: HEPARIN SODIUM,PORCINE 5,000 UNIT/ML 1 ML VIAL SQ SCH ×2 (16:39→21:01)
[2020-10-22] MEDS: SODIUM CHLORIDE 0.9% 1,000 ML IV SCH ×2 (17:46→21:01)
--- NOTE | 2020-10-22 18:10 | CONS ---
CONSULTATION DATE OF SERVICE: 10/22/2020 REASON FOR CONSULTATION: Left second toe diabetic foot infection. HISTORY OF PRESENT ILLNESS: The patient is a 60-year-old male with a past medical history significant for diabetes mellitus in this patient who did have a history of diabetic foot infection with the left big toe culture positive for MRSA, Enterococcus faecalis. The patient is status post left big toe amputation as the patient did fail conservative therapy. The patient was doing okay until about 2 weeks ago when he started to notice irritation to his left 2nd toe in this patient who did have evidence of hammertoe deformity. The patient noticed to having more swelling, redness and pain. Described the pain to be more of a dull aching to throbbing 7 to 8 out of 10, no radiation with associated swelling and redness of the left foot area. The patient also mentioned some drainage, foul-smelling to the ER physician. With these symptoms, the patient was evaluated by the ER physician on arrival to the ER. Patient has been afebrile. The patient did have a normal white count. Kidney function was normal. The patient did have x-rays of the left foot which did not show any bony changes to the left 2nd toe. The patient was started on vancomycin. The patient reports improvement as far as pain, swelling and redness to the left foot. Infectious disease was consulted for further management of antibiotic therapy. REVIEW OF SYSTEMS: Positive points have been mentioned in HPI. Rest of the systems are negative. PAST MEDICAL HISTORY: Diabetes mellitus, diabetic foot infection, hypertension, hyperlipidemia, asthma. PAST SURGICAL HISTORY: Right middle toe removed, left big toe removed, left foot wound debridement. SOCIAL HISTORY: The patient denies smoking. Rarely drinks. No drug use. FAMILY HISTORY: Mother history of diabetes. ALLERGIES: TO DAPTOMYCIN. MEDICATIONS: The patient is currently on Tylenol, [place], Lexapro, heparin, NovoLog, Restoril, Lopressor, Narcan, Zofran, Protonix, IV fluid, and vancomycin. PHYSICAL EXAMINATION: Blood pressure 128/63 with a pulse of 73, temperature 98. He is 97% on room air. General description: The patient is a middle-aged male lying in bed in no distress. No tachypnea or accessory muscles of respiration use. HEENT: Examination shows no pallor or scleral icterus. Oral mucous membranes dry. No pharyngeal erythema or thrush. NECK: Trachea central. No thyromegaly. LUNGS: Unlabored breathing, clear to auscultation anteriorly. No wheeze or crackles. HEART S1, S2. Regular rate and rhythm. ABDOMEN: Soft, no tenderness. No guarding or rigidity. EXTREMITIES are no edema of the feet. Examination of the left 2nd toe did have significant hammertoe deformity with evidence of significant callus, small wound. No pus was expressed out. NEUROLOGICAL: Patient is awake, alert and oriented times three. Mood and affect normal. LABS: Hemoglobin 12.1, white count 6.7, sed rate of 30, creatinine 1.5. DIAGNOSTIC IMPRESSION AND PLAN: Patient with left 2nd toe diabetic foot infection in this patient who does have previous history of MRSA Enterococcus faecalis infection of the left 2nd toe that did require amputation of the left big toe and we will need to cover for the same likely gram-positive skin flower. However, in view of the significant hammertoe deformity is is going to be hard to completely clear up this infection without either partial amputation of his toe or correction of his hammertoe deformity. PLAN: 1. Vancomycin, pharmacy to dose, target of 15 while watching his kidney function and Vancomycin trough closely. 2. We will get an opinion from his vascular surgeon, Dr. Montgomery for either partial amputation or some recommendation regarding hammertoe correction. 3. We will follow up on clinical condition and further adjust medication if needed. Thank you for this consultation. We will follow this patient along with you. MMODL / IJN: [id number] /
--- NOTE | 2020-10-22 19:01 | CONS ---
CONSULTATION This is a 60 -year-old gentleman who is known to me from the past. The patient came to the emergency room with history of pain in his left foot involving the second toe for the last 2 weeks. According to the patient, he has discomfort and pain and some discharge noted on the left foot second toe. The patient had left big toe amputation done by me in the past and also patient had a right foot 3rd toe removed in the past. No history of fever or chills made. PAST MEDICAL HISTORY: History of diabetes mellitus, history of hyperlipidemia, hypertension. PAST SURGERY HISTORY: History patient had a left foot big toe amputation done by me in June of 2019 and also his right foot 3rd toe has been removed in the past. PHYSICAL EXAMINATION: Patient was seen in his room. NECK: Supple. Trachea central. CHEST: Clear to auscultation. First and second sounds normal. ABDOMEN: Soft, nontender. Vascular examination: Brachial radial and femoral pulses are palpable, dorsal pedis is palpable. The patient has a left foot second toe hammertoe with deformity and distal phalanx has infected callus with some redness noted. Left foot stump site from the previous surgery is healing. PLAN: Left foot second toe amputation. Discussed with the patient and he agreed. Risks and complications discussed. MMODL / IJN: [id number] /
[2020-10-22 20:24] LABS: Glucose,Whole Blood 226 mg/dL (75-99)
[2020-10-23] MEDS: VANCOMYCIN 1,500 MG in SODIUM CHLORIDE 0.9% 250 ML IVPB SCH ×3 (05:07→23:51)
[2020-10-23 07:25] LABS: Glucose,Whole Blood 225 mg/dL (75-99)
[2020-10-23] MEDS: INSULIN ASPART (NovoLOG) 100 UNIT/ML VIAL SQ SCH ×8 (07:28→20:22)
[2020-10-23] MEDS: SODIUM CHLORIDE 0.9% 1,000 ML IV SCH ×2 (07:55→16:48)
[2020-10-23] MEDS: PANTOPRAZOLE 40 MG TABLET PO SCH (08:47)
[2020-10-23] MEDS: HEPARIN SODIUM,PORCINE 5,000 UNIT/ML 1 ML VIAL SQ SCH ×3 (08:47→23:51)
[2020-10-23] MEDS: METOPROLOL TARTRATE 50 MG TAB PO SCH ×2 (08:53→20:22)
[2020-10-23 09:37] LABS: African American GFR (CKD) 63.3 (60.0-200.0); Anion Gap 6.4 mmol/L (4.00-12.00); BUN/Creat Ratio 22.14 Ratio (12.00-20.00); Calcium 9.4 mg/dL (8.7-10.3); Carbon Dioxide 23.6 mmol/L (21.6-31.8); Non-African American GFR(CKD) 54.6 (60.0-200.0); Potassium 4.5 mmol/L (3.5-5.5)
--- NOTE | 2020-10-23 09:42 | P.PN ---
Subjective 60-year-old male with history of diabetes, neuropathy, hypertension, presenting to the emergency Department with complaints of increased left toe pain for the past 1-2 weeks. He does have a history of left great toe and right third digit amputation. He states over the past 2 weeks he's noticed increased pain in his left second toe, increase in discoloration and redness as well. He states there is also been some discharge from the toe as well. He states the pain has been radiating up into his left ankle. He denies any fever or chills. Denies any abdominal pain, no nausea or vomiting. He denies any trauma or injury. He has been seeing Dr. Aguilar for this. He has no further complaints at this time. Patient doesn't have any fever. Patient was started on mitomycin with significant improvement in redness of the toe patient had history of MRSA. Infectious disease was consulted. Patient has elevated serum creatinine of 1.5 baseline is around 1.1. Nonsteroidal anti-inflammatory medications and metformin were discontinued and patient will be started on sliding scale insulin. 10/23/2020 Patient remains on vancomycin creatinine from today is not available yet was evaluated by infectious disease and an ASCUS surgery and mask for surgery is recommending amputation of the second toe although his cellulitis significantly improved. Constitutional: Denied any fatigue denied any fever. Cardio vascular: denied any chest pain, palpitations Gastrointestinal denied any nausea vomiting Pulmonary: Denied any shortness of breath cough Neurologic denied any new focal deficits All inpatient medications were reviewed and appropriate changes in these medications as dictated in the interval history and assessment and plan. Objective - Vital Signs Vital signs: Vital Signs Temp 98.2 F 10/23/20 07:44 Pulse 67 10/23/20 07:44 Resp 16 10/23/20 08:00 BP 186/75 10/23/20 07:44 Pulse Ox 97 10/23/20 07:44 Intake & Output 10/22/20 10/23/20 10/23/20 18:59 06:59 18:59 Intake Total 1500 Balance 1500 Intake: Intake, IV Titration 850 Amount Sodium Chloride 0.9% 1, 600 000 ml @ 100 mls/hr IV . Q10H [facility] Rx#:[id number] Vancomycin 1,500 mg In 250 Sodium Chloride 0.9% 250 ml @ 125 mls/hr IVPB Q12H [facility] Rx#:[id number] Oral 650 Other: Voiding Method Toilet Urinal # Voids 4 2 - Exam PHYSICAL EXAMINATION: GENERAL: The patient is alert and oriented x3, not in any acute distress. Well developed, well nourished. HEENT: Pupils are round and equally reacting to light. EOMI. No scleral icterus. No conjunctival pallor. Normocephalic, atraumatic. No pharyngeal erythema. No thyromegaly. CARDIOVASCULAR: S1 and S2 present. No murmurs, rubs, or gallops. PULMONARY: Chest is clear to auscultation, no wheezing or crackles. ABDOMEN: Soft, nontender, nondistended, normoactive bowel sounds. No palpable organomegaly. MUSCULOSKELETAL: No joint swelling or deformity. EXTREMITIES: No cyanosis, clubbing, or pedal edema. NEUROLOGICAL: Gross neurological examination did not reveal any focal deficits. SKIN: She and had an amputation of the left great toe patient had some chronic changes syndromes of the toes second toe is a headache with some redness extending from second toe involving the entire left foot. Patient does have cellulitis was improving when compared to yesterday - Labs CBC & Chem 7: 10/22/20 06:10 10/23/20 05:55 Labs: Abnormal Lab Results - Last 24 Hours (Table) 10/22/20 10/22/20 10/22/20 Range/Units 06:10 11:22 16:38 Sodium 134 L (135-145) mmol/L Anion Gap 3.50 L (4.00-12.00) mmol/L BUN 28.0 H (9.0-27.0) mg/dL Est GFR (CKD-EPI)AfAm 58.2 L (60.0-200.0) Est GFR (CKD-EPI)NonAf 50.2 L (60.0-200.0) BUN/Creatinine Ratio (12.00-20.00) Ratio Glucose 197 H (70-110) mg/dL POC Glucose (mg/dL) 155 H 162 H (75-99) mg/dL 10/22/20 10/23/20 10/23/20 Range/Units 20:23 05:55 07:25 Sodium (135-145) mmol/L Anion Gap (4.00-12.00) mmol/L BUN 31.0 H (9.0-27.0) mg/dL Est GFR (CKD-EPI)AfAm (60.0-200.0) Est GFR (CKD-EPI)NonAf 54.6 L (60.0-200.0) BUN/Creatinine Ratio 22.14 H (12.00-20.00) Ratio Glucose 208 H (70-110) mg/dL POC Glucose (mg/dL) 226 H 225 H (75-99) mg/dL Assessment and Plan Plan: -Cellulitis of the left foot and second toe on the left side.: Patient is on vancomycin need to closely monitor the kidney function patient will undergo amputation of the second toe vascular surgery and infectious disease evaluated the patient. -Diabetic nephropathy -Type 2 diabetes mellitus: Metformin were discontinued and patient the will be started on sliding scale insulin and sugars are elevated and uncontrolled -gastroesophageal reflux disease -Hypertension -Diabetic Peripheral neuropathy -Hypertension Due to prophylaxis with subcutaneous heparin
[2020-10-23] MEDS: lisinopriL 20 MG TAB PO SCH (10:24)
[2020-10-23] MEDS ORDERED: IV FLUID CONTINUATION 1,000 ML IV ONE (10:29)
[2020-10-23] MEDS ORDERED: PROPOFOL 10 MG/ML 20 ML VIAL IV ONE (10:29)
[2020-10-23] MEDS ORDERED: fentaNYL (PF) 50 MCG/ML 2 ML AMP ONE (10:29)
[2020-10-23] MEDS ORDERED: MIDAZOLAM 2 MG/2 ML VIAL ONE (10:29)
[2020-10-23] MEDS ORDERED: LIDOCAINE 2%-EPI 1:100,000 20 ML VIAL SQ ONE (10:36)
[2020-10-23 11:17] LABS: Glucose,Whole Blood 200 mg/dL (75-99)
--- NOTE | 2020-10-23 12:24 | OP ---
OPERATIVE REPORT PREOPERATIVE DIAGNOSIS: Infected left foot hammertoe 2nd toe with infected callus formation. OPERATION: Amputation of left foot second toe at metatarsophalangeal joint. INDICATION: This patient had infected hammertoe and a callus formation. DESCRIPTION OF PROCEDURE: Patient was brought to the operating room. The left foot was prepped and drapes applied in usual sterile manner. 1% lidocaine was infiltrated. After that, incision was made on the dorsal aspect of the foot, elliptical incision, deepened through skin, fat, and fascia. The incision was extended to the plantar aspect. Tendons were divided on the plantar and dorsal aspect of the foot at metatarsophalangeal joint. Amputation was performed of the left foot second toe. Specimen was removed and sent for culture and sensitivity. The wound was irrigated with saline and hemostasis was well controlled and the incision was closed in 2 layers. The subcutaneous tissue and fat were approximated with 3-0 Vicryl and skin was closed with 5-0 nylon interrupted suture. Dressing applied. Patient tolerated the procedure well. MMODL / IJN: [id number] /
[2020-10-23] MEDS: ESCITALOPRAM 20 MG TAB PO SCH (12:35)
[2020-10-23] MEDS: HYDROcodone/APAP 7.5-325MG 1 EACH TAB PO PRN ×2 (13:25→18:55)
[2020-10-23 16:41] LABS: Glucose,Whole Blood 175 mg/dL (75-99)
[2020-10-23 19:59] LABS: Glucose,Whole Blood 199 mg/dL (75-99)
--- NOTE | 2020-10-23 21:50 | PN ---
PROGRESS NOTE DATE OF SERVICE: 10/23/2020 REASON FOR FOLLOWUP: Left 2nd toe diabetic foot infection. INTERVAL HISTORY: Patient is currently afebrile. The patient was taken to the OR and is status post left 2nd toe amputation. The patient tolerated the procedure. Pain is currently controlled. No chest pain, shortness of breath or cough. No abdominal pain. No diarrhea. PHYSICAL EXAMINATION: Blood pressure 146/73 with a pulse of 102. Temperature 97.8. He is 94% on room air. General description: The patient is a middle-aged male lying in bed in no distress. Respiratory system: Unlabored breathing, clear to auscultation anteriorly. Heart S1, S2. Regular rate and rhythm. Abdomen: Soft, no tenderness. Left foot is currently dressed up. No obvious drainage on the dressing. LABS: BUN of 31, creatinine is 1.4. DIAGNOSTIC IMPRESSION AND PLAN: Patient with left 2nd toe diabetic foot infection with hammertoe deformity and concern for possible osteo, status post amputation with infected part removed. As the patient is not bacteremic, he will not need IV antibiotic on discharge. Continue vancomycin while inpatient. Transition to a short course of oral antibiotic on discharge. Continue supportive care. MMODL / IJN: [id number] /
[2020-10-24] MEDS: SODIUM CHLORIDE 0.9% 1,000 ML IV SCH ×2 (04:01→13:00)
[2020-10-24 07:00] LABS: Glucose,Whole Blood 175 mg/dL (75-99)
[2020-10-24 07:41] VITALS: RESP 18
[2020-10-24] MEDS: INSULIN ASPART (NovoLOG) 100 UNIT/ML VIAL SQ SCH ×8 (09:58→20:52)
[2020-10-24 09:59] LABS: Glucose,Whole Blood 176 mg/dL (75-99)
[2020-10-24] MEDS: HEPARIN SODIUM,PORCINE 5,000 UNIT/ML 1 ML VIAL SQ SCH ×2 (10:00→15:43)
[2020-10-24] MEDS: PANTOPRAZOLE 40 MG TABLET PO SCH (10:01)
[2020-10-24] MEDS: ESCITALOPRAM 20 MG TAB PO SCH (10:01)
[2020-10-24] MEDS: METOPROLOL TARTRATE 50 MG TAB PO SCH ×2 (10:01→20:09)
[2020-10-24] MEDS: lisinopriL 20 MG TAB PO SCH (10:01)
--- NOTE | 2020-10-24 11:04 | P.DS ---
Providers Date of admission: 10/21/20 17:30 Attending physician: Bassam Ocasio Consults: 10/21/20 17:32 Consult Physician Urgent Consulting Provider: Mary Aguilar Consult Reason/Comments: left foot cellulitis, possible gangrene left toe Do you want consulting provider notified?: Yes 10/22/20 15:33 Consult Physician Routine Consulting Provider: Martin Montgomery Consult Reason/Comments: left 2nd dibetic toe infection with hammer toe , possible amputation Do you want consulting provider notified?: Yes Primary care physician: [facility] Course: 60-year-old male with history of diabetes, neuropathy, hypertension, presenting to the emergency Department with complaints of increased left toe pain for the past 1-2 weeks. He does have a history of left great toe and right third digit amputation. He states over the past 2 weeks he's noticed increased pain in his left second toe, increase in discoloration and redness as well. He states there is also been some discharge from the toe as well. He states the pain has been radiating up into his left ankle. He denies any fever or chills. Denies any abdominal pain, no nausea or vomiting. He denies any trauma or injury. He has been seeing Dr. Aguilar for this. He has no further complaints at this time. Patient doesn't have any fever. Patient was started on mitomycin with significant improvement in redness of the toe patient had history of MRSA. Infectious disease was consulted. Patient has elevated serum creatinine of 1.5 baseline is around 1.1. Nonsteroidal anti-inflammatory medications and metformin were discontinued and patient will be started on sliding scale insulin. 10/23/2020 Patient remains on vancomycin creatinine from today is not available yet was evaluated by infectious disease and an ASCUS surgery and mask for surgery is recommending amputation of the second toe although his cellulitis significantly improved. 10/24/2020 Patient had amputation of the second metatarsophalangeal joint. Patient is clinically doing well not in pain at this time. If cleared by surgery and infectious disease patient will be discharged today discussing his elevated creatinine patient the most probably has chronic kidney disease stage III, metformin is contraindicated and the patient was started on Januvia. PHYSICAL EXAMINATION: GENERAL: The patient is alert and oriented x3, not in any acute distress. Well developed, well nourished. HEENT: Pupils are round and equally reacting to light. EOMI. No scleral icterus. No conjunctival pallor. Normocephalic, atraumatic. No pharyngeal erythema. No thyromegaly. CARDIOVASCULAR: S1 and S2 present. No murmurs, rubs, or gallops. PULMONARY: Chest is clear to auscultation, no wheezing or crackles. ABDOMEN: Soft, nontender, nondistended, normoactive bowel sounds. No palpable organomegaly. MUSCULOSKELETAL: No joint swelling or deformity. EXTREMITIES: No cyanosis, clubbing, or pedal edema. NEUROLOGICAL: Gross neurological examination did not reveal any focal deficits. SKIN: Is post amputation of the left the second great toe Assessment and Plan Plan: -Cellulitis of the left foot and second toe on the left side.: Patient is status post amputation, antibiotics as per infectious disease -Diabetic nephropathy -Type 2 diabetes mellitus: Patient was switched to Januvia because of above- mentioned reasons Chronic kidney disease stage III secondary to diabetic nephropathy -gastroesophageal reflux disease -Hypertension -Diabetic Peripheral neuropathy -Hypertension Patient Condition at Discharge: Stable Plan - Discharge Summary Discharge Rx Participant: Yes New Discharge Prescriptions: New sitaGLIPtin [Januvia] 50 mg PO DAILY #30 tab traMADol HCL [Ultram] 50 mg PO Q4HR PRN 3 Days #18 tab PRN Reason: Pain Discontinued metFORMIN HCL [Glucophage] 1,000 mg PO BID No Action Enalapril [Vasotec] 10 mg PO DAILY Escitalopram [Lexapro] 20 mg PO DAILY Omeprazole 20 mg PO BID Metoprolol Tartrate [Lopressor] 25 mg PO BID Discharge Medication List Enalapril [Vasotec] 10 mg PO DAILY 10/21/20 [History] Escitalopram [Lexapro] 20 mg PO DAILY 10/21/20 [History] Metoprolol Tartrate [Lopressor] 25 mg PO BID 10/21/20 [History] Omeprazole 20 mg PO BID 10/21/20 [History] sitaGLIPtin [Januvia] 50 mg PO DAILY #30 tab 10/24/20 [Rx] traMADol HCL [Ultram] 50 mg PO Q4HR PRN 3 Days #18 tab 10/24/20 [Rx] Follow up Appointment(s)/Referral(s): Uday Rojo DO [Primary Care Provider] - 11/01/20 2:30 pm Martin Montgomery MD [STAFF PHYSICIAN] - 11/02/20 11:00 am Mary Aguilar MD [STAFF PHYSICIAN] - 11/01/20 11:00 am Discharge Disposition: HOME SELF-CARE
[2020-10-24] MEDS: HYDROcodone/APAP 7.5-325MG 1 EACH TAB PO PRN (11:55)
[2020-10-24 11:57] LABS: Glucose,Whole Blood 200 mg/dL (75-99)
[2020-10-24] MEDS ORDERED: VANCOMYCIN TROUGH DUE 1 EACH MISC MISCELLANE ONE (12:00)
[2020-10-24] MEDS: VANCOMYCIN 1,500 MG in SODIUM CHLORIDE 0.9% 250 ML IVPB SCH (12:59)
--- NOTE | 2020-10-24 14:13 | P.PN ---
Subjective Progress Note Date: 10/24/20 HISTORY OF PRESENT ILLNESS This is a 60-year-old male status post left second toe amputation. Pain is cur rently controlled. He has an treated with vancomycin with plan for Bactrim at the time of discharge. Patient denies having any chest pain or shortness of breath. No cough. No abdominal pain, no diarrhea. Patient has been afebrile, heart rate 66, blood pressure 177/89, pulse ox 96% on room air. PHYSICAL EXAMINATION Gen: This is a 60-year-old male patient. He is resting in bed and appears to be comfortable and in no acute distress. HEENT: Head is atraumatic, normocephalic. Pupils equal, round. Sclerae is anicteric. NECK: Supple. No JVD. No lymphadenopathy. LUNGS: Clear to auscultation. No wheezes or rhonchi. No intercostal retractions. HEART: Regular rate and rhythm. No murmur. ABDOMEN: Soft. Bowel sounds are present. No masses. No tenderness. EXTREMITIES: No pedal edema. No calf tenderness. NEUROLOGICAL: Patient is awake, alert and oriented x3. ASSESSMENT Infected left second toe status post amputation PLAN Patient is cleared for discharge by infectious disease. Plan for Bactrim 1 twice daily for 7 day course at discharge. Prescription has been sent to his pharmacy. The above dictated assessment and findings were discussed with Dr. Aguilar. The impression and plan of care have been directed as dictated. Bere Au nurse practitioner acting as scribe for Dr. Aguilar. Objective - Vital Signs Vital signs: Vital Signs Temp 97.8 F 10/24/20 07:40 Pulse 66 10/24/20 10:10 Resp 18 10/24/20 10:10 BP 177/89 10/24/20 07:40 Pulse Ox 96 10/24/20 07:40 Intake & Output 10/23/20 10/24/20 10/24/20 18:59 06:59 18:59 Intake Total 1250 Output Total 3 Balance 1247 Intake: IV 350 Intake, IV Titration 750 Amount Sodium Chloride 0.9% 1, 500 000 ml @ 100 mls/hr IV . Q10H [facility] Rx#:[id number] Vancomycin 1,500 mg In 250 Sodium Chloride 0.9% 250 ml @ 125 mls/hr IVPB Q12H [facility] Rx#:[id number] Oral 150 Output: Estimated Blood Loss 3 Other: Voiding Method Toilet Toilet Urinal Urinal # Voids 2 3 - Labs CBC & Chem 7: 10/22/20 06:10 10/23/20 05:55 Labs: Abnormal Lab Results - Last 24 Hours (Table) 10/23/20 10/23/20 10/23/20 Range/Units 11:15 16:40 19:58 POC Glucose (mg/dL) 200 H 175 H 199 H (75-99) mg/dL 10/24/20 10/24/20 Range/Units 06:54 09:57 POC Glucose (mg/dL) 175 H 176 H (75-99) mg/dL Microbiology - Last 24 Hours (Table) 10/23/20 10:59 Gram Stain - Preliminary Toe - Left Second Tissue Culture - Preliminary 10/23/20 10:59 Anaerobic Culture - Preliminary Toe - Left Second
--- NOTE | 2020-10-24 14:27 | P.PN ---
Progress Note - Text 60-year-old gentleman patient had a left foot second toe amputation today we have seen incision site is clean and healing no discharge or redness noted patient is an IV antibiotic under care of infectious disease Plan is patient will go home tomorrow with the antibiotic by infectious disease and I'll follow in my office on Saturday advised walker partial weightbearing I will see him in my office on Saturday
[2020-10-24 17:01] LABS: Glucose,Whole Blood 175 mg/dL (75-99)
[2020-10-24 19:17] LABS: African American GFR (CKD) 63.3 (60.0-200.0); Anion Gap 5.5 mmol/L (4.00-12.00); Carbon Dioxide 24.5 mmol/L (21.6-31.8); Non-African American GFR(CKD) 54.6 (60.0-200.0); Potassium 4.6 mmol/L (3.5-5.5)
[2020-10-24 20:41] LABS: Glucose,Whole Blood 278 mg/dL (75-99)
[2020-10-25] MEDS: HEPARIN SODIUM,PORCINE 5,000 UNIT/ML 1 ML VIAL SQ SCH ×2 (00:09→08:46)
[2020-10-25] MEDS: SODIUM CHLORIDE 0.9% 1,000 ML IV SCH ×2 (00:10→03:06)
[2020-10-25 03:24] VITALS: TEMP 98
[2020-10-25] MEDS ORDERED: VANCOMYCIN 1,500 MG in SODIUM CHLORIDE 0.9% 250 ML IVPB SCH (06:00)
[2020-10-25 06:52] LABS: Glucose,Whole Blood 184 mg/dL (75-99)
[2020-10-25 07:28] VITALS: BP 155/80
[2020-10-25] MEDS: INSULIN ASPART (NovoLOG) 100 UNIT/ML VIAL SQ SCH (08:45)
[2020-10-25] MEDS: METOPROLOL TARTRATE 50 MG TAB PO SCH (08:46)
[2020-10-25] MEDS: PANTOPRAZOLE 40 MG TABLET PO SCH (08:46)
[2020-10-25] MEDS: ESCITALOPRAM 20 MG TAB PO SCH (08:47)
[2020-10-25] MEDS: lisinopriL 20 MG TAB PO SCH (08:47)
[2020-10-25 08:52] VITALS: PULSE 70
[2020-10-25 10:34] LABS: African American GFR (CKD) 63.3 (60.0-200.0); Anion Gap 21.9 mmol/L (4.00-12.00); Carbon Dioxide 23.1 mmol/L (21.6-31.8); Non-African American GFR(CKD) 54.6 (60.0-200.0); Potassium 4.5 mmol/L (3.5-5.5)
[2020-10-25 11:32] LABS: Glucose,Whole Blood 157 mg/dL (75-99)
--- NOTE | 2020-10-25 11:38 | P.DS ---
Providers Date of admission: 10/21/20 17:30 Attending physician: Bassam Ocasio Consults: 10/21/20 17:32 Consult Physician Urgent Consulting Provider: Mary Aguilar Consult Reason/Comments: left foot cellulitis, possible gangrene left toe Do you want consulting provider notified?: Yes 10/22/20 15:33 Consult Physician Routine Consulting Provider: Martin Montgomery Consult Reason/Comments: left 2nd dibetic toe infection with hammer toe , possible amputation Do you want consulting provider notified?: Yes Primary care physician: Uday [facility]ner[facility] Course: 60-year-old male with history of diabetes, neuropathy, hypertension, presenting to the emergency Department with complaints of increased left toe pain for the past 1-2 weeks. He does have a history of left great toe and right third digit amputation. He states over the past 2 weeks he's noticed increased pain in his left second toe, increase in discoloration and redness as well. He states there is also been some discharge from the toe as well. He states the pain has been radiating up into his left ankle. He denies any fever or chills. Denies any abdominal pain, no nausea or vomiting. He denies any trauma or injury. He has been seeing Dr. Aguilar for this. He has no further complaints at this time. Patient doesn't have any fever. Patient was started on mitomycin with significant improvement in redness of the toe patient had history of MRSA. Infectious disease was consulted. Patient has elevated serum creatinine of 1.5 baseline is around 1.1. Nonsteroidal anti-inflammatory medications and metformin were discontinued and patient will be started on sliding scale insulin. 10/23/2020 Patient remains on vancomycin creatinine from today is not available yet was evaluated by infectious disease and an ASCUS surgery and mask for surgery is recommending amputation of the second toe although his cellulitis significantly improved. 10/24/2020 Patient had amputation of the second metatarsophalangeal joint. Patient is clinically doing well not in pain at this time. If cleared by surgery and infectious disease patient will be discharged today discussing his elevated creatinine patient the most probably has chronic kidney disease stage III, metformin is contraindicated and the patient was started on Januvia. 10/25/2020 Because of poor kidney function cannot use Bactrim patient will be discharged on doxycycline. Patient will be discharged on glipizide for diabetes as Januvia is not covered by insurance PHYSICAL EXAMINATION: GENERAL: The patient is alert and oriented x3, not in any acute distress. Well developed, well nourished. HEENT: Pupils are round and equally reacting to light. EOMI. No scleral icterus. No conjunctival pallor. Normocephalic, atraumatic. No pharyngeal erythema. No thyromegaly. CARDIOVASCULAR: S1 and S2 present. No murmurs, rubs, or gallops. PULMONARY: Chest is clear to auscultation, no wheezing or crackles. ABDOMEN: Soft, nontender, nondistended, normoactive bowel sounds. No palpable organomegaly. MUSCULOSKELETAL: No joint swelling or deformity. EXTREMITIES: No cyanosis, clubbing, or pedal edema. NEUROLOGICAL: Gross neurological examination did not reveal any focal deficits. SKIN: Is post amputation of the left the second great toe Assessment and Plan Plan: -Cellulitis of the left foot and second toe on the left side.: Patient is status post amputation, antibiotics as per infectious disease -Diabetic nephropathy -Type 2 diabetes mellitus: Patient was switched to Januvia because of above- mentioned reasons Chronic kidney disease stage III secondary to diabetic nephropathy -gastroesophageal reflux disease -Hypertension -Diabetic Peripheral neuropathy -Hypertension Patient Condition at Discharge: Stable Plan - Discharge Summary Discharge Rx Participant: Yes New Discharge Prescriptions: New traMADol HCL [Ultram] 50 mg PO Q4HR PRN 3 Days #18 tab PRN Reason: Pain Doxycycline Monohydrate [Monodox] 100 mg PO Q12HR #20 cap glipiZIDE [Glucotrol] 5 mg PO AC-BRKFST #30 tab Discontinued metFORMIN HCL [Glucophage] 1,000 mg PO BID No Action Enalapril [Vasotec] 10 mg PO DAILY Escitalopram [Lexapro] 20 mg PO DAILY Omeprazole 20 mg PO BID Metoprolol Tartrate [Lopressor] 25 mg PO BID Discharge Medication List Enalapril [Vasotec] 10 mg PO DAILY 10/21/20 [History] Escitalopram [Lexapro] 20 mg PO DAILY 10/21/20 [History] Metoprolol Tartrate [Lopressor] 25 mg PO BID 10/21/20 [History] Omeprazole 20 mg PO BID 10/21/20 [History] traMADol HCL [Ultram] 50 mg PO Q4HR PRN 3 Days #18 tab 10/24/20 [Rx] Doxycycline Monohydrate [Monodox] 100 mg PO Q12HR #20 cap 10/25/20 [Rx] glipiZIDE [Glucotrol] 5 mg PO AC-BRKFST #30 tab 10/25/20 [Rx] Follow up Appointment(s)/Referral(s): Uday Rojo DO [Primary Care Provider] - 11/01/20 2:30 pm Martin Montgomery MD [STAFF PHYSICIAN] - 11/02/20 11:00 am Mary Aguilar MD [STAFF PHYSICIAN] - 11/01/20 11:00 am Patient Instructions/Handouts: Cellulitis (DC), Osteomyelitis (DC) Discharge Disposition: HOME SELF-CARE
--- NOTE | 2020-10-25 12:41 | PN ---
PROGRESS NOTE DATE OF SERVICE: 10/25/2020 REASON FOR FOLLOWUP: Left diabetic foot infection with second toe hammertoe deformity infection. INTERVAL HISTORY: The patient is currently afebrile. Patient is feeling better. Breathing comfortably. Patient denies having any chest pain or cough. No nausea, no vomiting. No abdominal pain. No pain to the left foot wound area. PHYSICAL EXAMINATION: Blood pressure 155/80 with a pulse of 57, temperature 98. He is 95% on room air. General description is a middle-aged male lying in bed in no distress. RESPIRATORY SYSTEM: Unlabored breathing, clear to auscultation anteriorly. HEART: S1, S2. Regular rate and rhythm. ABDOMEN: Soft, no tenderness. Left foot is currently dressed up. LABS: Creatinine 1.4. Wound culture finalized with MRSA. DIAGNOSTIC IMPRESSION AND PLAN: Patient with left second toe diabetic foot infection has the infected part removed, the patient not bacteremia. We will switch him over to doxycycline 100 mg twice a day for 10 days and close outpatient followup. Plan of care was discussed with the admitting physician working on discharge. MMODL / IJN: [id number] /
== END 2020-10-25 12:16 | disposition home or self-care (01) | DRG 617 ==
LOC: EC 14:02 → 4SSUR 17:30
PROVIDERS: ADMIT Hospitalist; ATTEND Hospitalist
PROC: 0Y6S0Z0 Detachment at Left 2nd Toe, Complete, Open Approach (ICD-10-PCS; principal; 2020-10-23 09:30)
DX: E11.628 Type 2 diabetes mellitus with other skin complications (principal); L03.116 Cellulitis of left lower limb; L97.529 Non-pressure chronic ulcer of other part of left foot with unspecified severity; E11.22 Type 2 diabetes mellitus with diabetic chronic kidney disease; N18.30 Chronic kidney disease, stage 3 unspecified; Z89.412 Acquired absence of left great toe; Z89.421 Acquired absence of other right toe(s); E11.42 Type 2 diabetes mellitus with diabetic polyneuropathy; E11.621 Type 2 diabetes mellitus with foot ulcer; I12.9 Hypertensive chronic kidney disease with stage 1 through stage 4 chronic kidney disease, or unspecified chronic kidney disease; E78.5 Hyperlipidemia, unspecified; J45.909 Unspecified asthma, uncomplicated; K21.9 Gastro-esophageal reflux disease without esophagitis; M20.42 Other hammer toe(s) (acquired), left foot; Z79.84 Long term (current) use of oral hypoglycemic drugs; Z79.899 Other long term (current) drug therapy; Z86.14 Personal history of Methicillin resistant Staphylococcus aureus infection; Z87.891 Personal history of nicotine dependence; Z88.3 Allergy status to other anti-infective agents; Z83.3 Family history of diabetes mellitus
CPT/HCPCS: 36415; 80048; 80053; 80202; 83605; 85025; 85652; 86140; 87070; 87075; 87077; 87186; 87205; 96365; 96375; 99284